=== PATIENT | male | born 1960 | race Asian ===

== ENCOUNTER 2018-05-17 12:09 | Inpatient (IN) | payer OTHER ==
[~2018-05-17] VITALS: Ht 167.6 cm; Wt 70.6 kg
[2018-05-17] VITALS (28 sets, daily range): BP systolic 90–121; BP diastolic 48–78; PULSE 84–95; RESP 12–31; Ht 167.6 cm; Wt 70.6 kg
[2018-05-17] MEDS: SOD CHLORIDE 0.9% 1,000 ML IV SCH (01:30)
[~2018-05-17 12:09] MED LIST: ALBUMIN HUMAN 25% 100 ML INJ ONE; ALBUMIN HUMAN 5% 250 ML INJ ONE; CA CHLORIDE 10% 10 ML SYRINGE ONE; CEFAZOLIN 1 GM INJ ONE; KETAMINE (50 MG/ML) 10 ML VIAL ONE; NA BICARBONATE 8.4% 50 ML SYG ONE; ONDANSETRON 4 MG INJ ONE; metroNIDAZOLE 500 MG/100 ML NS IVPB ONE
[2018-05-17] MEDS ORDERED: SOD CHLORIDE 0.9% 1,000 ML IV STA (15:14)
[2018-05-17] MEDS ORDERED: morphine 4 MG/ML VIAL IV STA ×2 (15:14→17:25)
[2018-05-17] MEDS ORDERED: ONDANSETRON 4 MG INJ IV STA (15:14)
[2018-05-17] MEDS ORDERED: KETOROLAC 30 MG INJ IV STA (15:49)
[2018-05-17] MEDS ORDERED: ALLO100T PO (16:15)
[2018-05-17] MEDS ORDERED: FURO40TA4 PO (16:15)
[2018-05-17] MEDS ORDERED: ACET-141 PO (16:16)
[2018-05-17] MEDS ORDERED: COLC0.6C3 PO (16:17)
[2018-05-17] MEDS ORDERED: HYDR25TA6 PO (16:19)
[2018-05-17] MEDS ORDERED: SODIUM CHLORIDE 0.9% 1L BAG IV* STA (16:25)
[2018-05-17] MEDS ORDERED: PIPER-TAZO 3.375 GM IV (PMX) 100 ML IVPB ONE (16:30)
--- NOTE | 2018-05-17 16:57 | HP ---
Date/Time of Note Date/Time of Note DATE: 05/17/18 TIME: 16:57 Assessment/Plan VTE Prophylaxis Pharmacological prophylaxis: NA/contraindicated Pharm contraindication: other (Patient going for emergent surgery.) Lines/Catheters IV C[facility]ter Type (from [facility]): Saline Lock Assessment/Plan Hospital Course 57-year-old male with comorbidities including gout, arthritis, congestive heart failure, substance abuse, nicotine use, and schizophrenia who came to the emergency room with chief complaint of abdominal pain with imaging studies s howing pneumoperitoneum concerning for bowel perforation, who was admitted to inpatient setting for further treatment and evaluation. 1. Pneumoperitoneum. -Suspect underlying bowel perforation. -Emergency surgical consult done. -The patient to be taken to the OR. -Start broad-spectrum antimicrobial therapy including coverage for anaerobes. -Continue IV fluids. -Start PPI. 2. Sepsis with underlying leukocytosis, lactic acidosis, bandemia, and tachycardia, present on admission secondary to underlying peritonitis. -Emergency surgical exploration. -Start antimicrobial therapy including coverage for anaerobes. -Judicious use of IV fluids. -Monitor for any septic shock. 3. Acute kidney injury. -Unknown baseline creatinine. -Use nephrotoxic drugs with caution. 4. Hyperkalemia. -Most probably secondary to #2. -IV calcium gluconate. 5. Reported congestive heart failure exacerbation. -Judicious use of fluids. -Obtain BNP. -Obtain 2D echocardiogram. 6. Gout. -Hold NSAIDs because of need for emergent surgery and possible underlying peptic ulcer. 7. Substance abuse. -Obtain a urine drug screen. -Cessation will be advised. 8. Right first toe wound with eschar. -Obtain podiatry consult. Plan: The patient will be admitted to inpatient setting. The patient will be kept n.p.o. The patient will be started on DVT prophylaxis (bilateral SCDs) and gastrointestinal prophylaxis. The patient will remain a full code. Activities will be bedrest. The rest of the patient's management will be based on the clinical course, inputs from consultants and the results of diagnostic studies. The patient was seen in collaboration with Dr. Alamo. Result Diagram: 05/17/18 1525 05/17/18 1525 Results 24hrs Laboratory Tests Test 05/17/18 15:25 05/17/18 16:48 White Blood Count 15.3 H Red Blood Count 3.73 L Hemoglobin 11.7 L Hematocrit 36.0 L Mean Corpuscular Volume 96.5 Mean Corpuscular Hemoglobin 31.4 Mean Corpuscular Hemoglobin Concent 32.5 Red Cell Distribution Width 16.1 H Platelet Count 498 H Mean Platelet Volume 9.0 Immature Granulocytes % 1.000 H Neutrophils % Lymphocytes % Monocytes % Eosinophils % Basophils % Nucleated Red Blood Cells % 0.2 H Immature Granulocytes # 0.150 H Neutrophils # Lymphocytes # Monocytes # Eosinophils # Basophils # Nucleated Red Blood Cells # Sodium Level 139 Potassium Level 5.4 H Chloride Level 104 Carbon Dioxide Level 24 Anion Gap 11 Blood Urea Nitrogen 40 H Creatinine 2.00 H Est Glomerular Filtrat Rate mL/min 35 L Glucose Level 76 Calcium Level 9.0 Total Bilirubin 0.5 Direct Bilirubin 0.00 Indirect Bilirubin 0.5 Aspartate Amino Transf (AST/SGOT) 36 Alanine Aminotransferase (ALT/SGPT) 17 Alkaline Phosphatase 203 H Troponin I < 0.012 Total Protein 7.0 Albumin 3.3 Globulin 3.70 H Albumin/Globulin Ratio 0.89 Lipase 206 POC Venous Lactate 2.3 *H HPI/ROS Admit Date/Time Admit Date/Time Hx of Present Illness Reason for admission: Abdominal pain. Pneumoperitoneum on radiographic imaging. Consultants 1. Kevon Bhatt MD, General surgery. This is a 57-year-old male with a past medical history of gout, arthritis, substance abuse, nicotine use, and congestive heart failure. The patient came to the emergency room with chief complaint of 3 days of abdominal pain. The patient denied any vomiting or nausea. The patient was complaining of diarrhea. The patient denied any fevers or chills. The patient denied any dyspnea, chest pain, palpitations, or diaphoresis. The patient's emergency room workup showed leukocytosis (15.3). Patient was also noticed to have a BUN and creatinine of 40 and 2.0 respectively. The patient had underlying lactic acidosis. The patient also had hyperkalemia. The patient underwent a CT scan of the abdomen and pelvis that showed pneumoperitoneum consistent with bowel perforation along with moderate ascites. ROS R Constitutional: no complaints Eyes: no complaints ENT: no complaints Respiratory: no complaints Cardiovascular: edema Gastrointestinal: pain, diarrhea Genitourinary: no complaints Musculoskeletal: bone/joint pain Skin: no complaints Neurologic: no complaints Endocrine: no complaints Lymphatic: lymphadema Psychological: anxiety Immunologic: no complaints PMH/Family/Social Past Medical History 1. Gout. 2. CHF. 3. Schizophrenia. 4. Nicotine use. 5. Substance abuse. Medications Current Medications Piperacillin Sod/ Tazobactam Sod 100 ml @ 200 mls/hr ONCE ONCE IVPB Last administered on 05/17/18at 16:41; Admin Dose 200 MLS/HR; Start 05/17/18 at 16:30; Stop 05/17/18 at 16:59 Ondansetron HCl (Zofran Inj) 4 mg BRIDGE ORDER PRN IV NAUSEA/VOMITING; Start 05/17/18 at 17:00; Stop 05/18/18 at 16:59 Acetaminophen (Tylenol Tab) 650 mg ER BRIDGE PRN PO .MILD PAIN 1-3 OR TEMP; Start 05/17/18 at 17:00; Stop 05/18/18 at 16:59 Coded Allergies: No Known Allergy (Unverified , 05/17/18) Past Surgical History Past Surgical Hx: no surgical history Social History The patient lives at home by himself. Alcohol Use: none Smoking Status: Current every day smoker Drug Use: cocaine, marijuana Exam/Review of Systems Vital Signs Vitals Vital Signs Date Temp Pulse Resp B/P (MAP) Pulse Ox O2 O2 Flow FiO2 Time Delivery Rate 05/17/18 93 28 105/75 100 Room Air 16:47 (85) 05/17/18 98.1 12:10 Exam Exam General: Adequately build 57 year-old male lying in bed in no apparent distress. HEENT: Normocephalic, atraumatic. Eyes: Anicteric sclerae, conjunctivae clear. ENT: Nasal septum midline, oral mucosa moist. Neck supple, JVD noticed. Respiratory: Bilaterally diminished breath sounds. No use of accessory muscles of respiration. Bibasilar rales. Cardiovascular: S1, S2 heard. Regular rate and rhythm. Systolic murmur. Abdomen: Distended. Diffuse tenderness with abdominal guarding. Genitourinary: Deferred. Extremities: No cyanosis, no clubbing. B/L LE 2+ pitting edema. Eschar on the lateral side of the right first toe. Neurologic: Cranial nerves II through XII grossly intact. The patient is awake, alert, and oriented. Additional Comments CT Abdomen & Pelvis IMPRESSION: 1. Pneumoperitoneum consistent with bowel perforation. Site of perforation is unclear. Scattered upper abdominal peritoneal flecks of high-density material which is also seen in the cecum suggesting a possible colonic perforation. 2. Moderate ascites. 3. Wall thickening of the gastric antrum and multiple small bowel loops. Question gastritis/enteritis. 4. Severe cardiomegaly. 5. Possible mild cirrhotic changes of the liver. Gallbladder Ultrasound IMPRESSION: Heterogeneous liver with a nodular contour, suspicious for cirrhosis. Moderate amount of ascites with multiple septations. No evidence of gallstones. MI SYED NP May 17, 2018 16:57
[2018-05-17] MEDS ORDERED: ACETAMINOPHEN 325 MG TAB PO PRN (17:00)
[2018-05-17] MEDS ORDERED: ONDANSETRON 4 MG INJ IV PRN ×3 (17:00→22:00)
[2018-05-17] MEDS ORDERED: CALCIUM GLUCONATE 10% 2 GM in DEXTROSE 5% 100 ML IVPB ONE (17:30)
[2018-05-17] MEDS ORDERED: NACL 0.9% 3 ML SYG IV SCH (17:30)
--- NOTE | 2018-05-17 17:39 | ERD ---
ER Documentation Chief Complaint Chief Complaint abdominal pain with n/v HPI Patient is a 57-year-old male with CHF and hypertension who presents with abdominal pain. The patient has diffuse abdominal pain that he rates as a 10 out of 10. He has nausea but no vomiting. He had shortness of breath as well. He did have one episode of diarrhea this morning. He was brought in by ambulance. He was seen by his nurse practitioner yesterday and was sent to the ER for evaluation. Upon review of old medical records this is the patient's first visit to the emergency department. ROS All systems reviewed and are negative except as per history of present illness. Medications Home Meds Reported Medications Colchicine (Mitigare) 0.6 Mg Capsule, 0.6 MG PO BID, CAP NOT STARTED YET (NEW PRESCRIPTION) 05/17/18 Acetaminophen* (Acetaminophen*) 500 MG Extra Strength Tablet, 1000 MG PO Q3H PRN for PAIN AND OR ELEVATED TEMP, TAB 05/17/18 Allopurinol* (Allopurinol*) 100 Mg Tablet, 100 MG PO DAILY, TAB 05/17/18 Furosemide* (Furosemide*) 40 Mg Tablet, 40 MG PO DAILY, TAB 05/17/18 Discontinued Reported Medications Hydrochlorothiazide* (Hydrochlorothiazide*) 25 Mg Tab, 25 MG PO DAILY, #30 TAB 05/17/18 Allergies Allergies: Coded Allergies: No Known Allergy (Unverified , 05/17/18) PMhx/Soc Medical and Surgical Hx: pt denies Medical Hx, pt denies Surgical Hx History of Surgery: No Anesthesia Reaction: No Hx Neurological Disorder: No Hx Respiratory Disorders: No Hx Cardiac Disorders: Yes (CHF) Hx Psychiatric Problems: Yes (schizophrenia) Hx Miscellaneous Medical Probl: No Hx Alcohol Use: No Hx Substance Use: Yes (marijuana, cocaine, crystal meth (1 mo. ago)) Hx Tobacco Use: Yes (a couple cigs/day) Smoking Status: Current every day smoker FmHx Family History: diabetes Physical Exam Vitals Vital Signs Date Temp Pulse Resp B/P (MAP) Pulse Ox O2 O2 Flow FiO2 Time Delivery Rate 05/17/18 93 28 105/75 100 Room Air 16:47 (85) 05/17/18 92 20 98/73 (81) 100 Room Air 15:15 05/17/18 98.1 94 18 111/74 98 12:10 (86) Physical Exam Const: No acute distress Head: Atraumatic Eyes: Normal Conjunctiva ENT: Normal External Ears, Nose and Mouth. Neck: Full range of motion. No meningismus. Resp: Clear to auscultation bilaterally Cardio: Regular rate and rhythm, no murmurs Abd: Distended abdomen with rigidity and tenderness to palpation diffusely Skin: No petechiae or rashes Back: No midline or flank tenderness Ext: No cyanosis, or edema Neur: Awake and alert Psych: Normal Mood and Affect Result Diagram: 05/17/18 1525 05/17/18 1525 Results 24 hrs Laboratory Tests Test 05/17/18 15:25 05/17/18 16:48 White Blood Count 15.3 10^3/ul Red Blood Count 3.73 10^6/ul Hemoglobin 11.7 g/dl Hematocrit 36.0 % Mean Corpuscular Volume 96.5 fl Mean Corpuscular Hemoglobin 31.4 pg Mean Corpuscular Hemoglobin Concent 32.5 g/dl Red Cell Distribution Width 16.1 % Platelet Count 498 10^3/UL Mean Platelet Volume 9.0 fl Immature Granulocytes % 1.000 % Neutrophils % % Segmented Neutrophils % (Manual) 13 % Band Neutrophils % (Manual) 68 % Lymphocytes % % Lymphocytes % (Manual) 5 % Reactive Lymphocytes % (Manual) 6 % Monocytes % % Monocytes % (Manual) 8 % Eosinophils % % Basophils % % Nucleated Red Blood Cells % 0.2 /100WBC Immature Granulocytes # 0.150 10^3/ul Neutrophils # 10^3/ul Neutrophils # (Manual) 3.6 10^3/ul Band Neutrophils # 10.4 10^3/ul Lymphocytes (Manual) 0.7 10^3/ul Lymphocytes # 10^3/ul Reactive Lymphocytes # 0.9 10^3/ul Monocytes # 10^3/ul Monocytes # (Manual) 1.2 10^3/ul Eosinophils # 10^3/ul Basophils # 10^3/ul Nucleated Red Blood Cells # 10^3/ul Platelet Estimate INCREASED Polychromasia 1+ Poikilocytosis 1+ Anisocytosis 1+ Macrocytosis 1+ Sodium Level 139 mmol/L Potassium Level 5.4 mmol/L Chloride Level 104 mmol/L Carbon Dioxide Level 24 mmol/L Anion Gap 11 Blood Urea Nitrogen 40 mg/dl Creatinine 2.00 mg/dl Est Glomerular Filtrat Rate mL/min 35 mL/min Glucose Level 76 mg/dl Calcium Level 9.0 mg/dl Total Bilirubin 0.5 mg/dl Direct Bilirubin 0.00 mg/dl Indirect Bilirubin 0.5 mg/dl Aspartate Amino Transf (AST/SGOT) 36 IU/L Alanine Aminotransferase (ALT/SGPT) 17 IU/L Alkaline Phosphatase 203 IU/L Troponin I < 0.012 ng/ml Total Protein 7.0 g/dl Albumin 3.3 g/dl Globulin 3.70 g/dl Albumin/Globulin Ratio 0.89 Lipase 206 U/L POC Venous Lactate 2.3 mmol/L Current Medications Medications Dose Sig/Jocelyn Start Time Status Last (Trade) Ordered Route PRN Stop Time Admin Dose Reason Admin Sodium 1,000 ml @ Q1H STAT 05/17/18 DC 05/17/18 Chloride 1,000 mls/hr IV 15:14 05/17/18 15:54 16:26 Morphine 4 mg ONCE STAT 05/17/18 DC Sulfate IV 15:14 05/17/18 (morphine) 15:16 Ondansetron 4 mg ONCE STAT 05/17/18 DC 05/17/18 HCl (Zofran IV 15:14 05/17/18 15:54 Inj) 15:16 Ketorolac 30 mg ONCE STAT 05/17/18 DC 05/17/18 Tromethamine IV 15:49 05/17/18 15:54 (Toradol) 15:50 Sodium 2,040 ml BOLUS OVER 2 05/17/18 DC 05/17/18 Chloride HOURS STAT 16:25 05/17/18 16:41 (NS) IV* 16:26 Piperacillin 100 ml @ ONCE ONCE 05/17/18 DC 05/17/18 Sod/ 200 mls/hr IVPB 16:30 05/17/18 16:41 Tazobactam 16:59 Sod Ondansetron 4 mg BRIDGE ORDER 05/17/18 HCl (Zofran PRN IV 17:00 05/18/18 Inj) NAUSEA/VOMITI 16:59 NG 650 mg ER BRIDGE 05/17/18 Acetaminophen PRN PO 17:00 05/18/18 (Tylenol .MILD PAIN 16:59 Tab) 1-3 OR TEMP Piperacillin 100 ml @ Q6 IVPB 05/17/18 DC Sod/ 200 mls/hr 18:00 05/17/18 Tazobactam 18:00 Sod 50 ml @ Q12 IVPB 05/17/18 UNV Meropenem/Sod 100 mls/hr 21:00 ium Chloride 40 mg BID@06,18 05/17/18 UNV Pantoprazole IV 18:00 (Protonix Iv) Sodium 1,000 ml @ Q10H IV 05/17/18 UNV Chloride 100 mls/hr 17:30 IV Flush 3 ml PER 05/17/18 UNV (NS 3 ml) PROTOCOL IV 17:30 Ondansetron 4 mg Q6H PRN 05/17/18 UNV HCl (Zofran IV 17:30 Inj) NAUSEA/VOMITI NG Morphine 2 mg Q4H PRN 05/17/18 UNV Sulfate IV .PAIN 17:30 (morphine) 7-10 Calcium 120 ml @ ONCE ONCE 05/17/18 UNV Gluconate 2 60 mls/hr IVPB 17:30 05/17/18 gm/Dextrose 19:29 Morphine 4 mg ONCE STAT 05/17/18 DC 05/17/18 Sulfate IV 17:25 05/17/18 17:30 (morphine) 17:26 Procedures/MDM CT abdomen pelvis shows perforated bowel per radiology. Sepsis Documentation: Patient's infectious symptoms have not stabilized and the patient is at risk of rapid decompensation. The patient will be admitted for careful hydration, antibiotic therapy, and infectious source control. SEVERE SEPSIS CRITERIA: Infectious source: Perforated bowel End organ damage indicated by: Lactate greater than 2 SEPSIS MANAGEMENT Time of recognition of sepsis: 4:21 PM at the time of the CT scan report showing perforated bowel. Time of recognition of severe sepsis: 4:28P at the time of the lactic acid of 2.3. Time of recognition of septic shock: No septic shock at this time. 3 HOUR BUNDLE Blood cultures x 2 before broad-spectrum antibiotics: Yes 30 ml/kg NS bolus completed Initial lactate 2.3 Repeat lactate pending SEPTIC SHOCK ASSESSMENT: No lactic acid > 4.0 No persistent hypotension (SBP < 90 or 40 mmHg drop, MAP < 65) despite 30 mL/kg IV fluid bolus VOLUME REASSESSMENT FOR SEPTIC SHOCK: No septic shock at this time PERSISTENT HYPOTENSION TREATMENT: Comfort care no Central line not Required Vasopressor started not required I considered further perfusion assessment with CVP measurement, SCVO2, bedside ultrasound volume assessment, passive leg raise, trial of further fluid bolus. And proceeded with 30 ml/kg fluid bolus of NSS, broad spectrum antibiotics, and admission. I spoke with Dr. Bhatt for consultation and the patient will go to the operating room given the perforated bowel. I spoke with the panel team for admission to a medical surgical bed. CRITICAL CARE Critical care time 35 minutes Emergent fluid management while maintaining close respiratory support. Provision of immediate and broad-spectrum antibiotic therapy. Simultaneous assessment for possible sources in order to direct targeted therapy. Consideration for invasive and chemical support to prevent cardiopulmonary collapse. Critical care time is independent of procedures performed. Departure Diagnosis: Primary Impression: Severe sepsis Additional Impressions: Perforated bowel Abdominal pain Abdominal location: generalized Qualified Codes: R10.84 - Generalized abdominal pain Condition: Serious GALE COULTER MD May 17, 2018 17:39
--- NOTE | 2018-05-17 17:52 | PREAC ---
Date/Time of Note Date/Time of Note DATE: 05/17/18 TIME: 17:45 Anesthesia Eval and Record Evaluation Time Pre-Procedure Interview DATE: 05/17/18 TIME: 17:45 Age 57 Sex male NPO: 8 hrs Preoperative diagnosis pneumoperitoneum, possible GI perforation Planned procedure emergent Exlap Past Medical History Past Medical History: Includes Cardio: HTN, Dyslipidemia, CHF Pulm: Smoking Hx Renal: CKD Hepatic: Alcohol abuse, Other GI: Other (bowel/GI perforation) Heme: Anemia Psych: Depression, Other (schizophrenia) Recreational drugs: Marijuana, Cocaine, Other (meth use) Surgery & Anesthesia Issues Aspiration risk Meds Anticoagulation: No Beta Bradley within 24 hr: No Reason Beta Bradley not given: Allergy Reported Medications Colchicine (Mitigare) 0.6 Mg Capsule, 0.6 MG PO BID, CAP NOT STARTED YET (NEW PRESCRIPTION) 05/17/18 Acetaminophen* (Acetaminophen*) 500 MG Extra Strength Tablet, 1000 MG PO Q3H PRN for PAIN AND OR ELEVATED TEMP, TAB 05/17/18 Allopurinol* (Allopurinol*) 100 Mg Tablet, 100 MG PO DAILY, TAB 05/17/18 Furosemide* (Furosemide*) 40 Mg Tablet, 40 MG PO DAILY, TAB 05/17/18 Discontinued Reported Medications Hydrochlorothiazide* (Hydrochlorothiazide*) 25 Mg Tab, 25 MG PO DAILY, #30 TAB 05/17/18 Current Medications Ondansetron HCl (Zofran Inj) 4 mg BRIDGE ORDER PRN IV NAUSEA/VOMITING; Start 05/17/18 at 17:00; Stop 05/18/18 at 16:59 Acetaminophen (Tylenol Tab) 650 mg ER BRIDGE PRN PO .MILD PAIN 1-3 OR TEMP; Start 05/17/18 at 17:00; Stop 05/18/18 at 16:59 Meropenem/Sodium Chloride 50 ml @ 100 mls/hr Q12 IVPB ; Start 05/17/18 at 21:00; Status UNV Pantoprazole (Protonix Iv) 40 mg BID@06,18 IV ; Start 05/17/18 at 18:00; Status UNV Sodium Chloride 1,000 ml @ 100 mls/hr Q10H IV ; Start 05/17/18 at 17:30; Status UNV IV Flush (NS 3 ml) 3 ml PER PROTOCOL IV ; Start 05/17/18 at 17:30; Status UNV Ondansetron HCl (Zofran Inj) 4 mg Q6H PRN IV NAUSEA/VOMITING; Start 05/17/18 at 17:30; Status UNV Morphine Sulfate (morphine) 2 mg Q4H PRN IV .PAIN 7-10; Start 05/17/18 at 17:30; Status UNV Calcium Gluconate 2 gm/Dextrose 120 ml @ 60 mls/hr ONCE ONCE IVPB ; Start 05/17/18 at 17:30; Stop 05/17/18 at 19:29; Status UNV Meds reviewed: Yes Allergies Coded Allergies: No Known Allergy (Unverified , 05/17/18) Allergies Reviewed: Yes Labs/Studies Labs Reviewed: Reviewed by anesthesiologist Result Diagram: 05/17/18 1525 05/17/18 1525 Laboratory Tests 05/17/18 15:25 Blood Bank Test 05/17/18 16:40 Antibody Screen NEGATIVE Blood Type O POSITIVE test: N/A Studies: ECG, CXR Pre-procedure Exam Last vitals Vital Signs Date Temp Pulse Resp B/P (MAP) Pulse Ox O2 O2 Flow FiO2 Time Delivery Rate 05/17/18 93 28 105/75 100 Room Air 16:47 (85) 05/17/18 98.1 12:10 Airway: Adequate mouth opening, Adequate thyromental dist Mallampati: Mallampati III Teeth: Normal Lung: Normal Heart: Normal ASA Physical Status ASA physical status: 3 Emergency: E Planned Anesthetic General/MAC: ETT, A Line, CVP Planned Pain Management Single shot nerve block, Parenteral pain med, Local by surgeon Pre-operative Attestations Prior to commencing anesthesia and surgery, the patient was re-evaluated, there was verification of: *The patient's identity *The results of appropriate recent lab work and preoperative vital signs *The above evaluation not changing prior to induction *Anesthetic plan, risk benefits, alternative and complications discussed with patient/family; questions answered; patient/family understands, accepts and wishes to proceed. AL CARMEN MD May 17, 2018 17:52
[2018-05-17] MEDS ORDERED: PIPER-TAZO 3.375 GM IV (PMX) 100 ML IVPB SCH (18:00)
[2018-05-17] MEDS: PANTOPRAZOLE 40 MG INJ IV SCH (18:00)
--- NOTE | 2018-05-17 18:53 | CONS ---
Assessment/Plan Assessment/Plan Assessment/Plan (Daily) Perforated viscus Plan: Emergency exploratory laparotomy. I have discussed the surgery possibilities with the patient who has given informed consent. Consultation Date/Type/Reason Admit Date/Time Date of Consultation: May 17, 2018 Type of Consult General surgery Reason for Consultation Perforated viscus Date/Time of Note DATE: 05/17/18 TIME: 18:49 Hx of Present Illness This is the first [facility] visit for this 57-year-old male who presents with severe diffuse abdominal pain. CT scan shows a large amount of pneumoperitoneum with source possibly of colonic origin. Review of systems Head ears eyes nose and throat: Unremarkable Pulmonary: No history of asthma, pneumonia or shortness of breath Cardiac: No known history of chest pain or HI Abdomen: No previous abdominal surgeries. As in the HPI Constitutional: Schizophrenia Past Medical History Medical History: no pertinent history Home Meds Reported Medications Colchicine (Mitigare) 0.6 Mg Capsule, 0.6 MG PO BID, CAP NOT STARTED YET (NEW PRESCRIPTION) 05/17/18 Acetaminophen* (Acetaminophen*) 500 MG Extra Strength Tablet, 1000 MG PO Q3H PRN for PAIN AND OR ELEVATED TEMP, TAB 05/17/18 Allopurinol* (Allopurinol*) 100 Mg Tablet, 100 MG PO DAILY, TAB 05/17/18 Furosemide* (Furosemide*) 40 Mg Tablet, 40 MG PO DAILY, TAB 05/17/18 Discontinued Reported Medications Hydrochlorothiazide* (Hydrochlorothiazide*) 25 Mg Tab, 25 MG PO DAILY, #30 TAB 05/17/18 Medications Current Medications Ondansetron HCl (Zofran Inj) 4 mg BRIDGE ORDER PRN IV NAUSEA/VOMITING; Start 05/17/18 at 17:00; Stop 05/18/18 at 16:59 Acetaminophen (Tylenol Tab) 650 mg ER BRIDGE PRN PO .MILD PAIN 1-3 OR TEMP; Start 05/17/18 at 17:00; Stop 05/18/18 at 16:59 Meropenem/Sodium Chloride 50 ml @ 100 mls/hr Q12 IVPB ; Start 05/17/18 at 21:00 Pantoprazole (Protonix Iv) 40 mg BID@06,18 IV ; Start 05/17/18 at 18:00 Sodium Chloride 1,000 ml @ 100 mls/hr Q10H IV ; Start 05/17/18 at 17:30 IV Flush (NS 3 ml) 3 ml PER PROTOCOL IV ; Start 05/17/18 at 17:30 Ondansetron HCl (Zofran Inj) 4 mg Q6H PRN IV NAUSEA/VOMITING; Start 05/17/18 at 17:30 Morphine Sulfate (morphine) 2 mg Q4H PRN IV .PAIN 7-10; Start 05/17/18 at 17:30 Calcium Gluconate 2 gm/Dextrose 120 ml @ 60 mls/hr ONCE ONCE IVPB ; Start 05/17/18 at 17:30; Stop 05/17/18 at 19:29 Allergies: Coded Allergies: No Known Allergy (Unverified , 05/17/18) Past Surgical History Past Surgical Hx: no surgical history Family History Significant Family History: no pertinent family hx Social History Alcohol Use: none Smoking Status: Current every day smoker Drug Use: cocaine, marijuana Exam/Review of Systems Exam Vitals Vital Signs Date Temp Pulse Resp B/P (MAP) Pulse Ox O2 O2 Flow FiO2 Time Delivery Rate 05/17/18 94 20 94/70 (78) 94 Room Air 18:07 05/17/18 98.1 12:10 Constitutional: alert, oriented Psych: no complaints Head: normocephalic ENMT: nl external ears & nose Neck: supple Respiratory: clear to auscultation Gastrointestinal: tender, other (Rigid) Musculoskeletal: nl extremities to inspection Extremities: normal pulses Results Result Diagram: 05/17/18 1525 05/17/18 1525 Results 24hrs Laboratory Tests Test 05/17/18 15:25 05/17/18 16:48 05/17/18 18:41 White Blood Count 15.3 H Red Blood Count 3.73 L Hemoglobin 11.7 L Hematocrit 36.0 L Mean Corpuscular Volume 96.5 Mean Corpuscular Hemoglobin 31.4 Mean Corpuscular Hemoglobin Concent 32.5 Red Cell Distribution Width 16.1 H Platelet Count 498 H Mean Platelet Volume 9.0 Immature Granulocytes % 1.000 H Neutrophils % Segmented Neutrophils % (Manual) 13 L Band Neutrophils % (Manual) 68 H Lymphocytes % Lymphocytes % (Manual) 5 L Reactive Lymphocytes % (Manual) 6 H Monocytes % Monocytes % (Manual) 8 Eosinophils % Basophils % Nucleated Red Blood Cells % 0.2 H Immature Granulocytes # 0.150 H Neutrophils # Neutrophils # (Manual) 3.6 Band Neutrophils # 10.4 H Lymphocytes (Manual) 0.7 L Lymphocytes # Reactive Lymphocytes # 0.9 H Monocytes # Monocytes # (Manual) 1.2 H Eosinophils # Basophils # Nucleated Red Blood Cells # Platelet Estimate INCREASED Polychromasia 1+ Poikilocytosis 1+ Anisocytosis 1+ Macrocytosis 1+ Sodium Level 139 Potassium Level 5.4 H Chloride Level 104 Carbon Dioxide Level 24 Anion Gap 11 Blood Urea Nitrogen 40 H Creatinine 2.00 H Est Glomerular Filtrat Rate mL/min 35 L Glucose Level 76 Hemoglobin A1c 5.6 Uric Acid 13.3 H Calcium Level 9.0 Total Bilirubin 0.5 Direct Bilirubin 0.00 Indirect Bilirubin 0.5 Aspartate Amino Transf (AST/SGOT) 36 Alanine Aminotransferase (ALT/SGPT) 17 Alkaline Phosphatase 203 H Troponin I < 0.012 C-Reactive Protein 14.3 H B-Type Natriuretic Peptide 26761 H Total Protein 7.0 Albumin 3.3 Globulin 3.70 H Albumin/Globulin Ratio 0.89 Lipase 206 POC Venous Lactate 2.3 *H 1.6 Medications Medication Current Medications Ondansetron HCl (Zofran Inj) 4 mg BRIDGE ORDER PRN IV NAUSEA/VOMITING; Start 05/17/18 at 17:00; Stop 05/18/18 at 16:59 Acetaminophen (Tylenol Tab) 650 mg ER BRIDGE PRN PO .MILD PAIN 1-3 OR TEMP; Start 05/17/18 at 17:00; Stop 05/18/18 at 16:59 Meropenem/Sodium Chloride 50 ml @ 100 mls/hr Q12 IVPB ; Start 05/17/18 at 21:00 Pantoprazole (Protonix Iv) 40 mg BID@06,18 IV ; Start 05/17/18 at 18:00 Sodium Chloride 1,000 ml @ 100 mls/hr Q10H IV ; Start 05/17/18 at 17:30 IV Flush (NS 3 ml) 3 ml PER PROTOCOL IV ; Start 05/17/18 at 17:30 Ondansetron HCl (Zofran Inj) 4 mg Q6H PRN IV NAUSEA/VOMITING; Start 05/17/18 at 17:30 Morphine Sulfate (morphine) 2 mg Q4H PRN IV .PAIN 7-10; Start 05/17/18 at 17:30 Calcium Gluconate 2 gm/Dextrose 120 ml @ 60 mls/hr ONCE ONCE IVPB ; Start 05/17/18 at 17:30; Stop 05/17/18 at 19:29 DAYN BERG MD May 17, 2018 18:53
[2018-05-17] MEDS ORDERED: FENTAnyl 50 MCG/ML VIAL ONE (19:15)
[2018-05-17] MEDS ORDERED: METHYLENE BLUE 1% 10 ML INJ ONE (20:43)
[2018-05-17] MEDS ORDERED: CEFAZOLIN 1 GM INJ ONE (20:57)
[2018-05-17] MEDS ORDERED: ETOMIDATE 20 MG INJ ONE (20:59)
[2018-05-17] MEDS ORDERED: ROPIVACAINE 0.5 % 30 ML VIAL ONE (21:00)
[2018-05-17] MEDS ORDERED: LIDOCAINE 2% (SDV) 5 ML INJ ONE (21:00)
[2018-05-17] MEDS ORDERED: ROCURONIUM 50 MG INJ ONE (21:00)
[2018-05-17] MEDS ORDERED: GLYCOPYRROLATE 0.4 MG INJ ONE (21:00)
[2018-05-17] MEDS ORDERED: NEOSTIGMINE 3 MG/3 ML SYRINGE ONE (21:00)
[2018-05-17] MEDS ORDERED: SUCCINYLCHOLINE CHLORIDE 100 MG/5 ML SYG IV ONE (21:00)
[2018-05-17] MEDS ORDERED: THROMBIN (BOVINE) 5,000 UNIT VIAL TP ONE (21:13)
[2018-05-17] MEDS ORDERED: PHENYLephrine 10 MG INJ ONE (21:38)
[2018-05-17] MEDS ORDERED: morphine 2 MG INJ IV PRN (22:00)
[2018-05-17] MEDS ORDERED: SUGAMMADEX SODIUM 200 MG/2 ML VIAL IV ONE (22:05)
--- NOTE | 2018-05-17 22:05 | OPR ---
Date/Time of Note Date/Time of Note DATE: 05/17/18 TIME: 21:55 Operative Report Procedure Date: May 17, 2018 Preoperative Diagnosis Perforated viscus with pneumoperitoneum Postoperative Diagnosis Perforated duodenal ulcer Operation/Procedure Performed 1. Exploratory laparotomy 2. Plication of perforated duodenal ulcer and Dickson patch 3. Placement of drain Surgeon Dany Berg MD Rn Float None Anesthesia Type: general Anesthesiologist: AL CARMEN MD Estimated Blood Loss: 100 - 150 ml's Transfusion none Specimen Culture and sensitivity Grafts/Implants none Tubes/Drains #19 Round Thierno right upper quadrant Complications none Pt Condition Post Procedure: stable Disposition: PACU Indications Peritonitis and pneumoperitoneum Procedure Description After satisfactory general endotracheal anesthesia was achieved, a Morgan cathete r was placed and the abdomen was prepped and draped in the usual fashion. The abdomen was entered through a vertical midline incision. There was moderate amount of [id number] fluid and the entire abdomen was filled with fibrinopurulent debris. A total of 2500 cc was suctioned out. Abdominal exploration revealed the source of the pneumoperitoneum to be an 8 mm perforated duodenal ulcer. The remainder of the GI tract was completely intact. The perforated duodenal ulcer was closed in layers. 4 sutures of interrupted 2-0 seromuscular silk sutures were placed, securely closing the perforation. This repair was buttressed with an outer layer of 3 serosal sutures of 2-0 silk. The stomach was inflated with 200 cc of methylene blue solution. The repair was watertight with no extravasation of methylene blue. The tails of the anterior silk sutures were used to secure a tongue of omentum to overlay the repair as a Dickson patch. Through a separate stab in the right upper quadrant, a #19 round Thierno drain was placed draining the right upper quadrant an area of the repair. The drain was secured with 2-0 silk. Any visible fibrin in the abdomen was moved with wet laparotomy pads. The abdomen was then first irrigated with saline and then with 1 L of saline with a gram of Ancef. The posterior rectus sheath and peritoneum were closed with running #1 Vicryl. Anterior fascia was closed with 3 running sutures of #2 Vicryl. The skin was closed with edgardo. Sponge, needle, and instrument counts were reported as correct x2. DANY BERG MD May 17, 2018 22:05
--- NOTE | 2018-05-17 22:52 | PAC ---
Date/Time of Note Date/Time of Note DATE: 05/17/18 TIME: 22:52 Post-Anesthesia Notes Post-Anesthesia Note Last documented vital signs Vital Signs Date Temp Pulse Resp B/P (MAP) Pulse Ox O2 O2 Flow FiO2 Time Delivery Rate 05/17/18 98.0 22:34 05/17/18 95 20 121/72 100 Mask 8.0 22:22 (88) Activity: WNL Respiratory function: WNL Cardiovascular function: WNL Mental status: Baseline Pain reasonably controlled: Yes Hydration appropriate: Yes Nausea/Vomiting absent: Yes AL CARMEN MD May 17, 2018 22:52
[2018-05-17] MEDS ORDERED: NA BICARBONATE 8.4% 50 ML SYG ONE (23:09)
[2018-05-17] MEDS ORDERED: NA BICARBONATE 8.4% 50 ML SYG IV ONE (23:30)
[2018-05-18] VITALS (82 sets, daily range): BP systolic 77–130; BP diastolic 37–81; PULSE 81–106; RESP 9–31
[2018-05-18] MEDS ORDERED: NA BICARBONATE 8.4% 50 ML SYG IV STA (00:47)
[2018-05-18] MEDS ORDERED: ALBUMIN HUMAN 25% 200 ML ONE (00:57)
[2018-05-18] MEDS ORDERED: ALBUMIN HUMAN 5% 500 ML ONE (00:58)
[2018-05-18] MEDS ORDERED: SOD CHLORIDE 0.9% 1,000 ML IV SCH ×2 (01:00→02:00)
[2018-05-18] MEDS ORDERED: CA CHLORIDE 10% 10 ML SYRINGE IV ONE ×2 (01:00→09:00)
[2018-05-18] MEDS: ALBUMIN HUMAN 25% 100 ML IV SCH ×2 (01:09→01:20)
[2018-05-18] MEDS: ALBUMIN HUMAN 5% 250 ML IV SCH ×2 (01:27→04:14)
[2018-05-18] MEDS: MEROPENEM 1 GM/50ML(PMX) 50 ML IVPB SCH ×3 (02:17→20:25)
[2018-05-18] MEDS: SOD CHLORIDE 0.9% 1,000 ML IV SCH (03:30)
[2018-05-18] MEDS ORDERED: SOD CHLORIDE 0.9% 250 ML IV* ONE (07:13)
[2018-05-18] MEDS ORDERED: ALBUMIN HUMAN 25% 100 ML ONE (07:16)
[2018-05-18] MEDS ORDERED: ALBUMIN HUMAN 25% 100 ML IV ONE (07:30)
[2018-05-18] MEDS: PANTOPRAZOLE 40 MG INJ IV SCH ×2 (07:36→17:58)
[2018-05-18] MEDS ORDERED: INSULIN REGULAR, HUMAN 100 UNIT/1 ML 3ML VIAL IVP STA (08:37)
--- NOTE | 2018-05-18 08:38 | QN ---
Documentation Comment Postoperative day #1 Awake, alert, afebrile YESSI drainage serosanguineous Leukocytosis improving Impression: Excellent postoperative recovery Plan: Continue medical management DANY BERG MD May 18, 2018 08:37
--- NOTE | 2018-05-18 08:51 | PN ---
Date/Time of Note Date/Time of Note DATE: 05/18/18 TIME: 08:51 Assessment/Plan VTE Prophylaxis Risk score (from Ns)>0 risk: 2 SCD applied (from Ns): Yes Pharmacological prophylaxis: NA/contraindicated Pharm contraindication: anticoag not tolerated Lines/Catheters IV Catheter Type (from [facility]): A Line Urinary Cath still in place: Yes Reason Cath still needed: other (indicate) Assessment/Plan Hospital Course SUBJECTIVE: Currently in the intensive care unit. Lines Right IJ triple-lumen catheter. Left radial A-line. Morgan catheter. Abdominal YESSI drain. OBJECTIVE: Physical Exam General: Adequately build 57 year-old male lying in bed in no apparent distress. HEENT: Normocephalic, atraumatic. Eyes: Anicteric sclerae, conjunctivae clear. ENT: Nasal septum midline, oral mucosa moist. Neck supple, JVD noticed (decreased). Respiratory: Bilaterally diminished breath sounds. No use of accessory muscles of respiration. Bibasilar rales. Cardiovascular: S1, S2 heard. Regular rate and rhythm. Systolic murmur. Abdomen: Distended. Midline surgical dressing with a YESSI drain in place that is draining serosanguineous fluid. Genitourinary: Deferred. Extremities: No cyanosis, no clubbing. B/L LE 2+ pitting edema. Eschar on the lateral side of the right first toe. Neurologic: Cranial nerves II through XII grossly intact. The patient is awake, alert, and oriented. Labs & Vitals per chart ASSESSMENT & PLAN 57-year-old male with comorbidities including gout, arthritis, congestive heart failure, substance abuse, nicotine use, and schizophrenia who came to the emergency room with chief complaint of abdominal pain with imaging studies showing pneumoperitoneum concerning for bowel perforation, who was admitted to inpatient setting for further treatment and evaluation. 1. Perforated duodenal ulcer. -Status post exploratory laparotomy, plication of perforated duodenal ulcer with Dickson patch application, and placement of a drain on 05/17/2018. -Continue pain control. -Continue empiric antimicrobials including coverage for anaerobes because of underlying peritonitis. -N.p.o. -Continue IV fluids. -Continue PPI. 2. Sepsis with underlying leukocytosis, lactic acidosis,bandemia, and tachycardia, present on admission secondary to underlying peritonitis. -Status post emergency surgical exploration. -Continue antimicrobial therapy including coverage for anaerobes. -Judicious use of IV fluids. -Monitor for any septic shock. 3. Acute kidney injury. -Unknown baseline creatinine. -Possible underlying CKD. -Use nephrotoxic drugs with caution. 4. Hyperkalemia. -Most probably secondary to #2. -IV calcium gluconate+ IV insulin +Dextrose. 5. Metabolic acidosis. -Most probably secondary to underlying sepsis. -Continue IV fluids. -IV sodium bicarbonate. 6. Reported congestive heart failure exacerbation. -Judicious use of fluids. -Pending 2D echocardiogram. 7. Gout. -Hold NSAIDs because of need for emergent surgery and possible underlying peptic ulcer. 8. Substance abuse. -Urine drug screen negative for any recreational medications -Cessation will be advised. 9. Right first toe wound with eschar. -Obtain podiatry consult. 10. Anemia. -Normocytic. -Etiology could be multifactorial including current acute blood loss. -Monitor H&H closely. 11. Fluids, electrolytes, and nutrition. -N.p.o. -Continue IV fluids. 12. DVT prophylaxis. -Bilateral SCDs. 13. Plan. -Continue intensive care unit monitoring. -Continue empiric antimicrobials. -Obtain ID consult for antimicrobial management. Critical care time: 40 minutes. The patient was seen in collaboration with Dr. Alamo. Result Diagram: 05/18/18 0517 05/17/18 2239 Results 24hrs Laboratory Tests Test 05/17/18 15:25 05/17/18 16:48 05/17/18 18:41 05/17/18 22:32 White Blood 15.3 H Count Red Blood Count 3.73 L Hemoglobin 11.7 L Hematocrit 36.0 L Mean 96.5 Corpuscular Volume Mean 31.4 Corpuscular Hemoglobin Mean 32.5 Corpuscular Hemoglobin Conc ent Red Cell 16.1 H Distribution Width Platelet Count 498 H Mean Platelet 9.0 Volume Immature 1.000 H Granulocytes % Neutrophils % Segmented 13 L Neutrophils % (Manual) Band 68 H Neutrophils % (Manual) Lymphocytes % Lymphocytes % 5 L (Manual) Reactive 6 H Lymphocytes % (Manual) Monocytes % Monocytes % 8 (Manual) Eosinophils % Basophils % Nucleated Red 0.2 H Blood Cells % Immature 0.150 H Granulocytes # Neutrophils # Neutrophils # 3.6 (Manual) Band 10.4 H Neutrophils # Lymphocytes 0.7 L (Manual) Lymphocytes # Reactive 0.9 H Lymphocytes # Monocytes # Monocytes # 1.2 H (Manual) Eosinophils # Basophils # Nucleated Red Blood Cells # Platelet INCREASED Estimate Polychromasia 1+ Poikilocytosis 1+ Anisocytosis 1+ Macrocytosis 1+ Sodium Level 139 Potassium Level 5.4 H Chloride Level 104 Carbon Dioxide 24 Level Anion Gap 11 Blood Urea 40 H Nitrogen Creatinine 2.00 H Est Glomerular 35 L Filtrat Rate mL/min Glucose Level 76 Hemoglobin A1c 5.6 Uric Acid 13.3 H Calcium Level 9.0 Total Bilirubin 0.5 Direct 0.00 Bilirubin Indirect 0.5 Bilirubin Aspartate Amino 36 Transf (AST/SGO T) Alanine 17 Aminotransferas e (ALT/SGPT) Alkaline 203 H Phosphatase Troponin I < 0.012 C-Reactive 14.3 H Protein B-Type 51696 H Natriuretic Peptide Total Protein 7.0 Albumin 3.3 Globulin 3.70 H Albumin/Globuli 0.89 n Ratio Lipase 206 POC Venous 2.3 *H 1.6 Lactate Urine Color YELLOW Urine Clarity SLIGHTLY CLOUDY A Urine pH 5.0 Urine Specific 1.016 [place] Urine Ketones NEGATIVE Urine Nitrite NEGATIVE Urine Bilirubin NEGATIVE Urine NEGATIVE Urobilinogen Urine Leukocyte TRACE A Esterase Urine 4 Microscopic RBC Urine 4 Microscopic WBC Urine Squamous FEW Epithelial Cell s Urine Bacteria FEW A Urine Mucus FEW A Urine 1+ H Hemoglobin Urine Glucose NEGATIVE Urine Total 2+ H Protein Urine Opiates Positive Screen Urine Negative Barbiturates Urine Negative Amphetamines Screen Urine Negative Benzodiazepines Screen Urine Cocaine Negative Screen Urine Negative Cannabinoids Test 05/17/18 22:39 05/17/18 22:58 05/18/18 00:01 05/18/18 01:30 White Blood 23.2 #H Count Red Blood Count 3.02 L Hemoglobin 9.3 #L Hematocrit 29.7 L Mean 98.3 Corpuscular Volume Mean 30.8 Corpuscular Hemoglobin Mean 31.3 L Corpuscular Hemoglobin Conc ent Red Cell 16.4 H Distribution Width Platelet Count 419 H Mean Platelet 9.2 Volume Immature 2.400 H Granulocytes % Neutrophils % Segmented 15 L Neutrophils % (Manual) Band 75 H Neutrophils % (Manual) Lymphocytes % Lymphocytes % 3 L (Manual) Monocytes % Monocytes % 3 (Manual) Eosinophils % Basophils % Metamyelocytes 4 H % (manual) Nucleated Red 0.1 H Blood Cells % Immature 0.550 H Granulocytes # Neutrophils # Neutrophils # 7.5 (Manual) Band 17.4 H Neutrophils # Lymphocytes 0.6 L (Manual) Lymphocytes # Monocytes # Monocytes # 0.6 (Manual) Eosinophils # Basophils # Metamyelocytes 0.9 H # Nucleated Red Blood Cells # Platelet INCREASED Estimate Polychromasia 3+ Poikilocytosis 2+ Anisocytosis 1+ Macrocytosis 1+ Ovalocytes 1+ Acanthocytes 1+ CBC Results 1 *H Faxed/Phoned Prothrombin 21.8 H Time Prothrombin 1.7 Time Ratio INR 1.89 International Normalized Rati o Activated 40.5 H Partial Thrombo plast Time Sodium Level 141 Potassium Level 5.3 H Chloride Level 109 Carbon Dioxide 18 L Level Anion Gap 14 H Blood Urea 38 H Nitrogen Creatinine 1.95 H Est Glomerular 36 L Filtrat Rate mL/min Glucose Level 67 L Lactic Acid 1.8 Level Calcium Level 9.3 Total Bilirubin 0.3 Direct 0.00 Bilirubin Indirect 0.3 Bilirubin Aspartate Amino 36 Transf (AST/SGO T) Alanine 23 Aminotransferas e (ALT/SGPT) Alkaline 119 Phosphatase Total Protein 6.2 Albumin 3.4 Globulin 2.80 Albumin/Globuli 1.21 n Ratio Blood Gas Blood arterial Blood arterial Blood arterial Specimen Source Arterial Blood 05/17/2018 10:50: 05/18/2018 12:01: 05/18/2018 1:30:4 Date Drawn 18 PM 23 AM 3 AM Arterial Blood 7.317 L 7.377 7.407 pH (Temp corrected ) Arterial Blood 37.3 37.5 37.4 pCO2 (Temp correct) Arterial Blood 146.7 H 130.9 H 91.1 pO2 (Temp corrected ) Arterial Blood 18.7 L 21.5 L 23.0 HCO3 Arterial Blood -6.8 L -3.3 L -1.4 Base Excess Arterial Blood 98.2 H 97.6 96.0 Oxygen Saturati on Ollie Test N/A N/A N/A Arterial Blood A-Line A-Line A-Line Gas Puncture Site Arterial 0.1 0.1 0.3 Blood Carboxyhe moglobin Arterial Blood 0.1 0.2 0.2 Methemoglobin Blood Gas A-a 247.3 H 147.3 H 57.2 H O2 Differential Oxyhemoglobin 98.0 97.3 95.5 Percent Blood Gas 37.0 37.0 37.0 Temperature Blood Gas MASK - SIMPLE MASK - SIMPLE NASAL CANNULA Modality FiO2 61.0 45.0 27.0 Blood Gas UP MAYRA FERREIRA W.RCP Notified Whom Blood Gas 05/17/2018 11:07: 05/18/2018 12:12: 05/18/2018 1:42:2 Notified Time 25 PM 52 AM 1 AM Blood Gas 16 18 Actual Respiration Rat e Test 05/18/18 05:17 05/18/18 07:45 05/18/18 07:46 White Blood 16.2 #H Count Red Blood Count 2.49 L Hemoglobin 7.7 L Hematocrit 24.4 L Mean 98.0 Corpuscular Volume Mean 30.9 Corpuscular Hemoglobin Mean 31.6 L Corpuscular Hemoglobin Conc ent Red Cell 16.4 H Distribution Width Platelet Count 316 # Mean Platelet 9.4 Volume Immature 1.200 H Granulocytes % Neutrophils % Segmented 28 L Neutrophils % (Manual) Band 66 H Neutrophils % (Manual) Lymphocytes % Lymphocytes % 3 L (Manual) Monocytes % Monocytes % 3 (Manual) Eosinophils % Basophils % Nucleated Red 1 H Blood Cells % Immature 0.200 H Granulocytes # Neutrophils # Neutrophils # 6.3 (Manual) Band 10.6 H Neutrophils # Lymphocytes 0.4 L (Manual) Lymphocytes # Monocytes # Monocytes # 0.4 (Manual) Eosinophils # Basophils # Nucleated Red Blood Cells # Platelet NORMAL Estimate Polychromasia 1+ Hypochromasia 2+ Poikilocytosis 1+ Anisocytosis 1+ Microcytosis 1+ Macrocytosis 1+ Prothrombin 25.2 H Time Prothrombin 2.0 Time Ratio INR 2.28 International Normalized Rati o Activated 42.5 H Partial Thrombo plast Time Phosphorus 5.9 H Level Magnesium Level 1.8 C-Reactive 16.2 H Protein Lactic Acid 1.2 Level Sodium Level 145 H Potassium Level 5.0 Chloride Level 111 H Carbon Dioxide 22 Level Anion Gap 12 Blood Urea 43 H Nitrogen Creatinine 2.49 H Est Glomerular 27 L Filtrat Rate mL/min Glucose Level 51 #L Calcium Level 9.0 Total Bilirubin 0.2 Direct 0.00 Bilirubin Indirect 0.2 Bilirubin Aspartate Amino 48 H Transf (AST/SGO T) Alanine 25 Aminotransferas e (ALT/SGPT) Alkaline 81 Phosphatase B-Type 86012 H Natriuretic Peptide Total Protein 5.9 L Albumin 3.5 Globulin 2.40 Albumin/Globuli 1.45 n Ratio Exam/Review of Systems Exam Vitals Vital Signs Date Temp Pulse Resp B/P (MAP) Pulse Ox O2 O2 Flow FiO2 Time Delivery Rate 05/18/18 93 14 95/56 (69) 95 06:45 05/18/18 Nasal 2.0 06:00 Cannula 05/18/18 98.4 04:00 Intake and Output 05/17/18 05/17/18 05/18/18 1515:00 23:00 07:00 IntakeIntake Total 2200 ml 3280 ml OutputOutput Total 320 ml 580 ml BalanceBalance 1880 ml 2700 ml Results Results 24hrs Laboratory Tests Test 05/17/18 15:25 05/17/18 16:48 05/17/18 18:41 05/17/18 22:32 White Blood 15.3 H Count Red Blood Count 3.73 L Hemoglobin 11.7 L Hematocrit 36.0 L Mean 96.5 Corpuscular Volume Mean 31.4 Corpuscular Hemoglobin Mean 32.5 Corpuscular Hemoglobin Conc ent Red Cell 16.1 H Distribution Width Platelet Count 498 H Mean Platelet 9.0 Volume Immature 1.000 H Granulocytes % Neutrophils % Segmented 13 L Neutrophils % (Manual) Band 68 H Neutrophils % (Manual) Lymphocytes % Lymphocytes % 5 L (Manual) Reactive 6 H Lymphocytes % (Manual) Monocytes % Monocytes % 8 (Manual) Eosinophils % Basophils % Nucleated Red 0.2 H Blood Cells % Immature 0.150 H Granulocytes # Neutrophils # Neutrophils # 3.6 (Manual) Band 10.4 H Neutrophils # Lymphocytes 0.7 L (Manual) Lymphocytes # Reactive 0.9 H Lymphocytes # Monocytes # Monocytes # 1.2 H (Manual) Eosinophils # Basophils # Nucleated Red Blood Cells # Platelet INCREASED Estimate Polychromasia 1+ Poikilocytosis 1+ Anisocytosis 1+ Macrocytosis 1+ Sodium Level 139 Potassium Level 5.4 H Chloride Level 104 Carbon Dioxide 24 Level Anion Gap 11 Blood Urea 40 H Nitrogen Creatinine 2.00 H Est Glomerular 35 L Filtrat Rate mL/min Glucose Level 76 Hemoglobin A1c 5.6 Uric Acid 13.3 H Calcium Level 9.0 Total Bilirubin 0.5 Direct 0.00 Bilirubin Indirect 0.5 Bilirubin Aspartate Amino 36 Transf (AST/SGO T) Alanine 17 Aminotransferas e (ALT/SGPT) Alkaline 203 H Phosphatase Troponin I < 0.012 C-Reactive 14.3 H Protein B-Type 56961 H Natriuretic Peptide Total Protein 7.0 Albumin 3.3 Globulin 3.70 H Albumin/Globuli 0.89 n Ratio Lipase 206 POC Venous 2.3 *H 1.6 Lactate Urine Color YELLOW Urine Clarity SLIGHTLY CLOUDY A Urine pH 5.0 Urine Specific 1.016 [place] Urine Ketones NEGATIVE Urine Nitrite NEGATIVE Urine Bilirubin NEGATIVE Urine NEGATIVE Urobilinogen Urine Leukocyte TRACE A Esterase Urine 4 Microscopic RBC Urine 4 Microscopic WBC Urine Squamous FEW Epithelial Cell s Urine Bacteria FEW A Urine Mucus FEW A Urine 1+ H Hemoglobin Urine Glucose NEGATIVE Urine Total 2+ H Protein Urine Opiates Positive Screen Urine Negative Barbiturates Urine Negative Amphetamines Screen Urine Negative Benzodiazepines Screen Urine Cocaine Negative Screen Urine Negative Cannabinoids Test 05/17/18 22:39 05/17/18 22:58 05/18/18 00:01 05/18/18 01:30 White Blood 23.2 #H Count Red Blood Count 3.02 L Hemoglobin 9.3 #L Hematocrit 29.7 L Mean 98.3 Corpuscular Volume Mean 30.8 Corpuscular Hemoglobin Mean 31.3 L Corpuscular Hemoglobin Conc ent Red Cell 16.4 H Distribution Width Platelet Count 419 H Mean Platelet 9.2 Volume Immature 2.400 H Granulocytes % Neutrophils % Segmented 15 L Neutrophils % (Manual) Band 75 H Neutrophils % (Manual) Lymphocytes % Lymphocytes % 3 L (Manual) Monocytes % Monocytes % 3 (Manual) Eosinophils % Basophils % Metamyelocytes 4 H % (manual) Nucleated Red 0.1 H Blood Cells % Immature 0.550 H Granulocytes # Neutrophils # Neutrophils # 7.5 (Manual) Band 17.4 H Neutrophils # Lymphocytes 0.6 L (Manual) Lymphocytes # Monocytes # Monocytes # 0.6 (Manual) Eosinophils # Basophils # Metamyelocytes 0.9 H # Nucleated Red Blood Cells # Platelet INCREASED Estimate Polychromasia 3+ Poikilocytosis 2+ Anisocytosis 1+ Macrocytosis 1+ Ovalocytes 1+ Acanthocytes 1+ CBC Results 1 *H Faxed/Phoned Prothrombin 21.8 H Time Prothrombin 1.7 Time Ratio INR 1.89 International Normalized Rati o Activated 40.5 H Partial Thrombo plast Time Sodium Level 141 Potassium Level 5.3 H Chloride Level 109 Carbon Dioxide 18 L Level Anion Gap 14 H Blood Urea 38 H Nitrogen Creatinine 1.95 H Est Glomerular 36 L Filtrat Rate mL/min Glucose Level 67 L Lactic Acid 1.8 Level Calcium Level 9.3 Total Bilirubin 0.3 Direct 0.00 Bilirubin Indirect 0.3 Bilirubin Aspartate Amino 36 Transf (AST/SGO T) Alanine 23 Aminotransferas e (ALT/SGPT) Alkaline 119 Phosphatase Total Protein 6.2 Albumin 3.4 Globulin 2.80 Albumin/Globuli 1.21 n Ratio Blood Gas Blood arterial Blood arterial Blood arterial Specimen Source Arterial Blood 05/17/2018 10:50: 05/18/2018 12:01: 05/18/2018 1:30:4 Date Drawn 18 PM 23 AM 3 AM Arterial Blood 7.317 L 7.377 7.407 pH (Temp corrected ) Arterial Blood 37.3 37.5 37.4 pCO2 (Temp correct) Arterial Blood 146.7 H 130.9 H 91.1 pO2 (Temp corrected ) Arterial Blood 18.7 L 21.5 L 23.0 HCO3 Arterial Blood -6.8 L -3.3 L -1.4 Base Excess Arterial Blood 98.2 H 97.6 96.0 Oxygen Saturati on Ollie Test N/A N/A N/A Arterial Blood A-Line A-Line A-Line Gas Puncture Site Arterial 0.1 0.1 0.3 Blood Carboxyhe moglobin Arterial Blood 0.1 0.2 0.2 Methemoglobin Blood Gas A-a 247.3 H 147.3 H 57.2 H O2 Differential Oxyhemoglobin 98.0 97.3 95.5 Percent Blood Gas 37.0 37.0 37.0 Temperature Blood Gas MASK - SIMPLE MASK - SIMPLE NASAL CANNULA Modality FiO2 61.0 45.0 27.0 Blood Gas UP MAYRA FERREIRA W.RCP Notified Whom Blood Gas 05/17/2018 11:07: 05/18/2018 12:12: 05/18/2018 1:42:2 Notified Time 25 PM 52 AM 1 AM Blood Gas 16 18 Actual Respiration Rat e Test 05/18/18 05:17 05/18/18 07:45 05/18/18 07:46 White Blood 16.2 #H Count Red Blood Count 2.49 L Hemoglobin 7.7 L Hematocrit 24.4 L Mean 98.0 Corpuscular Volume Mean 30.9 Corpuscular Hemoglobin Mean 31.6 L Corpuscular Hemoglobin Conc ent Red Cell 16.4 H Distribution Width Platelet Count 316 # Mean Platelet 9.4 Volume Immature 1.200 H Granulocytes % Neutrophils % Segmented 28 L Neutrophils % (Manual) Band 66 H Neutrophils % (Manual) Lymphocytes % Lymphocytes % 3 L (Manual) Monocytes % Monocytes % 3 (Manual) Eosinophils % Basophils % Nucleated Red 1 H Blood Cells % Immature 0.200 H Granulocytes # Neutrophils # Neutrophils # 6.3 (Manual) Band 10.6 H Neutrophils # Lymphocytes 0.4 L (Manual) Lymphocytes # Monocytes # Monocytes # 0.4 (Manual) Eosinophils # Basophils # Nucleated Red Blood Cells # Platelet NORMAL Estimate Polychromasia 1+ Hypochromasia 2+ Poikilocytosis 1+ Anisocytosis 1+ Microcytosis 1+ Macrocytosis 1+ Prothrombin 25.2 H Time Prothrombin 2.0 Time Ratio INR 2.28 International Normalized Rati o Activated 42.5 H Partial Thrombo plast Time Phosphorus 5.9 H Level Magnesium Level 1.8 C-Reactive 16.2 H Protein Lactic Acid 1.2 Level Sodium Level 145 H Potassium Level 5.0 Chloride Level 111 H Carbon Dioxide 22 Level Anion Gap 12 Blood Urea 43 H Nitrogen Creatinine 2.49 H Est Glomerular 27 L Filtrat Rate mL/min Glucose Level 51 #L Calcium Level 9.0 Total Bilirubin 0.2 Direct 0.00 Bilirubin Indirect 0.2 Bilirubin Aspartate Amino 48 H Transf (AST/SGO T) Alanine 25 Aminotransferas e (ALT/SGPT) Alkaline 81 Phosphatase B-Type 00106 H Natriuretic Peptide Total Protein 5.9 L Albumin 3.5 Globulin 2.40 Albumin/Globuli 1.45 n Ratio Medications Medication Current Medications Ondansetron HCl (Zofran Inj) 4 mg BRIDGE ORDER PRN IV NAUSEA/VOMITING; Start 05/17/18 at 17:00; Stop 05/18/18 at 16:59 Acetaminophen (Tylenol Tab) 650 mg ER BRIDGE PRN PO .MILD PAIN 1-3 OR TEMP; Start 05/17/18 at 17:00; Stop 05/18/18 at 16:59 Meropenem/Sodium Chloride 50 ml @ 100 mls/hr Q12 IVPB Last administered on 05/18/18at 02:17; Admin Dose 100 MLS/HR; Start 05/17/18 at 21:00 Pantoprazole (Protonix Iv) 40 mg BID@06,18 IV Last administered on 05/18/18at 07:36; Admin Dose 40 MG; Start 05/17/18 at 18:00 Sodium Chloride 1,000 ml @ 100 mls/hr Q10H IV Last administered on 05/18/18at 03:30; Admin Dose 100 MLS/HR; Start 05/17/18 at 17:30 IV Flush (NS 3 ml) 3 ml PER PROTOCOL IV ; Start 05/17/18 at 17:30 Morphine Sulfate (morphine) 2 mg Q4H PRN IV .PAIN 7-10; Start 05/17/18 at 17:30 Morphine Sulfate (morphine) 2 mg ONCE PRN IV .SEVERE PAIN 7-10 Last administered on 05/18/18at 01:29; Admin Dose 2 MG; Start 05/17/18 at 22:00; Stop 05/18/18 at 21:59 Ondansetron HCl (Zofran Inj) 4 mg Q6H PRN IV NAUSEA/VOMITING; Start 05/17/18 at 22:00 Albumin Human 100 ml @ 100 mls/hr ONCE ONCE IV Last administered on 05/18/18at 07:46; Admin Dose 100 MLS/HR; Start 05/18/18 at 07:30; Stop 05/18/18 at 08:29 MI SYED NP May 18, 2018 08:51
[2018-05-18] MEDS ORDERED: NA BICARBONATE 8.4% 50 ML SYG IV ONE (09:00)
[2018-05-18] MEDS ORDERED: DEXTROSE 5%-0.45% NACL 1,000 ML IV SCH (09:00)
[2018-05-18] MEDS: DEXTROSE 50% 50 ML SYRINGE IV PRN ×2 (10:46→22:26)
--- NOTE | 2018-05-18 14:54 | CONS ---
Assessment/Plan Assessment/Plan Assessment/Plan (Daily) Onychomycosis Tinea pedis Corns/callus Left foot partial thickness non-pressure ulcer Edema CHF Hx of substance abuse Schizophrenia Bowel perforation Plan Callus paring 2-4 on bilateral feet there was a partial thickness ulcer noted to left posterior heel and recommend daily application of xeroform and soft bandages and offloading. Nails debrided x10 with nail nipper. Recommend daily application of clotrimazole and lac-hydrin. Non invasive arterial studies ordered. Consultation Date/Type/Reason Admit Date/Time Date/Time of Note DATE: 05/18/18 TIME: 14:54 Hx of Present Illness 57-year-old male with comorbidities including gout, arthritis, congestive heart failure, substance abuse, nicotine use, and schizophrenia who came to the emergency room with chief complaint of abdominal pain with imaging studies showing pneumoperitoneum concerning for bowel perforation, who was admitted to inpatient setting for further treatment and evaluation. Patient underwent surgical repair of bowel perforation yesterday. Presents to the floor for a podiatry evaluation. ROS negative except for HPI Past Medical History gout, arthritis, congestive heart failure, substance abuse, nicotine use, and schizophrenia Home Meds Reported Medications Colchicine (Mitigare) 0.6 Mg Capsule, 0.6 MG PO BID, CAP NOT STARTED YET (NEW PRESCRIPTION) 05/17/18 Acetaminophen* (Acetaminophen*) 500 MG Extra Strength Tablet, 1000 MG PO Q3H PRN for PAIN AND OR ELEVATED TEMP, TAB 05/17/18 Allopurinol* (Allopurinol*) 100 Mg Tablet, 100 MG PO DAILY, TAB 05/17/18 Furosemide* (Furosemide*) 40 Mg Tablet, 40 MG PO DAILY, TAB 05/17/18 Discontinued Reported Medications Hydrochlorothiazide* (Hydrochlorothiazide*) 25 Mg Tab, 25 MG PO DAILY, #30 TAB 05/17/18 Medications Current Medications Ondansetron HCl (Zofran Inj) 4 mg BRIDGE ORDER PRN IV NAUSEA/VOMITING; Start 05/17/18 at 17:00; Stop 05/18/18 at 16:59 Acetaminophen (Tylenol Tab) 650 mg ER BRIDGE PRN PO .MILD PAIN 1-3 OR TEMP; Start 05/17/18 at 17:00; Stop 05/18/18 at 16:59 Meropenem/Sodium Chloride 50 ml @ 100 mls/hr Q12 IVPB Last administered on 05/18/18at 08:18; Admin Dose 100 MLS/HR; Start 05/17/18 at 21:00 Pantoprazole (Protonix Iv) 40 mg BID@06,18 IV Last administered on 05/18/18at 07:36; Admin Dose 40 MG; Start 05/17/18 at 18:00 IV Flush (NS 3 ml) 3 ml PER PROTOCOL IV ; Start 05/17/18 at 17:30 Morphine Sulfate (morphine) 2 mg Q4H PRN IV .PAIN 7-10; Start 05/17/18 at 17:30 Morphine Sulfate (morphine) 2 mg ONCE PRN IV .SEVERE PAIN 7-10 Last administered on 05/18/18at 01:29; Admin Dose 2 MG; Start 05/17/18 at 22:00; Stop 05/18/18 at 21:59 Ondansetron HCl (Zofran Inj) 4 mg Q6H PRN IV NAUSEA/VOMITING; Start 05/17/18 at 22:00 Dextrose (D50w Syringe) ONCE PRN IV DECREASED GLUCOSE Last administered on 05/18/18at 10:46; Admin Dose 100 ML; Start 05/18/18 at 09:00; Stop 05/18/18 at 23:00 Dextrose/Sodium Chloride 1,000 ml @ 75 mls/hr [id number] IV Last administered on 05/18/18at 10:27; Admin Dose 75 MLS/HR; Start 05/18/18 at 09:00 Allergies: Coded Allergies: No Known Allergy (Unverified , 05/17/18) Past Surgical History bowel perforation repair Family History Significant Family History: no pertinent family hx Social History Alcohol Use: none Smoking Status: Current every day smoker Drug Use: cocaine, marijuana Exam/Review of Systems Exam Vitals Vital Signs Date Temp Pulse Resp B/P (MAP) Pulse Ox O2 O2 Flow FiO2 Time Delivery Rate 05/18/18 102 12:00 05/18/18 9 80/51 (61) 98 09:45 05/18/18 Nasal 2.0 09:30 Cannula 05/18/18 97.8 08:00 Intake and Output 05/17/18 05/17/18 05/18/18 1515:00 23:00 07:00 IntakeIntake Total 2200 ml 3380 ml OutputOutput Total 320 ml 580 ml BalanceBalance 1880 ml 2800 ml Exam DP/PT pulses weakly palpable, popliteal pulses palpable 2+ pitting edema mycotic toe nails x10 white scaling lesions in [place] distribution There are dried sanguinous HPK lesions noted to the distal hallux R foot, 4th digit L foot, posterior heels b/l and plantar/lateral feet There is partial thickness ulcer to left posterior heel 1 x 1 x 0.1cm granular without erythema or purulence No pain on palpation to callus sites Protective sensations intact. Results Result Diagram: 05/18/18 0517 05/18/18 0746 Results 24hrs Laboratory Tests Test 05/17/18 15:25 05/17/18 16:48 05/17/18 18:41 05/17/18 22:32 White Blood 15.3 H Count Red Blood Count 3.73 L Hemoglobin 11.7 L Hematocrit 36.0 L Mean 96.5 Corpuscular Volume Mean 31.4 Corpuscular Hemoglobin Mean 32.5 Corpuscular Hemoglobin Conc ent Red Cell 16.1 H Distribution Width Platelet Count 498 H Mean Platelet 9.0 Volume Immature 1.000 H Granulocytes % Neutrophils % Segmented 13 L Neutrophils % (Manual) Band 68 H Neutrophils % (Manual) Lymphocytes % Lymphocytes % 5 L (Manual) Reactive 6 H Lymphocytes % (Manual) Monocytes % Monocytes % 8 (Manual) Eosinophils % Basophils % Nucleated Red 0.2 H Blood Cells % Immature 0.150 H Granulocytes # Neutrophils # Neutrophils # 3.6 (Manual) Band 10.4 H Neutrophils # Lymphocytes 0.7 L (Manual) Lymphocytes # Reactive 0.9 H Lymphocytes # Monocytes # Monocytes # 1.2 H (Manual) Eosinophils # Basophils # Nucleated Red Blood Cells # Platelet INCREASED Estimate Polychromasia 1+ Poikilocytosis 1+ Anisocytosis 1+ Macrocytosis 1+ Sodium Level 139 Potassium Level 5.4 H Chloride Level 104 Carbon Dioxide 24 Level Anion Gap 11 Blood Urea 40 H Nitrogen Creatinine 2.00 H Est Glomerular 35 L Filtrat Rate mL/min Glucose Level 76 Hemoglobin A1c 5.6 Uric Acid 13.3 H Calcium Level 9.0 Total Bilirubin 0.5 Direct 0.00 Bilirubin Indirect 0.5 Bilirubin Aspartate Amino 36 Transf (AST/SGO T) Alanine 17 Aminotransferas e (ALT/SGPT) Alkaline 203 H Phosphatase Troponin I < 0.012 C-Reactive 14.3 H Protein B-Type 32457 H Natriuretic Peptide Total Protein 7.0 Albumin 3.3 Globulin 3.70 H Albumin/Globuli 0.89 n Ratio Lipase 206 POC Venous 2.3 *H 1.6 Lactate Urine Color YELLOW Urine Clarity SLIGHTLY CLOUDY A Urine pH 5.0 Urine Specific 1.016 [place] Urine Ketones NEGATIVE Urine Nitrite NEGATIVE Urine Bilirubin NEGATIVE Urine NEGATIVE Urobilinogen Urine Leukocyte TRACE A Esterase Urine 4 Microscopic RBC Urine 4 Microscopic WBC Urine Squamous FEW Epithelial Cell s Urine Bacteria FEW A Urine Mucus FEW A Urine 1+ H Hemoglobin Urine Glucose NEGATIVE Urine Total 2+ H Protein Urine Opiates Positive Screen Urine Negative Barbiturates Urine Negative Amphetamines Screen Urine Negative Benzodiazepines Screen Urine Cocaine Negative Screen Urine Negative Cannabinoids Test 05/17/18 22:39 05/17/18 22:58 05/18/18 00:01 05/18/18 01:30 White Blood 23.2 #H Count Red Blood Count 3.02 L Hemoglobin 9.3 #L Hematocrit 29.7 L Mean 98.3 Corpuscular Volume Mean 30.8 Corpuscular Hemoglobin Mean 31.3 L Corpuscular Hemoglobin Conc ent Red Cell 16.4 H Distribution Width Platelet Count 419 H Mean Platelet 9.2 Volume Immature 2.400 H Granulocytes % Neutrophils % Segmented 15 L Neutrophils % (Manual) Band 75 H Neutrophils % (Manual) Lymphocytes % Lymphocytes % 3 L (Manual) Monocytes % Monocytes % 3 (Manual) Eosinophils % Basophils % Metamyelocytes 4 H % (manual) Nucleated Red 0.1 H Blood Cells % Immature 0.550 H Granulocytes # Neutrophils # Neutrophils # 7.5 (Manual) Band 17.4 H Neutrophils # Lymphocytes 0.6 L (Manual) Lymphocytes # Monocytes # Monocytes # 0.6 (Manual) Eosinophils # Basophils # Metamyelocytes 0.9 H # Nucleated Red Blood Cells # Platelet INCREASED Estimate Polychromasia 3+ Poikilocytosis 2+ Anisocytosis 1+ Macrocytosis 1+ Ovalocytes 1+ Acanthocytes 1+ CBC Results 1 *H Faxed/Phoned Prothrombin 21.8 H Time Prothrombin 1.7 Time Ratio INR 1.89 International Normalized Rati o Activated 40.5 H Partial Thrombo plast Time Sodium Level 141 Potassium Level 5.3 H Chloride Level 109 Carbon Dioxide 18 L Level Anion Gap 14 H Blood Urea 38 H Nitrogen Creatinine 1.95 H Est Glomerular 36 L Filtrat Rate mL/min Glucose Level 67 L Lactic Acid 1.8 Level Calcium Level 9.3 Total Bilirubin 0.3 Direct 0.00 Bilirubin Indirect 0.3 Bilirubin Aspartate Amino 36 Transf (AST/SGO T) Alanine 23 Aminotransferas e (ALT/SGPT) Alkaline 119 Phosphatase Total Protein 6.2 Albumin 3.4 Globulin 2.80 Albumin/Globuli 1.21 n Ratio Blood Gas Blood arterial Blood arterial Blood arterial Specimen Source Arterial Blood 05/17/2018 10:50: 05/18/2018 12:01: 05/18/2018 1:30:4 Date Drawn 18 PM 23 AM 3 AM Arterial Blood 7.317 L 7.377 7.407 pH (Temp corrected ) Arterial Blood 37.3 37.5 37.4 pCO2 (Temp correct) Arterial Blood 146.7 H 130.9 H 91.1 pO2 (Temp corrected ) Arterial Blood 18.7 L 21.5 L 23.0 HCO3 Arterial Blood -6.8 L -3.3 L -1.4 Base Excess Arterial Blood 98.2 H 97.6 96.0 Oxygen Saturati on Ollie Test N/A N/A N/A Arterial Blood A-Line A-Line A-Line Gas Puncture Site Arterial 0.1 0.1 0.3 Blood Carboxyhe moglobin Arterial Blood 0.1 0.2 0.2 Methemoglobin Blood Gas A-a 247.3 H 147.3 H 57.2 H O2 Differential Oxyhemoglobin 98.0 97.3 95.5 Percent Blood Gas 37.0 37.0 37.0 Temperature Blood Gas MASK - SIMPLE MASK - SIMPLE NASAL CANNULA Modality FiO2 61.0 45.0 27.0 Blood Gas UP MAYRA FERREIRA W.RCP Notified Whom Blood Gas 05/17/2018 11:07: 05/18/2018 12:12: 05/18/2018 1:42:2 Notified Time 25 PM 52 AM 1 AM Blood Gas 16 18 Actual Respiration Rat e Test 05/18/18 05:17 05/18/18 07:45 05/18/18 07:46 05/18/18 10:56 White Blood 16.2 #H Count Red Blood Count 2.49 L Hemoglobin 7.7 L Hematocrit 24.4 L Mean 98.0 Corpuscular Volume Mean 30.9 Corpuscular Hemoglobin Mean 31.6 L Corpuscular Hemoglobin Conc ent Red Cell 16.4 H Distribution Width Platelet Count 316 # Mean Platelet 9.4 Volume Immature 1.200 H Granulocytes % Neutrophils % Segmented 28 L Neutrophils % (Manual) Band 66 H Neutrophils % (Manual) Lymphocytes % Lymphocytes % 3 L (Manual) Monocytes % Monocytes % 3 (Manual) Eosinophils % Basophils % Nucleated Red 1 H Blood Cells % Immature 0.200 H Granulocytes # Neutrophils # Neutrophils # 6.3 (Manual) Band 10.6 H Neutrophils # Lymphocytes 0.4 L (Manual) Lymphocytes # Monocytes # Monocytes # 0.4 (Manual) Eosinophils # Basophils # Nucleated Red Blood Cells # Platelet NORMAL Estimate Polychromasia 1+ Hypochromasia 2+ Poikilocytosis 1+ Anisocytosis 1+ Microcytosis 1+ Macrocytosis 1+ Prothrombin 25.2 H Time Prothrombin 2.0 Time Ratio INR 2.28 International Normalized Rati o Activated 42.5 H Partial Thrombo plast Time Phosphorus 5.9 H Level Magnesium Level 1.8 C-Reactive 16.2 H Protein Lactic Acid 1.2 Level Sodium Level 145 H Potassium Level 5.0 Chloride Level 111 H Carbon Dioxide 22 Level Anion Gap 12 Blood Urea 43 H Nitrogen Creatinine 2.49 H Est Glomerular 27 L Filtrat Rate mL/min Glucose Level 51 #L Calcium Level 9.0 Total Bilirubin 0.2 Direct 0.00 Bilirubin Indirect 0.2 Bilirubin Aspartate Amino 48 H Transf (AST/SGO T) Alanine 25 Aminotransferas e (ALT/SGPT) Alkaline 81 Phosphatase B-Type 73932 H Natriuretic Peptide Total Protein 5.9 L Albumin 3.5 Globulin 2.40 Albumin/Globuli 1.45 n Ratio Triglycerides 43 Level Cholesterol 54 L Level LDL 27 Cholesterol, Calculated HDL Cholesterol 18 L Cholesterol/HDL 3.0 Ratio Bedside Glucose 316 H Medications Medication Current Medications Ondansetron HCl (Zofran Inj) 4 mg BRIDGE ORDER PRN IV NAUSEA/VOMITING; Start 05/17/18 at 17:00; Stop 05/18/18 at 16:59 Acetaminophen (Tylenol Tab) 650 mg ER BRIDGE PRN PO .MILD PAIN 1-3 OR TEMP; Sta rt 05/17/18 at 17:00; Stop 05/18/18 at 16:59 Meropenem/Sodium Chloride 50 ml @ 100 mls/hr Q12 IVPB Last administered on 05/18/18at 08:18; Admin Dose 100 MLS/HR; Start 05/17/18 at 21:00 Pantoprazole (Protonix Iv) 40 mg BID@06,18 IV Last administered on 05/18/18at 07:36; Admin Dose 40 MG; Start 05/17/18 at 18:00 IV Flush (NS 3 ml) 3 ml PER PROTOCOL IV ; Start 05/17/18 at 17:30 Morphine Sulfate (morphine) 2 mg Q4H PRN IV .PAIN 7-10; Start 05/17/18 at 17:30 Morphine Sulfate (morphine) 2 mg ONCE PRN IV .SEVERE PAIN 7-10 Last administered on 05/18/18at 01:29; Admin Dose 2 MG; Start 05/17/18 at 22:00; Stop at 21:59 Ondansetron HCl (Zofran Inj) 4 mg Q6H PRN IV NAUSEA/VOMITING; Start 05/17/18 at 22:00 Dextrose (D50w Syringe) ONCE PRN IV DECREASED GLUCOSE Last administered on 05/18/18at 10:46; Admin Dose 100 ML; Start 05/18/18 at 09:00; Stop 05/18/18 at 23:00 Dextrose/Sodium Chloride 1,000 ml @ 75 mls/hr [id number] IV Last administered on 05/18/18at 10:27; Admin Dose 75 MLS/HR; Start 05/18/18 at 09:00 RUBEN MADRIGAL DPM May 18, 2018 14:54
[2018-05-18] MEDS ORDERED: GLUCOSE GEL 15 GRAM TUBE PO PRN ×2 (18:00)
[2018-05-18] MEDS ORDERED: DEXTROSE 50% 50 ML SYRINGE IV PRN ×2 (18:00)
[2018-05-18] MEDS ORDERED: GLUCAGON 1 MG INJ IM PRN (18:00)
[2018-05-18] MEDS ORDERED: GLUCOSE GEL 15 GRAM TUBE BUCCAL PRN (18:00)
--- NOTE | 2018-05-18 18:16 | CONS ---
DATE OF ADMISSION: 05/17/2018 DATE OF CONSULTATION: TYPE OF CONSULTATION: Nephrology. PHYSICIAN REQUESTING CONSULT: Ron Francois NP REASON FOR CONSULTATION: Acute kidney injury. HISTORY OF PRESENT ILLNESS: This is a 57-year-old male with a past medical history of possible CKD, history of CHF, history of gout, history of nicotine abuse, history of polysubstance abuse, history o f schizophrenia who presents to [facility] for evaluation of abdominal pain. The p atient states he has been having abdominal pain for the last two to three days. The patient's pain w as progressively getting worse and associated with chills. The patient subsequently arrived to [facility] for evaluation. Upon arrival, patient had a CT scan of the abdomen and pelvi s which showed evidence of a new peritoneum consistent with perforated bowel. The patient's laborato ry data shows BUN 48, a creatinine of 2.0, white count of 15.3. The patient was seen emergently by g eneral surgeon, Dr. Bhatt. The patient was taken to surgery and had an exploratory laparotomy with plication of a perforated duodenal ulcer with a patch application. Postoperatively, the patient was taken to intensive care unit. In terms of patient's renal history, on admission, the patient has creatinine 2.0 mg/dL. His creatin ine has increased 2.5 mg/dL. During this time, the patient is noted to be significantly hypertensive with systolic pressures in the 80s and 90s. The patient also states that he may have had an underly ing history of chronic kidney disease. PAST MEDICAL HISTORY: As stated above, history of gout, arthritis, CHF, polysubstance abuse, nicotin e abuse. PAST SURGICAL HISTORY: None. ALLERGIES: NO KNOWN DRUG ALLERGIES. FAMILY HISTORY: No family history of kidney disease. SOCIAL HISTORY: Positive for polysubstance abuse. MEDICATIONS: The patient's medications have been reviewed. REVIEW OF SYSTEMS: A 14-point review of systems conducted. Pertinent positives are as stated in HPI , otherwise negative. PHYSICAL EXAMINATION: VITAL SIGNS: Blood pressure is 95/55, respiration 19, pulse rate 89, temperature 98.6. HEENT: Head is normocephalic. NECK: Supple. HEART: Regular rate. LUNGS: Show diminished breath sounds at the base. ABDOMEN: Soft, positive tender to palpation. Positive pigtail. EXTREMITIES: Negative for clubbing, cyanosis. No edema. DERMATOLOGIC: No rashes. MUSCULOSKELETAL: No joint effusion. NEUROLOGIC: No change in exam. LABORATORY DATA: Shows a sodium 145, potassium 5.0, chloride 111, BUN 43, creatinine 2.59, glucose 3 16. White count 16.2, hemoglobin 7.7, platelet count is 316. IMAGING STUDIES: Reviewed. ASSESSMENT AND PLAN: This is a 57-year-old male who presents with problem: 1. Nonoliguric acute kidney injury on top of possible chronic kidney disease with unknown baseline c reatinine. Etiology of acute kidney injury is likely secondary to hemodynamics, sepsis, possible hyp o tubular injury. The patient's initial urinalysis was reviewed, no evidence of active sediment. Th e patient does have +2 proteinuria but no pyuria, no hematuria. Plan at this point is to check a zan al ultrasound to evaluate renal parenchyma. Would otherwise continue current treatment plan. Contin ue IV fluids. Maintain MAP of 65. Continue antibiotic therapy. Continue supportive care and renall y dose meds. Avoid nephrotoxins. 2. Hypernatremia. The patient has a free water deficit of approximately 1.5 liter. Continue IV hyd ration. Continue hypertonic fluids. Monitor sodium levels closely. 3. Anemia. Continue to monitor hemoglobin and hematocrit levels. Continue blood transfusion. 4. Mineral bone disorder. Monitor calcium and phosphorus levels. 5. Perforated duodenal ulcer status post laparotomy with the plication of perforated ulcer. Continu e to monitor. Continue PPI. Followup with general surgery. 6. Sepsis secondary to perforated ulcer. Continue current antibiotic regimen. Continue IV fluids. Continue pressor support as needed. 7. Hyperkalemia, resolved. 8. Metabolic acidosis secondary to underlying acute kidney injury. IV fluids. Continue to monitor. 9. Encephalopathy ____ metabolic. The patient's mental status is improving. Thank you, Ron, for this interesting consult. It will be a pleasure to follow patient with you t hroughout the hospital course. Please note I spent over 30 minutes of critical care time with this patient. Dictated By: YUSUF FLORES DO NR/NTS Conf#: [id number] DID#: [id number] CC: GABRIELA HESTER MD;*EndCC*
[2018-05-18] MEDS: CLOTRIMAZOLE 1% 30 GM CR TOP SCH (20:25)
[2018-05-18] MEDS: DEXTROSE 10% 1,000 ML IV SCH (22:38)
[2018-05-19] VITALS (19 sets, daily range): BP systolic 100–128; BP diastolic 74–91; PULSE 62–97; RESP 16–29
[2018-05-19] MEDS: PANTOPRAZOLE 40 MG INJ IV SCH ×2 (05:26→18:55)
--- NOTE | 2018-05-19 07:26 | CONS ---
Assessment/Plan Assessment/Plan Hospital Course (Demo Recall) 1) perforated gastric ulcer with peritonitis s/p surgical repair s.aureus is growing from the fluid drained at time of surgery change antibiotics to zyvox/zosyn pt has no hx of MRSA but he is homeless so at higher risk for MRSA get nasal for MRSA 2) CRI with acute component u/a was benign on admission 3) homeless 4)crystal/MJ user but no IVDA by pt's report Consultation Date/Type/Reason Admit Date/Time Date of Consultation: May 19, 2018 Type of Consult ID Date/Time of Note DATE: 05/19/18 TIME: 07:18 Hx of Present Illness pt was admitted due to abd pain for less than 1 day pt had been taking naprosyn for a while for pain to feet he was recently hospitalized at [place] for peripheral edema he has also been told that his renal function is a bit off he denies F, C, 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 no N, V, D no cough, SOB pt is homeless Past Medical History renal disease Home Meds Reported Medications Colchicine (Mitigare) 0.6 Mg Capsule, 0.6 MG PO BID, CAP NOT STARTED YET (NEW PRESCRIPTION) 05/17/18 Acetaminophen* (Acetaminophen*) 500 MG Extra Strength Tablet, 1000 MG PO Q3H PRN for PAIN AND OR ELEVATED TEMP, TAB 05/17/18 Allopurinol* (Allopurinol*) 100 Mg Tablet, 100 MG PO DAILY, TAB 05/17/18 Furosemide* (Furosemide*) 40 Mg Tablet, 40 MG PO DAILY, TAB 05/17/18 Discontinued Reported Medications Hydrochlorothiazide* (Hydrochlorothiazide*) 25 Mg Tab, 25 MG PO DAILY, #30 TAB 05/17/18 Medications Current Medications Pantoprazole (Protonix Iv) 40 mg BID@06,18 IV Last administered on 05/19/18at 05:26; Admin Dose 40 MG; Start 05/17/18 at 18:00 IV Flush (NS 3 ml) 3 ml PER PROTOCOL IV ; Start 05/17/18 at 17:30 Morphine Sulfate (morphine) 2 mg Q4H PRN IV .PAIN 7-10; Start 05/17/18 at 17:30 Ondansetron HCl (Zofran Inj) 4 mg Q6H PRN IV NAUSEA/VOMITING; Start 05/17/18 at 22:00 Clotrimazole (Lotrimin Cr) 1 applic BID TOP Last administered on 05/18/18at 20:25; Admin Dose 1 APPLIC; Start 05/18/18 at 21:00 Ammonium Lactate (Lac-Hydrin 12% Lotion) 1 applic DAILY TOP ; Start 05/19/18 at 09:00 Miscellaneous Information 1 ea NOTE XX ; Start 05/18/18 at 18:00 Glucose (Glutose) 15 gm Q15M PRN PO DECREASED GLUCOSE; Start 05/18/18 at 18:00 Glucose (Glutose) 22.5 gm Q15M PRN PO DECREASED GLUCOSE; Start 05/18/18 at 18:00 Dextrose (D50w Syringe) 25 ml Q15M PRN IV DECREASED GLUCOSE; Start 05/18/18 at 18:00 Dextrose (D50w Syringe) 50 ml Q15M PRN IV DECREASED GLUCOSE Last administered on 05/18/18at 17:58; Admin Dose 50 ML; Start 05/18/18 at 18:00 Glucagon (Glucagen) 1 mg Q15M PRN IM DECREASED GLUCOSE; Start 05/18/18 at 18:00 Glucose (Glutose) 15 gm Q15M PRN BUCCAL DECREASED GLUCOSE; Start 05/18/18 at 18:00 Dextrose 1,000 ml @ 75 mls/hr [id number] IV Last administered on 05/18/18at 22:38; Admin Dose 75 MLS/HR; Start 05/18/18 at 22:30 Piperacillin Sod/ Tazobactam Sod 50 ml @ 100 mls/hr Q6 IVPB ; Start 05/19/18 at 12:00 Linezolid 300 ml @ 300 mls/hr Q12 IVPB ; Start 05/19/18 at 09:00 Allergies: Coded Allergies: No Known Allergy (Unverified , 05/17/18) Social History Alcohol Use: none Smoking Status: Current every day smoker Drug Use: cocaine, marijuana Exam/Review of Systems Exam Vitals Vital Signs Date Temp Pulse Resp B/P (MAP) Pulse Ox O2 O2 Flow FiO2 Time Delivery Rate 05/19/18 92 16 102/83 100 06:00 (89) 05/19/18 Nasal 05:00 Cannula 05/19/18 97.7 04:00 05/18/18 2.0 20:00 Intake and Output 05/18/18 05/18/18 05/19/18 1515:00 23:00 07:00 IntakeIntake Total 1200 ml 565 ml 450 ml OutputOutput Total 400 ml 555 ml 270 ml BalanceBalance 800 ml 10 ml 180 ml Constitutional: alert, oriented Eyes: nl sclera Respiratory: clear to auscultation Cardiovascular: regular rate and rhythm Gastrointestinal: tender, other (no BS, surgical site has some dry drainage on bandage) Extremities: other (edema present with scaling skin and callouses) Results Result Diagram: 05/19/1843105/19/18431 Results 24hrs Laboratory Tests Test 05/18/18 07:45 05/18/18 07:46 05/18/18 10:56 05/18/18 16:15 Lactic Acid Level 1.2 Sodium Level 145 H 146 H Potassium Level 5.0 4.8 Chloride Level 111 H 111 H Carbon Dioxide 22 24 Level Anion Gap 12 11 Blood Urea 43 H 47 H Nitrogen Creatinine 2.49 H 2.91 H Est Glomerular 27 L 23 L Filtrat Rate mL/min Glucose Level 51 #L 39 #*L Calcium Level 9.0 9.5 Total Bilirubin 0.2 Direct Bilirubin 0.00 Indirect Bilirubin 0.2 Aspartate Amino 48 H Transf (AST/SGOT) Alanine 25 Aminotransferase ( ALT/SGPT) Alkaline 81 Phosphatase B-Type Natriuretic 55185 H Peptide Total Protein 5.9 L Albumin 3.5 Globulin 2.40 Albumin/Globulin 1.45 Ratio Triglycerides 43 Level Cholesterol Level 54 L LDL Cholesterol, 27 Calculated HDL Cholesterol 18 L Cholesterol/HDL 3.0 Ratio Bedside Glucose 316 H Hemoglobin 9.1 L Hematocrit 28.7 L Magnesium Level 2.0 Test 05/18/18 17:25 05/18/18 18:13 05/18/18 18:15 05/18/18 18:46 Bedside Glucose 49 *L 136 88 Urine Color YELLOW Urine Clarity SLIGHTLY CLOUDY A Urine pH 5.0 Urine Specific 1.014 [place] Urine Ketones NEGATIVE Urine Nitrite NEGATIVE Urine Bilirubin NEGATIVE Urine Urobilinogen NEGATIVE Urine Leukocyte 2+ H Esterase Urine Microscopic 23 H RBC Urine Microscopic 13 H WBC Urine Bacteria FEW A Urine Granular FEW A Casts Urine Hemoglobin 2+ H Urine Random 62.32 Creatinine Urine Random 58 Sodium Urine Glucose NEGATIVE Urine Total 96.0 H Protein Test 05/18/18 22:13 05/18/18 22:42 05/18/18 22:58 05/19/18 04:32 Bedside Glucose 52 L 156 114 White Blood Count 20.7 #H Red Blood Count 2.87 L Hemoglobin 9.0 L Hematocrit 27.6 L Mean Corpuscular 96.2 Volume Mean Corpuscular 31.4 Hemoglobin Mean Corpuscular 32.6 Hemoglobin Concent Red Cell 17.2 H Distribution Width Platelet Count 304 Mean Platelet 9.6 Volume Immature 1.800 H Granulocytes % Neutrophils % Lymphocytes % Monocytes % Eosinophils % Basophils % Nucleated Red 0.1 H Blood Cells % Immature 0.380 H Granulocytes # Neutrophils # Lymphocytes # Monocytes # Eosinophils # Basophils # Nucleated Red Blood Cells # Sodium Level 144 Potassium Level 4.5 Chloride Level 109 Carbon Dioxide 22 Level Anion Gap 13 Blood Urea 49 H Nitrogen Creatinine 3.45 H Est Glomerular 19 L Filtrat Rate mL/min Glucose Level 90 # Uric Acid 11.5 H Calcium Level 8.6 Phosphorus Level 5.2 H Magnesium Level 1.9 Total Bilirubin 0.3 Direct Bilirubin 0.00 Indirect Bilirubin 0.3 Aspartate Amino 50 H Transf (AST/SGOT) Alanine 26 Aminotransferase ( ALT/SGPT) Alkaline 94 Phosphatase B-Type Natriuretic 09157 H Peptide Total Protein 5.8 L Albumin 3.2 L Globulin 2.60 Albumin/Globulin 1.23 Ratio Medications Medication Current Medications Pantoprazole (Protonix Iv) 40 mg BID@06,18 IV Last administered on 05/19/18at 05:26; Admin Dose 40 MG; Start 05/17/18 at 18:00 IV Flush (NS 3 ml) 3 ml PER PROTOCOL IV ; Start 05/17/18 at 17:30 Morphine Sulfate (morphine) 2 mg Q4H PRN IV .PAIN 7-10; Start 05/17/18 at 17:30 Ondansetron HCl (Zofran Inj) 4 mg Q6H PRN IV NAUSEA/VOMITING; Start 05/17/18 at 22:00 Clotrimazole (Lotrimin Cr) 1 applic BID TOP Last administered on 05/18/18at 20:25; Admin Dose 1 APPLIC; Start 05/18/18 at 21:00 Ammonium Lactate (Lac-Hydrin 12% Lotion) 1 applic DAILY TOP ; Start 05/19/18 at 09:00 Miscellaneous Information 1 ea NOTE XX ; Start 05/18/18 at 18:00 Glucose (Glutose) 15 gm Q15M PRN PO DECREASED GLUCOSE; Start 05/18/18 at 18:00 Glucose (Glutose) 22.5 gm Q15M PRN PO DECREASED GLUCOSE; Start 05/18/18 at 18:00 Dextrose (D50w Syringe) 25 ml Q15M PRN IV DECREASED GLUCOSE; Start 05/18/18 at 18:00 Dextrose (D50w Syringe) 50 ml Q15M PRN IV DECREASED GLUCOSE Last administered on 05/18/18at 17:58; Admin Dose 50 ML; Start 05/18/18 at 18:00 Glucagon (Glucagen) 1 mg Q15M PRN IM DECREASED GLUCOSE; Start 05/18/18 at 18:00 Glucose (Glutose) 15 gm Q15M PRN BUCCAL DECREASED GLUCOSE; Start 05/18/18 at 18:00 Dextrose 1,000 ml @ 75 mls/hr [id number] IV Last administered on 05/18/18at 22:38; Admin Dose 75 MLS/HR; Start 05/18/18 at 22:30 Piperacillin Sod/ Tazobactam Sod 50 ml @ 100 mls/hr Q6 IVPB ; Start 05/19/18 at 12:00 Linezolid 300 ml @ 300 mls/hr Q12 IVPB ; Start 05/19/18 at 09:00 CAREN HARRINGTON MD May 19, 2018 07:26
[2018-05-19] MEDS: LINEZOLID 600 MG/D5W (PMX) 300 ML IVPB SCH (08:36)
[2018-05-19] MEDS: CLOTRIMAZOLE 1% 30 GM CR TOP SCH (08:38)
[2018-05-19] MEDS ORDERED: AMMONIUM LACTATE 12% 225 GM LOT TOP SCH (09:00)
--- NOTE | 2018-05-19 09:16 | PN ---
Date/Time of Note Date/Time of Note DATE: 05/19/18 TIME: 09:11 Assessment/Plan VTE Prophylaxis Risk score (from Ns)>0 risk: 7 SCD applied (from Ns): Yes Pharmacological prophylaxis: NA/contraindicated Pharm contraindication: other (Anemia) Lines/Catheters IV [facility] Type (from [facility] A Line Urinary Cath still in place: Yes Reason Cath still needed: other (indicate) Assessment/Plan Hospital Course SUBJECTIVE: Currently in the intensive care unit. Lines Right IJ triple-lumen catheter. Morgan catheter. Abdominal YESSI drain. OBJECTIVE: Physical Exam General: Adequately build 57 year-old male lying in bed in no apparent distress. HEENT: Normocephalic, atraumatic. Eyes: Anicteric sclerae, conjunctivae clear. ENT: Nasal septum midline, oral mucosa moist. Neck supple, JVD noticed (decreased). Respiratory: Bilaterally diminished breath sounds. No use of accessory muscles of respiration. Bibasilar rales. Cardiovascular: S1, S2 heard. Regular rate and rhythm. Systolic murmur. Abdomen: Distended. Midline surgical dressing with a YESSI drain in place that is draining serosanguineous fluid. Genitourinary: Deferred. Extremities: No cyanosis, no clubbing. B/L LE 2+ pitting edema. Eschar on the la teral side of the right first toe. Neurologic: Cranial nerves II through XII grossly intact. The patient is awake, alert, and oriented. Labs & Vitals per chart ASSESSMENT & PLAN 57-year-old male with comorbidities including gout, arthritis, congestive heart failure, substance abuse, nicotine use, and schizophrenia who came to the emergency room with chief complaint of abdominal pain with imaging studies showing pneumoperitoneum concerning for bowel perforation, who was admitted to inpatient setting for further treatment and evaluation. 1. Perforated duodenal ulcer. -Status post exploratory laparotomy, plication of perforated duodenal ulcer with Dickson patch application, and placement of a drain on 05/17/2018. -Continue pain control. -Continue antimicrobials as per ID for underlying peritonitis. -N.p.o. -Continue PPI. 2. Sepsis with underlying leukocytosis, lactic acidosis,bandemia, and tachycardia, present on admission secondary to underlying peritonitis. -Status post emergency surgical exploration. -Continue antimicrobial therapy as per ID. -Judicious use of IV fluids. -Monitor for any septic shock. 3. Acute kidney injury. -Unknown baseline creatinine. -Possible underlying CKD. -Use nephrotoxic drugs with caution. -Nephrology following. 4. Hyperkalemia. -Resolved. 5. Metabolic acidosis. -Most probably secondary to underlying sepsis. -Continue IV fluids. -Resolved. 6. Reported congestive heart failure exacerbation. -Judicious use of fluids. -Pending 2D echocardiogram. 7. Gout. -Hold NSAIDs because of need for emergent surgery and possible underlying peptic ulcer. 8. Substance abuse. -Urine drug screen negative for any recreational medications -Cessation will be advised. 9. B/L toes onychomycosis. -S/P podiatry consult. 10. Anemia. -Normocytic. -Etiology could be multifactorial including current acute blood loss. -Monitor H&H closely. -S/P 1 unit of PRBC transfusion on 05/18/2018. 11. Fluids, electrolytes, and nutrition. -N.p.o. -Continue IV fluids. 12. DVT prophylaxis. -Bilateral SCDs. 13. Plan. -Continue antimicrobials as per ID. -Initiation of diet as per general surgery. -Transfer the patient to telemetry floor. Critical care time: 35 minutes. The patient was seen in collaboration with Dr. Alamo. Result Diagram: 05/19/182 05/19/18431 Results 24hrs Laboratory Tests Test 05/18/18 10:56 05/18/18 16:15 05/18/18 17:25 05/18/18 18:13 Bedside Glucose 316 H 49 *L 136 Hemoglobin 9.1 L Hematocrit 28.7 L Sodium Level 146 H Potassium Level 4.8 Chloride Level 111 H Carbon Dioxide 24 Level Anion Gap 11 Blood Urea 47 H Nitrogen Creatinine 2.91 H Est Glomerular 23 L Filtrat Rate mL/min Glucose Level 39 #*L Calcium Level 9.5 Magnesium Level 2.0 Test 05/18/18 18:15 05/18/18 18:46 05/18/18 22:13 05/18/18 22:42 Urine Color YELLOW Urine Clarity SLIGHTLY CLOUDY A Urine pH 5.0 Urine Specific 1.014 [place] Urine Ketones NEGATIVE Urine Nitrite NEGATIVE Urine Bilirubin NEGATIVE Urine Urobilinogen NEGATIVE Urine Leukocyte 2+ H Esterase Urine Microscopic 23 H RBC Urine Microscopic 13 H WBC Urine Bacteria FEW A Urine Granular FEW A Casts Urine Hemoglobin 2+ H Urine Random 62.32 Creatinine Urine Random 58 Sodium Urine Glucose NEGATIVE Urine Total 96.0 H Protein Bedside Glucose 88 52 L 156 Test 05/18/18 22:58 05/19/18 04:32 Bedside Glucose 114 White Blood Count 20.7 #H Red Blood Count 2.87 L Hemoglobin 9.0 L Hematocrit 27.6 L Mean Corpuscular 96.2 Volume Mean Corpuscular 31.4 Hemoglobin Mean Corpuscular 32.6 Hemoglobin Concent Red Cell 17.2 H Distribution Width Platelet Count 304 Mean Platelet 9.6 Volume Immature 1.800 H Granulocytes % Neutrophils % Segmented 46 Neutrophils % (Manual) Band Neutrophils % 48 H (Manual) Lymphocytes % Lymphocytes % 1 L (Manual) Monocytes % Monocytes % 4 (Manual) Eosinophils % Basophils % Metamyelocytes % 1 H (manual) Nucleated Red 0.1 H Blood Cells % Immature 0.380 H Granulocytes # Neutrophils # Neutrophils # 11.6 H (Manual) Band Neutrophils # 9.9 H Lymphocytes 0.2 L (Manual) Lymphocytes # Monocytes # Monocytes # 0.8 (Manual) Eosinophils # Basophils # Metamyelocytes # 0.2 H Nucleated Red Blood Cells # Platelet Estimate NORMAL Polychromasia 2+ Poikilocytosis 1+ Anisocytosis 2+ Ovalocytes 1+ Sodium Level 144 Potassium Level 4.5 Chloride Level 109 Carbon Dioxide 22 Level Anion Gap 13 Blood Urea 49 H Nitrogen Creatinine 3.45 H Est Glomerular 19 L Filtrat Rate mL/min Glucose Level 90 # Uric Acid 11.5 H Calcium Level 8.6 Phosphorus Level 5.2 H Magnesium Level 1.9 Total Bilirubin 0.3 Direct Bilirubin 0.00 Indirect Bilirubin 0.3 Aspartate Amino 50 H Transf (AST/SGOT) Alanine 26 Aminotransferase ( ALT/SGPT) Alkaline 94 Phosphatase B-Type Natriuretic 39986 H Peptide Total Protein 5.8 L Albumin 3.2 L Globulin 2.60 Albumin/Globulin 1.23 Ratio Exam/Review of Systems Exam Vitals Vital Signs Date Temp Pulse Resp B/P (MAP) Pulse Ox O2 O2 Flow FiO2 Time Delivery Rate 05/19/18 98.5 94 17 111/85 100 Room Air 08:00 (94) 05/19/18 2.0 07:00 Intake and Output 05/18/18 05/18/18 05/19/18 1414:59 22:59 06:59 IntakeIntake Total 1225 ml 610 ml 480 ml OutputOutput Total 400 ml 565 ml 290 ml BalanceBalance 825 ml 45 ml 190 ml Results Results 24hrs Laboratory Tests Test 05/18/18 10:56 05/18/18 16:15 05/18/18 17:25 05/18/18 18:13 Bedside Glucose 316 H 49 *L 136 Hemoglobin 9.1 L Hematocrit 28.7 L Sodium Level 146 H Potassium Level 4.8 Chloride Level 111 H Carbon Dioxide 24 Level Anion Gap 11 Blood Urea 47 H Nitrogen Creatinine 2.91 H Est Glomerular 23 L Filtrat Rate mL/min Glucose Level 39 #*L Calcium Level 9.5 Magnesium Level 2.0 Test 05/18/18 18:15 05/18/18 18:46 05/18/18 22:13 05/18/18 22:42 Urine Color YELLOW Urine Clarity SLIGHTLY CLOUDY A Urine pH 5.0 Urine Specific 1.014 [place] Urine Ketones NEGATIVE Urine Nitrite NEGATIVE Urine Bilirubin NEGATIVE Urine Urobilinogen NEGATIVE Urine Leukocyte 2+ H Esterase Urine Microscopic 23 H RBC Urine Microscopic 13 H WBC Urine Bacteria FEW A Urine Granular FEW A Casts Urine Hemoglobin 2+ H Urine Random 62.32 Creatinine Urine Random 58 Sodium Urine Glucose NEGATIVE Urine Total 96.0 H Protein Bedside Glucose 88 52 L 156 Test 05/18/18 22:58 05/19/18 04:32 Bedside Glucose 114 White Blood Count 20.7 #H Red Blood Count 2.87 L Hemoglobin 9.0 L Hematocrit 27.6 L Mean Corpuscular 96.2 Volume Mean Corpuscular 31.4 Hemoglobin Mean Corpuscular 32.6 Hemoglobin Concent Red Cell 17.2 H Distribution Width Platelet Count 304 Mean Platelet 9.6 Volume Immature 1.800 H Granulocytes % Neutrophils % Segmented 46 Neutrophils % (Manual) Band Neutrophils % 48 H (Manual) Lymphocytes % Lymphocytes % 1 L (Manual) Monocytes % Monocytes % 4 (Manual) Eosinophils % Basophils % Metamyelocytes % 1 H (manual) Nucleated Red 0.1 H Blood Cells % Immature 0.380 H Granulocytes # Neutrophils # Neutrophils # 11.6 H (Manual) Band Neutrophils # 9.9 H Lymphocytes 0.2 L (Manual) Lymphocytes # Monocytes # Monocytes # 0.8 (Manual) Eosinophils # Basophils # Metamyelocytes # 0.2 H Nucleated Red Blood Cells # Platelet Estimate NORMAL Polychromasia 2+ Poikilocytosis 1+ Anisocytosis 2+ Ovalocytes 1+ Sodium Level 144 Potassium Level 4.5 Chloride Level 109 Carbon Dioxide 22 Level Anion Gap 13 Blood Urea 49 H Nitrogen Creatinine 3.45 H Est Glomerular 19 L Filtrat Rate mL/min Glucose Level 90 # Uric Acid 11.5 H Calcium Level 8.6 Phosphorus Level 5.2 H Magnesium Level 1.9 Total Bilirubin 0.3 Direct Bilirubin 0.00 Indirect Bilirubin 0.3 Aspartate Amino 50 H Transf (AST/SGOT) Alanine 26 Aminotransferase ( ALT/SGPT) Alkaline 94 Phosphatase B-Type Natriuretic 22646 H Peptide Total Protein 5.8 L Albumin 3.2 L Globulin 2.60 Albumin/Globulin 1.23 Ratio Medications Medication Current Medications Pantoprazole (Protonix Iv) 40 mg BID@06,18 IV Last administered on 05/19/18at 05:26; Admin Dose 40 MG; Start 05/17/18 at 18:00 IV Flush (NS 3 ml) 3 ml PER PROTOCOL IV ; Start 05/17/18 at 17:30 Morphine Sulfate (morphine) 2 mg Q4H PRN IV .PAIN 7-10; Start 05/17/18 at 17:30 Ondansetron HCl (Zofran Inj) 4 mg Q6H PRN IV NAUSEA/VOMITING; Start 05/17/18 at 22:00 Clotrimazole (Lotrimin Cr) 1 applic BID TOP Last administered on 05/19/18at 08:38; Admin Dose 1 APPLIC; Start 05/18/18 at 21:00 Miscellaneous Information 1 ea NOTE XX ; Start 05/18/18 at 18:00 Glucose (Glutose) 15 gm Q15M PRN PO DECREASED GLUCOSE; Start 05/18/18 at 18:00 Glucose (Glutose) 22.5 gm Q15M PRN PO DECREASED GLUCOSE; Start 05/18/18 at 18:00 Dextrose (D50w Syringe) 25 ml Q15M PRN IV DECREASED GLUCOSE; Start 05/18/18 at 18:00 Dextrose (D50w Syringe) 50 ml Q15M PRN IV DECREASED GLUCOSE Last administered on 05/18/18at 17:58; Admin Dose 50 ML; Start 05/18/18 at 18:00 Glucagon (Glucagen) 1 mg Q15M PRN IM DECREASED GLUCOSE; Start 05/18/18 at 18:00 Glucose (Glutose) 15 gm Q15M PRN BUCCAL DECREASED GLUCOSE; Start 05/18/18 at 18:00 Dextrose 1,000 ml @ 75 mls/hr [id number] IV Last administered on 05/18/18at 22:38; Admin Dose 75 MLS/HR; Start 05/18/18 at 22:30 Piperacillin Sod/ Tazobactam Sod 50 ml @ 100 mls/hr Q6 IVPB ; Start 05/19/18 at 12:00 Linezolid 300 ml @ 300 mls/hr Q12 IVPB Last administered on 05/19/18at 08:36; Admin Dose 300 MLS/HR; Start 05/19/18 at 09:00 Ammonium Lactate (Lac-Hydrin 12% Lotion) 1 applic DAILY TOP ; Start 05/19/18 at 09:00 MI SYED NP May 19, 2018 09:16
--- NOTE | 2018-05-19 09:20 | PN ---
DATE: 05/19/2018 SUBJECTIVE: The patient is stable, no events overnight. Patient is off pressors. OBJECTIVE: VITAL SIGNS: Blood pressure is 102/83, respirations 16, pulse 92, temperature 97.7. I's and O's hav e been reviewed. HEENT: Head is normocephalic. NECK: Supple. HEART: Regular rate. LUNGS: Show diminished breath sounds at the base. ABDOMEN: Soft, nontender to palpation, no rebound or guarding. EXTREMITIES: Negative for clubbing, cyanosis, no edema. DERMATOLOGIC: No rashes. MUSCULOSKELETAL: No joint effusion. NEUROLOGIC: No change in exam. MEDICATIONS: The patient's medications have been reviewed. LABORATORY DATA: Shows sodium 144, potassium 4.5, BUN 49, creatinine 3.5. Uric acid 11.5. BNP of 3 200. White count 20,000, hemoglobin 9.0, platelet count is 304. Urinalysis was reviewed, showed sandra dence of granular casts, FENa greater than 1%, protein creatinine ratio approximately 1.4 mg per gram of creatinine. Renal ultrasound was reviewed, showed echogenic kidneys consistent with medical rhianna l disease. ASSESSMENT AND PLAN: 1. Nonoliguric acute kidney injury on top of chronic kidney disease with unknown baseline creatinine . Etiology of acute kidney injury secondary to acute tubular necrosis. The patient's urinalysis link ws findings of granular casts, FENa greater than 1%, consistent with tubular injury. The patient is currently in injury phase of acute tubular necrosis as renal function continues to decline. Urinary output has been marginal. At this point, would continue current treatment plan, supportive care, zan ally dose all meds. Would continue to maintain MAP of 65. Continue antibiotic therapy. No immediat e need for renal replacement therapy. 2. Hypernatremia, improved. Continue to monitor. Continue hypertonic fluid. 3. Anemia. Monitor hemoglobin and hematocrit levels. Continue blood transfusion as needed. 4. Mineral bone disorder. Monitor calcium and phosphorus levels. 5. Perforated duodenal ulcer status post laparotomy, continue to monitor. Continue PPI. Follow up with general surgery. 6. Sepsis secondary to a perforated ulcer. The patient is currently hemodynamically stable off pres sor support. Continue IV fluids, antibiotic therapy. 7. Hyperkalemia, resolved. 8. Metabolic acidosis secondary to acute injury. Continue to monitor. 9. Encephalopathy, etiology is toxic metabolic. Mental status is improving. Continue to monitor. Dictated By: YUSUF FLORES DO NR/DALTON Conf#: [id number] DID#: [id number] CC: GABRIELA HESTER MD; FRANCESCA VALLES DPSheeba;*EndCC*
[2018-05-19] MEDS: AMMONIUM LACTATE 12% 225 GM LOT TOP SCH (09:54)
[2018-05-19] MEDS: PIPER-TAZO 2.25 GM (PMX) 50 ML IVPB SCH ×2 (11:05→18:56)
[2018-05-19] MEDS: DEXTROSE 10% 1,000 ML IV SCH (11:05)
--- NOTE | 2018-05-19 12:19 | QN ---
Documentation Comment Postoperative day #2 Hemodynamically stable YESSI drainage is serous Dressing is clean and dry Plan: Cleared for transfer to [facility] DANY BERG MD May 19, 2018 12:19
[2018-05-19] MEDS: morphine 2 MG INJ IV PRN (20:35)
[2018-05-20] MEDS: LINEZOLID 600 MG/D5W (PMX) 300 ML IVPB SCH (00:32)
[2018-05-20] MEDS: CLOTRIMAZOLE 1% 30 GM CR TOP SCH ×3 (00:33→20:24)
[2018-05-20] MEDS: DEXTROSE 10% 1,000 ML IV SCH ×3 (01:10→23:21)
[2018-05-20] MEDS: PIPER-TAZO 2.25 GM (PMX) 50 ML IVPB SCH ×4 (01:43→17:58)
[2018-05-20] MEDS: PANTOPRAZOLE 40 MG INJ IV SCH ×2 (05:07→17:58)
[2018-05-20] MEDS: morphine 2 MG INJ IV PRN ×3 (05:08→13:38)
[2018-05-20 07:26] VITALS: BP 114/72; PULSE 88; RESP 18
--- NOTE | 2018-05-20 08:49 | CONS ---
Assessment/Plan Assessment/Plan Hospital Course (Demo Recall) 1) perforated gastric ulcer with peritonitis s/p surgical repair s.aureus is growing from the fluid drained at time of surgery change antibiotics to zyvox/zosyn pt has no hx of MRSA but he is homeless so at higher risk for MRSA get nasal for MRSA 05/20 - cx from surgery has MSSA and GNR d/c zyvox and continue with just zosyn 2) CRI with acute component u/a was benign on admission 3) homeless 4)crystal/MJ user but no IVDA by pt's report Consultation Date/Type/Reason Admit Date/Time May 17, 2018 at 16:42 Initial Consult Date 05/19/18 Type of Consult ID Date/Time of Note DATE: 05/20/18 TIME: 08:44 24 HR Interval Summary Free Text/Dictation pt feels a bit better no N, V no gas from below and no BM has abd pain when he coughs Exam/Review of Systems Exam Vitals Vital Signs Date Temp Pulse Resp B/P (MAP) Pulse Ox O2 O2 Flow FiO2 Time Delivery Rate 05/20/18 97.2 88 18 114/72 96 07:26 (86) 05/19/18 Room Air 23:55 05/19/18 2.0 15:00 Intake and Output 05/19/18 05/19/18 05/20/18 1515:00 23:00 07:00 IntakeIntake Total 795 ml 50 ml 400 ml OutputOutput Total 435 ml 375 ml 60 ml BalanceBalance 360 ml -325 ml 340 ml Constitutional: alert, oriented Eyes: nl sclera ENMT: mucosa pink and moist Respiratory: clear to auscultation Cardiovascular: regular rate and rhythm Gastrointestinal: firm, other (no BS) Results Result Diagram: 05/20/18 0458 05/20/18 0458 Results 24hrs Laboratory Tests Test 05/19/18 22:43 05/20/18 04:58 Lactic Acid Level 1.0 White Blood Count 19.8 H Red Blood Count 3.01 L Hemoglobin 9.2 L Hematocrit 29.0 L Mean Corpuscular Volume 96.3 Mean Corpuscular Hemoglobin 30.6 Mean Corpuscular Hemoglobin Concent 31.7 L Red Cell Distribution Width 16.5 H Platelet Count 266 Mean Platelet Volume 9.4 Immature Granulocytes % 1.300 H Neutrophils % 85.3 H Lymphocytes % 3.2 L Monocytes % 6.5 Eosinophils % 3.3 Basophils % 0.4 Nucleated Red Blood Cells % 0.3 H Immature Granulocytes # 0.260 H Neutrophils # 16.9 H Lymphocytes # 0.6 L Monocytes # 1.3 H Eosinophils # 0.7 H Basophils # 0.1 Nucleated Red Blood Cells # 0.1 H Sodium Level 139 Potassium Level 4.4 Chloride Level 104 Carbon Dioxide Level 21 Anion Gap 14 H Blood Urea Nitrogen 57 H Creatinine 4.15 H Est Glomerular Filtrat Rate mL/min 15 L Glucose Level 85 Calcium Level 8.6 Phosphorus Level 4.9 Magnesium Level 1.9 Medications Medication Current Medications Pantoprazole (Protonix Iv) 40 mg BID@06,18 IV Last administered on 05/20/18at 05:07; Admin Dose 40 MG; Start 05/17/18 at 18:00 IV Flush (NS 3 ml) 3 ml PER PROTOCOL IV ; Start 05/17/18 at 17:30 Morphine Sulfate (morphine) 2 mg Q4H PRN IV .PAIN 7-10 Last administered on 05/20/18at 05:08; Admin Dose 2 MG; Start 05/17/18 at 17:30 Ondansetron HCl (Zofran Inj) 4 mg Q6H PRN IV NAUSEA/VOMITING; Start 05/17/18 at 22:00 Clotrimazole (Lotrimin Cr) 1 applic BID TOP Last administered on 05/20/18at 00:33; Admin Dose 1 APPLIC; Start 05/18/18 at 21:00 Miscellaneous Information 1 ea NOTE XX ; Start 05/18/18 at 18:00 Glucose (Glutose) 15 gm Q15M PRN PO DECREASED GLUCOSE; Start 05/18/18 at 18:00 Glucose (Glutose) 22.5 gm Q15M PRN PO DECREASED GLUCOSE; Start 05/18/18 at 18:00 Dextrose (D50w Syringe) 25 ml Q15M PRN IV DECREASED GLUCOSE; Start 05/18/18 at 18:00 Dextrose (D50w Syringe) 50 ml Q15M PRN IV DECREASED GLUCOSE Last administered on 05/18/18at 17:58; Admin Dose 50 ML; Start 05/18/18 at 18:00 Glucagon (Glucagen) 1 mg Q15M PRN IM DECREASED GLUCOSE; Start 05/18/18 at 18:00 Glucose (Glutose) 15 gm Q15M PRN BUCCAL DECREASED GLUCOSE; Start 05/18/18 at 18:00 Dextrose 1,000 ml @ 75 mls/hr [id number] IV Last administered on 05/20/18at 05:07; Admin Dose 75 MLS/HR; Start 05/18/18 at 22:30 Piperacillin Sod/ Tazobactam Sod 50 ml @ 100 mls/hr Q6 IVPB Last administered on 05/20/18at 04:59; Admin Dose 100 MLS/HR; Start 05/19/18 at 12:00 Ammonium Lactate (Lac-Hydrin 12% Lotion) 1 applic DAILY TOP Last administered on 05/19/18at 09:54; Admin Dose 1 APPLIC; Start 05/19/18 at 09:00 CAREN HARRINGTON MD May 20, 2018 08:49
[2018-05-20] MEDS: AMMONIUM LACTATE 12% 225 GM LOT TOP SCH (09:04)
--- NOTE | 2018-05-20 09:38 | PN ---
DATE: 05/20/2018 SUBJECTIVE: The patient is transferred from intensive care unit to telemetry. No acute events noted overnight. OBJECTIVE: VITAL SIGNS: Blood pressure is 114/72, respirations 18, pulse 88, temperature 97.2. HEENT: Head is normocephalic. NECK: Supple. HEART: Regular rate. LUNGS: Show diminished breath sounds at the base. ABDOMEN: Soft, nontender to palpation without rebound or guarding. EXTREMITIES: Negative for clubbing, cyanosis. Trace edema. DERMATOLOGIC: No rashes. MUSCULOSKELETAL: No joint effusion. NEUROLOGIC: No change in exam. MEDICATIONS: Reviewed. LABORATORY DATA: Show sodium 139, potassium 4.4, BUN 57, creatinine 4.14. White count 19.8, hemoglo bin 9.2, platelet count is 226. ASSESSMENT AND PLAN: 1. Nonoliguric acute kidney injury on top of chronic kidney disease with unknown baseline creatinine . Etiology of acute kidney injury is secondary to acute tubular necrosis. The patient currently is in injury phase of acute tubular necrosis as renal function is declining. The patient, however, has no overt uremic symptoms. At this point, we would continue current treatment plans, supportive care, renally dose all medicines. No need for renal replacement therapy. 2. Chronic kidney disease. The patient's renal ultrasound shows increased echogenicity consistent w ith chronic kidney disease. The patient is currently in acute kidney injury as stated above. Contin ue current treatment plan. Continue disease factor modification. 3. Hypernatremia, improved. Continue to encourage free water intake. 4. Anemia. Continue to monitor hemoglobin and hematocrit levels. 5. Mineral bone disorder. Monitor calcium and phosphorus levels. 6. Perforated duodenal ulcer status post laparotomy with surgical repair. Continue to monitor. Fol low up with general surgery. Continue proton pump inhibitor. 7. Sepsis secondary to perforated ulcer. The patient is clinically improving. Continue current ant ibiotic regimen. 8. Hyperkalemia, resolved. 9. Metabolic acidosis secondary to acute kidney injury. Continue to monitor. 10. Encephalopathy, etiology is toxic metabolic, improving. Dictated By: YUSUF BUNN/NTS Conf#: [id number] DID#: [id number] CC: GABRIELA HESTER MD; FRANCESCA VALLES DPSheeba; KIMBERLY SALMERON MD;*EndCC*
--- NOTE | 2018-05-20 10:59 | QN ---
Documentation Comment Postoperative day #3 Continued symptomatic improvement Abdominal examination is benign NG output markedly diminished Plan: DC NG tube and Morgan. PT evaluation for mobilization DANY BERG MD May 20, 2018 10:59
[2018-05-20 15:55] VITALS: BP 121/82; PULSE 91; RESP 19
--- NOTE | 2018-05-20 18:51 | PN ---
Date/Time of Note Date/Time of Note DATE: 05/20/18 TIME: 18:41 Assessment/Plan VTE Prophylaxis Risk score (from Nsg)>0 risk: 5 SCD applied (from Ns): Yes SCD contraindicated: low risk/ambulating Pharmacological prophylaxis: LMWH Lines/Catheters IV Catheter Type (from Nrsg): Peripheral IV Urinary Cath still in place: Yes Reason Cath still needed: pres ulcer contaminated by urine, skin wounds contaminated by urine Assessment/Plan Hospital Course A/P 1. Acute abdomen presently stable status post exploratory laparotomy ,Dickson patch. stable advance diet as appropriate 2. Perforated viscus/ulcer, stable, continue supportive care 3. Peritonitis, stable finish antibiotics 4. Substance abuse: Cocaine meth, tobacco, counseling as appropriate 5. Ftt, stable start PT 6. Schizophrenia, restart medical therapy when appropriate7. ARF/ ATN stable, treat comorbidities 8. Peptic ulcer disease, avoid chronic nonsteroidals if feasible. Follow-up on path 9. Bilateral lower extremity ulcers question appreciate podiatry input 10. Lt buttock breakdown, cont wound care/ offload/ low air loss mattress 11. Nonadherence; unfortunately be challenging to prevent further comorbidities 12. Anemia 13. S: Events noted O:Vss PE No pallor JVD Regular no m/r/g Clear Bs dimin, mild tender, nd no RRG No edema Result Diagram: 05/20/1845705/20/18457 Results 24hrs Laboratory Tests Test 05/19/18 22:43 05/20/18 04:58 Lactic Acid Level 1.0 White Blood Count 19.8 H Red Blood Count 3.01 L Hemoglobin 9.2 L Hematocrit 29.0 L Mean Corpuscular Volume 96.3 Mean Corpuscular Hemoglobin 30.6 Mean Corpuscular Hemoglobin Concent 31.7 L Red Cell Distribution Width 16.5 H Platelet Count 266 Mean Platelet Volume 9.4 Immature Granulocytes % 1.300 H Neutrophils % 85.3 H Lymphocytes % 3.2 L Monocytes % 6.5 Eosinophils % 3.3 Basophils % 0.4 Nucleated Red Blood Cells % 0.3 H Immature Granulocytes # 0.260 H Neutrophils # 16.9 H Lymphocytes # 0.6 L Monocytes # 1.3 H Eosinophils # 0.7 H Basophils # 0.1 Nucleated Red Blood Cells # 0.1 H Sodium Level 139 Potassium Level 4.4 Chloride Level 104 Carbon Dioxide Level 21 Anion Gap 14 H Blood Urea Nitrogen 57 H Creatinine 4.15 H Est Glomerular Filtrat Rate mL/min 15 L Glucose Level 85 Calcium Level 8.6 Phosphorus Level 4.9 Magnesium Level 1.9 Exam/Review of Systems Exam Vitals Vital Signs Date Temp Pulse Resp B/P (MAP) Pulse Ox O2 O2 Flow FiO2 Time Delivery Rate 05/20/18 97.2 91 19 121/82 98 15:55 (95) 05/19/18 Room Air 23:55 05/19/18 2.0 15:00 Intake and Output 05/19/18 05/19/18 05/20/18 1515:00 23:00 07:00 IntakeIntake Total 795 ml 50 ml 400 ml OutputOutput Total 435 ml 375 ml 60 ml BalanceBalance 360 ml -325 ml 340 ml Results Results 24hrs Laboratory Tests Test 05/19/18 22:43 05/20/18 04:58 Lactic Acid Level 1.0 White Blood Count 19.8 H Red Blood Count 3.01 L Hemoglobin 9.2 L Hematocrit 29.0 L Mean Corpuscular Volume 96.3 Mean Corpuscular Hemoglobin 30.6 Mean Corpuscular Hemoglobin Concent 31.7 L Red Cell Distribution Width 16.5 H Platelet Count 266 Mean Platelet Volume 9.4 Immature Granulocytes % 1.300 H Neutrophils % 85.3 H Lymphocytes % 3.2 L Monocytes % 6.5 Eosinophils % 3.3 Basophils % 0.4 Nucleated Red Blood Cells % 0.3 H Immature Granulocytes # 0.260 H Neutrophils # 16.9 H Lymphocytes # 0.6 L Monocytes # 1.3 H Eosinophils # 0.7 H Basophils # 0.1 Nucleated Red Blood Cells # 0.1 H Sodium Level 139 Potassium Level 4.4 Chloride Level 104 Carbon Dioxide Level 21 Anion Gap 14 H Blood Urea Nitrogen 57 H Creatinine 4.15 H Est Glomerular Filtrat Rate mL/min 15 L Glucose Level 85 Calcium Level 8.6 Phosphorus Level 4.9 Magnesium Level 1.9 Medications Medication Current Medications Pantoprazole (Protonix Iv) 40 mg BID@06,18 IV Last administered on 05/20/18at 17:58; Admin Dose 40 MG; Start 05/17/18 at 18:00 IV Flush (NS 3 ml) 3 ml PER PROTOCOL IV ; Start 05/17/18 at 17:30 Morphine Sulfate (morphine) 2 mg Q4H PRN IV .PAIN 7-10 Last administered on 05/20/18at 13:38; Admin Dose 2 MG; Start 05/17/18 at 17:30 Ondansetron HCl (Zofran Inj) 4 mg Q6H PRN IV NAUSEA/VOMITING; Start 05/17/18 at 22:00 Clotrimazole (Lotrimin Cr) 1 applic BID TOP Last administered on 05/20/18 09:04; Admin Dose 1 APPLIC; Start 05/18/18 at 21:00 Miscellaneous Information 1 ea NOTE XX ; Start 05/18/18 at 18:00 Glucose (Glutose) 15 gm Q15M PRN PO DECREASED GLUCOSE; Start 05/18/18 at 18:00 Glucose (Glutose) 22.5 gm Q15M PRN PO DECREASED GLUCOSE; Start 05/18/18 at 18:00 Dextrose (D50w Syringe) 25 ml Q15M PRN IV DECREASED GLUCOSE; Start 05/18/18 at 18:00 Dextrose (D50w Syringe) 50 ml Q15M PRN IV DECREASED GLUCOSE Last administered on 05/18/18at 17:58; Admin Dose 50 ML; Start 05/18/18 at 18:00 Glucagon (Glucagen) 1 mg Q15M PRN IM DECREASED GLUCOSE; Start 05/18/18 at 18:00 Glucose (Glutose) 15 gm Q15M PRN BUCCAL DECREASED GLUCOSE; Start 05/18/18 at 18:00 Dextrose 1,000 ml @ 75 mls/hr [id number] IV Last administered on 05/20/18at 05:07; Admin Dose 75 MLS/HR; Start 05/18/18 at 22:30 Piperacillin Sod/ Tazobactam Sod 50 ml @ 100 mls/hr Q6 IVPB Last administered on 05/20/18 17:58; Admin Dose 100 MLS/HR; Start 05/19/18 at 12:00 Ammonium Lactate (Lac-Hydrin 12% Lotion) 1 applic DAILY TOP Last administered on 05/20/18at 09:04; Admin Dose 1 APPLIC; Start 05/19/18 at 09:00 KIMBERLY SALMERON MD May 20, 2018 18:50
[2018-05-20] MEDS ORDERED: BISACODYL 10 MG SUPP PR PRN (19:00)
[2018-05-20] MEDS ORDERED: BISACODYL (EC) 5 MG TAB PO PRN (19:00)
[2018-05-20] MEDS ORDERED: DOCUSATE SODIUM 100 MG CAP PO PRN (19:00)
[2018-05-20] MEDS ORDERED: ONDANSETRON 4 MG INJ IV PRN (19:00)
[2018-05-20 19:31] VITALS: BP 122/80; PULSE 99; RESP 16
--- NOTE | 2018-05-20 20:58 | RADRPT ---
Echocardiogram Report Patient Name: KISHA JUNEPatient ID: [id number] : 1960 (57y 7m)Study Date: 05/18/2018 8:29:23 AM Gender: Mellisa #: [id number] Tech: LE Location: Ref.Physician: [place] [facility] Height(Cm): BSA: Weight(Kg): Quality: GoodAccount #: Procedures: Echocardiographic Report: Transthoracic echocardiogram with complete 2D, M-Mode, and doppler examination. Indications: Evaluate Left Ventricular function. Measurements: 2D/M Mode Doppler Measurement Value Normal Range Measurement Value Normal Range LVIDd 2D 6.2 [ 4.2 - 5.8 ] cm ANSELMO Vmax 3.2 [ 2.0 - 4.0 ] cm2 LVIDs 2D 5.5 [ 2.5 - 4.0 ] cm AV Mean Girma 0.9 [ 70.0 - 90.0 ] cm/sec LVPWd 2D 1.2 [ 0.6 - 1.0 ] cm AV Mean PG 4.0 [ 2.0 - 4.0 ] mmHg IVSd 2D 1.2 [ 0.6 - 1.0 ] cm AV Peak Girma 1.2 [ 100.0 - 170.0 ] cm/sec IVS/LVPW 2D 1.0 ratio AV Peak PG 6.0 [ 2.0 - 9.0 ] mmHg LVOT Diam 2.1 [ 2.3 - 2.9 ] cm AV VTI 19.3 cm LVOT Area 3.5 cm2 LVOT Peak Girma 1.1 [ 70.0 - 110.0 ] cm/sec LVOT Peak PG 5.0 [ 2.0 - 6.0 ] mmHg MV E Peak Girma 1.0 [ 60.0 - 130.0 ] cm/sec MV A Peak Girma 0.8 [ 100.0 - 120.0 ] cm/sec MV E/A 1.2 [ 0.8 - 1.5 ] ratio MV Decel Time 187 [ 104 - 258 ] msec Lat E` Girma 0.1 [ 10.0 - 15.0 ] cm/sec Med E` Girma 0.0 cm/sec MV E/A 1.2 [ 0.8 - 1.5 ] ratio TR Peak Girma 3.0 [ 100.0 - 280.0 ] cm/sec TR Peak PG 36.0 mmHg PV Peak Girma 0.6 [ 40.0 - 80.0 ] cm/sec PV Peak PG 1.0 mmHg RA Pressure 8.0 mmHg Findings: Left Ventricle: Mild concentric left ventricular hypertrophy. Mild enlargement of left ventricle cavity. Severe left ventricular systolic dysfunction. Ejection fraction is visually estimated at 30 %. Tissue Doppler/Mitral Doppler indices are consistent with pseudonormalization with mildly elevated left atrial pressure (Stage II diastolic dysfunction). Right Ventricle: Mild enlargement of right ventricle. Mild right ventricular hypokinesis. Left Atrium: There is mild enlargement of left atrium. Right Atrium: There is mild enlargement of right atrium. Mitral Valve: Mitral valve leaflets appear mildly thickened. Mild mitral annular calcification. Mild to moderate mitral valve regurgitation. Aortic Valve: Normal appearance of the aortic valve. No significant aortic stenosis or insufficiency. Tricuspid Valve: Normal appearance of the tricuspid valve. Estimated peak PA systolic pressure 44 mmHg. There is moderate tricuspid regurgitation. Pulmonic Valve: Normal pulmonic valve appearance. There is trace pulmonic regurgitation. Pericardium: Trivial pericardial effusion. Aorta: Normal aortic root. IVC: The IVC is not well visualized. Conclusions: Mild concentric left ventricular hypertrophy. Mild enlargement of left ventricle cavity. Severe left ventricular systolic dysfunction. Ejection fraction is visually estimated at 30 %. Tissue Doppler/Mitral Doppler indices are consistent with pseudonormalization with mildly elevated left atrial pressure (Stage II diastolic dysfunction). Mild enlargement of right ventricle. Mild right ventricular hypokinesis. There is mild enlargement of left atrium. There is mild enlargement of right atrium. Mild to moderate mitral valve regurgitation. No significant aortic stenosis or insufficiency. Estimated peak PA systolic pressure 44 mmHg. There is moderate tricuspid regurgitation. Trivial pericardial effusion. Electronically Signed By: Vince Gotti 2018-05-20 20:57:57 PDT
[2018-05-20 22:50] VITALS: BP 103/74; PULSE 79; RESP 18
[2018-05-21] MEDS: PIPER-TAZO 2.25 GM (PMX) 50 ML IVPB SCH ×4 (00:14→17:20)
[2018-05-21 02:00] VITALS: BP 117/82; PULSE 93; RESP 18
[2018-05-21] MEDS ORDERED: ZOLPIDEM 5 MG TAB PO PRN (03:30)
[2018-05-21] MEDS: PANTOPRAZOLE 40 MG INJ IV SCH ×2 (05:48→17:20)
[2018-05-21] MEDS: morphine 2 MG INJ IV PRN ×2 (05:49→10:45)
[2018-05-21 07:55] VITALS: BP 129/93; PULSE 87; RESP 18
[2018-05-21] MEDS: ENOXAPARIN 30 MG/0.3 ML SYG SC SCH (08:13)
--- NOTE | 2018-05-21 08:37 | PN ---
DATE: 05/21/2018 SUBJECTIVE: The patient was transferred to [facility]. No other events noted overnight. OBJECTIVE: VITAL SIGNS: Blood pressure is 129/93, respirations 18, pulse 87, temperature 98.0. HEENT: Head is normocephalic. NECK: Supple. HEART: Regular rate. LUNGS: Show diminished breath sounds at the base. ABDOMEN: Soft, nontender to palpation. EXTREMITIES: Negative for clubbing, cyanosis, no edema. DERMATOLOGIC: No rashes. MUSCULOSKELETAL: No joint effusion. NEUROLOGIC: No change in exam. MEDICATIONS: Reviewed. LABORATORY DATA: Shows sodium 138, potassium 4.4, chloride 102, BUN 61, creatinine 4.64. The patien t's phosphorus levels Is 5.5. White count 13.7, hemoglobin 9.9, platelet count is 245. ASSESSMENT AND PLAN: 1. Nonoliguric acute kidney injury on top of chronic kidney disease with unknown baseline creatinine . Etiology of acute kidney injury is secondary to acute tubular necrosis. The patient remains in in jury phase of acute tubular necrosis; however, the rate of decline of renal function has decreased. At this point, we would continue current treatment plans, supportive care, renally dose all medicines . There is no immediate need for renal placement therapy and monitor closely for any overt signs of uremia. 2. Chronic kidney disease with unknown baseline creatinine. The patient is currently in acute injur y as stated above. Continue current treatment plan. Otherwise, would continue disease factor modifi cation. 3. Hypernatremia, improved. 4. Anemia. Continue to monitor hemoglobin and hematocrit levels. 5. Mineral bone disorder, monitor calcium and phosphorus levels. 6. Perforated duodenal ulcer status post laparotomy with surgical repair. Continue to monitor. Con tinue proton pump inhibitor. 7. Sepsis secondary to perforated ulcer. The patient is clinically improving. Continue current ant ibiotic regimen. 8. Metabolic acidosis secondary to acute kidney injury, improved. 9. Encephalopathy, improving. Continue to monitor. Dictated By: YUSUF FLORES DO NR/NTS Conf#: [id number] DID#: [id number] CC: FRANCESCA VALLES DPM; KIMBERLY SALMERON MD; GABRIELA HESTER MD;*EndCC*
--- NOTE | 2018-05-21 10:10 | QN ---
Documentation Comment Postoperative day #4 Continued symptomatic improvement Leukocytosis improved Tolerating clears Voiding without Morgan Plan: Full liquids Continue medical management DANY BERG MD May 21, 2018 10:10
[2018-05-21] MEDS: AMMONIUM LACTATE 12% 225 GM LOT TOP SCH ×2 (10:30→11:53)
[2018-05-21] MEDS: CLOTRIMAZOLE 1% 30 GM CR TOP SCH ×3 (10:30→20:30)
--- NOTE | 2018-05-21 10:41 | CONS ---
Assessment/Plan Assessment/Plan Assessment/Plan (Daily) Onychomycosis Tinea pedis Corns/callus Left foot partial thickness non-pressure ulcer - improving Edema CHF Hx of substance abuse Schizophrenia Bowel perforation Plan Continue with daily application of xeroform and soft bandages and offloading. Recommend daily application of clotrimazole and lac-hydrin. Non invasive arterial studies revealed: Monophasic waveforms in the right DP. Otherwise unremarkable. Patient may follow up in outpatient wound care clinic. Consultation Date/Type/Reason Admit Date/Time May 17, 2018 at 16:42 Initial Consult Date 05/19/18 Date/Time of Note DATE: 05/21/18 TIME: 10:41 24 HR Interval Summary Free Text/Dictation No acute events overnight Exam/Review of Systems Exam Vitals Vital Signs Date Temp Pulse Resp B/P (MAP) Pulse Ox O2 O2 Flow FiO2 Time Delivery Rate 05/21/18 98.0 87 18 129/93 98 Nasal 07:55 (105) Cannula 05/19/18 2.0 15:00 Intake and Output 05/20/18 05/20/18 05/21/18 1515:00 23:00 07:00 IntakeIntake Total 50 ml 750 ml 50 ml OutputOutput Total 80 ml 190 ml 1175 ml BalanceBalance -30 ml 560 ml -1125 ml Exam DP/PT pulses weakly palpable, popliteal pulses palpable 2+ pitting edema mycotic toe nails x10 white scaling lesions in [place] distribution There are dried sanguinous HPK lesions noted to the distal hallux R foot, 4th digit L foot, posterior heels b/l and plantar/lateral feet There is partial thickness ulcer to left posterior heel 1 x 1 x 0.1cm granular without erythema or purulence No pain on palpation to callus sites Protective sensations intact. Results Result Diagram: 05/21/18 0554 05/21/18 0554 Results 24hrs Laboratory Tests Test 05/21/18 05:54 05/21/18 07:32 White Blood Count 13.7 #H Red Blood Count 3.21 L Hemoglobin 9.9 L Hematocrit 30.6 L Mean Corpuscular Volume 95.3 Mean Corpuscular Hemoglobin 30.8 Mean Corpuscular Hemoglobin Concent 32.4 Red Cell Distribution Width 16.2 H Platelet Count 245 Mean Platelet Volume 9.8 Immature Granulocytes % 1.300 H Neutrophils % 76.4 Lymphocytes % 5.2 L Monocytes % 11.3 H Eosinophils % 5.3 Basophils % 0.5 Nucleated Red Blood Cells % 0.4 H Immature Granulocytes # 0.180 H Neutrophils # 10.4 H Lymphocytes # 0.7 L Monocytes # 1.5 H Eosinophils # 0.7 H Basophils # 0.1 Nucleated Red Blood Cells # 0.1 H Sodium Level 138 Potassium Level 4.4 Chloride Level 102 Carbon Dioxide Level 21 Anion Gap 15 H Blood Urea Nitrogen 61 H Creatinine 4.64 H Est Glomerular Filtrat Rate mL/min 13 L Glucose Level 66 #L Calcium Level 8.4 Phosphorus Level 5.5 H Magnesium Level 1.9 Thyroid Stimulating Hormone (TSH) 3.680 Lab Scanned Report BLOOD TRANSFUSION Medications Medication Current Medications Pantoprazole (Protonix Iv) 40 mg BID@06,18 IV Last administered on 05/21/18at 05:48; Admin Dose 40 MG; Start 05/17/18 at 18:00 IV Flush (NS 3 ml) 3 ml PER PROTOCOL IV ; Start 05/17/18 at 17:30 Morphine Sulfate (morphine) 2 mg Q4H PRN IV .PAIN 7-10 Last administered on 05/21/18at 05:49; Admin Dose 2 MG; Start 05/17/18 at 17:30 Clotrimazole (Lotrimin Cr) 1 applic BID TOP Last administered on 05/20/18at 20:24; Admin Dose 1 APPLIC; Start 05/18/18 at 21:00 Miscellaneous Information 1 ea NOTE XX ; Start 05/18/18 at 18:00 Glucose (Glutose) 15 gm Q15M PRN PO DECREASED GLUCOSE; Start 05/18/18 at 18:00 Glucose (Glutose) 22.5 gm Q15M PRN PO DECREASED GLUCOSE; Start 05/18/18 at 18:00 Dextrose (D50w Syringe) 25 ml Q15M PRN IV DECREASED GLUCOSE; Start 05/18/18 at 18:00 Dextrose (D50w Syringe) 50 ml Q15M PRN IV DECREASED GLUCOSE Last administered on 05/18/18at 17:58; Admin Dose 50 ML; Start 05/18/18 at 18:00 Glucagon (Glucagen) 1 mg Q15M PRN IM DECREASED GLUCOSE; Start 05/18/18 at 18:00 Glucose (Glutose) 15 gm Q15M PRN BUCCAL DECREASED GLUCOSE; Start 05/18/18 at 18:00 Piperacillin Sod/ Tazobactam Sod 50 ml @ 100 mls/hr Q6 IVPB Last administered on 05/21/18at 05:48; Admin Dose 100 MLS/HR; Start 05/19/18 at 12:00 Ammonium Lactate (Lac-Hydrin 12% Lotion) 1 applic DAILY TOP Last administered on 05/20/18at 09:04; Admin Dose 1 APPLIC; Start 05/19/18 at 09:00 Ondansetron HCl (Zofran Inj) 4 mg Q4 PRN IV NAUSEA/VOMITING; Start 05/20/18 at 19:00 Enoxaparin Sodium (Lovenox) 30 mg DAILY SC Last administered on 05/21/18at 08:13; Admin Dose 30 MG; Start 05/21/18 at 09:00 Bisacodyl (Dulcolax) 10 mg DAILY PRN PO CONSTIPATION; Start 05/20/18 at 19:00 Bisacodyl (Dulcolax Supp) 10 mg Q48H PRN MD CONSTIPATION; Start 05/20/18 at 19:00 Docusate Sodium (Colace) 100 mg BID PRN PO CONSTIPATION; Start 05/20/18 at 19:00 Acetaminophen/ Hydrocodone Bitart ([employer] (10/325)) 1 tab Q6H PRN PO MODERATE PAIN LEVEL 4-6; Start 05/20/18 at 19:00 Zolpidem Tartrate (Ambien) 5 mg HS MAY REPEAT X 1 PRN PO INSOMNIA Last administered on 05/21/18at 03:45; Admin Dose 5 MG; Start 05/21/18 at 03:30 RUBEN MADRIGAL DPM May 21, 2018 10:41
[2018-05-21] MEDS: HYDROCODONE/APAP (10/325) TAB PO PRN (11:49)
--- NOTE | 2018-05-21 12:26 | PN ---
Date/Time of Note Date/Time of Note DATE: 05/21/18 TIME: 12:24 Assessment/Plan VTE Prophylaxis Risk score (from [facility] [place]0 risk: 7 SCD applied (from [facility] [place]): Yes SCD contraindicated: low risk/ambulating Pharmacological prophylaxis: NA/contraindicated, LMWH Pharm contraindication: patient refusal, bleeding Lines/Catheters IV Catheter Type (from [facility]): Central Line Central line still needed: Yes Urinary Cath still in place: Yes Reason Cath still needed: urinary retention, skin wounds contaminated by urine Assessment/Plan Hospital Course A/P 1. Acute abdomen presently stable, sp expl laparotomy, Dickson patch. stable advance diet as appropriate 2. Perforated viscus/ulcer, stable, cont supportive care 3. Peritonitis, stable finish atbs 4. Substance abuse: Cocaine meth, tobacco, counseling as appropriate 5. Ftt, stable start PT 6. Schizophrenia, restart medical therapy when appropriate 7. ARF/ ATN stable, treat comorbidities 8. Peptic ulcer dz, avoid chronic nsaids, if feasible. Follow-up on path 9. Bilateral lower extremity, ulcers, appreciate podiatry input 10. Lt buttock breakdown, cont wound care/ offload/ low air loss mattress 11. Nonadherence; unfortunately be challenging to prevent further comorbidities 12. Anemia S: 05/20 Events noted 05/21 feels better, wants food O:Vss PE No pallor JVD Regular no m/r/g Clear Bs dimin, mild tender, nd no RRG No edema Result Diagram: 05/21/18 0554 05/21/18 0554 Results 24hrs Laboratory Tests Test 05/21/18 05:54 05/21/18 07:32 White Blood Count 13.7 #H Red Blood Count 3.21 L Hemoglobin 9.9 L Hematocrit 30.6 L Mean Corpuscular Volume 95.3 Mean Corpuscular Hemoglobin 30.8 Mean Corpuscular Hemoglobin Concent 32.4 Red Cell Distribution Width 16.2 H Platelet Count 245 Mean Platelet Volume 9.8 Immature Granulocytes % 1.300 H Neutrophils % 76.4 Lymphocytes % 5.2 L Monocytes % 11.3 H Eosinophils % 5.3 Basophils % 0.5 Nucleated Red Blood Cells % 0.4 H Immature Granulocytes # 0.180 H Neutrophils # 10.4 H Lymphocytes # 0.7 L Monocytes # 1.5 H Eosinophils # 0.7 H Basophils # 0.1 Nucleated Red Blood Cells # 0.1 H Sodium Level 138 Potassium Level 4.4 Chloride Level 102 Carbon Dioxide Level 21 Anion Gap 15 H Blood Urea Nitrogen 61 H Creatinine 4.64 H Est Glomerular Filtrat Rate mL/min 13 L Glucose Level 66 #L Calcium Level 8.4 Phosphorus Level 5.5 H Magnesium Level 1.9 Thyroid Stimulating Hormone (TSH) 3.680 Lab Scanned Report BLOOD TRANSFUSION Exam/Review of Systems Exam Vitals Vital Signs Date Temp Pulse Resp B/P (MAP) Pulse Ox O2 O2 Flow FiO2 Time Delivery Rate 05/21/18 98.0 87 18 129/93 98 Nasal 07:55 (105) Cannula 05/19/18 2.0 15:00 Intake and Output 05/20/18 05/20/18 05/21/18 1515:00 23:00 07:00 IntakeIntake Total 50 ml 750 ml 50 ml OutputOutput Total 80 ml 190 ml 1175 ml BalanceBalance -30 ml 560 ml -1125 ml Results Results 24hrs Laboratory Tests Test 05/21/18 05:54 05/21/18 07:32 White Blood Count 13.7 #H Red Blood Count 3.21 L Hemoglobin 9.9 L Hematocrit 30.6 L Mean Corpuscular Volume 95.3 Mean Corpuscular Hemoglobin 30.8 Mean Corpuscular Hemoglobin Concent 32.4 Red Cell Distribution Width 16.2 H Platelet Count 245 Mean Platelet Volume 9.8 Immature Granulocytes % 1.300 H Neutrophils % 76.4 Lymphocytes % 5.2 L Monocytes % 11.3 H Eosinophils % 5.3 Basophils % 0.5 Nucleated Red Blood Cells % 0.4 H Immature Granulocytes # 0.180 H Neutrophils # 10.4 H Lymphocytes # 0.7 L Monocytes # 1.5 H Eosinophils # 0.7 H Basophils # 0.1 Nucleated Red Blood Cells # 0.1 H Sodium Level 138 Potassium Level 4.4 Chloride Level 102 Carbon Dioxide Level 21 Anion Gap 15 H Blood Urea Nitrogen 61 H Creatinine 4.64 H Est Glomerular Filtrat Rate mL/min 13 L Glucose Level 66 #L Calcium Level 8.4 Phosphorus Level 5.5 H Magnesium Level 1.9 Thyroid Stimulating Hormone (TSH) 3.680 Lab Scanned Report BLOOD TRANSFUSION Medications Medication Current Medications Pantoprazole (Protonix Iv) 40 mg BID@06,18 IV Last administered on 05/21/18at 05:48; Admin Dose 40 MG; Start 05/17/18 at 18:00 IV Flush (NS 3 ml) 3 ml PER PROTOCOL IV ; Start 05/17/18 at 17:30 Morphine Sulfate (morphine) 2 mg Q4H PRN IV .PAIN 7-10 Last administered on 05/21/18at 10:45; Admin Dose 2 MG; Start 05/17/18 at 17:30 Clotrimazole (Lotrimin Cr) 1 applic BID TOP Last administered on 05/21/18at 11:53; Admin Dose 1 APPLIC; Start 05/18/18 at 21:00 Miscellaneous Information 1 ea NOTE XX ; Start 05/18/18 at 18:00 Glucose (Glutose) 15 gm Q15M PRN PO DECREASED GLUCOSE; Start 05/18/18 at 18:00 Glucose (Glutose) 22.5 gm Q15M PRN PO DECREASED GLUCOSE; Start 05/18/18 at 18:00 Dextrose (D50w Syringe) 25 ml Q15M PRN IV DECREASED GLUCOSE; Start 05/18/18 at 18:00 Dextrose (D50w Syringe) 50 ml Q15M PRN IV DECREASED GLUCOSE Last administered on 05/18/18at 17:58; Admin Dose 50 ML; Start 05/18/18 at 18:00 Glucagon (Glucagen) 1 mg Q15M PRN IM DECREASED GLUCOSE; Start 05/18/18 at 18:00 Glucose (Glutose) 15 gm Q15M PRN BUCCAL DECREASED GLUCOSE; Start 05/18/18 at 18:00 Piperacillin Sod/ Tazobactam Sod 50 ml @ 100 mls/hr Q6 IVPB Last administered on 05/21/18at 11:42; Admin Dose 100 MLS/HR; Start 05/19/18 at 12:00 Ammonium Lactate (Lac-Hydrin 12% Lotion) 1 applic DAILY TOP Last administered on 05/21/18at 11:53; Admin Dose 1 APPLIC; Start 05/19/18 at 09:00 Ondansetron HCl (Zofran Inj) 4 mg Q4 PRN IV NAUSEA/VOMITING; Start 05/20/18 at 19:00 Enoxaparin Sodium (Lovenox) 30 mg DAILY SC Last administered on 05/21/18at 08:13; Admin Dose 30 MG; Start 05/21/18 at 09:00 Bisacodyl (Dulcolax) 10 mg DAILY PRN PO CONSTIPATION; Start 05/20/18 at 19:00 Bisacodyl (Dulcolax Supp) 10 mg Q48H PRN [place] CONSTIPATION; Start 05/20/18 at 19:00 Docusate Sodium (Colace) 100 mg BID PRN PO CONSTIPATION; Start 05/20/18 at 19:00 Acetaminophen/ Hydrocodone Bitart ([place] (10325)) 1 tab Q6H PRN PO MODERATE PAIN LEVEL 4-6 Last administered on 05/21/18at 11:49; Admin Dose 1 TAB; Start 05/20/18 at 19:00 Zolpidem Tartrate (Ambien) 5 mg HS MAY REPEAT X 1 PRN PO INSOMNIA Last administered on 05/21/18at 03:45; Admin Dose 5 MG; Start 05/21/18 at 03:30 KIMBERLY SALEMRON MD May 21, 2018 12:26
[2018-05-21 14:00] VITALS: BP 112/77; PULSE 77; RESP 18
[2018-05-21 19:39] VITALS: BP 103/72; PULSE 86; RESP 18
[2018-05-21] MEDS ORDERED: CLOTRIMAZOLE 1% 30 GM CR TOP SCH (21:00)
[2018-05-22] MEDS: PIPER-TAZO 2.25 GM (PMX) 50 ML IVPB SCH ×3 (01:05→21:15)
[2018-05-22] MEDS: morphine 2 MG INJ IV PRN ×4 (01:29→21:15)
[2018-05-22 02:27] VITALS: BP 103/76; PULSE 78; RESP 18
[2018-05-22] MEDS: PANTOPRAZOLE 40 MG INJ IV SCH ×2 (05:08→18:10)
[2018-05-22 08:12] VITALS: BP 126/85; PULSE 91; RESP 18
--- NOTE | 2018-05-22 08:22 | CONS ---
Assessment/Plan Assessment/Plan Hospital Course (Demo Recall) 1) perforated gastric ulcer with peritonitis s/p surgical repair s.aureus is growing from the fluid drained at time of surgery change antibiotics to zyvox/zosyn pt has no hx of MRSA but he is homeless so at higher risk for MRSA get nasal for MRSA 05/20 - cx from surgery has MSSA and GNR d/c zyvox and continue with just zosyn 05/22 - improving continue with zosyn when pt is eating can change to po levo/rifampin to complete his antibiotic course 2) CRI with acute component u/a was benign on admission 05/22 - will reduce dose of zosyn will switch to levaquin soon urine output has improved 3) homeless 4)crystal/MJ user but no IVDA by pt's report Consultation Date/Type/Reason Admit Date/Time May 17, 2018 at 16:42 Initial Consult Date 05/19/18 Type of Consult ID Date/Time of Note DATE: 05/22/18 TIME: 08:19 24 HR Interval Summary Free Text/Dictation pt is hungry passing gas but no BM no N, V, SOB Exam/Review of Systems Exam Vitals Vital Signs Date Temp Pulse Resp B/P (MAP) Pulse Ox O2 O2 Flow FiO2 Time Delivery Rate 05/22/18 98.1 91 18 126/85 97 Nasal 08:12 (99) Cannula 05/19/18 2.0 15:00 Intake and Output 05/21/18 05/21/18 05/22/18 1515:00 23:00 07:00 IntakeIntake Total 1012 ml 630 ml 150 ml OutputOutput Total 530 ml 1245 ml 180 ml BalanceBalance 482 ml -615 ml -30 ml Constitutional: alert, oriented ENMT: mucosa pink and moist Respiratory: clear to auscultation Cardiovascular: regular rate and rhythm Gastrointestinal: soft, other (BS present) Results Result Diagram: 05/21/18 0505/21/18 05 Medications Medication Current Medications Pantoprazole (Protonix Iv) 40 mg BID@06,18 IV Last administered on 05/22/18at 05:08; Admin Dose 40 MG; Start 05/17/18 at 18:00 IV Flush (NS 3 ml) 3 ml PER PROTOCOL IV ; Start 05/17/18 at 17:30 Morphine Sulfate (morphine) 2 mg Q4H PRN IV .PAIN 7-10 Last administered on 05/22/18at 01:29; Admin Dose 2 MG; Start 05/17/18 at 17:30 Clotrimazole (Lotrimin Cr) 1 applic BID TOP Last administered on 05/21/18at 20:30; Admin Dose 1 APPLIC; Start 05/18/18 at 21:00 Miscellaneous Information 1 ea NOTE XX ; Start 05/18/18 at 18:00 Glucose (Glutose) 15 gm Q15M PRN PO DECREASED GLUCOSE; Start 05/18/18 at 18:00 Glucose (Glutose) 22.5 gm Q15M PRN PO DECREASED GLUCOSE; Start 05/18/18 at 18:00 Dextrose (D50w Syringe) 25 ml Q15M PRN IV DECREASED GLUCOSE; Start 05/18/18 at 18:00 Dextrose (D50w Syringe) 50 ml Q15M PRN IV DECREASED GLUCOSE Last administered on 05/18/18at 17:58; Admin Dose 50 ML; Start 05/18/18 at 18:00 Glucagon (Glucagen) 1 mg Q15M PRN IM DECREASED GLUCOSE; Start 05/18/18 at 18:00 Glucose (Glutose) 15 gm Q15M PRN BUCCAL DECREASED GLUCOSE; Start 05/18/18 at 18:00 Piperacillin Sod/ Tazobactam Sod 50 ml @ 100 mls/hr Q6 IVPB Last administered on 05/22/18at 05:08; Admin Dose 100 MLS/HR; Start 05/19/18 at 12:00 Ammonium Lactate (Lac-Hydrin 12% Lotion) 1 applic DAILY TOP Last administered on 05/21/18at 11:53; Admin Dose 1 APPLIC; Start 05/19/18 at 09:00 Ondansetron HCl (Zofran Inj) 4 mg Q4 PRN IV NAUSEA/VOMITING; Start 05/20/18 at 19:00 Enoxaparin Sodium (Lovenox) 30 mg DAILY SC Last administered on 05/21/18at 08:13; Admin Dose 30 MG; Start 05/21/18 at 09:00 Bisacodyl (Dulcolax) 10 mg DAILY PRN PO CONSTIPATION; Start 05/20/18 at 19:00 Bisacodyl (Dulcolax Supp) 10 mg Q48H PRN [place] CONSTIPATION; Start 05/20/18 at 19:00 Docusate Sodium (Colace) 100 mg BID PRN PO CONSTIPATION; Start 05/20/18 at 19:00 Acetaminophen/ Hydrocodone Bitart ([place] ()) 1 tab Q6H PRN PO MODERATE PAIN LEVEL 4-6 Last administered on 05/21/18at 11:49; Admin Dose 1 TAB; Start 05/20/18 at 19:00 Zolpidem Tartrate (Ambien) 5 mg HS MAY REPEAT X 1 PRN PO INSOMNIA Last administered on 05/21/18at 03:45; Admin Dose 5 MG; Start 05/21/18 at 03:30 CAREN HARRINGTON MD May 22, 2018 08:22
[2018-05-22] MEDS: ENOXAPARIN 30 MG/0.3 ML SYG SC SCH (08:38)
[2018-05-22] MEDS ORDERED: AMMONIUM LACTATE 12% 225 GM LOT TOP SCH (09:00)
[2018-05-22] MEDS: AMMONIUM LACTATE 12% 225 GM LOT TOP SCH (09:00)
[2018-05-22] MEDS: CLOTRIMAZOLE 1% 30 GM CR TOP SCH ×2 (09:00→21:15)
--- NOTE | 2018-05-22 09:05 | PN ---
DATE: 05/22/2018 SUBJECTIVE: The patient is stable, no events overnight. No fevers, chills, nausea, or vomiting. OBJECTIVE: VITAL SIGNS: Blood pressure is 126/85, respirations 18, pulse 91, temperature 98.1. HEENT: Head is normocephalic. NECK: Supple. HEART: Regular rate. LUNGS: Show diminished breath sounds at the base. ABDOMEN: Soft, nontender to palpation without rebound or guarding. EXTREMITIES: Negative clubbing, cyanosis, no edema. DERMATOLOGIC: No rashes. MUSCULOSKELETAL: No joint effusion. NEUROLOGIC: No change in exam. MEDICATIONS: The patient's medications have been reviewed. LABORATORY DATA: From 05/22/2018 is pending. ASSESSMENT AND PLAN: 1. Nonoliguric acute kidney injury on top of chronic kidney disease with unknown baseline creatinine . Etiology of acute kidney injury is secondary to acute tubular necrosis. The patient is currently in injury phase of acute tubular necrosis. The patient, however, has no overt uremic symptoms, is cu rrently urinating. No nausea, no vomiting, no metallic taste in his mouth. At this point, there is no immediate need for renal replacement therapy; however, will continue to monitor renal panel daily. 2. Chronic kidney disease with unknown baseline creatinine. Etiology is secondary to acute kidney i njury. Continue current treatment plan. Continue disease factor modification. 3. Hypernatremia, improved. 4. Anemia. Monitor hemoglobin and hematocrit levels. 5. Mineral bone disorder, monitor calcium and phosphorus levels. 6. Perforated duodenal ulcer status post laparotomy with surgical repair. 7. Sepsis secondary to perforated ulcer. Continue current antibiotic regimen. 8. Metabolic acidosis secondary to acute kidney injury, improved. 9. Encephalopathy, improving. Continue to monitor. Dictated By: YUSUF FLORES DO NR/NTS Conf#: [id number] DID#: [id number] CC: FRANCESCA VALLES DPM; GABRIELA HESTER MD; KIMBERLY SALMERON MD;*EndCC*
--- NOTE | 2018-05-22 09:59 | QN ---
Documentation Comment Postoperative day #5 Afebrile throughout Tolerating full liquids Passing gas Plan: Soft diet Dulcolax p.o. Repeat CBC Discharge planning DANY BERG MD May 22, 2018 09:59
[2018-05-22] MEDS ORDERED: BISACODYL (EC) 5 MG TAB PO ONE (10:00)
[2018-05-22] MEDS: METOCLOPRAMIDE 10 MG INJ IV SCH ×2 (11:08→18:10)
[2018-05-22 14:00] VITALS: BP 115/72; PULSE 90; RESP 18
[2018-05-22] MEDS ORDERED: PIPER-TAZO 2.25 GM (PMX) 50 ML IVPB SCH (14:00)
--- NOTE | 2018-05-22 14:36 | PN ---
Date/Time of Note Date/Time of Note DATE: 05/22/18 TIME: 14:35 Assessment/Plan VTE Prophylaxis Risk score (from Ns)>0 risk: 1 SCD applied (from Ns): Yes SCD contraindicated: low risk/ambulating Pharmacological prophylaxis: LMWH Lines/Catheters IV Catheter Type (from Nrsg): PICC Line Central line still needed: Yes Urinary Cath still in place: Yes Reason Cath still needed: urinary retention, other (indicate) Assessment/Plan Hospital Course A/P 1. Ac abd stable, sp expl lap. Dickson patch. stable advancing diet. Drain care as appropriate 2. Perforated viscus/ulcer, stable, cont supportive care 3. Peritonitis, stable finish atbs 4. Substance abuse: Cocaine meth, tobacco, counseling as appropriate 5. Ftt, stable start PT 6. Schizophrenia, restart medical therapy when appropriate 7. ARF/ ATN stable, treat comorbidities 8. Peptic ulcer dz, avoid nsaids if feasible. Follow-up on path 9. Bilateral lower ext, ulcers, appreciate podiatry input 10. Lt buttock breakdown, cont wound care/ offload/ low air loss mattress 11. Nonadherence; unfortunately be challenging to prevent further comorbidities 12. Anemia S: 05/20 Events noted 05/21 feels better, wants food: no distress; some abdominal discomfort but passing gas. No fever cough O:Vss PE No pallor JVD Regular no m/r/g Clear Bs dimin, mild tender, nd no RRG; drain C/D/I No edema Result Diagram: 05/22/18 1004 05/22/18 1004 Results 24hrs Laboratory Tests Test 05/22/18 10:04 White Blood Count 13.5 H Red Blood Count 3.62 L Hemoglobin 10.9 L Hematocrit 33.5 L Mean Corpuscular Volume 92.5 Mean Corpuscular Hemoglobin 30.1 Mean Corpuscular Hemoglobin Concent 32.5 Red Cell Distribution Width 15.8 H Platelet Count 227 Mean Platelet Volume 9.6 Immature Granulocytes % 1.400 H Neutrophils % 76.2 Lymphocytes % 5.0 L Monocytes % 12.0 H Eosinophils % 4.7 Basophils % 0.7 Nucleated Red Blood Cells % 0.1 H Immature Granulocytes # 0.190 H Neutrophils # 10.3 H Lymphocytes # 0.7 L Monocytes # 1.6 H Eosinophils # 0.6 H Basophils # 0.1 Nucleated Red Blood Cells # 0.0 Sodium Level 137 Potassium Level 4.4 Chloride Level 101 Carbon Dioxide Level 23 Anion Gap 13 Blood Urea Nitrogen 65 H Creatinine 4.94 H Est Glomerular Filtrat Rate mL/min 12 L Glucose Level 99 Calcium Level 8.6 Phosphorus Level 6.4 H Magnesium Level 1.9 Exam/Review of Systems Exam Vitals Vital Signs Date Temp Pulse Resp B/P (MAP) Pulse Ox O2 O2 Flow FiO2 Time Delivery Rate 05/22/18 98.1 91 18 126/85 97 Nasal 08:12 (99) Cannula 05/19/18 2.0 15:00 Intake and Output 05/21/18 05/21/18 05/22/18 1515:00 23:00 07:00 IntakeIntake Total 1012 ml 630 ml 150 ml OutputOutput Total 530 ml 1245 ml 180 ml BalanceBalance 482 ml -615 ml -30 ml Results Results 24hrs Laboratory Tests Test 05/22/18 10:04 White Blood Count 13.5 H Red Blood Count 3.62 L Hemoglobin 10.9 L Hematocrit 33.5 L Mean Corpuscular Volume 92.5 Mean Corpuscular Hemoglobin 30.1 Mean Corpuscular Hemoglobin Concent 32.5 Red Cell Distribution Width 15.8 H Platelet Count 227 Mean Platelet Volume 9.6 Immature Granulocytes % 1.400 H Neutrophils % 76.2 Lymphocytes % 5.0 L Monocytes % 12.0 H Eosinophils % 4.7 Basophils % 0.7 Nucleated Red Blood Cells % 0.1 H Immature Granulocytes # 0.190 H Neutrophils # 10.3 H Lymphocytes # 0.7 L Monocytes # 1.6 H Eosinophils # 0.6 H Basophils # 0.1 Nucleated Red Blood Cells # 0.0 Sodium Level 137 Potassium Level 4.4 Chloride Level 101 Carbon Dioxide Level 23 Anion Gap 13 Blood Urea Nitrogen 65 H Creatinine 4.94 H Est Glomerular Filtrat Rate mL/min 12 L Glucose Level 99 Calcium Level 8.6 Phosphorus Level 6.4 H Magnesium Level 1.9 Medications Medication Current Medications Pantoprazole (Protonix Iv) 40 mg BID@06,18 IV Last administered on 05/22/18at 05:08; Admin Dose 40 MG; Start 05/17/18 at 18:00 IV Flush (NS 3 ml) 3 ml PER PROTOCOL IV ; Start 05/17/18 at 17:30 Morphine Sulfate (morphine) 2 mg Q4H PRN IV .PAIN 7-10 Last administered on 05/22/18at 13:53; Admin Dose 2 MG; Start 05/17/18 at 17:30 Clotrimazole (Lotrimin Cr) 1 applic BID TOP Last administered on 05/22/18at 09:00; Admin Dose 1 APPLIC; Start 05/18/18 at 21:00 Miscellaneous Information 1 ea NOTE XX ; Start 05/18/18 at 18:00 Glucose (Glutose) 15 gm Q15M PRN PO DECREASED GLUCOSE; Start 05/18/18 at 18:00 Glucose (Glutose) 22.5 gm Q15M PRN PO DECREASED GLUCOSE; Start 05/18/18 at 18:00 Dextrose (D50w Syringe) 25 ml Q15M PRN IV DECREASED GLUCOSE; Start 05/18/18 at 18:00 Dextrose (D50w Syringe) 50 ml Q15M PRN IV DECREASED GLUCOSE Last administered on 05/18/18at 17:58; Admin Dose 50 ML; Start 05/18/18 at 18:00 Glucagon (Glucagen) 1 mg Q15M PRN IM DECREASED GLUCOSE; Start 05/18/18 at 18:00 Glucose (Glutose) 15 gm Q15M PRN BUCCAL DECREASED GLUCOSE; Start 05/18/18 at 18:00 Ammonium Lactate (Lac-Hydrin 12% Lotion) 1 applic DAILY TOP Last administered on 05/22/18at 09:00; Admin Dose 1 APPLIC; Start 05/19/18 at 09:00 Ondansetron HCl (Zofran Inj) 4 mg Q4 PRN IV NAUSEA/VOMITING; Start 05/20/18 at 19:00 Enoxaparin Sodium (Lovenox) 30 mg DAILY SC Last administered on 05/22/18at 08:38; Admin Dose 30 MG; Start 05/21/18 at 09:00 Bisacodyl (Dulcolax) 10 mg DAILY PRN PO CONSTIPATION; Start 05/20/18 at 19:00 Bisacodyl (Dulcolax Supp) 10 mg Q48H PRN [place] CONSTIPATION; Start 05/20/18 at 19:00 Docusate Sodium (Colace) 100 mg BID PRN PO CONSTIPATION; Start 05/20/18 at 19:00 Acetaminophen/ Hydrocodone Bitart ([place] (10/325)) 1 tab Q6H PRN PO MODERATE PAIN LEVEL 4-6 Last administered on 05/21/18 11:49; Admin Dose 1 TAB; Start 05/20/18 at 19:00 Zolpidem Tartrate (Ambien) 5 mg HS MAY REPEAT X 1 PRN PO INSOMNIA Last administered on 05/21/18 03:45; Admin Dose 5 MG; Start 05/21/18 at 03:30 Piperacillin Sod/ Tazobactam Sod 50 ml @ 100 mls/hr Q8 IVPB Last administered on 05/22/18 13:30; Admin Dose 100 MLS/HR; Start 05/22/18 at 14:00 Metoclopramide HCl (Reglan) 10 mg Q6 IV Last administered on 05/22/18 11:08; Admin Dose 10 MG; Start 05/22/18 at 12:00 KIMBERLY SALMERON MD May 22, 2018 14:36
[2018-05-22] MEDS ORDERED: LORAZEPAM 2 MG INJ IV PRN (15:00)
[2018-05-22 19:48] VITALS: BP 105/83; PULSE 78; RESP 20
[2018-05-23] MEDS: METOCLOPRAMIDE 10 MG INJ IV SCH ×5 (01:22→23:49)
[2018-05-23 01:29] VITALS: BP 114/72; PULSE 66; RESP 20
[2018-05-23] MEDS: morphine 2 MG INJ IV PRN ×3 (03:32→23:58)
[2018-05-23] MEDS: FAMOTIDINE 20 MG INJ IV SCH (06:08)
[2018-05-23] MEDS: PIPER-TAZO 2.25 GM (PMX) 50 ML IVPB SCH ×3 (06:08→21:53)
[2018-05-23 08:00] VITALS: BP 133/83; PULSE 84; RESP 18
--- NOTE | 2018-05-23 08:30 | PN ---
DATE: 05/23/2018 SUBJECTIVE: The patient is stable, alert and oriented. The patient had good urinary output, adequat e drains from his YESSI site. No other events noted. No hemoptysis, hematemesis or hematochezia. OBJECTIVE: VITAL SIGNS: Blood pressure is 133/83, respirations 18, pulse 84, temperature 97.7. HEENT: Head is normocephalic. NECK: Supple. HEART: Regular rate. LUNGS: Show diminished breath sounds at the base. ABDOMEN: Soft, nontender to palpation without rebound or guarding. EXTREMITIES: Negative for clubbing, cyanosis, no edema. DERMATOLOGIC: No rashes. MUSCULOSKELETAL: No joint effusion. NEUROLOGIC: No change in exam. MEDICATIONS: Reviewed. LABORATORY DATA: Shows sodium 134, potassium 4.0, BUN 65, creatinine 5.16. White count 13.4, hemogl obin 10.8, platelet count is 208. MEDICATIONS: The patient's medications have been reviewed. LABORATORY DATA: Reviewed. ASSESSMENT AND PLAN: 1. Nonoliguric acute kidney injury on top of chronic kidney disease with unknown baseline creatinine . Etiology of acute kidney injury is secondary to acute tubular necrosis. The patient remains in in jury phase of acute tubular necrosis as creatinine continues to increase. The patient, however, has good urinary output and no overt uremic symptoms. I discussed with the patient possibility of initia ting hemodialysis if renal function does not stabilize. The patient is aware and will think about it . At this point, the patient did not wish to start dialysis. We would otherwise continue current tr eatment plan, supportive care, renally dose all medicines. 2. Chronic kidney disease with unknown baseline creatinine. Etiology is secondary to acute kidney i njury. Continue current treatment plan. Continue disease factor modification. 3. Hypernatremia, improved. 4. Anemia. Continue to monitor hemoglobin and hematocrit levels. 5. Mineral bone disorder, monitor calcium and phosphorus levels. 6. Perforated duodenal ulcer status post laparotomy and surgical repair. 7. Sepsis secondary to perforated ulcer. The patient is completing antibiotic course. 8. Metabolic acidosis secondary to acute kidney injury, improved. 9. Encephalopathy, improving. Dictated By: YUSUF BUNN/DALTON Conf#: [id number] DID#: [id number] CC: KIMBERLY SALMERON MD; FRANCESCA VALLES DPM; GABRIELA HESTER MD;*EndCC*
[2018-05-23] MEDS: CLOTRIMAZOLE 1% 30 GM CR TOP SCH ×2 (08:48→20:53)
[2018-05-23] MEDS: AMMONIUM LACTATE 12% 225 GM LOT TOP SCH (08:48)
[2018-05-23] MEDS: ENOXAPARIN 30 MG/0.3 ML SYG SC SCH (08:50)
--- NOTE | 2018-05-23 12:15 | QN ---
Documentation Comment Postoperative day #6 Afebrile throughout Low-grade leukocytosis persists YESSI drainage moderate serous Incision is clean Plan: Continue medical management. I will be out of town tomorrow for 3 weeks. We will ask Dr. Quesada to follow DANY BERG MD May 23, 2018 12:15
--- NOTE | 2018-05-23 13:50 | PN ---
Date/Time of Note Date/Time of Note DATE: 05/23/18 TIME: 13:46 Assessment/Plan VTE Prophylaxis Risk score (from Nsg)>0 risk: 4 SCD applied (from Ns): Yes SCD contraindicated: low risk/ambulating Pharmacological prophylaxis: LMWH Lines/Catheters IV Catheter Type (from Nrsg): Central Line Central line still needed: Yes Urinary Cath still in place: Yes Reason Cath still needed: skin wounds contaminated by urine Assessment/Plan Hospital Course A/P 1. Ac abd stable, sp expl lap. Dickson patch. stable advancing diet. drain care 2. Perforated viscus/ulcer, stable, cont supportive care 3. Peritonitis, stable finish atbs 4. Substance abuse: Cocaine meth, tobacco, counseling as appropriate 5. Ftt, stable start PT. agrees to social service assistance 6. Schizophrenia, restart medical therapy when appropriate 7. ARF/ ATN stable, treat comorbidities. unfortunately, may require HD. 8. Peptic ulcer dz, avoid nsaids if feasible. Follow-up on path 9. Bilateral lower ext, ulcers, appreciate podiatry input 10. Lt buttock breakdown, cont wound care/ offload/ low air loss mattress 11. Nonadherence; unfortunately be challenging to prevent further comorbidities 12. Anemia S: 05/20 Events noted 05/21 feels better, wants food: / no distress; some abdominal discomfort but passing gas. No fever cough 05/23: mild abd pain.some flatus O:Vss PE No pallor Reg no m/r/g Clear Bs dimin, mild tender, nd no RRG; drain C/D/I No edema Result Diagram: 05/23/18 0532 05/23/18 0532 Results 24hrs Laboratory Tests Test 05/23/18 05:32 White Blood Count 13.4 H Red Blood Count 3.57 L Hemoglobin 10.8 L Hematocrit 32.6 L Mean Corpuscular Volume 91.3 Mean Corpuscular Hemoglobin 30.3 Mean Corpuscular Hemoglobin Concent 33.1 Red Cell Distribution Width 15.8 H Platelet Count 208 Mean Platelet Volume 9.9 Immature Granulocytes % 1.600 H Neutrophils % 73.3 Lymphocytes % 5.5 L Monocytes % 13.8 H Eosinophils % 5.4 Basophils % 0.4 Nucleated Red Blood Cells % 0.1 H Immature Granulocytes # 0.220 H Neutrophils # 9.8 H Lymphocytes # 0.7 L Monocytes # 1.9 H Eosinophils # 0.7 H Basophils # 0.1 Nucleated Red Blood Cells # 0.0 Prothrombin Time 16.1 #H Prothrombin Time Ratio 1.3 INR International Normalized Ratio 1.28 Sodium Level 134 L Potassium Level 4.0 Chloride Level 98 Carbon Dioxide Level 25 Anion Gap 11 Blood Urea Nitrogen 65 H Creatinine 5.16 H Est Glomerular Filtrat Rate mL/min 12 L Glucose Level 87 Calcium Level 8.3 L Phosphorus Level 6.2 H Magnesium Level 1.8 Exam/Review of Systems Exam Vitals Vital Signs Date Temp Pulse Resp B/P (MAP) Pulse Ox O2 O2 Flow FiO2 Time Delivery Rate 05/23/18 97.7 84 18 133/83 97 Room Air 08:00 (100) 05/19/18 2.0 15:00 Intake and Output 05/22/18 05/22/18 05/23/18 1515:00 23:00 07:00 IntakeIntake Total 1610 ml 720 ml OutputOutput Total 1890 ml 530 ml 1980 ml BalanceBalance -280 ml -530 ml -1260 ml Results Results 24hrs Laboratory Tests Test 05/23/18 05:32 White Blood Count 13.4 H Red Blood Count 3.57 L Hemoglobin 10.8 L Hematocrit 32.6 L Mean Corpuscular Volume 91.3 Mean Corpuscular Hemoglobin 30.3 Mean Corpuscular Hemoglobin Concent 33.1 Red Cell Distribution Width 15.8 H Platelet Count 208 Mean Platelet Volume 9.9 Immature Granulocytes % 1.600 H Neutrophils % 73.3 Lymphocytes % 5.5 L Monocytes % 13.8 H Eosinophils % 5.4 Basophils % 0.4 Nucleated Red Blood Cells % 0.1 H Immature Granulocytes # 0.220 H Neutrophils # 9.8 H Lymphocytes # 0.7 L Monocytes # 1.9 H Eosinophils # 0.7 H Basophils # 0.1 Nucleated Red Blood Cells # 0.0 Prothrombin Time 16.1 #H Prothrombin Time Ratio 1.3 INR International Normalized Ratio 1.28 Sodium Level 134 L Potassium Level 4.0 Chloride Level 98 Carbon Dioxide Level 25 Anion Gap 11 Blood Urea Nitrogen 65 H Creatinine 5.16 H Est Glomerular Filtrat Rate mL/min 12 L Glucose Level 87 Calcium Level 8.3 L Phosphorus Level 6.2 H Magnesium Level 1.8 Medications Medication Current Medications IV Flush (NS 3 ml) 3 ml PER PROTOCOL IV ; Start 05/17/18 at 17:30 Morphine Sulfate (morphine) 2 mg Q4H PRN IV .PAIN 7-10 Last administered on 05/23/18at 08:48; Admin Dose 2 MG; Start 05/17/18 at 17:30 Clotrimazole (Lotrimin Cr) 1 applic BID TOP Last administered on 05/23/18at 08:48; Admin Dose 1 APPLIC; Start 05/18/18 at 21:00 Miscellaneous Information 1 ea NOTE XX ; Start 05/18/18 at 18:00 Glucose (Glutose) 15 gm Q15M PRN PO DECREASED GLUCOSE; Start 05/18/18 at 18:00 Glucose (Glutose) 22.5 gm Q15M PRN PO DECREASED GLUCOSE; Start 05/18/18 at 18:00 Dextrose (D50w Syringe) 25 ml Q15M PRN IV DECREASED GLUCOSE; Start 05/18/18 at 18:00 Dextrose (D50w Syringe) 50 ml Q15M PRN IV DECREASED GLUCOSE Last administered on 05/18/18at 17:58; Admin Dose 50 ML; Start 05/18/18 at 18:00 Glucagon (Glucagen) 1 mg Q15M PRN IM DECREASED GLUCOSE; Start 05/18/18 at 18:00 Glucose (Glutose) 15 gm Q15M PRN BUCCAL DECREASED GLUCOSE; Start 05/18/18 at 18:00 Ammonium Lactate (Lac-Hydrin 12% Lotion) 1 applic DAILY TOP Last administered on 05/23/18at 08:48; Admin Dose 1 APPLIC; Start 05/19/18 at 09:00 Ondansetron HCl (Zofran Inj) 4 mg Q4 PRN IV NAUSEA/VOMITING; Start 05/20/18 at 19:00 Enoxaparin Sodium (Lovenox) 30 mg DAILY SC Last administered on 05/23/18at 08:50; Admin Dose 30 MG; Start 05/21/18 at 09:00 Bisacodyl (Dulcolax) 10 mg DAILY PRN PO CONSTIPATION; Start 05/20/18 at 19:00 Bisacodyl (Dulcolax Supp) 10 mg Q48H PRN [place] CONSTIPATION; Start 05/20/18 at 19:00 Docusate Sodium (Colace) 100 mg BID PRN PO CONSTIPATION; Start 05/20/18 at 19:00 Acetaminophen/ Hydrocodone Bitart ([place] (10)) 1 tab Q6H PRN PO MODERATE PAIN LEVEL 4-6 Last administered on 05/21/18at 11:49; Admin Dose 1 TAB; Start 05/20/18 at 19:00 Metoclopramide HCl (Reglan) 10 mg Q6 IV Last administered on 05/23/18at 12:14; Admin Dose 10 MG; Start 05/22/18 at 12:00 Piperacillin Sod/ Tazobactam Sod 50 ml @ 100 mls/hr Q8 IVPB Last administered on 05/23/18at 06:08; Admin Dose 100 MLS/HR; Start 05/22/18 at 22:00 Lorazepam (Ativan) 1 mg Q8H PRN IV AGITATION/ANXIETY; Start 05/22/18 at 15:00 Famotidine (Pepcid Iv) 20 mg DAILY@0600 IV Last administered on 05/23/18 06:08; Admin Dose 20 MG; Start 05/23/18 at 06:00 KIMBERLY SALMERON MD May 23, 2018 13:50
[2018-05-23 14:00] VITALS: BP 128/87; PULSE 94
[2018-05-23] MEDS: HYDROCODONE/APAP (10/325) TAB PO PRN ×2 (15:56→21:55)
[2018-05-23 20:00] VITALS: BP 107/72; PULSE 87; RESP 17
[2018-05-24 02:00] VITALS: BP 112/71; PULSE 73; RESP 19
[2018-05-24] MEDS: PIPER-TAZO 2.25 GM (PMX) 50 ML IVPB SCH (05:11)
[2018-05-24] MEDS: METOCLOPRAMIDE 10 MG INJ IV SCH ×4 (05:12→23:40)
[2018-05-24] MEDS: morphine 2 MG INJ IV PRN ×3 (05:12→20:55)
[2018-05-24] MEDS: FAMOTIDINE 20 MG INJ IV SCH (05:12)
[2018-05-24 07:35] VITALS: BP 120/84; PULSE 89; RESP 18
--- NOTE | 2018-05-24 08:23 | CONS ---
Assessment/Plan Assessment/Plan Hospital Course (Demo Recall) 1) perforated gastric ulcer with peritonitis s/p surgical repair s.aureus is growing from the fluid drained at time of surgery change antibiotics to zyvox/zosyn pt has no hx of MRSA but he is homeless so at higher risk for MRSA get nasal for MRSA 05/20 - cx from surgery has MSSA and GNR d/c zyvox and continue with just zosyn 05/22 - improving continue with zosyn when pt is eating can change to po levo/rifampin to complete his antibiotic course 05/24 - d/c zosyn and start oral levaquin thru 05/26 2) CRI with acute component u/a was benign on admission 05/22 - will reduce dose of zosyn will switch to levaquin soon urine output has improved 05/24 - urine output is ok but creatinine is not decreasing yet (today's chem panel still pending) d/c zosyn and start oral levaquin 3) homeless 4)crystal/MJ user but no IVDA by pt's report 5) gout 05/24 - pt c/o of pain to both 1st MTP joints recommend treatment for this Consultation Date/Type/Reason Admit Date/Time May 17, 2018 at 16:42 Initial Consult Date 05/19/18 Type of Consult ID Date/Time of Note DATE: 05/24/18 TIME: 08:19 24 HR Interval Summary Free Text/Dictation pt states he gets some pain to abd when he tries to eat no N, V, D he is having BM's he c/o of gus pain to !st MTP joints Exam/Review of Systems Exam Vitals Vital Signs Date Temp Pulse Resp B/P (MAP) Pulse Ox O2 O2 Flow FiO2 Time Delivery Rate 05/24/18 97.9 89 18 120/84 96 07:35 (96) 05/23/18 Room Air 14:00 Intake and Output 05/23/18 05/23/18 05/24/18 1515:00 23:00 07:00 IntakeIntake Total 910 ml 50 ml 290 ml OutputOutput Total 1385 ml 145 ml 870 ml BalanceBalance -475 ml -95 ml -580 ml Constitutional: alert Eyes: nl sclera ENMT: mucosa pink and moist Respiratory: clear to auscultation Cardiovascular: regular rate and rhythm Gastrointestinal: other (BS are present, drainage tubes present) Extremities: other (1st MTP joints no swelling noted but increase in warmth noted) Results Result Diagram: 05/24/18 0729 05/23/18 0532 Results 24hrs Laboratory Tests Test 05/24/18 07:29 White Blood Count 14.4 H Red Blood Count 3.54 L Hemoglobin 10.6 L Hematocrit 32.3 L Mean Corpuscular Volume 91.2 Mean Corpuscular Hemoglobin 29.9 Mean Corpuscular Hemoglobin Concent 32.8 Red Cell Distribution Width 15.7 H Platelet Count 185 Mean Platelet Volume 9.5 Immature Granulocytes % 1.800 H Neutrophils % 73.4 Lymphocytes % 4.9 L Monocytes % 13.0 H Eosinophils % 6.3 Basophils % 0.6 Nucleated Red Blood Cells % 0.0 Immature Granulocytes # 0.260 H Neutrophils # 10.6 H Lymphocytes # 0.7 L Monocytes # 1.9 H Eosinophils # 0.9 H Basophils # 0.1 Nucleated Red Blood Cells # 0.0 Medications Medication Current Medications IV Flush (NS 3 ml) 3 ml PER PROTOCOL IV ; Start 05/17/18 at 17:30 Morphine Sulfate (morphine) 2 mg Q4H PRN IV .PAIN 7-10 Last administered on 05/24/18at 05:12; Admin Dose 2 MG; Start 05/17/18 at 17:30 Clotrimazole (Lotrimin Cr) 1 applic BID TOP Last administered on 05/23/18at 20:53; Admin Dose 1 APPLIC; Start 05/18/18 at 21:00 Miscellaneous Information 1 ea NOTE XX ; Start 05/18/18 at 18:00 Glucose (Glutose) 15 gm Q15M PRN PO DECREASED GLUCOSE; Start 05/18/18 at 18:00 Glucose (Glutose) 22.5 gm Q15M PRN PO DECREASED GLUCOSE; Start 05/18/18 at 18:00 Dextrose (D50w Syringe) 25 ml Q15M PRN IV DECREASED GLUCOSE; Start 05/18/18 at 18:00 Dextrose (D50w Syringe) 50 ml Q15M PRN IV DECREASED GLUCOSE Last administered on 05/18/18at 17:58; Admin Dose 50 ML; Start 05/18/18 at 18:00 Glucagon (Glucagen) 1 mg Q15M PRN IM DECREASED GLUCOSE; Start 05/18/18 at 18:00 Glucose (Glutose) 15 gm Q15M PRN BUCCAL DECREASED GLUCOSE; Start 05/18/18 at 18:00 Ammonium Lactate (Lac-Hydrin 12% Lotion) 1 applic DAILY TOP Last administered on 05/23/18 08:48; Admin Dose 1 APPLIC; Start 05/19/18 at 09:00 Ondansetron HCl (Zofran Inj) 4 mg Q4 PRN IV NAUSEA/VOMITING; Start 05/20/18 at 19:00 Enoxaparin Sodium (Lovenox) 30 mg DAILY SC Last administered on 05/23/18 08:50; Admin Dose 30 MG; Start 05/21/18 at 09:00 Bisacodyl (Dulcolax) 10 mg DAILY PRN PO CONSTIPATION Last administered on 05/23/18 13:57; Admin Dose 10 MG; Start 05/20/18 at 19:00 Bisacodyl (Dulcolax Supp) [address] CONSTIPATION; Start 05/20/18 at 19:00 Docusate Sodium (Colace) 100 mg BID PRN PO CONSTIPATION; Start 05/20/18 at 19:00 Acetaminophen/ Hydrocodone Bitart ([place] (10/325)) 1 tab Q6H PRN PO MODERATE PAIN LEVEL 4-6 Last administered on 05/23/18at 21:55; Admin Dose 1 TAB; Start 05/20/18 at 19:00 Metoclopramide HCl (Reglan) 10 mg Q6 IV Last administered on 05/24/18 05:12; Admin Dose 10 MG; Start 05/22/18 at 12:00 Piperacillin Sod/ Tazobactam Sod 50 ml @ 100 mls/hr Q8 IVPB Last administered on 05/24/18 05:11; Admin Dose 100 MLS/HR; Start 05/22/18 at 22:00 Lorazepam (Ativan) 1 mg Q8H PRN IV AGITATION/ANXIETY; Start 05/22/18 at 15:00 Famotidine (Pepcid Iv) 20 mg DAILY@0600 IV Last administered on 05/24/18 05:12; Admin Dose 20 MG; Start 05/23/18 at 06:00 CAREN HARRINGTON MD May 24, 2018 08:23
[2018-05-24] MEDS ORDERED: LEVOFLOXACIN 500 MG TAB PO ONE (08:30)
[2018-05-24] MEDS: ENOXAPARIN 30 MG/0.3 ML SYG SC SCH (08:36)
[2018-05-24] MEDS: FLUCONAZOLE 200 MG TAB PO SCH (09:00)
[2018-05-24] MEDS: CLOTRIMAZOLE 1% 30 GM CR TOP SCH ×2 (09:00→20:45)
[2018-05-24] MEDS: AMMONIUM LACTATE 12% 225 GM LOT TOP SCH (09:01)
--- NOTE | 2018-05-24 09:23 | PN ---
DATE: 05/24/2018 SUBJECTIVE: The patient is stable, no events overnight. OBJECTIVE: VITAL SIGNS: Blood pressure is 120/84, respirations 18, pulse 89, temperature 97.9. The patient's I 's and O's were reviewed. HEENT: Head is normocephalic. NECK: Supple. HEART: Regular rate. LUNGS: Show diminished breath sounds at the base. ABDOMEN: Soft, nontender to palpation. No rebound or guarding. EXTREMITIES: Negative for clubbing, cyanosis, no edema. DERMATOLOGIC: No rashes. MUSCULOSKELETAL: No joint effusion. NEUROLOGIC: No change in exam. MEDICATIONS: Reviewed. LABORATORY DATA: From 05/24/2018 is pending. ASSESSMENT AND PLAN: 1. Nonoliguric acute kidney injury on top of chronic kidney disease with unknown baseline creatinine . Etiology of acute kidney injury is secondary to acute tubular necrosis. The patient remains in in jury phase of acute tubular necrosis as creatinine continues to increase. The patient, however, has good urinary output and no overt uremic symptoms. I discussed the possibility of initiating hemodial ysis if renal function should further decline, if patient should develop overt uremic symptoms. The patient now agrees to initiate dialysis if necessary. Plan therefore will be to continue to monitor renal function, continue supportive care, renally dose all medicines and avoid nephrotoxins. 2. Chronic kidney disease with unknown baseline creatinine. Etiology is secondary to acute kidney i njury. Continue current treatment plan. Continue disease factor modification. 3. Hypernatremia, improved. 4. Anemia. Continue to monitor hemoglobin and hematocrit levels. 5. Mineral bone disorder, monitor calcium and phosphorus levels. 6. Perforated duodenal ulcer, status post laparotomy with surgical repair. 7. Sepsis. The patient is completing antibiotic course. 8. Metabolic acidosis secondary to acute kidney injury. Continue to monitor. 9. Encephalopathy, improving. Dictated By: YUSUF FLORES DO NR/NTS Conf#: [id number] DID#: [id number] CC: GABRIELA HESTER MD; KIMBERLY SALMERON MD; FRANCESCA VALLES DPM;*EndCC*
--- NOTE | 2018-05-24 15:11 | CONS ---
"Assessment/Plan Assessment/Plan Hospital Course (Demo Recall) 1. Perforated duodenal ulcer with peritonitis: Status post plication and Dickson patch May 17, 2018: -IS -ambulate> obtain PT if not already on board -ice pack to abdominal wall -advance diet as tolerated -YESSI drain -ABX per ID -Local care 2. Persistent leukocytosis -As above -Per ID 3.CKD with CHERYL: -Limit nephrotoxic meds -Renally dose meds -Per renal 4. Normocytic normochromic anemia: -Monitor and transfuse as needed 5. Illicit drug use: -Highly encourage cessation 6. Homelessness: -Social service follow-up 7. Schizophrenia: -Psychiatric optimization 8. Bilateral lower extremity ulcers: -Per podiatry 9. CHF history: -Cardiac optimization -Illicit drug use cessation Thank you. Patient seen and examined in collaboration with Dr. Robbi Quesada. Consultation Date/Type/Reason Admit Date/Time May 17, 2018 at 16:42 Date of Consultation: May 24, 2018 Type of Consult Surgical Reason for Consultation Surgical follow-up,Perforated duodenal ulcer Requesting Provider: DANY BERG MD Date/Time of Note DATE: 05/24/18 TIME: 14:56 Hx of Present Illness Martina Ward is a 57-year-old man with past medical history of gout, arthritis, substance abuse, nicotine use, congestive heart failure who presented to the ED with complaints of abdominal pain who was found to have a perforated duodenal ulcer. He underwent exploratory laparotomy, plication of perforated duodenal ulcer with Dickson patch on May 17, [address] Berg. He is currently postoperative day #8, being treated with antibiotic therapy for peritonitis. At present, he is noted to have persistent leukocytosis but is afebrile and being seen by infectious disease specialist. He is currently tolerating oral nutrition with + bowel function. He denies chills, congested cough, chest pain, palpitations, nausea, vomiting, diarrhea, dysuria, seizure, rash. Our service was asked to follow as Dr. Berg will be out of town. 12 point review of systems was performed and is negative except for as stated in HPI. Past Medical History As above Home Meds Reported Medications Colchicine (Mitigare) 0.6 Mg Capsule, 0.6 MG PO BID, CAP NOT STARTED YET (NEW PRESCRIPTION) 05/17/18 Acetaminophen* (Acetaminophen*) 500 MG Extra Strength Tablet, 1000 MG PO Q3H PRN for PAIN AND OR ELEVATED TEMP, TAB 05/17/18 Allopurinol* (Allopurinol*) 100 Mg Tablet, 100 MG PO DAILY, TAB 05/17/18 Furosemide* (Furosemide*) 40 Mg Tablet, 40 MG PO DAILY, TAB 05/17/18 Discontinued Reported Medications Hydrochlorothiazide* (Hydrochlorothiazide*) 25 Mg Tab, 25 MG PO DAILY, #30 TAB 05/17/18 Medications Current Medications IV Flush (NS 3 ml) 3 ml PER PROTOCOL IV ; Start 05/17/18 at 17:30 Morphine Sulfate (morphine) 2 mg Q4H PRN IV .PAIN 7-10 Last administered on 05/24/18at 13:42; Admin Dose 2 MG; Start 05/17/18 at 17:30 Clotrimazole (Lotrimin Cr) 1 applic BID TOP Last administered on 05/24/18at 09:00; Admin Dose 1 APPLIC; Start 05/18/18 at 21:00 Miscellaneous Information 1 ea NOTE XX ; Start 05/18/18 at 18:00 Glucose (Glutose) 15 gm Q15M PRN PO DECREASED GLUCOSE; Start 05/18/18 at 18:00 Glucose (Glutose) 22.5 gm Q15M PRN PO DECREASED GLUCOSE; Start 05/18/18 at 18:00 Dextrose (D50w Syringe) 25 ml Q15M PRN IV DECREASED GLUCOSE; Start 05/18/18 at 18:00 Dextrose (D50w Syringe) 50 ml Q15M PRN IV DECREASED GLUCOSE Last administered on 05/18/18at 17:58; Admin Dose 50 ML; Start 05/18/18 at 18:00 Glucagon (Glucagen) 1 mg Q15M PRN IM DECREASED GLUCOSE; Start 05/18/18 at 18:00 Glucose (Glutose) 15 gm Q15M PRN BUCCAL DECREASED GLUCOSE; Start 05/18/18 at 18:00 Ammonium Lactate (Lac-Hydrin 12% Lotion) 1 applic DAILY TOP Last administered on 05/24/18at 09:01; Admin Dose 1 APPLIC; Start 05/19/18 at 09:00 Ondansetron HCl (Zofran Inj) 4 mg Q4 PRN IV NAUSEA/VOMITING; Start 05/20/18 at 19:00 Enoxaparin Sodium (Lovenox) 30 mg DAILY SC Last administered on 05/24/18at 08:36; Admin Dose 30 MG; Start 05/21/18 at 09:00 Bisacodyl (Dulcolax) 10 mg DAILY PRN PO CONSTIPATION Last administered on 05/23/18at 13:57; Admin Dose 10 MG; Start 05/20/18 at 19:00 Bisacodyl (Dulcolax Supp) 10 mg Q48H PRN [place] CONSTIPATION; Start 05/20/18 at 19:00 Docusate Sodium (Colace) 100 mg BID PRN PO CONSTIPATION; Start 05/20/18 at 19:00 Acetaminophen/ Hydrocodone Bitart ([place] (10/325)) 1 tab Q6H PRN PO MODERATE PAIN LEVEL 4-6 Last administered on 05/23/18at 21:55; Admin Dose 1 TAB; Start 05/20/18 at 19:00 Metoclopramide HCl (Reglan) 10 mg Q6 IV Last administered on 05/24/18at 12:18; Admin Dose 10 MG; Start 05/22/18 at 12:00 Lorazepam (Ativan) 1 mg Q8H PRN IV AGITATION/ANXIETY; Start 05/22/18 at 15:00 Famotidine (Pepcid Iv) 20 mg DAILY@0600 IV Last administered on 05/24/18at 05:12; Admin Dose 20 MG; Start 05/23/18 at 06:00 Levofloxacin (Levaquin) 250 mg Q2D@0600 PO ; Start 05/26/18 at 06:00 Fluconazole (Diflucan) 200 mg DAILY PO Last administered on 05/24/18at 09:00; Admin Dose 200 MG; Start 05/24/18 at 09:00 Allergies: Coded Allergies: No Known Allergy (Unverified , 05/17/18) Past Surgical History As above Family History Significant Family History: no pertinent family hx Social History Alcohol Use: none Smoking Status: Current every day smoker Drug Use: cocaine, marijuana Exam/Review of Systems Exam Vitals Vital Signs Date Temp Pulse Resp B/P (MAP) Pulse Ox O2 O2 Flow FiO2 Time Delivery Rate 05/24/18 Nasal 2.0 10:00 Cannula 05/24/18 97.9 89 18 120/84 96 07:35 (96) Intake and Output 05/23/18 05/23/18 05/24/18 1515:00 23:00 07:00 IntakeIntake Total 910 ml 50 ml 290 ml OutputOutput Total 1385 ml 145 ml 870 ml BalanceBalance -475 ml -95 ml -580 ml Constitutional: alert, oriented Psych: anxiety Head: normocephalic, atraumatic Eyes: nl conjunctiva, EOMI, nl lids, nl sclera ENMT: nl external ears & nose, nl lips & teeth, mucosa pink and moist Neck: supple, non-tender; No jvd Respiratory: normal air movement; No congested cough, No labored breathing Cardiovascular: regular rate and rhythm, nl pulses; No edema Gastrointestinal: soft, distended (Moderate), tender (Sarah-incisional: Midline staple line: Minimal serosanguineous drainage, no erythema | YESSI drain: Serosanguineous) Musculoskeletal: nl gait and stance Extremities: normal pulses Neurological: nl mental status; No nl strength (Generalized weakness) Skin: No rash or lesions Results Result Diagram: 05/24/18 0729 05/24/18 0729 Results 24hrs Laboratory Tests Test 05/24/18 07:29 05/24/18 09:21 White Blood Count 14.4 H Red Blood Count 3.54 L Hemoglobin 10.6 L Hematocrit 32.3 L Mean Corpuscular Volume 91.2 Mean Corpuscular Hemoglobin 29.9 Mean Corpuscular Hemoglobin Concent 32.8 Red Cell Distribution Width 15.7 H Platelet Count 185 Mean Platelet Volume 9.5 Immature Granulocytes % 1.800 H Neutrophils % 73.4 Lymphocytes % 4.9 L Monocytes % 13.0 H Eosinophils % 6.3 Basophils % 0.6 Nucleated Red Blood Cells % 0.0 Immature Granulocytes # 0.260 H Neutrophils # 10.6 H Lymphocytes # 0.7 L Monocytes # 1.9 H Eosinophils # 0.9 H Basophils # 0.1 Nucleated Red Blood Cells # 0.0 Sodium Level 136 Potassium Level 4.1 Chloride Level 100 Carbon Dioxide Level 24 Anion Gap 12 Blood Urea Nitrogen 62 H Creatinine 4.75 H Est Glomerular Filtrat Rate mL/min 13 L Glucose Level 89 Calcium Level 8.1 L Phosphorus Level 6.2 H Magnesium Level 1.8 Total Bilirubin 0.3 Direct Bilirubin 0.00 Indirect Bilirubin 0.3 Aspartate Amino Transf (AST/SGOT) 53 H Alanine Aminotransferase (ALT/SGPT) 15 Alkaline Phosphatase 249 H Total Protein 5.9 L Albumin 2.9 L Globulin 3.00 Albumin/Globulin Ratio 0.96 Lab Scanned Report REFERENCE LAB Medications Medication Current Medications IV Flush (NS 3 ml) 3 ml PER PROTOCOL IV ; Start 05/17/18 at 17:30 Morphine Sulfate (morphine) 2 mg Q4H PRN IV .PAIN 7-10 Last administered on 05/24/18at 13:42; Admin Dose 2 MG; Start 05/17/18 at 17:30 Clotrimazole (Lotrimin Cr) 1 applic BID TOP Last administered on 05/24/18 09:00; Admin Dose 1 APPLIC; Start 05/18/18 at 21:00 Miscellaneous Information 1 ea NOTE XX ; Start 05/18/18 at 18:00 Glucose (Glutose) 15 gm Q15M PRN PO DECREASED GLUCOSE; Start 05/18/18 at 18:00 Glucose (Glutose) 22.5 gm Q15M PRN PO DECREASED GLUCOSE; Start 05/18/18 at 18:00 Dextrose (D50w Syringe) 25 ml Q15M PRN IV DECREASED GLUCOSE; Start 05/18/18 at 18:00 Dextrose (D50w Syringe) 50 ml Q15M PRN IV DECREASED GLUCOSE Last administered on 05/18/18at 17:58; Admin Dose 50 ML; Start 05/18/18 at 18:00 Glucagon (Glucagen) 1 mg Q15M PRN IM DECREASED GLUCOSE; Start 05/18/18 at 18:00 Glucose (Glutose) 15 gm Q15M PRN BUCCAL DECREASED GLUCOSE; Start 05/18/18 at 18:00 Ammonium Lactate (Lac-Hydrin 12% Lotion) 1 applic DAILY TOP Last administered on 05/24/18at 09:01; Admin Dose 1 APPLIC; Start 05/19/18 at 09:00 Ondansetron HCl (Zofran Inj) 4 mg Q4 PRN IV NAUSEA/VOMITING; Start 05/20/18 at 19:00 Enoxaparin Sodium (Lovenox) 30 mg DAILY SC Last administered on 05/24/18at 08:36; Admin Dose 30 MG; Start 05/21/18 at 09:00 Bisacodyl (Dulcolax) 10 mg DAILY PRN PO CONSTIPATION Last administered on 05/23/18at 13:57; Admin Dose 10 MG; Start 05/20/18 at 19:00 Bisacodyl (Dulcolax Supp) 10 mg Q48H PRN [place] CONSTIPATION; Start 05/20/18 at 19:00 Docusate Sodium (Colace) 100 mg BID PRN PO CONSTIPATION; Start 05/20/18 at 19:00 Acetaminophen/ Hydrocodone Bitart ([place] (10/325)) 1 tab Q6H PRN PO MODERATE PAIN LEVEL 4-6 Last administered on 05/23/18at 21:55; Admin Dose 1 TAB; Start 05/20/18 at 19:00 Metoclopramide HCl (Reglan) 10 mg Q6 IV Last administered on 05/24/18at 12:18; Admin Dose 10 MG; Start 05/22/18 at 12:00 Lorazepam (Ativan) 1 mg Q8H PRN IV AGITATION/ANXIETY; Start 05/22/18 at 15:00 Famotidine (Pepcid Iv) 20 mg DAILY@0600 IV Last administered on 05/24/18at 05:12; Admin Dose 20 MG; Start 05/23/18 at 06:00 Levofloxacin (Levaquin) 250 mg Q2D@0600 PO ; Start 05/26/18 at 06:00 Fluconazole (Diflucan) 200 mg DAILY PO Last administered on 05/24/18at 09:00; Admin Dose 200 MG; Start 05/24/18 at 09:00 MARGO ADAMS NP May 24, 2018 15:11"
[2018-05-24] MEDS: HYDROCODONE/APAP (10/325) TAB PO PRN (18:08)
[2018-05-24 19:43] VITALS: BP 124/82; PULSE 91; RESP 20
--- NOTE | 2018-05-24 20:07 | PN ---
Date/Time of Note Date/Time of Note DATE: 05/24/18 TIME: 20:00 Assessment/Plan VTE Prophylaxis Risk score (from Nsg)>0 risk: 1 SCD applied (from Nsg): No SCD contraindicated: low risk/ambulating Pharmacological prophylaxis: LMWH Lines/Catheters IV Catheter Type (from Nrsg): Central Line Central line still needed: Yes Urinary Cath still in place: Yes Reason Cath still needed: urinary retention, other (indicate) Assessment/Plan Hospital Course A/P 1. Ac abd stable, sp expl lap. Dickson patch. stable cont drain/ wound care 2. Perforated viscus/ulcer, stable, cont supportive care 3. Peritonitis, stable finish atbs 4. Substance abuse: Cocaine, meth, tobacco- counseling as appropriate 5. Ftt, stable start PT. agrees to social service assistance. SNF? 6. Schizophrenia, restart medical therapy when appropriate 7. ARF/ ATN stable, treat comorbidities. unfortunately, may require HD. avoids picc's 8. Peptic ulcer dz, avoid nsaids if feasible. Follow-up on path 9. Bilateral lower ext, ulcers, appreciate podiatry input 10. Lt buttock breakdown, cont wound care/ offload/ low air loss mattress 11. Nonadherence; unfortunately be challenging to prevent further comorbidities 12. Anemia S: 3 Events noted 05/21 feels better, wants food: / no distress; some abdominal discomfort but passing gas. No fever cough 05/23: mild abd pain.some flatus 05/24: anxiety, paranoid, wound w some seeping/ bleed. no fever. satya 250 O:Vss PE No pallor Reg no m/r/g Clear Bs dimin, mild tender, nd no RRG; drain C/D/I No edema Result Diagram: 05/24/18 0729 05/24/18728 Results 24hrs Laboratory Tests Test 05/24/18 07:29 05/24/18 09:21 White Blood Count 14.4 H Red Blood Count 3.54 L Hemoglobin 10.6 L Hematocrit 32.3 L Mean Corpuscular Volume 91.2 Mean Corpuscular Hemoglobin 29.9 Mean Corpuscular Hemoglobin Concent 32.8 Red Cell Distribution Width 15.7 H Platelet Count 185 Mean Platelet Volume 9.5 Immature Granulocytes % 1.800 H Neutrophils % 73.4 Lymphocytes % 4.9 L Monocytes % 13.0 H Eosinophils % 6.3 Basophils % 0.6 Nucleated Red Blood Cells % 0.0 Immature Granulocytes # 0.260 H Neutrophils # 10.6 H Lymphocytes # 0.7 L Monocytes # 1.9 H Eosinophils # 0.9 H Basophils # 0.1 Nucleated Red Blood Cells # 0.0 Sodium Level 136 Potassium Level 4.1 Chloride Level 100 Carbon Dioxide Level 24 Anion Gap 12 Blood Urea Nitrogen 62 H Creatinine 4.75 H Est Glomerular Filtrat Rate mL/min 13 L Glucose Level 89 Calcium Level 8.1 L Phosphorus Level 6.2 H Magnesium Level 1.8 Total Bilirubin 0.3 Direct Bilirubin 0.00 Indirect Bilirubin 0.3 Aspartate Amino Transf (AST/SGOT) 53 H Alanine Aminotransferase (ALT/SGPT) 15 Alkaline Phosphatase 249 H Total Protein 5.9 L Albumin 2.9 L Globulin 3.00 Albumin/Globulin Ratio 0.96 Lab Scanned Report REFERENCE LAB Exam/Review of Systems Exam Vitals Vital Signs Date Temp Pulse Resp B/P (MAP) Pulse Ox O2 O2 Flow FiO2 Time Delivery Rate 05/24/18 98.4 91 20 124/82 98 19:43 (96) 05/24/18 Nasal 2.0 10:00 Cannula Intake and Output 05/23/18 05/23/18 05/24/18 1515:00 23:00 07:00 IntakeIntake Total 910 ml 50 ml 290 ml OutputOutput Total 1385 ml 145 ml 870 ml BalanceBalance -475 ml -95 ml -580 ml Results Results 24hrs Laboratory Tests Test 05/24/18 07:29 05/24/18 09:21 White Blood Count 14.4 H Red Blood Count 3.54 L Hemoglobin 10.6 L Hematocrit 32.3 L Mean Corpuscular Volume 91.2 Mean Corpuscular Hemoglobin 29.9 Mean Corpuscular Hemoglobin Concent 32.8 Red Cell Distribution Width 15.7 H Platelet Count 185 Mean Platelet Volume 9.5 Immature Granulocytes % 1.800 H Neutrophils % 73.4 Lymphocytes % 4.9 L Monocytes % 13.0 H Eosinophils % 6.3 Basophils % 0.6 Nucleated Red Blood Cells % 0.0 Immature Granulocytes # 0.260 H Neutrophils # 10.6 H Lymphocytes # 0.7 L Monocytes # 1.9 H Eosinophils # 0.9 H Basophils # 0.1 Nucleated Red Blood Cells # 0.0 Sodium Level 136 Potassium Level 4.1 Chloride Level 100 Carbon Dioxide Level 24 Anion Gap 12 Blood Urea Nitrogen 62 H Creatinine 4.75 H Est Glomerular Filtrat Rate mL/min 13 L Glucose Level 89 Calcium Level 8.1 L Phosphorus Level 6.2 H Magnesium Level 1.8 Total Bilirubin 0.3 Direct Bilirubin 0.00 Indirect Bilirubin 0.3 Aspartate Amino Transf (AST/SGOT) 53 H Alanine Aminotransferase (ALT/SGPT) 15 Alkaline Phosphatase 249 H Total Protein 5.9 L Albumin 2.9 L Globulin 3.00 Albumin/Globulin Ratio 0.96 Lab Scanned Report REFERENCE LAB Medications Medication Current Medications IV Flush (NS 3 ml) 3 ml PER PROTOCOL IV ; Start 05/17/18 at 17:30 Morphine Sulfate (morphine) 2 mg Q4H PRN IV .PAIN 7-10 Last administered on 05/24/18at 13:42; Admin Dose 2 MG; Start 05/17/18 at 17:30 Clotrimazole (Lotrimin Cr) 1 applic BID TOP Last administered on 05/24/18at 09:00; Admin Dose 1 APPLIC; Start 05/18/18 at 21:00 Miscellaneous Information 1 ea NOTE XX ; Start 05/18/18 at 18:00 Glucose (Glutose) 15 gm Q15M PRN PO DECREASED GLUCOSE; Start 05/18/18 at 18:00 Glucose (Glutose) 22.5 gm Q15M PRN PO DECREASED GLUCOSE; Start 05/18/18 at 18:00 Dextrose (D50w Syringe) 25 ml Q15M PRN IV DECREASED GLUCOSE; Start 05/18/18 at 18:00 Dextrose (D50w Syringe) 50 ml Q15M PRN IV DECREASED GLUCOSE Last administered on 05/18/18at 17:58; Admin Dose 50 ML; Start 05/18/18 at 18:00 Glucagon (Glucagen) 1 mg Q15M PRN IM DECREASED GLUCOSE; Start 05/18/18 at 18:00 Glucose (Glutose) 15 gm Q15M PRN BUCCAL DECREASED GLUCOSE; Start 05/18/18 at 18:00 Ammonium Lactate (Lac-Hydrin 12% Lotion) 1 applic DAILY TOP Last administered on 05/24/18at 09:01; Admin Dose 1 APPLIC; Start 05/19/18 at 09:00 Ondansetron HCl (Zofran Inj) 4 mg Q4 PRN IV NAUSEA/VOMITING; Start 05/20/18 at 19:00 Enoxaparin Sodium (Lovenox) 30 mg DAILY SC Last administered on 05/24/18at 08:36; Admin Dose 30 MG; Start 05/21/18 at 09:00 Bisacodyl (Dulcolax) 10 mg DAILY PRN PO CONSTIPATION Last administered on 05/23/18at 13:57; Admin Dose 10 MG; Start 05/20/18 at 19:00 Bisacodyl (Dulcolax Supp) 10 mg Q48H PRN [place] CONSTIPATION; Start 05/20/18 at 19:00 Docusate Sodium (Colace) 100 mg BID PRN PO CONSTIPATION; Start 05/20/18 at 19:00 Acetaminophen/ Hydrocodone Bitart ([place] (10/325)) 1 tab Q6H PRN PO MODERATE PAIN LEVEL 4-6 Last administered on 05/24/18at 18:08; Admin Dose 1 TAB; Start 05/20/18 at 19:00 Metoclopramide HCl (Reglan) 10 mg Q6 IV Last administered on 05/24/18at 18:05; Admin Dose 10 MG; Start 05/22/18 at 12:00 Lorazepam (Ativan) 1 mg Q8H PRN IV AGITATION/ANXIETY; Start 05/22/18 at 15:00 Famotidine (Pepcid Iv) 20 mg DAILY@0600 IV Last administered on 05/24/18at 05:12; Admin Dose 20 MG; Start 05/23/18 at 06:00 Levofloxacin (Levaquin) 250 mg Q2D@0600 PO ; Start 05/26/18 at 06:00 Fluconazole (Diflucan) 200 mg DAILY PO Last administered on 05/24/18at 09:00; Admin Dose 200 MG; Start 05/24/18 at 09:00 KIMBERLY SALMERON MD May 24, 2018 20:07
[2018-05-24] MEDS: SENNA/DOCUSATE NA (8.6MG/50MG) TAB PO SCH (20:45)
[2018-05-24] MEDS: QUETIAPINE 25 MG TAB PO SCH (20:45)
[2018-05-24] MEDS: COLCHICINE 0.6 MG TAB PO SCH (20:46)
[2018-05-24] MEDS ORDERED: traZODone 50 MG TAB PO SCH (21:00)
[2018-05-25 01:48] VITALS: BP 120/76; PULSE 94; RESP 20
[2018-05-25] MEDS: METOCLOPRAMIDE 10 MG INJ IV SCH ×3 (05:40→18:09)
[2018-05-25 07:58] VITALS: BP 115/76; PULSE 86; RESP 18
[2018-05-25] MEDS: FLUCONAZOLE 200 MG TAB PO SCH (08:55)
[2018-05-25] MEDS: FAMOTIDINE 20 MG TAB PO SCH (08:55)
[2018-05-25] MEDS: COLCHICINE 0.6 MG TAB PO SCH (08:55)
[2018-05-25] MEDS: QUETIAPINE 25 MG TAB PO SCH ×2 (08:55→20:54)
[2018-05-25] MEDS: CLOTRIMAZOLE 1% 30 GM CR TOP SCH ×2 (08:57→20:55)
[2018-05-25] MEDS: AMMONIUM LACTATE 12% 225 GM LOT TOP SCH (08:57)
[2018-05-25] MEDS: ENOXAPARIN 30 MG/0.3 ML SYG SC SCH ×3 (08:59→09:03)
--- NOTE | 2018-05-25 10:48 | PN ---
Date/Time of Note Date/Time of Note DATE: 05/25/18 TIME: 10:46 Assessment/Plan VTE Prophylaxis Risk score (from Ns)>0 risk: 3 SCD applied (from [facility]): No SCD contraindicated: other Pharmacological prophylaxis: other Lines/Catheters IV Catheter Type (from [facility]): Central Line Central line still needed: Yes Urinary Cath still in place: Yes Reason Cath still needed: urinary retention Assessment/Plan Hospital Course renal follow up SUBJECTIVE: The patient is stable, no events overnight. OBJECTIVE: HEENT: Head is normocephalic. NECK: Supple. HEART: Regular rate. LUNGS: Show diminished breath sounds at the base. ABDOMEN: Soft, nontender to palpation. No rebound or guarding. EXTREMITIES: Negative for clubbing, cyanosis, no edema. DERMATOLOGIC: No rashes. MUSCULOSKELETAL: No joint effusion. NEUROLOGIC: No change in exam. MEDICATIONS: Reviewed. ASSESSMENT AND PLAN: 1. Nonoliguric acute kidney injury on top of chronic kidney disease with unknown baseline creatinine. Etiology of acute kidney injury is secondary to acute tubular necrosis. The patient remains in injury phase of acute tubular n ecrosis as creatinine continues to increase. The patient, however, has good urinary output and no overt uremic symptoms. no indication for HD yet. Plan therefore will be to continue to monitor renal function, continue supportive care, renally dose all medicines and avoid nephrotoxins. 2. Chronic kidney disease with unknown baseline creatinine. Etiology is secondary to acute kidney injury. Continue current treatment plan. Continue disease factor modification. 3. Hypernatremia, improved. 4. Anemia. Continue to monitor hemoglobin and hematocrit levels. 5. Mineral bone disorder, monitor calcium and phosphorus levels. 6. Perforated duodenal ulcer, status post laparotomy with surgical repair. 7. Sepsis. The patient is completing antibiotic course. 8. Metabolic acidosis secondary to acute kidney injury. Continue to monitor. 9. Encephalopathy, improving. Result Diagram: 05/25/18 0538 05/25/18 0538 Results 24hrs Laboratory Tests Test 05/25/18 05:38 White Blood Count 13.0 H Red Blood Count 3.43 L Hemoglobin 10.5 L Hematocrit 31.5 L Mean Corpuscular Volume 91.8 Mean Corpuscular Hemoglobin 30.6 Mean Corpuscular Hemoglobin Concent 33.3 Red Cell Distribution Width 15.5 H Platelet Count 176 Mean Platelet Volume 10.0 Immature Granulocytes % 1.900 H Neutrophils % 69.7 Lymphocytes % 7.9 L Monocytes % 13.8 H Eosinophils % 6.0 Basophils % 0.7 Nucleated Red Blood Cells % 0.0 Immature Granulocytes # 0.250 H Neutrophils # 9.0 H Lymphocytes # 1.0 Monocytes # 1.8 H Eosinophils # 0.8 H Basophils # 0.1 Nucleated Red Blood Cells # 0.0 Sodium Level 133 L Potassium Level 4.0 Chloride Level 98 Carbon Dioxide Level 24 Anion Gap 11 Blood Urea Nitrogen 59 H Creatinine 4.46 H Est Glomerular Filtrat Rate mL/min 14 L Glucose Level 77 Uric Acid 10.1 H Calcium Level 8.4 Phosphorus Level 6.1 H Magnesium Level 1.8 Exam/Review of Systems Exam Vitals Vital Signs Date Temp Pulse Resp B/P (MAP) Pulse Ox O2 O2 Flow FiO2 Time Delivery Rate 05/25/18 98.1 86 18 115/76 95 07:58 (89) 05/24/18 Nasal 2.0 20:20 Cannula Intake and Output 05/24/18 05/24/18 05/25/18 1414:59 22:59 06:59 IntakeIntake Total 620 ml 500 ml 240 ml OutputOutput Total 820 ml 80 ml 1550 ml BalanceBalance -200 ml 420 ml -1310 ml Results Results 24hrs Laboratory Tests Test 05/25/18 05:38 White Blood Count 13.0 H Red Blood Count 3.43 L Hemoglobin 10.5 L Hematocrit 31.5 L Mean Corpuscular Volume 91.8 Mean Corpuscular Hemoglobin 30.6 Mean Corpuscular Hemoglobin Concent 33.3 Red Cell Distribution Width 15.5 H Platelet Count 176 Mean Platelet Volume 10.0 Immature Granulocytes % 1.900 H Neutrophils % 69.7 Lymphocytes % 7.9 L Monocytes % 13.8 H Eosinophils % 6.0 Basophils % 0.7 Nucleated Red Blood Cells % 0.0 Immature Granulocytes # 0.250 H Neutrophils # 9.0 H Lymphocytes # 1.0 Monocytes # 1.8 H Eosinophils # 0.8 H Basophils # 0.1 Nucleated Red Blood Cells # 0.0 Sodium Level 133 L Potassium Level 4.0 Chloride Level 98 Carbon Dioxide Level 24 Anion Gap 11 Blood Urea Nitrogen 59 H Creatinine 4.46 H Est Glomerular Filtrat Rate mL/min 14 L Glucose Level 77 Uric Acid 10.1 H Calcium Level 8.4 Phosphorus Level 6.1 H Magnesium Level 1.8 Medications Medication Current Medications IV Flush (NS 3 ml) 3 ml PER PROTOCOL IV ; Start 05/17/18 at 17:30 Morphine Sulfate (morphine) 2 mg Q4H PRN IV .PAIN 7-10 Last administered on 05/24/18at 20:55; Admin Dose 2 MG; Start 05/17/18 at 17:30 Clotrimazole (Lotrimin Cr) 1 applic BID TOP Last administered on 05/25/18at 08:57; Admin Dose 1 APPLIC; Start 05/18/18 at 21:00 Miscellaneous Information 1 ea NOTE XX ; Start 05/18/18 at 18:00 Glucose (Glutose) 15 gm Q15M PRN PO DECREASED GLUCOSE; Start 05/18/18 at 18:00 Glucose (Glutose) 22.5 gm Q15M PRN PO DECREASED GLUCOSE; Start 05/18/18 at 18:00 Dextrose (D50w Syringe) 25 ml Q15M PRN IV DECREASED GLUCOSE; Start 05/18/18 at 18:00 Dextrose (D50w Syringe) 50 ml Q15M PRN IV DECREASED GLUCOSE Last administered on 05/18/18at 17:58; Admin Dose 50 ML; Start 05/18/18 at 18:00 Glucagon (Glucagen) 1 mg Q15M PRN IM DECREASED GLUCOSE; Start 05/18/18 at 18:00 Glucose (Glutose) 15 gm Q15M PRN BUCCAL DECREASED GLUCOSE; Start 05/18/18 at 18:00 Ammonium Lactate (Lac-Hydrin 12% Lotion) 1 applic DAILY TOP Last administered on 05/25/18at 08:57; Admin Dose 1 APPLIC; Start 05/19/18 at 09:00 Ondansetron HCl (Zofran Inj) 4 mg Q4 PRN IV NAUSEA/VOMITING; Start 05/20/18 at 19:00 Enoxaparin Sodium (Lovenox) 30 mg DAILY SC Last administered on 05/24/18at 08:36; Admin Dose 30 MG; Start 05/21/18 at 09:00 Bisacodyl (Dulcolax) 10 mg DAILY PRN PO CONSTIPATION Last administered on 05/23/18at 13:57; Admin Dose 10 MG; Start 05/20/18 at 19:00 Bisacodyl (Dulcolax Supp) 10 mg Q48H PRN [place] CONSTIPATION; Start 05/20/18 at 19:00 Docusate Sodium (Colace) 100 mg BID PRN PO CONSTIPATION; Start 05/20/18 at 19:00 Acetaminophen/ Hydrocodone Bitart ([place] (10/325)) 1 tab Q6H PRN PO MODERATE PAIN LEVEL 4-6 Last administered on 05/24/18 18:08; Admin Dose 1 TAB; Start 05/20/18 at 19:00 Metoclopramide HCl (Reglan) 10 mg Q6 IV Last administered on 05/25/18at 05:40; Admin Dose 10 MG; Start 05/22/18 at 12:00 Lorazepam (Ativan) 1 mg Q8H PRN IV AGITATION/ANXIETY; Start 05/22/18 at 15:00 Levofloxacin (Levaquin) 250 mg Q2D@0600 PO ; Start 05/26/18 at 06:00 Fluconazole (Diflucan) 200 mg DAILY PO Last administered on 05/25/18at 08:55; Admin Dose 200 MG; Start 05/24/18 at 09:00 Colchicine (Colchicine) 0.6 mg DAILY PO Last administered on 05/25/18 08:55; Admin Dose 0.6 MG; Start 05/24/18 at 21:00; Stop 05/25/18 at 23:00 Famotidine (Pepcid) 20 mg DAILY PO Last administered on 05/25/18 08:55; Admin Dose 20 MG; Start 05/25/18 at 09:00 Senna/Docusate Sodium (Senokot-S) 2 tab HS PO Last administered on 05/24/18at 20:45; Admin Dose 2 TAB; Start 05/24/18 at 21:00 Trazodone HCl (Desyrel) 50 mg HS PO ; Start 05/25/18 at 21:00 Quetiapine Fumarate (Seroquel) 25 mg BID PO Last administered on 05/25/18 08:55; Admin Dose 25 MG; Start 05/24/18 at 21:00 LYNNE MARIE DO May 25, 2018 10:47
[2018-05-25 14:23] VITALS: BP 112/75; PULSE 92; RESP 18
[2018-05-25 20:00] VITALS: BP 133/89; PULSE 98; RESP 19
--- NOTE | 2018-05-25 20:19 | PN ---
Date/Time of Note Date/Time of Note DATE: 05/25/18 TIME: 20:18 Assessment/Plan VTE Prophylaxis Risk score (from Nsg)>0 risk: 3 SCD applied (from Ns): No SCD contraindicated: low risk/ambulating Pharmacological prophylaxis: LMWH Lines/Catheters IV Catheter Type (from Nrsg): Central Line Central line still needed: Yes Urinary Cath still in place: Yes Reason Cath still needed: other (indicate) Assessment/Plan Hospital Course A/P 1. Ac abd stable, sp expl lap. Dickson patch. stable cont drain/ wound care 2. Perforated viscus/ulcer, stable 3. Peritonitis, stable finish atbs 4. Substance abuse: Cocaine, meth, tobacco- counseling as appropriate 5. Ftt, stable start PT. agrees to social service assistance. SNF? 6. Schizophrenia, adjusted medical therapy 7. ARF/ ATN stable, treat comorbidities. unfortunately, may require HD. avoids picc's 8. Peptic ulcer dz, avoid nsaids if feasible. Follow-up on path 9. Bilateral lower ext, ulcers, appreciate podiatry input; for outpt f/u 10. Lt buttock breakdown, cont wound care/ offload/ low air loss mattress 11. Nonadherence; unfortunately be challenging to prevent further comorbidities 12. Anemia 13. Gout S: 05/20 Events noted 05/21 feels better, wants food: no distress; some abdominal discomfort but passing gas. No fever cough 05/23: mild abd pain.some flatus 05/24: anxiety, paranoid, wound w some seeping/ bleed. no fever. satya 250 05/25: feels better; no further bleeding from wound O:Vss PE No pallor Reg no m/r/g Clear Bs dimin, mild tender, nd no RRG; drain C/D/I No edema Result Diagram: 05/25/18 0538 05/25/18 0538 Results 24hrs Laboratory Tests Test 05/25/18 05:38 White Blood Count 13.0 H Red Blood Count 3.43 L Hemoglobin 10.5 L Hematocrit 31.5 L Mean Corpuscular Volume 91.8 Mean Corpuscular Hemoglobin 30.6 Mean Corpuscular Hemoglobin Concent 33.3 Red Cell Distribution Width 15.5 H Platelet Count 176 Mean Platelet Volume 10.0 Immature Granulocytes % 1.900 H Neutrophils % 69.7 Lymphocytes % 7.9 L Monocytes % 13.8 H Eosinophils % 6.0 Basophils % 0.7 Nucleated Red Blood Cells % 0.0 Immature Granulocytes # 0.250 H Neutrophils # 9.0 H Lymphocytes # 1.0 Monocytes # 1.8 H Eosinophils # 0.8 H Basophils # 0.1 Nucleated Red Blood Cells # 0.0 Sodium Level 133 L Potassium Level 4.0 Chloride Level 98 Carbon Dioxide Level 24 Anion Gap 11 Blood Urea Nitrogen 59 H Creatinine 4.46 H Est Glomerular Filtrat Rate mL/min 14 L Glucose Level 77 Uric Acid 10.1 H Calcium Level 8.4 Phosphorus Level 6.1 H Magnesium Level 1.8 Exam/Review of Systems Exam Vitals Vital Signs Date Temp Pulse Resp B/P (MAP) Pulse Ox O2 O2 Flow FiO2 Time Delivery Rate 05/25/18 97.9 92 18 112/75 98 14:23 (87) 05/24/18 Nasal 2.0 20:20 Cannula Intake and Output 05/24/18 05/24/18 05/25/18 1515:00 23:00 07:00 IntakeIntake Total 620 ml 500 ml 240 ml OutputOutput Total 820 ml 80 ml 1550 ml BalanceBalance -200 ml 420 ml -1310 ml Results Results 24hrs Laboratory Tests Test 05/25/18 05:38 White Blood Count 13.0 H Red Blood Count 3.43 L Hemoglobin 10.5 L Hematocrit 31.5 L Mean Corpuscular Volume 91.8 Mean Corpuscular Hemoglobin 30.6 Mean Corpuscular Hemoglobin Concent 33.3 Red Cell Distribution Width 15.5 H Platelet Count 176 Mean Platelet Volume 10.0 Immature Granulocytes % 1.900 H Neutrophils % 69.7 Lymphocytes % 7.9 L Monocytes % 13.8 H Eosinophils % 6.0 Basophils % 0.7 Nucleated Red Blood Cells % 0.0 Immature Granulocytes # 0.250 H Neutrophils # 9.0 H Lymphocytes # 1.0 Monocytes # 1.8 H Eosinophils # 0.8 H Basophils # 0.1 Nucleated Red Blood Cells # 0.0 Sodium Level 133 L Potassium Level 4.0 Chloride Level 98 Carbon Dioxide Level 24 Anion Gap 11 Blood Urea Nitrogen 59 H Creatinine 4.46 H Est Glomerular Filtrat Rate mL/min 14 L Glucose Level 77 Uric Acid 10.1 H Calcium Level 8.4 Phosphorus Level 6.1 H Magnesium Level 1.8 Medications Medication Current Medications IV Flush (NS 3 ml) 3 ml PER PROTOCOL IV ; Start 05/17/18 at 17:30 Morphine Sulfate (morphine) 2 mg Q4H PRN IV .PAIN 7-10 Last administered on 05/24/18at 20:55; Admin Dose 2 MG; Start 05/17/18 at 17:30 Clotrimazole (Lotrimin Cr) 1 applic BID TOP Last administered on 05/25/18 08:57; Admin Dose 1 APPLIC; Start 05/18/18 at 21:00 Miscellaneous Information 1 ea NOTE XX ; Start 05/18/18 at 18:00 Glucose (Glutose) 15 gm Q15M PRN PO DECREASED GLUCOSE; Start 05/18/18 at 18:00 Glucose (Glutose) 22.5 gm Q15M PRN PO DECREASED GLUCOSE; Start 05/18/18 at 18:00 Dextrose (D50w Syringe) 25 ml Q15M PRN IV DECREASED GLUCOSE; Start 05/18/18 at 18:00 Dextrose (D50w Syringe) 50 ml Q15M PRN IV DECREASED GLUCOSE Last administered on 05/18/18at 17:58; Admin Dose 50 ML; Start 05/18/18 at 18:00 Glucagon (Glucagen) 1 mg Q15M PRN IM DECREASED GLUCOSE; Start 05/18/18 at 18:00 Glucose (Glutose) 15 gm Q15M PRN BUCCAL DECREASED GLUCOSE; Start 05/18/18 at 18:00 Ammonium Lactate (Lac-Hydrin 12% Lotion) 1 applic DAILY TOP Last administered on 05/25/18at 08:57; Admin Dose 1 APPLIC; Start 05/19/18 at 09:00 Ondansetron HCl (Zofran Inj) 4 mg Q4 PRN IV NAUSEA/VOMITING; Start 05/20/18 at 19:00 Enoxaparin Sodium (Lovenox) 30 mg DAILY SC Last administered on 05/24/18at 08:36; Admin Dose 30 MG; Start 05/21/18 at 09:00 Bisacodyl (Dulcolax) 10 mg DAILY PRN PO CONSTIPATION Last administered on 05/23/18at 13:57; Admin Dose 10 MG; Start 05/20/18 at 19:00 Bisacodyl (Dulcolax Supp) 10 mg Q48H PRN [place] CONSTIPATION; Start 05/20/18 at 19:00 Docusate Sodium (Colace) 100 mg BID PRN PO CONSTIPATION; Start 05/20/18 at 19:00 Acetaminophen/ Hydrocodone Bitart ([place] (10/325)) 1 tab Q6H PRN PO MODERATE PAIN LEVEL 4-6 Last administered on 05/24/18 18:08; Admin Dose 1 TAB; Start 05/20/18 at 19:00 Metoclopramide HCl (Reglan) 10 mg Q6 IV Last administered on 05/25/18 18:09; Admin Dose 10 MG; Start 05/22/18 at 12:00 Lorazepam (Ativan) 1 mg Q8H PRN IV AGITATION/ANXIETY; Start 05/22/18 at 15:00 Levofloxacin (Levaquin) 250 mg Q2D@0600 PO ; Start 05/26/18 at 06:00 Fluconazole (Diflucan) 200 mg DAILY PO Last administered on 05/25/18 08:55; Admin Dose 200 MG; Start 05/24/18 at 09:00 Colchicine (Colchicine) 0.6 mg DAILY PO Last administered on 05/25/18 08:55; Admin Dose 0.6 MG; Start 05/24/18 at 21:00; Stop 05/25/18 at 23:00 Famotidine (Pepcid) 20 mg DAILY PO Last administered on 05/25/18 08:55; Admin Dose 20 MG; Start 05/25/18 at 09:00 Senna/Docusate Sodium (Senokot-S) 2 tab HS PO Last administered on 05/24/18at 20:45; Admin Dose 2 TAB; Start 05/24/18 at 21:00 Trazodone HCl (Desyrel) 50 mg HS PO ; Start 05/25/18 at 21:00 Quetiapine Fumarate (Seroquel) 25 mg BID PO Last administered on 05/25/18 08:55; Admin Dose 25 MG; Start 05/24/18 at 21:00 KIMBERLY SALMERON MD May 25, 2018 20:19
[2018-05-25] MEDS: SENNA/DOCUSATE NA (8.6MG/50MG) TAB PO SCH (20:54)
[2018-05-25] MEDS: traZODone 50 MG TAB PO SCH (20:54)
[2018-05-25 21:35] VITALS: BP 130/76; PULSE 88; RESP 18
[2018-05-26] MEDS: METOCLOPRAMIDE 5 MG TAB PO SCH ×4 (00:26→22:06)
[2018-05-26 02:00] VITALS: BP 125/68; PULSE 98; RESP 19
[2018-05-26] MEDS ORDERED: PENDING SANTYL ORDER FOR WOUND CARE XX PRN (05:30)
[2018-05-26] MEDS ORDERED: LEVOFLOXACIN 250 MG TAB PO SCH (06:00)
--- NOTE | 2018-05-26 07:35 | CONS ---
Assessment/Plan Assessment/Plan Hospital Course (Demo Recall) 1) perforated gastric ulcer with peritonitis s/p surgical repair s.aureus is growing from the fluid drained at time of surgery change antibiotics to zyvox/zosyn pt has no hx of MRSA but he is homeless so at higher risk for MRSA get nasal for MRSA 05/20 - cx from surgery has MSSA and GNR d/c zyvox and continue with just zosyn 05/22 - improving continue with zosyn when pt is eating can change to po levo/rifampin to complete his antibiotic course 05/24 - d/c zosyn and start oral levaquin thru 05/26 05/26 - today is last day for his levaquin WBC is almost back to WNL 2) CRI with acute component u/a was benign on admission 05/22 - will reduce dose of zosyn will switch to levaquin soon urine output has improved 05/24 - urine output is ok but creatinine is not decreasing yet (today's chem panel still pending) d/c zosyn and start oral levaquin 05/26 - creatinine has started to decrease but this a.m. 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 by pt's report 5) gout 05/24 - pt c/o of pain to both 1st MTP joints recommend treatment for this Consultation Date/Type/Reason Admit Date/Time May 17, 2018 at 16:42 Initial Consult Date 05/19/18 Type of Consult ID Requesting Provider: DANY BERG MD Date/Time of Note DATE: 05/26/18 TIME: 07:32 24 HR Interval Summary Free Text/Dictation pt is eating regular food and less pain to abd no N, V pt wants more food (double portions as he says) having BM's Exam/Review of Systems Exam Vitals Vital Signs Date Temp Pulse Resp B/P (MAP) Pulse Ox O2 O2 Flow FiO2 Time Delivery Rate 05/26/18 98.8 98 19 125/68 99 02:00 (87) 05/25/18 Nasal 2.0 20:00 Cannula Intake and Output 05/25/18 05/25/18 05/26/18 1515:00 23:00 07:00 IntakeIntake Total 300 ml 340 ml 1300 ml OutputOutput Total 1140 ml 490 ml 1450 ml BalanceBalance -840 ml -150 ml -150 ml Constitutional: alert, oriented Respiratory: clear to auscultation Cardiovascular: regular rate and rhythm Gastrointestinal: other (BS present, no redness appreciated) Results Result Diagram: 05/26/18 0604 05/25/18 0538 Results 24hrs Laboratory Tests Test 05/26/18 06:04 White Blood Count 12.3 H Red Blood Count 3.12 L Hemoglobin 9.4 L Hematocrit 28.4 L Mean Corpuscular Volume 91.0 Mean Corpuscular Hemoglobin 30.1 Mean Corpuscular Hemoglobin Concent 33.1 Red Cell Distribution Width 15.8 H Platelet Count 195 Mean Platelet Volume 10.3 Immature Granulocytes % 1.100 H Neutrophils % 69.8 Lymphocytes % 7.0 L Monocytes % 16.8 H Eosinophils % 4.8 Basophils % 0.5 Nucleated Red Blood Cells % 0.0 Immature Granulocytes # 0.130 H Neutrophils # 8.6 H Lymphocytes # 0.9 Monocytes # 2.1 H Eosinophils # 0.6 H Basophils # 0.1 Nucleated Red Blood Cells # 0.0 Medications Medication Current Medications IV Flush (NS 3 ml) 3 ml PER PROTOCOL IV ; Start 05/17/18 at 17:30 Morphine Sulfate (morphine) 2 mg Q4H PRN IV .PAIN 7-10 Last administered on 05/24/18at 20:55; Admin Dose 2 MG; Start 05/17/18 at 17:30 Clotrimazole (Lotrimin Cr) 1 applic BID TOP Last administered on 05/25/18at 20:55; Admin Dose 1 APPLIC; Start 05/18/18 at 21:00 Miscellaneous Information 1 ea NOTE XX ; Start 05/18/18 at 18:00 Glucose (Glutose) 15 gm Q15M PRN PO DECREASED GLUCOSE; Start 05/18/18 at 18:00 Glucose (Glutose) 22.5 gm Q15M PRN PO DECREASED GLUCOSE; Start 05/18/18 at 18:00 Dextrose (D50w Syringe) 25 ml Q15M PRN IV DECREASED GLUCOSE; Start 05/18/18 at 18:00 Dextrose (D50w Syringe) 50 ml Q15M PRN IV DECREASED GLUCOSE Last administered on 05/18/18at 17:58; Admin Dose 50 ML; Start 05/18/18 at 18:00 Glucagon (Glucagen) 1 mg Q15M PRN IM DECREASED GLUCOSE; Start 05/18/18 at 18:00 Glucose (Glutose) 15 gm Q15M PRN BUCCAL DECREASED GLUCOSE; Start 05/18/18 at 18:00 Ammonium Lactate (Lac-Hydrin 12% Lotion) 1 applic DAILY TOP Last administered on 05/25/18 08:57; Admin Dose 1 APPLIC; Start 05/19/18 at 09:00 Ondansetron HCl (Zofran Inj) 4 mg Q4 PRN IV NAUSEA/VOMITING; Start 05/20/18 at 19:00 Enoxaparin Sodium (Lovenox) 30 mg DAILY SC Last administered on 05/24/18 08:36; Admin Dose 30 MG; Start 05/21/18 at 09:00 Bisacodyl (Dulcolax) 10 mg DAILY PRN PO CONSTIPATION Last administered on 05/23/18 13:57; Admin Dose 10 MG; Start 05/20/18 at 19:00 Bisacodyl (Dulcolax Supp) 10 mg Q48H PRN [place] CONSTIPATION; Start 05/20/18 at 19:00 Docusate Sodium (Colace) 100 mg BID PRN PO CONSTIPATION; Start 05/20/18 at 19:00 Acetaminophen/ Hydrocodone Bitart ([place] (10/325)) 1 tab Q6H PRN PO MODERATE PAIN LEVEL 4-6 Last administered on 05/24/18 18:08; Admin Dose 1 TAB; Start 05/20/18 at 19:00 Lorazepam (Ativan) 1 mg Q8H PRN IV AGITATION/ANXIETY; Start 05/22/18 at 15:00 Levofloxacin (Levaquin) 250 mg Q2D@0600 PO Last administered on 05/26/18at 05:44; Admin Dose 250 MG; Start 05/26/18 at 06:00 Fluconazole (Diflucan) 200 mg DAILY PO Last administered on 05/25/18 08:55; Admin Dose 200 MG; Start 05/24/18 at 09:00 Famotidine (Pepcid) 20 mg DAILY PO Last administered on 05/25/18 08:55; Admin Dose 20 MG; Start 05/25/18 at 09:00 Senna/Docusate Sodium (Senokot-S) 2 tab HS PO Last administered on 3/16/19at 20:54; Admin Dose 2 TAB; Start 05/24/18 at 21:00 Trazodone HCl (Desyrel) 50 mg HS PO Last administered on 05/25/18at 20:54; Admin Dose 50 MG; Start 05/25/18 at 21:00 Quetiapine Fumarate (Seroquel) 25 mg BID PO Last administered on 05/25/18at 20:54; Admin Dose 25 MG; Start 05/24/18 at 21:00 Allopurinol (Zyloprim) 100 mg DAILY PO ; Start 05/26/18 at 09:00 Metoclopramide HCl (Reglan) 5 mg Q8 PO Last administered on 05/26/18at 05:44; Admin Dose 5 MG; Start 05/26/18 at 00:00 Miscellaneous Information (Pending Santyl Order For Wound Care) This patient campo... PRN PRN XX WOUND CARE; Start 05/26/18 at 05:30 CAREN HARRINGTON MD May 26, 2018 07:35
[2018-05-26 07:48] VITALS: BP 123/74; PULSE 101; RESP 18
[2018-05-26] MEDS: HYDROCODONE/APAP (10/325) TAB PO PRN ×2 (08:19→19:57)
[2018-05-26] MEDS: FLUCONAZOLE 200 MG TAB PO SCH (08:19)
[2018-05-26] MEDS: QUETIAPINE 25 MG TAB PO SCH ×2 (08:20→20:41)
[2018-05-26] MEDS: FAMOTIDINE 20 MG TAB PO SCH (08:20)
[2018-05-26] MEDS: ALLOPURINOL 100 MG TAB PO SCH (08:20)
[2018-05-26] MEDS: ENOXAPARIN 30 MG/0.3 ML SYG SC SCH (08:21)
[2018-05-26] MEDS: CLOTRIMAZOLE 1% 30 GM CR TOP SCH ×2 (08:22→20:43)
[2018-05-26] MEDS: AMMONIUM LACTATE 12% 225 GM LOT TOP SCH (08:22)
--- NOTE | 2018-05-26 11:38 | PN ---
Date/Time of Note Date/Time of Note DATE: 05/26/18 TIME: 11:37 Assessment/Plan VTE Prophylaxis Risk score (from Ns)>0 risk: 3 SCD applied (from Ns): Yes Pharmacological prophylaxis: other Lines/Catheters IV Catheter Type (from Nrsg): Central Line Central line still needed: Yes Urinary Cath still in place: Yes Reason Cath still needed: urinary retention Assessment/Plan Hospital Course renal follow up SUBJECTIVE: The patient is stable, no events overnight. OBJECTIVE: HEENT: Head is normocephalic. NECK: Supple. HEART: Regular rate. LUNGS: Show diminished breath sounds at the base. ABDOMEN: Soft, nontender to palpation. No rebound or guarding. EXTREMITIES: Negative for clubbing, cyanosis, no edema. DERMATOLOGIC: No rashes. MUSCULOSKELETAL: No joint effusion. NEUROLOGIC: No change in exam. MEDICATIONS: Reviewed. ASSESSMENT AND PLAN: 1. Nonoliguric acute kidney injury on top of chronic kidney disease with unkno wn baseline creatinine. Etiology of acute kidney injury is secondary to acute tubular necrosis. The patient remains in injury phase of acute tubular necrosis as creatinine continues to increase. The patient, however, has good urinary output and no overt uremic symptoms. no indication for HD yet. Plan therefore will be to continue to monitor renal function, continue supportive care, renally dose all medicines and avoid nephrotoxins. 2. Chronic kidney disease with unknown baseline creatinine. Etiology is secondary to acute kidney injury. Continue current treatment plan. Continue disease factor modification. 3. Hypernatremia, improved. 4. Anemia. Continue to monitor hemoglobin and hematocrit levels. 5. Mineral bone disorder, monitor calcium and phosphorus levels. 6. Perforated duodenal ulcer, status post laparotomy with surgical repair. 7. Sepsis. The patient is completing antibiotic course. 8. Metabolic acidosis secondary to acute kidney injury. Continue to monitor. 9. Encephalopathy, improving. Result Diagram: 05/26/18 0604 05/26/18 0604 Results 24hrs Laboratory Tests Test 05/26/18 06:04 White Blood Count 12.3 H Red Blood Count 3.12 L Hemoglobin 9.4 L Hematocrit 28.4 L Mean Corpuscular Volume 91.0 Mean Corpuscular Hemoglobin 30.1 Mean Corpuscular Hemoglobin Concent 33.1 Red Cell Distribution Width 15.8 H Platelet Count 195 Mean Platelet Volume 10.3 Immature Granulocytes % 1.100 H Neutrophils % 69.8 Lymphocytes % 7.0 L Monocytes % 16.8 H Eosinophils % 4.8 Basophils % 0.5 Nucleated Red Blood Cells % 0.0 Immature Granulocytes # 0.130 H Neutrophils # 8.6 H Lymphocytes # 0.9 Monocytes # 2.1 H Eosinophils # 0.6 H Basophils # 0.1 Nucleated Red Blood Cells # 0.0 Sodium Level 138 Potassium Level 3.9 Chloride Level 102 Carbon Dioxide Level 26 Anion Gap 10 Blood Urea Nitrogen 56 H Creatinine 4.20 H Est Glomerular Filtrat Rate mL/min 15 L Glucose Level 80 Calcium Level 8.2 L Exam/Review of Systems Exam Vitals Vital Signs Date Temp Pulse Resp B/P (MAP) Pulse Ox O2 O2 Flow FiO2 Time Delivery Rate 05/26/18 98.3 101 18 123/74 98 Room Air 07:48 (90) 05/25/18 2.0 20:00 Intake and Output 05/25/18 05/25/18 05/26/18 1515:00 23:00 07:00 IntakeIntake Total 300 ml 340 ml 1300 ml OutputOutput Total 1140 ml 490 ml 1450 ml BalanceBalance -840 ml -150 ml -150 ml Results Results 24hrs Laboratory Tests Test 05/26/18 06:04 White Blood Count 12.3 H Red Blood Count 3.12 L Hemoglobin 9.4 L Hematocrit 28.4 L Mean Corpuscular Volume 91.0 Mean Corpuscular Hemoglobin 30.1 Mean Corpuscular Hemoglobin Concent 33.1 Red Cell Distribution Width 15.8 H Platelet Count 195 Mean Platelet Volume 10.3 Immature Granulocytes % 1.100 H Neutrophils % 69.8 Lymphocytes % 7.0 L Monocytes % 16.8 H Eosinophils % 4.8 Basophils % 0.5 Nucleated Red Blood Cells % 0.0 Immature Granulocytes # 0.130 H Neutrophils # 8.6 H Lymphocytes # 0.9 Monocytes # 2.1 H Eosinophils # 0.6 H Basophils # 0.1 Nucleated Red Blood Cells # 0.0 Sodium Level 138 Potassium Level 3.9 Chloride Level 102 Carbon Dioxide Level 26 Anion Gap 10 Blood Urea Nitrogen 56 H Creatinine 4.20 H Est Glomerular Filtrat Rate mL/min 15 L Glucose Level 80 Calcium Level 8.2 L Medications Medication Current Medications IV Flush (NS 3 ml) 3 ml PER PROTOCOL IV ; Start 05/17/18 at 17:30 Morphine Sulfate (morphine) 2 mg Q4H PRN IV .PAIN 7-10 Last administered on 05/24/18at 20:55; Admin Dose 2 MG; Start 05/17/18 at 17:30 Clotrimazole (Lotrimin Cr) 1 applic BID TOP Last administered on 05/26/18at 08:22; Admin Dose 1 APPLIC; Start 05/18/18 at 21:00 Miscellaneous Information 1 ea NOTE XX ; Start 05/18/18 at 18:00 Glucose (Glutose) 15 gm Q15M PRN PO DECREASED GLUCOSE; Start 05/18/18 at 18:00 Glucose (Glutose) 22.5 gm Q15M PRN PO DECREASED GLUCOSE; Start 05/18/18 at 18:00 Dextrose (D50w Syringe) 25 ml Q15M PRN IV DECREASED GLUCOSE; Start 05/18/18 at 18:00 Dextrose (D50w Syringe) 50 ml Q15M PRN IV DECREASED GLUCOSE Last administered on 05/18/18at 17:58; Admin Dose 50 ML; Start 05/18/18 at 18:00 Glucagon (Glucagen) 1 mg Q15M PRN IM DECREASED GLUCOSE; Start 05/18/18 at 18:00 Glucose (Glutose) 15 gm Q15M PRN BUCCAL DECREASED GLUCOSE; Start 05/18/18 at 18:00 Ammonium Lactate (Lac-Hydrin 12% Lotion) 1 applic DAILY TOP Last administered on 05/26/18at 08:22; Admin Dose 1 APPLIC; Start 05/19/18 at 09:00 Ondansetron HCl (Zofran Inj) 4 mg Q4 PRN IV NAUSEA/VOMITING; Start 05/20/18 at 19:00 Enoxaparin Sodium (Lovenox) 30 mg DAILY SC Last administered on 05/26/18at 08:21; Admin Dose 30 MG; Start 05/21/18 at 09:00 Bisacodyl (Dulcolax) 10 mg DAILY PRN PO CONSTIPATION Last administered on 05/23/18at 13:57; Admin Dose 10 MG; Start 05/20/18 at 19:00 Bisacodyl (Dulcolax Supp) 10 mg Q48H PRN [place] CONSTIPATION; Start 05/20/18 at 19:00 Docusate Sodium (Colace) 100 mg BID PRN PO CONSTIPATION; Start 05/20/18 at 19:00 Acetaminophen/ Hydrocodone Bitart ([place] (10/325)) 1 tab Q6H PRN PO MODERATE PAIN LEVEL 4-6 Last administered on 05/26/18at 08:19; Admin Dose 1 TAB; Start 05/20/18 at 19:00 Lorazepam (Ativan) 1 mg Q8H PRN IV AGITATION/ANXIETY; Start 05/22/18 at 15:00 Levofloxacin (Levaquin) 250 mg Q2D@0600 PO Last administered on 05/26/18at 05:44; Admin Dose 250 MG; Start 05/26/18 at 06:00; Stop 05/27/18 at 10:00 Fluconazole (Diflucan) 200 mg DAILY PO Last administered on 05/26/18 08:19; Admin Dose 200 MG; Start 05/24/18 at 09:00 Famotidine (Pepcid) 20 mg DAILY PO Last administered on 05/26/18 08:20; Admin Dose 20 MG; Start 05/25/18 at 09:00 Senna/Docusate Sodium (Senokot-S) 2 tab HS PO Last administered on 05/25/18at 20:54; Admin Dose 2 TAB; Start 05/24/18 at 21:00 Trazodone HCl (Desyrel) 50 mg HS PO Last administered on 05/25/18at 20:54; Admin Dose 50 MG; Start 05/25/18 at 21:00 Quetiapine Fumarate (Seroquel) 25 mg BID PO Last administered on 05/26/18 08:20; Admin Dose 25 MG; Start 05/24/18 at 21:00 Allopurinol (Zyloprim) 100 mg DAILY PO Last administered on 05/26/18at 08:20; Admin Dose 100 MG; Start 05/26/18 at 09:00 Metoclopramide HCl (Reglan) 5 mg Q8 PO Last administered on 05/26/18 05:44; Admin Dose 5 MG; Start 05/26/18 at 00:00 Miscellaneous Information (Pending Santyl Order For Wound Care) This patient campo... PRN PRN XX WOUND CARE; Start 05/26/18 at 05:30 LYNNE MARIE DO May 26, 2018 11:38
[2018-05-26 14:23] VITALS: BP 120/80; PULSE 98; RESP 20
[2018-05-26 20:00] VITALS: BP 135/83; PULSE 102
[2018-05-26] MEDS: SENNA/DOCUSATE NA (8.6MG/50MG) TAB PO SCH (20:41)
[2018-05-26] MEDS: traZODone 50 MG TAB PO SCH (20:41)
--- NOTE | 2018-05-26 22:57 | PN ---
"Date/Time of Note Date/Time of Note DATE: 05/25/18 TIME: 22:52 Assessment/Plan Lines/Catheters IV Catheter Type (from [facility]): Central Line Morgan in Place (from [facility]): Yes Assessment/Plan Chief Complaint/Hosp Course 1. Perforated duodenal ulcer with peritonitis: Status post plication and Dickson patch May 17, 2018: -IS -ambulate> obtain PT if not already on board -ice pack to abdominal wall -advance diet as tolerated -YESSI drain -ABX per ID -Local care 2. Persistent leukocytosis -As above -Per ID -? CT 3.CKD with CHERYL: -Limit nephrotoxic meds -Renally dose meds -Per renal 4. Normocytic normochromic anemia: -Monitor and transfuse as needed 5. Illicit drug use: -Highly encourage cessation 6. Homelessness: -Social service follow-up 7. Schizophrenia: -Psychiatric optimization 8. Bilateral lower extremity ulcers: -Per podiatry 9. CHF history: -Cardiac optimization -Illicit drug use cessation Thank you Late entry 05/25 Subjective 24 Hr Interval Summary No f/c. No n/v. No cough. No sz. No bleeding. No rash. No dysuria. Bowel function. No visual or neuro changes. WBC slowly improving but still abnormal. Exam/Review of Systems Vital Signs Vitals Vital Signs Date Temp Pulse Resp B/P (MAP) Pulse Ox O2 O2 Flow FiO2 Time Delivery Rate 05/26/18 99.2 98 20 120/80 98 Nasal 14:23 (93) Cannula 05/25/18 2.0 20:00 Intake and Output 05/25/18 05/25/18 05/26/18 1515:00 23:00 07:00 IntakeIntake Total 300 ml 340 ml 1300 ml OutputOutput Total 1140 ml 490 ml 1450 ml BalanceBalance -840 ml -150 ml -150 ml Exam Free Text/Dictation Constitutional: alert, oriented Psych: anxiety Head: normocephalic, atraumatic Eyes: nl conjunctiva, EOMI, nl lids, nl sclera ENMT: nl external ears & nose, nl lips & teeth, mucosa pink and moist Neck: supple, non-tender; No jvd Respiratory: normal air movement; No congested cough, No labored breathing Cardiovascular: regular rate and rhythm, nl pulses; No edema Gastrointestinal: soft, distended (Moderate), tender (Sarah-incisional: Midline staple line: Minimal serosanguineous drainage, no erythema | YESSI drain: Serosanguineous) Musculoskeletal: nl gait and stance Extremities: normal pulses Neurological: nl mental status; No nl strength (Generalized weakness) Skin: No rash or lesions Results Result Diagram: 05/26/18 0604 05/26/18 0604 RIMA MARIE MD May 26, 2018 22:57"
--- NOTE | 2018-05-26 22:59 | PN ---
"Date/Time of Note Date/Time of Note DATE: 05/26/18 TIME: 22:57 Assessment/Plan Lines/Catheters IV Catheter Type (from [facility]): Central Line Morgan in Place (from [facility]): Yes Assessment/Plan Chief Complaint/Hosp Course 1. Perforated duodenal ulcer with peritonitis: Status post plication and Dickson patch May 17, 2018: -IS -ambulate> obtain PT if not already on board -ice pack to abdominal wall -advance diet as tolerated -YESSI drain -ABX per ID -Local care 2. Persistent leukocytosis -As above -Per ID -? CT 3.CKD with CHERYL: -Limit nephrotoxic meds -Renally dose meds -Per renal 4. Normocytic normochromic anemia: -Monitor and transfuse as needed 5. Illicit drug use: -Highly encourage cessation 6. Homelessness: -Social service follow-up 7. Schizophrenia: -Psychiatric optimization 8. Bilateral lower extremity ulcers: -Per podiatry 9. CHF history: -Cardiac optimization -Illicit drug use cessation Thank you Subjective 24 Hr Interval Summary No f/c. No n/v. No cough. No sz. No bleeding. No rash. No dysuria. Bowel function. No visual or neuro changes. WBC slowly improving but still abnormal. Exam/Review of Systems Vital Signs Vitals Vital Signs Date Temp Pulse Resp B/P (MAP) Pulse Ox O2 O2 Flow FiO2 Time Delivery Rate 05/26/18 99.2 98 20 120/80 98 Nasal 14:23 (93) Cannula 05/25/18 2.0 20:00 Intake and Output 05/25/18 05/25/18 05/26/18 1515:00 23:00 07:00 IntakeIntake Total 300 ml 340 ml 1300 ml OutputOutput Total 1140 ml 490 ml 1450 ml BalanceBalance -840 ml -150 ml -150 ml Exam Free Text/Dictation Constitutional: alert, oriented Psych: anxiety Head: normocephalic, atraumatic Eyes: nl conjunctiva, EOMI, nl lids, nl sclera ENMT: nl external ears & nose, nl lips & teeth, mucosa pink and moist Neck: supple, non-tender; No jvd Respiratory: normal air movement; No congested cough, No labored breathing Cardiovascular: regular rate and rhythm, nl pulses; No edema Gastrointestinal: soft, distended (Moderate), tender (Sarah-incisional: Midline staple line: Minimal serosanguineous drainage, no erythema | YESSI drain: Serosanguineous) Musculoskeletal: nl gait and stance Extremities: normal pulses Neurological: nl mental status; No nl strength (Generalized weakness) Skin: No rash or lesions Results Result Diagram: 05/26/18 0604 05/26/18 0604 RIMA MARIE MD May 26, 2018 22:59"
[2018-05-27 01:50] VITALS: BP 122/78; PULSE 105; RESP 16
[2018-05-27] MEDS: METOCLOPRAMIDE 5 MG TAB PO SCH ×3 (06:09→21:07)
--- NOTE | 2018-05-27 07:16 | CONS ---
Assessment/Plan Assessment/Plan Hospital Course (Demo Recall) 1) perforated gastric ulcer with peritonitis s/p surgical repair s.aureus is growing from the fluid drained at time of surgery change antibiotics to zyvox/zosyn pt has no hx of MRSA but he is homeless so at higher risk for MRSA get nasal for MRSA 05/20 - cx from surgery has MSSA and GNR d/c zyvox and continue with just zosyn 05/22 - improving continue with zosyn when pt is eating can change to po levo/rifampin to complete his antibiotic course 05/24 - d/c zosyn and start oral levaquin thru 05/26 05/26 - today is last day for his levaquin WBC is almost back to WNL 05/27 - WBC is higher this a.m. but clinically pt is better to d/c levaquin and observe off antibiotics 2) CRI with acute component u/a was benign on admission 05/22 - will reduce dose of zosyn will switch to levaquin soon urine output has improved 05/24 - urine output is ok but creatinine is not decreasing yet (today's chem panel still pending) d/c zosyn and start oral levaquin 05/26 - creatinine has started to decrease but this a.m. 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 by pt's report 5) gout 05/24 - pt c/o of pain to both 1st MTP joints recommend treatment for this 05/27 - toes are better Consultation Date/Type/Reason Admit Date/Time May 17, 2018 at 16:42 Initial Consult Date 05/19/18 Type of Consult ID Requesting Provider: DANY BERG MD Date/Time of Note DATE: 05/27/18 TIME: 07:13 24 HR Interval Summary Free Text/Dictation pt feeling better less abd pain and able to walk without pain now mouth is dry but no dysphagia no diarrhea, had BM this a.m. wants more food Exam/Review of Systems Exam Vitals Vital Signs Date Temp Pulse Resp B/P (MAP) Pulse Ox O2 O2 Flow FiO2 Time Delivery Rate 05/27/18 97.9 105 16 122/78 93 01:50 (93) 05/26/18 Nasal 14:23 Cannula 05/25/18 2.0 20:00 Intake and Output 05/26/18 05/26/18 05/27/18 1515:00 23:00 07:00 IntakeIntake Total 640 ml 340 ml OutputOutput Total 750 ml 810 ml 1245 ml BalanceBalance -110 ml -470 ml -1245 ml Constitutional: alert Eyes: nl sclera ENMT: other (dry tongue) Respiratory: clear to auscultation Cardiovascular: regular rate and rhythm Gastrointestinal: soft, non-tender Extremities: other (no swelling) Results Result Diagram: 05/27/18 0537 05/27/18 0537 Results 24hrs Laboratory Tests Test 05/27/18 05:37 White Blood Count 14.3 H Red Blood Count 3.32 L Hemoglobin 9.9 L Hematocrit 30.3 L Mean Corpuscular Volume 91.3 Mean Corpuscular Hemoglobin 29.8 Mean Corpuscular Hemoglobin Concent 32.7 Red Cell Distribution Width 15.7 H Platelet Count 221 Mean Platelet Volume 9.5 Immature Granulocytes % 1.100 H Neutrophils % 70.7 Lymphocytes % 7.8 L Monocytes % 15.6 H Eosinophils % 4.2 Basophils % 0.6 Nucleated Red Blood Cells % 0.0 Immature Granulocytes # 0.160 H Neutrophils # 10.1 H Lymphocytes # 1.1 Monocytes # 2.2 H Eosinophils # 0.6 H Basophils # 0.1 Nucleated Red Blood Cells # 0.0 Sodium Level 139 Potassium Level 4.2 Chloride Level 100 Carbon Dioxide Level 26 Anion Gap 13 Blood Urea Nitrogen 55 H Creatinine 3.94 H Est Glomerular Filtrat Rate mL/min 16 L Glucose Level 91 Calcium Level 8.4 Total Bilirubin 0.2 Direct Bilirubin 0.00 Indirect Bilirubin 0.2 Aspartate Amino Transf (AST/SGOT) 53 H Alanine Aminotransferase (ALT/SGPT) 19 Alkaline Phosphatase 381 H Total Protein 5.9 L Albumin 2.8 L Globulin 3.10 Albumin/Globulin Ratio 0.90 Medications Medication Current Medications IV Flush (NS 3 ml) 3 ml PER PROTOCOL IV ; Start 05/17/18 at 17:30 Morphine Sulfate (morphine) 2 mg Q4H PRN IV .PAIN 7-10 Last administered on 05/24/18at 20:55; Admin Dose 2 MG; Start 05/17/18 at 17:30 Clotrimazole (Lotrimin Cr) 1 applic BID TOP Last administered on 05/26/18at 20:4 3; Admin Dose 1 APPLIC; Start 05/18/18 at 21:00 Miscellaneous Information 1 ea NOTE XX ; Start 05/18/18 at 18:00 Glucose (Glutose) 15 gm Q15M PRN PO DECREASED GLUCOSE; Start 05/18/18 at 18:00 Glucose (Glutose) 22.5 gm Q15M PRN PO DECREASED GLUCOSE; Start 05/18/18 at 18:00 Dextrose (D50w Syringe) 25 ml Q15M PRN IV DECREASED GLUCOSE; Start 05/18/18 at 18:00 Dextrose (D50w Syringe) 50 ml Q15M PRN IV DECREASED GLUCOSE Last administered on 05/18/18at 17:58; Admin Dose 50 ML; Start 05/18/18 at 18:00 Glucagon (Glucagen) 1 mg Q15M PRN IM DECREASED GLUCOSE; Start 05/18/18 at 18:00 Glucose (Glutose) 15 gm Q15M PRN BUCCAL DECREASED GLUCOSE; Start 05/18/18 at 18:00 Ammonium Lactate (Lac-Hydrin 12% Lotion) 1 applic DAILY TOP Last administered on 05/26/18at 08:22; Admin Dose 1 APPLIC; Start 05/19/18 at 09:00 Ondansetron HCl (Zofran Inj) 4 mg Q4 PRN IV NAUSEA/VOMITING; Start 05/20/18 at 19:00 Enoxaparin Sodium (Lovenox) 30 mg DAILY SC Last administered on 05/26/18at 08:21; Admin Dose 30 MG; Start 05/21/18 at 09:00 Bisacodyl (Dulcolax) 10 mg DAILY PRN PO CONSTIPATION Last administered on 05/23/18at 13:57; Admin Dose 10 MG; Start 05/20/18 at 19:00 Bisacodyl (Dulcolax Supp) 10 mg Q48H PRN [place] CONSTIPATION; Start 05/20/18 at 19:00 Docusate Sodium (Colace) 100 mg BID PRN PO CONSTIPATION; Start 05/20/18 at 19:00 Acetaminophen/ Hydrocodone Bitart ([place] (10/325)) 1 tab Q6H PRN PO MODERATE PAIN LEVEL 4-6 Last administered on 05/26/18at 19:57; Admin Dose 1 TAB; Start 05/20/18 at 19:00 Lorazepam (Ativan) 1 mg Q8H PRN IV AGITATION/ANXIETY; Start 05/22/18 at 15:00 Levofloxacin (Levaquin) 250 mg Q2D@0600 PO Last administered on 05/26/18 05:44; Admin Dose 250 MG; Start 05/26/18 at 06:00; Stop 05/27/18 at 10:00 Fluconazole (Diflucan) 200 mg DAILY PO Last administered on 05/26/18 08:19; Admin Dose 200 MG; Start 05/24/18 at 09:00 Famotidine (Pepcid) 20 mg DAILY PO Last administered on 05/26/18 08:20; Admin Dose 20 MG; Start 05/25/18 at 09:00 Senna/Docusate Sodium (Senokot-S) 2 tab HS PO Last administered on 05/26/18at 20:41; Admin Dose 2 TAB; Start 05/24/18 at 21:00 Trazodone HCl (Desyrel) 50 mg HS PO Last administered on 05/26/18 20:41; Admin Dose 50 MG; Start 05/25/18 at 21:00 Quetiapine Fumarate (Seroquel) 25 mg BID PO Last administered on 05/26/18 20:41; Admin Dose 25 MG; Start 05/24/18 at 21:00 Allopurinol (Zyloprim) 100 mg DAILY PO Last administered on 05/26/18 08:20; Admin Dose 100 MG; Start 05/26/18 at 09:00 Metoclopramide HCl (Reglan) 5 mg Q8 PO Last administered on 05/27/18 06:09; Admin Dose 5 MG; Start 05/26/18 at 00:00 Miscellaneous Information (Pending Santyl Order For Wound Care) This patient campo... PRN PRN XX WOUND CARE; Start 05/26/18 at 05:30 CAREN HARRINGTON MD May 27, 2018 07:16
[2018-05-27 08:00] VITALS: BP 137/86; PULSE 96; RESP 18
[2018-05-27] MEDS: HYDROCODONE/APAP (10/325) TAB PO PRN ×2 (09:05→17:36)
[2018-05-27] MEDS: FAMOTIDINE 20 MG TAB PO SCH (09:06)
[2018-05-27] MEDS: FLUCONAZOLE 200 MG TAB PO SCH (09:06)
[2018-05-27] MEDS: ALLOPURINOL 100 MG TAB PO SCH (09:06)
[2018-05-27] MEDS: QUETIAPINE 25 MG TAB PO SCH ×2 (09:06→21:07)
[2018-05-27] MEDS: CLOTRIMAZOLE 1% 30 GM CR TOP SCH ×2 (09:07→21:09)
[2018-05-27] MEDS: AMMONIUM LACTATE 12% 225 GM LOT TOP SCH (09:07)
[2018-05-27] MEDS: ENOXAPARIN 30 MG/0.3 ML SYG SC SCH (09:09)
--- NOTE | 2018-05-27 09:10 | PN ---
DATE: 05/27/2018 SUBJECTIVE: The patient is stable, no events overnight. OBJECTIVE: VITAL SIGNS: Blood pressure is 137/86, respiration 18, pulse 96, temperature 97.9. HEENT: Head is normocephalic. NECK: Supple. HEART: Regular rate. LUNGS: Show diminished breath sounds at the base. ABDOMEN: Soft, nontender to palpation without rebound or guarding. EXTREMITIES: Negative for clubbing, cyanosis, no edema. DERMATOLOGIC: No rashes. MUSCULOSKELETAL: No joint effusion. NEUROLOGIC: No change in exam. MEDICATIONS: Reviewed. LABORATORY DATA: Shows sodium 139, potassium 4.2, BUN , creatinine 3.94. White count 14.3, hem oglobin 9.9, platelet count is 221. ASSESSMENT AND PLAN: 1. Nonoliguric acute kidney injury with unknown baseline creatinine. Etiology is secondary to acute tubular necrosis. The patient has entered a recovery phase of acute tubular necrosis as renal funct ion has improved. At this point, continue current treatment plans, supportive care, and renally dose all medications. 2. Chronic kidney disease with unknown baseline creatinine. Etiology is secondary to acute kidney i njury. Renal function is improving. Continue to monitor. 3. Hypernatremia, improved. 4. Anemia. Monitor hemoglobin and hematocrit levels. 5. Mineral bone disorder, monitor calcium and phosphorus levels. 6. Perforated duodenal ulcer status post laparotomy with surgical repair. 7. Sepsis. Patient is completing antibiotic course. 8. Metabolic acidosis, improving. 9. Encephalopathy, resolving. Dictated By: YUSUF FLORES DO NR/NTS Conf#: [id number] DID#: [id number] CC: GABRIELA HESTER MD; KIMBERLY SALMERON MD; FRANCESCA VALLES DPM;*EndCC*
[2018-05-27] MEDS ORDERED: IOHEXOL 14.3 MG(I)/ML (ADULT) BTL PO ONE (13:30)
[2018-05-27 14:00] VITALS: BP 124/83; PULSE 87; RESP 18
--- NOTE | 2018-05-27 14:31 | PN ---
Date/Time of Note Date/Time of Note DATE: 05/27/18 TIME: 14:26 Assessment/Plan Lines/Catheters IV Catheter Type (from [facility]): Central Line Morgan in Place (from [facility]): Yes Assessment/Plan Chief Complaint/Hosp Course 1. Perforated duodenal ulcer with peritonitis: Status post plication and Dickson patch May 17, 2018. Worsening leukocytosis -IS -oob/ambulate -ice pack to abdominal wall -diet -YESSI drain -ABX per ID -Local care -CT -borges cx 2. Persistent leukocytosis -As above -Per ID -CT -borges cx 3.CKD with CHERYL: -Limit nephrotoxic meds -Renally dose meds -Per renal 4. Normocytic normochromic anemia: -Monitor and transfuse as needed 5. Illicit drug use: -Highly encourage cessation 6. Homelessness: -Social service follow-up 7. Schizophrenia: -Psychiatric optimization 8. Bilateral lower extremity ulcers: -Per podiatry 9. CHF history: -Cardiac optimization -Illicit drug use cessation Thank you Subjective 24 Hr Interval Summary Worsening leukocytosis. Bleeding from incision site. No f/c. No n/v. No cough. No sz. No rash. No dysuria. Bowel function. No visual or neuro changes. Exam/Review of Systems Vital Signs Vitals Vital Signs Date Temp Pulse Resp B/P (MAP) Pulse Ox O2 O2 Flow FiO2 Time Delivery Rate 05/27/18 97.9 96 18 137/86 96 08:00 (103) 05/26/18 Nasal 14:23 Cannula 05/25/18 2.0 20:00 Intake and Output 05/26/18 05/26/18 05/27/18 1515:00 23:00 07:00 IntakeIntake Total 640 ml 340 ml OutputOutput Total 750 ml 810 ml 1245 ml BalanceBalance -110 ml -470 ml -1245 ml Exam Free Text/Dictation Constitutional: alert, oriented Psych: anxiety Head: normocephalic, atraumatic Eyes: nl conjunctiva, EOMI, nl lids, nl sclera ENMT: nl external ears & nose, nl lips & teeth, mucosa pink and moist Neck: supple, non-tender; No jvd Respiratory: normal air movement; No congested cough, No labored breathing Cardiovascular: regular rate and rhythm, nl pulses; No edema Gastrointestinal: soft, distended (Moderate), min tender, staple line, ecchymosis, active bright red bleeding from mid incision (controlled with pressure), YESSI drain: serous Musculoskeletal: nl gait and stance Extremities: normal pulses Neurological: nl mental status; No nl strength (Generalized weakness) Skin: No rash or lesions Results Result Diagram: 05/27/18 0537 05/27/18 0537 RIMA MARIE MD May 27, 2018 14:31
--- NOTE | 2018-05-27 16:57 | PN ---
Date/Time of Note Date/Time of Note DATE: 05/27/18 TIME: 16:55 Assessment/Plan VTE Prophylaxis Risk score (from Nsg)>0 risk: 5 SCD applied (from Ns): No SCD contraindicated: other Pharmacological prophylaxis: LMWH Lines/Catheters IV Catheter Type (from Nrsg): Central Line Central line still needed: Yes Urinary Cath still in place: Yes Reason Cath still needed: other (indicate) Assessment/Plan Hospital Course SUBJECTIVE: Abdominal pain well controlled. Had some blood leak from the incision site. OBJECTIVE: Physical Exam General: Adequately build 57 year-old male lying in bed in no apparent distress. HEENT: Normocephalic, atraumatic. Eyes: Anicteric sclerae, conjunctivae clear. ENT: Nasal septum midline, oral mucosa moist. Neck supple, JVD noticed (decreased). Respiratory: Bilaterally diminished breath sounds. No use of accessory muscles of respiration. Bibasilar rales. Cardiovascular: S1, S2 heard. Regular rate and rhythm. Systolic murmur. Abdomen: Distended. Midline surgical dressing with a YESSI drain in place that is draining serosanguineous fluid. Genitourinary: Deferred. Extremities: No cyanosis, no clubbing. B/L LE trace pitting edema. Neurologic: Cranial nerves II through XII grossly intact. The patient is awake, alert, and oriented. Labs & Vitals per chart ASSESSMENT & PLAN 57-year-old male with comorbidities including gout, arthritis, congestive heart failure, substance abuse, nicotine use, and schizophrenia who came to the emergency room with chief complaint of abdominal pain with imaging studies showing pneumoperitoneum concerning for bowel perforation, who was admitted to inpatient setting for further treatment and evaluation. 1. Perforated duodenal ulcer. -Status post exploratory laparotomy, plication of perforated duodenal ulcer with Dickson patch application, and placement of a drain on 05/17/2018. -Continue pain control. -S/P antimicrobials as per ID for underlying peritonitis. 2. S/P sepsis with underlying leukocytosis, lactic acidosis,bandemia, and tachycardia, present on admission secondary to underlying peritonitis. -Status post emergency surgical exploration. -S/P antimicrobial therapy as per ID. 3. Acute kidney injury. -Unknown baseline creatinine. -Possible underlying CKD. -Use nephrotoxic drugs with caution. -Nephrology following. 4. Cardiomyopathy. -Ejection fraction of 30%. -Start beta-fabien therapy if blood pressure permits. 5. Pulmonary hypertension. -PA systolic pressure 44 mmHg. -Most probably secondary to underlying left heart disease. 6. Gout. -Continue allopurinol. 7. Substance abuse. -Urine drug screen negative for any recreational medications -Cessation advised. 8. B/L toes onychomycosis. -S/P podiatry consult. 9. Anemia. -Normocytic. -Etiology could be multifactorial including current acute blood loss. -Monitor H&H closely. -S/P 1 unit of PRBC transfusion on 05/18/2018. 10. Fluids, electrolytes, and nutrition. -Soft diet. 11. DVT prophylaxis. -Subcutaneous Lovenox. Hold if further bleeding. 12. Plan. -Continue diet as tolerated. -Pending abdominal CT scan per general surgery. The patient was seen in collaboration with Dr. Alamo. Result Diagram: 05/27/18 0537 05/27/18 0537 Results 24hrs Laboratory Tests Test 05/27/18 05:37 05/27/18 14:40 White Blood Count 14.3 H Red Blood Count 3.32 L Hemoglobin 9.9 L Hematocrit 30.3 L Mean Corpuscular Volume 91.3 Mean Corpuscular Hemoglobin 29.8 Mean Corpuscular Hemoglobin Concent 32.7 Red Cell Distribution Width 15.7 H Platelet Count 221 Mean Platelet Volume 9.5 Immature Granulocytes % 1.100 H Neutrophils % 70.7 Lymphocytes % 7.8 L Monocytes % 15.6 H Eosinophils % 4.2 Basophils % 0.6 Nucleated Red Blood Cells % 0.0 Immature Granulocytes # 0.160 H Neutrophils # 10.1 H Lymphocytes # 1.1 Monocytes # 2.2 H Eosinophils # 0.6 H Basophils # 0.1 Nucleated Red Blood Cells # 0.0 Sodium Level 139 Potassium Level 4.2 Chloride Level 100 Carbon Dioxide Level 26 Anion Gap 13 Blood Urea Nitrogen 55 H Creatinine 3.94 H Est Glomerular Filtrat Rate mL/min 16 L Glucose Level 91 Calcium Level 8.4 Total Bilirubin 0.2 Direct Bilirubin 0.00 Indirect Bilirubin 0.2 Aspartate Amino Transf (AST/SGOT) 53 H Alanine Aminotransferase (ALT/SGPT) 19 Alkaline Phosphatase 381 H Total Protein 5.9 L Albumin 2.8 L Globulin 3.10 Albumin/Globulin Ratio 0.90 Urine Color YELLOW Urine Clarity CLEAR Urine pH 6.0 Urine Specific [place] 1.009 Urine Ketones NEGATIVE Urine Nitrite NEGATIVE Urine Bilirubin NEGATIVE Urine Urobilinogen NEGATIVE Urine Leukocyte Esterase NEGATIVE Urine Hemoglobin NEGATIVE Urine Glucose NEGATIVE Urine Total Protein NEGATIVE Exam/Review of Systems Exam Vitals Vital Signs Date Temp Pulse Resp B/P (MAP) Pulse Ox O2 O2 Flow FiO2 Time Delivery Rate 05/27/18 98.3 87 18 124/83 98 14:00 (97) 05/26/18 Nasal 14:23 Cannula 05/25/18 2.0 20:00 Intake and Output 05/26/18 05/26/18 05/27/18 1515:00 23:00 07:00 IntakeIntake Total 640 ml 340 ml OutputOutput Total 750 ml 810 ml 1245 ml BalanceBalance -110 ml -470 ml -1245 ml Results Results 24hrs Laboratory Tests Test 05/27/18 05:37 05/27/18 14:40 White Blood Count 14.3 H Red Blood Count 3.32 L Hemoglobin 9.9 L Hematocrit 30.3 L Mean Corpuscular Volume 91.3 Mean Corpuscular Hemoglobin 29.8 Mean Corpuscular Hemoglobin Concent 32.7 Red Cell Distribution Width 15.7 H Platelet Count 221 Mean Platelet Volume 9.5 Immature Granulocytes % 1.100 H Neutrophils % 70.7 Lymphocytes % 7.8 L Monocytes % 15.6 H Eosinophils % 4.2 Basophils % 0.6 Nucleated Red Blood Cells % 0.0 Immature Granulocytes # 0.160 H Neutrophils # 10.1 H Lymphocytes # 1.1 Monocytes # 2.2 H Eosinophils # 0.6 H Basophils # 0.1 Nucleated Red Blood Cells # 0.0 Sodium Level 139 Potassium Level 4.2 Chloride Level 100 Carbon Dioxide Level 26 Anion Gap 13 Blood Urea Nitrogen 55 H Creatinine 3.94 H Est Glomerular Filtrat Rate mL/min 16 L Glucose Level 91 Calcium Level 8.4 Total Bilirubin 0.2 Direct Bilirubin 0.00 Indirect Bilirubin 0.2 Aspartate Amino Transf (AST/SGOT) 53 H Alanine Aminotransferase (ALT/SGPT) 19 Alkaline Phosphatase 381 H Total Protein 5.9 L Albumin 2.8 L Globulin 3.10 Albumin/Globulin Ratio 0.90 Urine Color YELLOW Urine Clarity CLEAR Urine pH 6.0 Urine Specific [place] 1.009 Urine Ketones NEGATIVE Urine Nitrite NEGATIVE Urine Bilirubin NEGATIVE Urine Urobilinogen NEGATIVE Urine Leukocyte Esterase NEGATIVE Urine Hemoglobin NEGATIVE Urine Glucose NEGATIVE Urine Total Protein NEGATIVE Medications Medication Current Medications IV Flush (NS 3 ml) 3 ml PER PROTOCOL IV ; Start 05/17/18 at 17:30 Morphine Sulfate (morphine) 2 mg Q4H PRN IV .PAIN 7-10 Last administered on 05/24/18at 20:55; Admin Dose 2 MG; Start 05/17/18 at 17:30 Clotrimazole (Lotrimin Cr) 1 applic BID TOP Last administered on 05/27/18 09:07; Admin Dose 1 APPLIC; Start 05/18/18 at 21:00 Miscellaneous Information 1 ea NOTE XX ; Start 05/18/18 at 18:00 Glucose (Glutose) 15 gm Q15M PRN PO DECREASED GLUCOSE; Start 05/18/18 at 18:00 Glucose (Glutose) 22.5 gm Q15M PRN PO DECREASED GLUCOSE; Start 05/18/18 at 18:00 Dextrose (D50w Syringe) 25 ml Q15M PRN IV DECREASED GLUCOSE; Start 05/18/18 at 18:00 Dextrose (D50w Syringe) 50 ml Q15M PRN IV DECREASED GLUCOSE Last administered on 05/18/18at 17:58; Admin Dose 50 ML; Start 05/18/18 at 18:00 Glucagon (Glucagen) 1 mg Q15M PRN IM DECREASED GLUCOSE; Start 05/18/18 at 18:00 Glucose (Glutose) 15 gm Q15M PRN BUCCAL DECREASED GLUCOSE; Start 05/18/18 at 18:00 Ammonium Lactate (Lac-Hydrin 12% Lotion) 1 applic DAILY TOP Last administered on 05/27/18at 09:07; Admin Dose 1 APPLIC; Start 05/19/18 at 09:00 Ondansetron HCl (Zofran Inj) 4 mg Q4 PRN IV NAUSEA/VOMITING; Start 05/20/18 at 19:00 Enoxaparin Sodium (Lovenox) 30 mg DAILY SC Last administered on 05/27/18 09:09; Admin Dose 30 MG; Start 05/21/18 at 09:00 Bisacodyl (Dulcolax) 10 mg DAILY PRN PO CONSTIPATION Last administered on 05/23/18at 13:57; Admin Dose 10 MG; Start 05/20/18 at 19:00 Bisacodyl (Dulcolax Supp) 10 mg Q48H PRN [place] CONSTIPATION; Start 05/20/18 at 19:00 Docusate Sodium (Colace) 100 mg BID PRN PO CONSTIPATION; Start 05/20/18 at 19:00 Acetaminophen/ Hydrocodone Bitart ([place] (10/325)) 1 tab Q6H PRN PO MODERATE PAIN LEVEL 4-6 Last administered on 05/27/18 09:05; Admin Dose 1 TAB; Start 05/20/18 at 19:00 Lorazepam (Ativan) 1 mg Q8H PRN IV AGITATION/ANXIETY; Start 05/22/18 at 15:00 Fluconazole (Diflucan) 200 mg DAILY PO Last administered on 05/27/18 09:06; Admin Dose 200 MG; Start 05/24/18 at 09:00 Famotidine (Pepcid) 20 mg DAILY PO Last administered on 05/27/18 09:06; Admin Dose 20 MG; Start 05/25/18 at 09:00 Senna/Docusate Sodium (Senokot-S) 2 tab HS PO Last administered on 05/26/18 20:41; Admin Dose 2 TAB; Start 05/24/18 at 21:00 Trazodone HCl (Desyrel) 50 mg HS PO Last administered on 05/26/18 20:41; Admin Dose 50 MG; Start 05/25/18 at 21:00 Quetiapine Fumarate (Seroquel) 25 mg BID PO Last administered on 05/27/18 09:06; Admin Dose 25 MG; Start 05/24/18 at 21:00 Allopurinol (Zyloprim) 100 mg DAILY PO Last administered on 05/27/18 09:06; Admin Dose 100 MG; Start 05/26/18 at 09:00 Metoclopramide HCl (Reglan) 5 mg Q8 PO Last administered on 05/27/18 14:48; Admin Dose 5 MG; Start 05/26/18 at 00:00 Miscellaneous Information (Pending Santyl Order For Wound Care) This patient campo... PRN PRN XX WOUND CARE; Start 05/26/18 at 05:30 MI SYED NP May 27, 2018 16:57
[2018-05-27 20:40] VITALS: BP 125/89; PULSE 99; RESP 18
[2018-05-27] MEDS: traZODone 50 MG TAB PO SCH (21:06)
[2018-05-27] MEDS: SENNA/DOCUSATE NA (8.6MG/50MG) TAB PO SCH (21:06)
[2018-05-28] MEDS ORDERED: PIPER-TAZO 2.25 GM (PMX) 50 ML IVPB SCH
[2018-05-28 02:00] VITALS: BP 108/68; PULSE 85; RESP 18
[2018-05-28] MEDS: morphine 2 MG INJ IV PRN ×3 (02:59→13:55)
[2018-05-28] MEDS: METOCLOPRAMIDE 5 MG TAB PO SCH ×3 (06:31→20:54)
[2018-05-28] MEDS: HYDROCODONE/APAP (10/325) TAB PO PRN (07:02)
[2018-05-28 07:57] VITALS: BP 114/77; PULSE 84
--- NOTE | 2018-05-28 08:10 | CONS ---
Assessment/Plan Assessment/Plan Hospital Course (Demo Recall) 1) perforated duodenal ulcer with peritonitis s/p surgical repair s.aureus is growing from the fluid drained at time of surgery change antibiotics to zyvox/zosyn pt has no hx of MRSA but he is homeless so at higher risk for MRSA get nasal for MRSA 05/20 - cx from surgery has MSSA and GNR d/c zyvox and continue with just zosyn 05/22 - improving continue with zosyn when pt is eating can change to po levo/rifampin to complete his antibiotic course 05/24 - d/c zosyn and start oral levaquin thru 05/26 05/26 - today is last day for his levaquin WBC is almost back to WNL 05/27 - WBC is higher this a.m. but clinically pt is better to d/c levaquin and observe off antibiotics 05/28 - due to elevated WBC, CT abd was ordered and shows a new fluid collection review with radiology and this is accessible by IR and would recommend drainage of this fluid collection and send off for cx start ceftriaxone at this time 2) CRI with acute component u/a was benign on admission 05/22 - will reduce dose of zosyn will switch to levaquin soon urine output has improved 05/24 - urine output is ok but creatinine is not decreasing yet (today's chem pa travis still pending) d/c zosyn and start oral levaquin 05/26 - creatinine has started to decrease but this a.m. 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 by pt's report 5) gout 05/24 - pt c/o of pain to both 1st MTP joints recommend treatment for this 05/27 - toes are better Consultation Date/Type/Reason Admit Date/Time May 17, 2018 at 16:42 Initial Consult Date 05/19/18 Type of Consult ID Requesting Provider: DANY BERG MD Date/Time of Note DATE: 05/28/18 TIME: 08:08 24 HR Interval Summary Free Text/Dictation pt states he has minimal RLQ pain no N, V has a cough at times able to eat without difficulty Exam/Review of Systems Exam Vitals Vital Signs Date Temp Pulse Resp B/P (MAP) Pulse Ox O2 O2 Flow FiO2 Time Delivery Rate 05/28/18 99.3 85 18 108/68 98 02:00 (81) 05/26/18 Nasal 14:23 Cannula 05/25/18 2.0 20:00 Intake and Output 05/27/18 05/27/18 05/28/18 1515:00 23:00 07:00 IntakeIntake Total 880 ml 600 ml 250 ml OutputOutput Total 910 ml 535 ml 1250 ml BalanceBalance -30 ml 65 ml -1000 ml Constitutional: alert, oriented Eyes: nl sclera ENMT: mucosa pink and moist Respiratory: clear to auscultation Cardiovascular: regular rate and rhythm Gastrointestinal: soft, other (slight blood expressed along surgical site, minimal diffuse abd pain) Results Result Diagram: 05/27/18 0537 05/27/18 0537 Results 24hrs Laboratory Tests Test 05/27/18 14:40 05/28/18 07:00 Urine Color YELLOW Urine Clarity CLEAR Urine pH 6.0 Urine Specific [place] 1.009 Urine Ketones NEGATIVE Urine Nitrite NEGATIVE Urine Bilirubin NEGATIVE Urine Urobilinogen NEGATIVE Urine Leukocyte Esterase NEGATIVE Urine Hemoglobin NEGATIVE Urine Glucose NEGATIVE Urine Total Protein NEGATIVE White Blood Count 16.6 H Red Blood Count 3.35 L Hemoglobin 9.8 L Hematocrit 31.1 L Mean Corpuscular Volume 92.8 Mean Corpuscular Hemoglobin 29.3 Mean Corpuscular Hemoglobin Concent 31.5 L Red Cell Distribution Width 15.7 H Platelet Count 269 # Mean Platelet Volume 10.1 Immature Granulocytes % 1.300 H Neutrophils % 73.4 Lymphocytes % 6.8 L Monocytes % 13.2 H Eosinophils % 4.8 Basophils % 0.5 Nucleated Red Blood Cells % 0.0 Immature Granulocytes # 0.210 H Neutrophils # 12.2 H Lymphocytes # 1.1 Monocytes # 2.2 H Eosinophils # 0.8 H Basophils # 0.1 Nucleated Red Blood Cells # 0.0 Medications Medication Current Medications IV Flush (NS 3 ml) 3 ml PER PROTOCOL IV ; Start 05/17/18 at 17:30 Morphine Sulfate (morphine) 2 mg Q4H PRN IV .PAIN 7-10 Last administered on 05/28/18at 02:59; Admin Dose 2 MG; Start 05/17/18 at 17:30 Clotrimazole (Lotrimin Cr) 1 applic BID TOP Last administered on 05/27/18at 21:09; Admin Dose 1 APPLIC; Start 05/18/18 at 21:00 Miscellaneous Information 1 ea NOTE XX ; Start 05/18/18 at 18:00 Glucose (Glutose) 15 gm Q15M PRN PO DECREASED GLUCOSE; Start 05/18/18 at 18:00 Glucose (Glutose) 22.5 gm Q15M PRN PO DECREASED GLUCOSE; Start 05/18/18 at 18:00 Dextrose (D50w Syringe) 25 ml Q15M PRN IV DECREASED GLUCOSE; Start 05/18/18 at 18:00 Dextrose (D50w Syringe) 50 ml Q15M PRN IV DECREASED GLUCOSE Last administered on 05/18/18at 17:58; Admin Dose 50 ML; Start 05/18/18 at 18:00 Glucagon (Glucagen) 1 mg Q15M PRN IM DECREASED GLUCOSE; Start 05/18/18 at 18:00 Glucose (Glutose) 15 gm Q15M PRN BUCCAL DECREASED GLUCOSE; Start 05/18/18 at 18:00 Ammonium Lactate (Lac-Hydrin 12% Lotion) 1 applic DAILY TOP Last administered on 05/27/18at 09:07; Admin Dose 1 APPLIC; Start 05/19/18 at 09:00 Ondansetron HCl (Zofran Inj) 4 mg Q4 PRN IV NAUSEA/VOMITING; Start 05/20/18 at 19:00 Enoxaparin Sodium (Lovenox) 30 mg DAILY SC Last administered on 05/27/18at 09:09; Admin Dose 30 MG; Start 05/21/18 at 09:00 Bisacodyl (Dulcolax) 10 mg DAILY PRN PO CONSTIPATION Last administered on 05/23/18at 13:57; Admin Dose 10 MG; Start 05/20/18 at 19:00 Bisacodyl (Dulcolax Supp) 10 mg Q48H PRN OR CONSTIPATION; Start 05/20/18 at 19:00 Docusate Sodium (Colace) 100 mg BID PRN PO CONSTIPATION; Start 05/20/18 at 19:00 Acetaminophen/ Hydrocodone Bitart ([place] (10/325)) 1 tab Q6H PRN PO MODERATE PAIN LEVEL 4-6 Last administered on 05/28/18at 07:02; Admin Dose 1 TAB; Start 05/20/18 at 19:00 Lorazepam (Ativan) 1 mg Q8H PRN IV AGITATION/ANXIETY; Start 05/22/18 at 15:00 Fluconazole (Diflucan) 200 mg DAILY PO Last administered on 05/27/18 09:06; Admin Dose 200 MG; Start 05/24/18 at 09:00 Famotidine (Pepcid) 20 mg DAILY PO Last administered on 05/27/18 09:06; Admin Dose 20 MG; Start 05/25/18 at 09:00 Senna/Docusate Sodium (Senokot-S) 2 tab HS PO Last administered on 05/27/18 21:06; Admin Dose 2 TAB; Start 05/24/18 at 21:00 Trazodone HCl (Desyrel) 50 mg HS PO Last administered on 05/27/18 21:06; Admin Dose 50 MG; Start 05/25/18 at 21:00 Quetiapine Fumarate (Seroquel) 25 mg BID PO Last administered on 05/27/18 21:07; Admin Dose 25 MG; Start 05/24/18 at 21:00 Allopurinol (Zyloprim) 100 mg DAILY PO Last administered on 05/27/18 09:06; Admin Dose 100 MG; Start 05/26/18 at 09:00 Metoclopramide HCl (Reglan) 5 mg Q8 PO Last administered on 05/28/18 06:31; Admin Dose 5 MG; Start 05/26/18 at 00:00 Miscellaneous Information (Pending Santyl Order For Wound Care) This patient campo... PRN PRN XX WOUND CARE; Start 05/26/18 at 05:30 Carvedilol (Coreg) 3.125 mg BID PO Last administered on 05/27/18 21:08; Admin Dose 3.125 MG; Start 05/27/18 at 21:00 Piperacillin Sod/ Tazobactam Sod 50 ml @ 100 mls/hr Q12 IVPB Last administered on 05/28/18 01:43; Admin Dose 100 MLS/HR; Start 05/28/18 at 00:00 CAREN HARRINGTON MD May 28, 2018 08:10
--- NOTE | 2018-05-28 09:01 | PN ---
DATE: 05/28/2018 SUBJECTIVE: The patient is stable, no events overnight. No fevers, chills, nausea or vomiting. OBJECTIVE: VITAL SIGNS: Blood pressure is 114/77, pulse 84, temperature 98.4. HEENT: Head is normocephalic. NECK: Supple. HEART: Regular rate. LUNGS: Show diminished breath sounds at the base. ABDOMEN: Soft, nontender to palpation. No rebound or guarding. EXTREMITIES: Negative for clubbing, cyanosis, no edema. DERMATOLOGIC: No rashes. MUSCULOSKELETAL: No joint effusion. NEUROLOGIC: No change in exam. MEDICATIONS: Reviewed. LABORATORY DATA: From 05/28/2018 shows BUN 56, creatinine 3.68. ASSESSMENT AND PLAN: 1. Nonoliguric acute kidney injury with unknown baseline creatinine, etiology secondary to acute tub ular necrosis. The patient appears to be in recovery phase of acute tubular necrosis. Continue curr ent plans, supportive care, renally dose all meds. 2. Chronic kidney disease with unknown baseline creatinine. The patient is currently in acute kidne y injury as stated above. Continue current treatment plan. Continue disease factor modification. 3. Hypernatremia, improved. 4. Anemia. Continue to monitor hemoglobin and hematocrit levels. 5. Mineral bone disorder, monitor calcium and phosphorus levels. 6. Perforated duodenal ulcer status post laparotomy with surgical repair. 7. Sepsis. The patient is completing antibiotic course. 8. Metabolic acidosis, improving. 9. Encephalopathy, resolving. Dictated By: YUSUF FLORES DO NR/NTS Conf#: [id number] DID#: [id number] CC: GABRIELA HESTER MD;*EndCC*
[2018-05-28] MEDS: ALLOPURINOL 100 MG TAB PO SCH (09:43)
[2018-05-28] MEDS: FLUCONAZOLE 200 MG TAB PO SCH (09:44)
[2018-05-28] MEDS: FAMOTIDINE 20 MG TAB PO SCH (09:44)
[2018-05-28] MEDS: QUETIAPINE 25 MG TAB PO SCH ×2 (09:44→20:53)
[2018-05-28] MEDS: ENOXAPARIN 30 MG/0.3 ML SYG SC SCH (09:45)
[2018-05-28] MEDS: CLOTRIMAZOLE 1% 30 GM CR TOP SCH ×2 (09:50→21:02)
[2018-05-28] MEDS: AMMONIUM LACTATE 12% 225 GM LOT TOP SCH (09:50)
[2018-05-28] MEDS: CEFTRIAXONE 1 GM/50 ML (PMX) 50 ML IVPB SCH (11:30)
--- NOTE | 2018-05-28 13:10 | PN ---
Date/Time of Note Date/Time of Note DATE: 05/28/18 TIME: 13:09 Assessment/Plan VTE Prophylaxis Risk score (from Ns)>0 risk: 4 SCD applied (from [facility] [place]): No SCD contraindicated: other Pharmacological prophylaxis: NA/contraindicated Pharm contraindication: anticoag not tolerated Lines/Catheters IV [facility] Type (from [facility] Central Line Central line still needed: Yes Urinary Cath still in place: Yes Reason Cath still needed: other (indicate) Assessment/Plan Hospital Course SUBJECTIVE: Abdominal pain well controlled. Had some blood leak from the incision site. OBJECTIVE: Physical Exam General: Adequately build 57 year-old male lying in bed in no apparent distress. HEENT: Normocephalic, atraumatic. Eyes: Anicteric sclerae, conjunctivae clear. ENT: Nasal septum midline, oral mucosa moist. Neck supple, JVD noticed (decreased). Respiratory: Bilaterally diminished breath sounds. No use of accessory muscles of respiration. Bibasilar rales. Cardiovascular: S1, S2 heard. Regular rate and rhythm. Systolic murmur. Abdomen: Distended. Midline surgical dressing with a YESSI drain in place that is draining serous fluid. Genitourinary: Deferred. Extremities: No cyanosis, no clubbing. B/L LE trace pitting edema. Neurologic: Cranial nerves II through XII grossly intact. The patient is awake, alert, and oriented. Labs & Vitals per chart ASSESSMENT & PLAN 57-year-old male with comorbidities including gout, arthritis, congestive heart failure, substance abuse, nicotine use, and schizophrenia who came to the emergency room with chief complaint of abdominal pain with imaging studies showing pneumoperitoneum concerning for bowel perforation, who was admitted to inpatient setting for further treatment and evaluation. 1. Perforated duodenal ulcer. -Status post exploratory laparotomy, plication of perforated duodenal ulcer with Dickson patch application, and placement of a drain on 05/17/2018. -Continue pain control. -Continue antimicrobials as per ID for underlying peritonitis. 2. S/P sepsis with underlying leukocytosis, lactic acidosis,bandemia, and tachycardia, present on admission secondary to underlying peritonitis. -Status post emergency surgical exploration. -Continue antimicrobial therapy as per ID. 3. Acute kidney injury. -Unknown baseline creatinine. -Possible underlying CKD. -Use nephrotoxic drugs with caution. -Nephrology following. 4. Cardiomyopathy. -Ejection fraction of 30%. -On beta-fabien therapy. 5. Pulmonary hypertension. -PA systolic pressure 44 mmHg. -Most probably secondary to underlying left heart disease. 6. Gout. -Continue allopurinol. 7. Substance abuse. -Urine drug screen negative for any recreational medications -Cessation advised. 8. B/L toes onychomycosis. -S/P podiatry consult. 9. Anemia. -Normocytic. -Monitor H&H closely. -S/P 1 unit of PRBC transfusion on 05/18/2018. 11. 2.7 x 4.2 x 2.2 cm complex low attenuation collection containing a small amount of gas inferior to the left hepatic lobe, suspicious for subhepatic abscess. -IR guided drainage ordered. 12. B/L pleural effusions. -Pulmonary consult. -Spot diuretics. 13. Fluids, electrolytes, and nutrition. -Soft diet. 14. DVT prophylaxis. -Subcutaneous Lovenox. Hold because of bleeding. 15. Plan. -Continue antimicrobials as per ID. -Obtain pulmonology consult. -Hold Lovenox. The patient was seen in collaboration with Dr. Alamo. Result Diagram: 05/28/18 0700 05/28/18 0700 Results 24hrs Laboratory Tests Test 05/27/18 14:40 05/28/18 07:00 Urine Color YELLOW Urine Clarity CLEAR Urine pH 6.0 Urine Specific [place] 1.009 Urine Ketones NEGATIVE Urine Nitrite NEGATIVE Urine Bilirubin NEGATIVE Urine Urobilinogen NEGATIVE Urine Leukocyte Esterase NEGATIVE Urine Hemoglobin NEGATIVE Urine Glucose NEGATIVE Urine Total Protein NEGATIVE White Blood Count 16.6 H Red Blood Count 3.35 L Hemoglobin 9.8 L Hematocrit 31.1 L Mean Corpuscular Volume 92.8 Mean Corpuscular Hemoglobin 29.3 Mean Corpuscular Hemoglobin Concent 31.5 L Red Cell Distribution Width 15.7 H Platelet Count 269 # Mean Platelet Volume 10.1 Immature Granulocytes % 1.300 H Neutrophils % 73.4 Lymphocytes % 6.8 L Monocytes % 13.2 H Eosinophils % 4.8 Basophils % 0.5 Nucleated Red Blood Cells % 0.0 Immature Granulocytes # 0.210 H Neutrophils # 12.2 H Lymphocytes # 1.1 Monocytes # 2.2 H Eosinophils # 0.8 H Basophils # 0.1 Nucleated Red Blood Cells # 0.0 Sodium Level 135 Potassium Level 4.5 Chloride Level 100 Carbon Dioxide Level 25 Anion Gap 10 Blood Urea Nitrogen 56 H Creatinine 3.68 H Est Glomerular Filtrat Rate mL/min 17 L Glucose Level 83 Calcium Level 8.8 Phosphorus Level 5.8 H Magnesium Level 1.8 Exam/Review of Systems Exam Vitals Vital Signs Date Temp Pulse Resp B/P (MAP) Pulse Ox O2 O2 Flow FiO2 Time Delivery Rate 05/28/18 Nasal 2.0 10:50 Cannula 05/28/18 98.4 84 114/77 95 07:57 (89) 05/28/18 18 02:00 Intake and Output 05/27/18 05/27/18 05/28/18 1515:00 23:00 07:00 IntakeIntake Total 880 ml 600 ml 250 ml OutputOutput Total 910 ml 535 ml 1250 ml BalanceBalance -30 ml 65 ml -1000 ml Results Results 24hrs Laboratory Tests Test 05/27/18 14:40 05/28/18 07:00 Urine Color YELLOW Urine Clarity CLEAR Urine pH 6.0 Urine Specific [place] 1.009 Urine Ketones NEGATIVE Urine Nitrite NEGATIVE Urine Bilirubin NEGATIVE Urine Urobilinogen NEGATIVE Urine Leukocyte Esterase NEGATIVE Urine Hemoglobin NEGATIVE Urine Glucose NEGATIVE Urine Total Protein NEGATIVE White Blood Count 16.6 H Red Blood Count 3.35 L Hemoglobin 9.8 L Hematocrit 31.1 L Mean Corpuscular Volume 92.8 Mean Corpuscular Hemoglobin 29.3 Mean Corpuscular Hemoglobin Concent 31.5 L Red Cell Distribution Width 15.7 H Platelet Count 269 # Mean Platelet Volume 10.1 Immature Granulocytes % 1.300 H Neutrophils % 73.4 Lymphocytes % 6.8 L Monocytes % 13.2 H Eosinophils % 4.8 Basophils % 0.5 Nucleated Red Blood Cells % 0.0 Immature Granulocytes # 0.210 H Neutrophils # 12.2 H Lymphocytes # 1.1 Monocytes # 2.2 H Eosinophils # 0.8 H Basophils # 0.1 Nucleated Red Blood Cells # 0.0 Sodium Level 135 Potassium Level 4.5 Chloride Level 100 Carbon Dioxide Level 25 Anion Gap 10 Blood Urea Nitrogen 56 H Creatinine 3.68 H Est Glomerular Filtrat Rate mL/min 17 L Glucose Level 83 Calcium Level 8.8 Phosphorus Level 5.8 H Magnesium Level 1.8 Medications Medication Current Medications IV Flush (NS 3 ml) 3 ml PER PROTOCOL IV ; Start 05/17/18 at 17:30 Morphine Sulfate (morphine) 2 mg Q4H PRN IV .PAIN 7-10 Last administered on 05/28/18at 08:05; Admin Dose 2 MG; Start 05/17/18 at 17:30 Clotrimazole (Lotrimin Cr) 1 applic BID TOP Last administered on 05/28/18at 0 9:50; Admin Dose 1 APPLIC; Start 05/18/18 at 21:00 Miscellaneous Information 1 ea NOTE XX ; Start 05/18/18 at 18:00 Glucose (Glutose) 15 gm Q15M PRN PO DECREASED GLUCOSE; Start 05/18/18 at 18:00 Glucose (Glutose) 22.5 gm Q15M PRN PO DECREASED GLUCOSE; Start 05/18/18 at 18:00 Dextrose (D50w Syringe) 25 ml Q15M PRN IV DECREASED GLUCOSE; Start 05/18/18 at 18:00 Dextrose (D50w Syringe) 50 ml Q15M PRN IV DECREASED GLUCOSE Last administered on 05/18/18at 17:58; Admin Dose 50 ML; Start 05/18/18 at 18:00 Glucagon (Glucagen) 1 mg Q15M PRN IM DECREASED GLUCOSE; Start 05/18/18 at 18:00 Glucose (Glutose) 15 gm Q15M PRN BUCCAL DECREASED GLUCOSE; Start 05/18/18 at 18:00 Ammonium Lactate (Lac-Hydrin 12% Lotion) 1 applic DAILY TOP Last administered on 05/28/18at 09:50; Admin Dose 1 APPLIC; Start 05/19/18 at 09:00 Ondansetron HCl (Zofran Inj) 4 mg Q4 PRN IV NAUSEA/VOMITING; Start 05/20/18 at 19:00 Enoxaparin Sodium (Lovenox) 30 mg DAILY SC Last administered on 05/28/18at 09:45; Admin Dose 30 MG; Start 05/21/18 at 09:00 Bisacodyl (Dulcolax) 10 mg DAILY PRN PO CONSTIPATION Last administered on 05/23/18at 13:57; Admin Dose 10 MG; Start 05/20/18 at 19:00 Bisacodyl (Dulcolax Supp) 10 mg Q48H PRN SC CONSTIPATION; Start 05/20/18 at 19:00 Docusate Sodium (Colace) 100 mg BID PRN PO CONSTIPATION; Start 05/20/18 at 19:00 Acetaminophen/ Hydrocodone Bitart ([place] (10/325)) 1 tab Q6H PRN PO MODERATE PAIN LEVEL 4-6 Last administered on 05/28/18 07:02; Admin Dose 1 TAB; Start 05/20/18 at 19:00 Lorazepam (Ativan) 1 mg Q8H PRN IV AGITATION/ANXIETY; Start 05/22/18 at 15:00 Fluconazole (Diflucan) 200 mg DAILY PO Last administered on 05/28/18 09:44; Admin Dose 200 MG; Start 05/24/18 at 09:00 Famotidine (Pepcid) 20 mg DAILY PO Last administered on 05/28/18 09:44; Admin Dose 20 MG; Start 05/25/18 at 09:00 Senna/Docusate Sodium (Senokot-S) 2 tab HS PO Last administered on 05/27/18 21:06; Admin Dose 2 TAB; Start 05/24/18 at 21:00 Trazodone HCl (Desyrel) 50 mg HS PO Last administered on 05/27/18 21:06; Admin Dose 50 MG; Start 05/25/18 at 21:00 Quetiapine Fumarate (Seroquel) 25 mg BID PO Last administered on 05/28/18 09:44; Admin Dose 25 MG; Start 05/24/18 at 21:00 Allopurinol (Zyloprim) 100 mg DAILY PO Last administered on 05/28/18 09:43; Admin Dose 100 MG; Start 05/26/18 at 09:00 Metoclopramide HCl (Reglan) 5 mg Q8 PO Last administered on 05/28/18 06:31; Admin Dose 5 MG; Start 05/26/18 at 00:00 Miscellaneous Information (Pending Santyl Order For Wound Care) This patient campo... PRN PRN XX WOUND CARE; Start 05/26/18 at 05:30 Carvedilol (Coreg) 3.125 mg BID PO Last administered on 05/28/18 09:44; Admin Dose 3.125 MG; Start 05/27/18 at 21:00 Ceftriaxone Sodium 50 ml @ 100 mls/hr Q24H IVPB Last administered on 05/28/18 11:30; Admin Dose 100 MLS/HR; Start 05/28/18 at 09:00 MI SYED NP May 28, 2018 13:10
--- NOTE | 2018-05-28 13:23 | PN ---
Date/Time of Note Date/Time of Note DATE: 05/28/18 TIME: 12:39 Assessment/Plan Lines/Catheters IV Catheter Type (from [facility]): Central Line [place] in Place (from [facility]): Yes Assessment/Plan Chief Complaint/Hosp Course 1. Perforated duodenal ulcer with peritonitis: Status post plication and Dickson patch May 17, 2018. Worsening leukocytosis: Ct noted with possible abscess -IS -oob/ambulate -ice pack to abdominal wall -diet -YESSI drain -ABX per ID -Local care -CT -borges cx -IR drain of abscess 2. Persistent leukocytosis -As above -Per ID -borges cx 3.CKD with CHERYL: -Limit nephrotoxic meds -Renally dose meds -Per renal 4. Normocytic normochromic anemia: -Monitor and transfuse as needed 5. Illicit drug use: -Highly encourage cessation 6. Homelessness: -Social service follow-up 7. Schizophrenia: -Psychiatric optimization 8. Bilateral lower extremity ulcers: -Per podiatry 9. CHF history: -Cardiac optimization -Illicit drug use cessation 10. Pleural effusion -recommend pulm consult -fluid mgt -ambulate 11. Bleeding from surgical site: fibrillar & pressure dsg applied today -close monitoring -dc anticoags Thank you. Patient seen and examined in collaboration with Dr. Robbi Quesada. Subjective 24 Hr Interval Summary wbc uptrending. Bleeding noted from incision site. No fevers, chills, sob, congested cough, cp, palpitations, campo, dizziness, n/v/d/dysuria. Exam/Review of Systems Vital Signs Vitals Vital Signs Date Temp Pulse Resp B/P (MAP) Pulse Ox O2 O2 Flow FiO2 Time Delivery Rate 05/28/18 Nasal 2.0 10:50 Cannula 05/28/18 98.4 84 114/77 95 07:57 (89) 05/28/18 18 02:00 Intake and Output 05/27/18 05/27/18 05/28/18 1515:00 23:00 07:00 IntakeIntake Total 880 ml 600 ml 250 ml OutputOutput Total 910 ml 535 ml 1250 ml BalanceBalance -30 ml 65 ml -1000 ml Exam Free Text/Dictation Constitutional: alert, oriented Psych: anxiety Head: normocephalic, atraumatic Eyes: nl conjunctiva, EOMI, nl lids, nl sclera ENMT: nl external ears & nose, nl lips & teeth, mucosa pink and moist Neck: supple, non-tender; No jvd Respiratory: normal air movement; No congested cough, No labored breathing Cardiovascular: regular rate and rhythm, nl pulses; No edema Gastrointestinal: soft, distended (Moderate), min tender, staple line, ecchymosis, active bright red bleeding from mid incision, YESSI drain: serous Musculoskeletal: nl gait and stance Extremities: normal pulses Neurological: nl mental status; No nl strength (Generalized weakness) Skin: No rash or lesions Results Result Diagram: 05/28/18 0700 05/28/18 0700 MARGO ADAMS NP May 28, 2018 13:23
[2018-05-28 14:12] VITALS: BP 99/62; PULSE 79; RESP 18
[2018-05-28 20:00] VITALS: BP 117/70; PULSE 92; RESP 18
[2018-05-28] MEDS: traZODone 50 MG TAB PO SCH (20:53)
[2018-05-28] MEDS: SENNA/DOCUSATE NA (8.6MG/50MG) TAB PO SCH (20:54)
[2018-05-29] VITALS (12 sets, daily range): BP systolic 80–117; BP diastolic 38–80; PULSE 72–98; RESP 18–42
[2018-05-29] MEDS: morphine 2 MG INJ IV PRN ×2 (03:48→21:00)
[2018-05-29] MEDS: METOCLOPRAMIDE 5 MG TAB PO SCH ×3 (05:59→22:23)
--- NOTE | 2018-05-29 07:37 | CONS ---
Assessment/Plan Assessment/Plan Hospital Course (Demo Recall) 1) perforated duodenal ulcer with peritonitis s/p surgical repair s.aureus is growing from the fluid drained at time of surgery change antibiotics to zyvox/zosyn pt has no hx of MRSA but he is homeless so at higher risk for MRSA get nasal for MRSA 05/20 - cx from surgery has MSSA and GNR d/c zyvox and continue with just zosyn 05/22 - improving continue with zosyn when pt is eating can change to po levo/rifampin to complete his antibiotic course 05/24 - d/c zosyn and start oral levaquin thru 05/26 05/26 - today is last day for his levaquin WBC is almost back to WNL 05/27 - WBC is higher this a.m. but clinically pt is better to d/c levaquin and observe off antibiotics 05/28 - due to elevated WBC, CT abd was ordered and shows a new fluid collection review with radiology and this is accessible by IR and would recommend drainage of this fluid collection and send off for cx start ceftriaxone at this time 05/29 - WBC is better, continue with ceftriaxone pt to get CT guided abd fluid drained, have ordered fluid cell count, glucose, amylase and cx of the fluid (nurse was informed on this) 2) CRI with acute component u/a was benign on admission 05/22 - will reduce dose of zosyn will switch to levaquin soon urine output has improved 05/24 - urine output is ok but creatinine is not decreasing yet (today's chem panel still pending) d/c zosyn and start oral levaquin 05/26 - creatinine has started to decrease but this a.m. 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 by pt's report 5) gout 05/24 - pt c/o of pain to both 1st MTP joints recommend treatment for this 05/27 - toes are better Consultation Date/Type/Reason Admit Date/Time May 17, 2018 at 16:42 Initial Consult Date 05/19/18 Type of Consult ID Requesting Provider: DANY BERG MD Date/Time of Note DATE: 05/29/18 TIME: 07:34 24 HR Interval Summary Free Text/Dictation pt gets some lower abd pain after he eats no N, V, D breathing is ok Exam/Review of Systems Exam Vitals Vital Signs Date Temp Pulse Resp B/P (MAP) Pulse Ox O2 O2 Flow FiO2 Time Delivery Rate 05/29/18 99.4 98 19 111/67 95 02:00 (82) 05/28/18 Nasal 14:12 Cannula 05/28/18 2.0 10:50 Intake and Output 05/28/18 05/28/18 05/29/18 1515:00 23:00 07:00 IntakeIntake Total 50 ml 600 ml OutputOutput Total 45 ml 970 ml 340 ml BalanceBalance 5 ml -370 ml -340 ml Constitutional: alert Eyes: nl sclera ENMT: mucosa pink and moist Respiratory: clear to auscultation Cardiovascular: regular rate and rhythm Gastrointestinal: soft Results Result Diagram: 05/29/18 0551 05/28/18 0700 Results 24hrs Laboratory Tests Test 05/29/18 05:51 White Blood Count 15.5 H Red Blood Count 2.91 L Hemoglobin 8.5 L Hematocrit 26.6 L Mean Corpuscular Volume 91.4 Mean Corpuscular Hemoglobin 29.2 Mean Corpuscular Hemoglobin Concent 32.0 Red Cell Distribution Width 15.4 H Platelet Count 286 Mean Platelet Volume 10.3 Immature Granulocytes % 1.200 H Neutrophils % 69.6 Lymphocytes % 7.4 L Monocytes % 16.4 H Eosinophils % 4.9 Basophils % 0.5 Nucleated Red Blood Cells % 0.0 Immature Granulocytes # 0.190 H Neutrophils # 10.8 H Lymphocytes # 1.1 Monocytes # 2.5 H Eosinophils # 0.8 H Basophils # 0.1 Nucleated Red Blood Cells # 0.0 Prothrombin Time 15.1 H Prothrombin Time Ratio 1.2 INR International Normalized Ratio 1.18 Medications Medication Current Medications IV Flush (NS 3 ml) 3 ml PER PROTOCOL IV ; Start 05/17/18 at 17:30 Morphine Sulfate (morphine) 2 mg Q4H PRN IV .PAIN 7-10 Last administered on 05/29/18at 03:48; Admin Dose 2 MG; Start 05/17/18 at 17:30 Clotrimazole (Lotrimin Cr) 1 applic BID TOP Last administered on 05/28/18at 21:02; Admin Dose 1 APPLIC; Start 05/18/18 at 21:00 Miscellaneous Information 1 ea NOTE XX ; Start 05/18/18 at 18:00 Glucose (Glutose) 15 gm Q15M PRN PO DECREASED GLUCOSE; Start 05/18/18 at 18:00 Glucose (Glutose) 22.5 gm Q15M PRN PO DECREASED GLUCOSE; Start 05/18/18 at 18:00 Dextrose (D50w Syringe) 25 ml Q15M PRN IV DECREASED GLUCOSE; Start 05/18/18 at 18:00 Dextrose (D50w Syringe) 50 ml Q15M PRN IV DECREASED GLUCOSE Last administered on 05/18/18at 17:58; Admin Dose 50 ML; Start 05/18/18 at 18:00 Glucagon (Glucagen) 1 mg Q15M PRN IM DECREASED GLUCOSE; Start 05/18/18 at 18:00 Glucose (Glutose) 15 gm Q15M PRN BUCCAL DECREASED GLUCOSE; Start 05/18/18 at 18:00 Ammonium Lactate (Lac-Hydrin 12% Lotion) 1 applic DAILY TOP Last administered on 05/28/18at 09:50; Admin Dose 1 APPLIC; Start 05/19/18 at 09:00 Ondansetron HCl (Zofran Inj) 4 mg Q4 PRN IV NAUSEA/VOMITING; Start 05/20/18 at 19:00 Enoxaparin Sodium (Lovenox) 30 mg DAILY SC Last administered on 05/28/18at 09:45; Admin Dose 30 MG; Start 05/21/18 at 09:00; Status Hold Bisacodyl (Dulcolax) 10 mg DAILY PRN PO CONSTIPATION Last administered on 05/23/18at 13:57; Admin Dose 10 MG; Start 05/20/18 at 19:00 Bisacodyl (Dulcolax Supp) 10 mg Q48H PRN [place] CONSTIPATION; Start 05/20/18 at 19:00 Docusate Sodium (Colace) 100 mg BID PRN PO CONSTIPATION; Start 05/20/18 at 19:00 Acetaminophen/ Hydrocodone Bitart ([place] (10/325)) 1 tab Q6H PRN PO MODERATE PAIN LEVEL 4-6 Last administered on 05/28/18at 07:02; Admin Dose 1 TAB; Start 05/20/18 at 19:00 Lorazepam (Ativan) 1 mg Q8H PRN IV AGITATION/ANXIETY; Start 05/22/18 at 15:00 Fluconazole (Diflucan) 200 mg DAILY PO Last administered on 05/28/18 09:44; Admin Dose 200 MG; Start 05/24/18 at 09:00 Famotidine (Pepcid) 20 mg DAILY PO Last administered on 05/28/18 09:44; Admin Dose 20 MG; Start 05/25/18 at 09:00 Senna/Docusate Sodium (Senokot-S) 2 tab HS PO Last administered on 05/28/18 20:54; Admin Dose 2 TAB; Start 05/24/18 at 21:00 Trazodone HCl (Desyrel) 50 mg HS PO Last administered on 05/28/18 20:53; Admin Dose 50 MG; Start 05/25/18 at 21:00 Quetiapine Fumarate (Seroquel) 25 mg BID PO Last administered on 05/28/18 20:53; Admin Dose 25 MG; Start 05/24/18 at 21:00 Allopurinol (Zyloprim) 100 mg DAILY PO Last administered on 05/28/18 09:43; Admin Dose 100 MG; Start 05/26/18 at 09:00 Metoclopramide HCl (Reglan) 5 mg Q8 PO Last administered on 05/29/18 05:59; Admin Dose 5 MG; Start 05/26/18 at 00:00 Miscellaneous Information (Pending Santyl Order For Wound Care) This patient campo... PRN PRN XX WOUND CARE; Start 05/26/18 at 05:30 Carvedilol (Coreg) 3.125 mg BID PO Last administered on 05/28/18 20:55; Admin Dose 3.125 MG; Start 05/27/18 at 21:00 Ceftriaxone Sodium 50 ml @ 100 mls/hr Q24H IVPB Last administered on 05/28/18 11:30; Admin Dose 100 MLS/HR; Start 05/28/18 at 09:00 CAREN HARRINGTON MD May 29, 2018 07:37
[2018-05-29] MEDS: QUETIAPINE 25 MG TAB PO SCH ×2 (08:38→20:57)
[2018-05-29] MEDS: FLUCONAZOLE 200 MG TAB PO SCH (08:38)
[2018-05-29] MEDS: ALLOPURINOL 100 MG TAB PO SCH (08:38)
[2018-05-29] MEDS: FAMOTIDINE 20 MG TAB PO SCH (08:38)
[2018-05-29] MEDS: CLOTRIMAZOLE 1% 30 GM CR TOP SCH ×2 (08:39→21:10)
[2018-05-29] MEDS: CEFTRIAXONE 1 GM/50 ML (PMX) 50 ML IVPB SCH (08:39)
[2018-05-29] MEDS: HYDROCODONE/APAP (10/325) TAB PO PRN (08:39)
[2018-05-29] MEDS: AMMONIUM LACTATE 12% 225 GM LOT TOP SCH (08:40)
--- NOTE | 2018-05-29 09:23 | PN ---
DATE: 05/29/2018 SUBJECTIVE: The patient is stable, no events overnight. No fevers, chills, nausea, or vomiting. OBJECTIVE: VITAL SIGNS: Blood pressure is 116/72, respirations 18, pulse 85, temperature 98.3. HEENT: Head is normocephalic. NECK: Supple. HEART: Regular rate. LUNGS: Show diminished breath sounds at the base. ABDOMEN: Soft, nontender to palpation without rebound or guarding. EXTREMITIES: Negative for clubbing, cyanosis, no edema. DERMATOLOGIC: No rashes. MUSCULOSKELETAL: No joint effusion. NEUROLOGIC: No change in exam. MEDICATIONS: Reviewed. LABORATORY DATA: Reviewed. ASSESSMENT AND PLAN: 1. Nonoliguric acute kidney injury with unknown baseline creatinine. Etiology is secondary to acute tubular necrosis. The patient appears to be in recovery phase of acute tubular necrosis. Renal fun ction is slowly improving. Continue current treatment plan, supportive care and renally dose all med icines. 2. Chronic kidney disease with unknown baseline creatinine. The patient is currently in acute kidne y injury as stated above. Continue current treatment plan. Continue disease factor modification. 3. Hypernatremia, improved. 4. Anemia. Monitor hemoglobin and hematocrit levels. 5. Mineral bone disorder. Continue to monitor calcium and phosphorus levels. 6. Perforated duodenal ulcer status post laparotomy with surgical repair. 7. Sepsis. The patient is completing antibiotic course. 8. Metabolic acidosis, improving. 9. Encephalopathy, resolving. Dictated By: YUSUF FLORES DO NR/NTS Conf#: [id number] DID#: [id number] CC: FRANCESCA VALLES DPM; KIMBERLY SALMERON MD; GABRIELA HESTER MD;*EndCC*
--- NOTE | 2018-05-29 11:22 | CONS ---
Consultation Date/Type/Reason Admit Date/Time May 17, 2018 at 16:42 Date of Consultation: May 29, 2018 Type of Consult Pulmonary Patient currently in CT imaging for abdominal abscess drainage. However chart, labs, imaging studies reviewed. Based upon CT abdomen findings, patient does have a small right pleural effusion and therefore thoracentesis at this point is not recommended. Patient needs to have follow-up chest x-ray. Full consult to follow. Date/Time of Note DATE: 05/29/18 TIME: 11:21 Past Medical History Home Meds Reported Medications Colchicine (Mitigare) 0.6 Mg Capsule, 0.6 MG PO BID, CAP NOT STARTED YET (NEW PRESCRIPTION) 05/17/18 Acetaminophen* (Acetaminophen*) 500 MG Extra Strength Tablet, 1000 MG PO Q3H PRN for PAIN AND OR ELEVATED TEMP, TAB 05/17/18 Allopurinol* (Allopurinol*) 100 Mg Tablet, 100 MG PO DAILY, TAB 05/17/18 Furosemide* (Furosemide*) 40 Mg Tablet, 40 MG PO DAILY, TAB 05/17/18 Medications Current Medications IV Flush (NS 3 ml) 3 ml PER PROTOCOL IV ; Start 05/17/18 at 17:30 Morphine Sulfate (morphine) 2 mg Q4H PRN IV .PAIN 7-10 Last administered on 05/29/18at 03:48; Admin Dose 2 MG; Start 05/17/18 at 17:30 Clotrimazole (Lotrimin Cr) 1 applic BID TOP Last administered on 05/29/18at 08:39; Admin Dose 1 APPLIC; Start 05/18/18 at 21:00 Miscellaneous Information 1 ea NOTE XX ; Start 05/18/18 at 18:00 Glucose (Glutose) 15 gm Q15M PRN PO DECREASED GLUCOSE; Start 05/18/18 at 18:00 Glucose (Glutose) 22.5 gm Q15M PRN PO DECREASED GLUCOSE; Start 05/18/18 at 18:00 Dextrose (D50w Syringe) 25 ml Q15M PRN IV DECREASED GLUCOSE; Start 05/18/18 at 18:00 Dextrose (D50w Syringe) 50 ml Q15M PRN IV DECREASED GLUCOSE Last administered on 05/18/18at 17:58; Admin Dose 50 ML; Start 05/18/18 at 18:00 Glucagon (Glucagen) 1 mg Q15M PRN IM DECREASED GLUCOSE; Start 05/18/18 at 18:00 Glucose (Glutose) 15 gm Q15M PRN BUCCAL DECREASED GLUCOSE; Start 05/18/18 at 18:00 Ammonium Lactate (Lac-Hydrin 12% Lotion) 1 applic DAILY TOP Last administered on 05/29/18 08:40; Admin Dose 1 APPLIC; Start 05/19/18 at 09:00 Ondansetron HCl (Zofran Inj) 4 mg Q4 PRN IV NAUSEA/VOMITING; Start 05/20/18 at 19:00 Enoxaparin Sodium (Lovenox) 30 mg DAILY SC Last administered on 05/28/18 09:45; Admin Dose 30 MG; Start 05/21/18 at 09:00; Status Hold Bisacodyl (Dulcolax) 10 mg DAILY PRN PO CONSTIPATION Last administered on 05/23/18 13:57; Admin Dose 10 MG; Start 05/20/18 at 19:00 Bisacodyl (Dulcolax Supp) 10 mg Q48H PRN [place] CONSTIPATION; Start 05/20/18 at 19:00 Docusate Sodium (Colace) 100 mg BID PRN PO CONSTIPATION; Start 05/20/18 at 19:00 Acetaminophen/ Hydrocodone Bitart ([place] (10/325)) 1 tab Q6H PRN PO MODERATE PAIN LEVEL 4-6 Last administered on 05/29/18 08:39; Admin Dose 1 TAB; Start 05/20/18 at 19:00 Lorazepam (Ativan) 1 mg Q8H PRN IV AGITATION/ANXIETY; Start 05/22/18 at 15:00 Fluconazole (Diflucan) 200 mg DAILY PO Last administered on 05/29/18 08:38; Admin Dose 200 MG; Start 05/24/18 at 09:00 Famotidine (Pepcid) 20 mg DAILY PO Last administered on 05/29/18 08:38; Admin Dose 20 MG; Start 05/25/18 at 09:00 Senna/Docusate Sodium (Senokot-S) 2 tab HS PO Last administered on 05/28/18 20:54; Admin Dose 2 TAB; Start 05/24/18 at 21:00 Trazodone HCl (Desyrel) 50 mg HS PO Last administered on 05/28/18 20:53; Admin Dose 50 MG; Start 05/25/18 at 21:00 Quetiapine Fumarate (Seroquel) 25 mg BID PO Last administered on 05/29/18at 0 8:38; Admin Dose 25 MG; Start 05/24/18 at 21:00 Allopurinol (Zyloprim) 100 mg DAILY PO Last administered on 05/29/18at 08:38; Admin Dose 100 MG; Start 05/26/18 at 09:00 Metoclopramide HCl (Reglan) 5 mg Q8 PO Last administered on 05/29/18at 05:59; Admin Dose 5 MG; Start 05/26/18 at 00:00 Miscellaneous Information (Pending Santyl Order For Wound Care) This patient campo... PRN PRN XX WOUND CARE; Start 05/26/18 at 05:30 Carvedilol (Coreg) 3.125 mg BID PO Last administered on 05/29/18at 08:38; Admin Dose 3.125 MG; Start 05/27/18 at 21:00 Ceftriaxone Sodium 50 ml @ 100 mls/hr Q24H IVPB Last administered on 05/29/18at 08:39; Admin Dose 100 MLS/HR; Start 05/28/18 at 09:00 Allergies: Coded Allergies: No Known Allergy (Unverified , 05/17/18) Social History Alcohol Use: none Smoking Status: Current every day smoker Drug Use: cocaine, marijuana Exam/Review of Systems Exam Vitals Vital Signs Date Temp Pulse Resp B/P (MAP) Pulse Ox O2 O2 Flow FiO2 Time Delivery Rate 05/29/18 98.3 85 18 116/72 99 Room Air 08:01 (87) 05/28/18 2.0 10:50 Intake and Output 05/28/18 05/28/18 05/29/18 1515:00 23:00 07:00 IntakeIntake Total 50 ml 600 ml OutputOutput Total 45 ml 970 ml 340 ml BalanceBalance 5 ml -370 ml -340 ml Results Result Diagram: 05/29/18 0551 05/29/18 0551 Results 24hrs Laboratory Tests Test 05/29/18 05:51 White Blood Count 15.5 H Red Blood Count 2.91 L Hemoglobin 8.5 L Hematocrit 26.6 L Mean Corpuscular Volume 91.4 Mean Corpuscular Hemoglobin 29.2 Mean Corpuscular Hemoglobin Concent 32.0 Red Cell Distribution Width 15.4 H Platelet Count 286 Mean Platelet Volume 10.3 Immature Granulocytes % 1.200 H Neutrophils % 69.6 Lymphocytes % 7.4 L Monocytes % 16.4 H Eosinophils % 4.9 Basophils % 0.5 Nucleated Red Blood Cells % 0.0 Immature Granulocytes # 0.190 H Neutrophils # 10.8 H Lymphocytes # 1.1 Monocytes # 2.5 H Eosinophils # 0.8 H Basophils # 0.1 Nucleated Red Blood Cells # 0.0 Prothrombin Time 15.1 H Prothrombin Time Ratio 1.2 INR International Normalized Ratio 1.18 Sodium Level 136 Potassium Level 4.8 Chloride Level 99 Carbon Dioxide Level 24 Anion Gap 13 Blood Urea Nitrogen 56 H Creatinine 3.33 H Est Glomerular Filtrat Rate mL/min 19 L Glucose Level 80 Calcium Level 8.5 Phosphorus Level 5.9 H Magnesium Level 1.8 Medications Medication Current Medications IV Flush (NS 3 ml) 3 ml PER PROTOCOL IV ; Start 05/17/18 at 17:30 Morphine Sulfate (morphine) 2 mg Q4H PRN IV .PAIN 7-10 Last administered on 05/29/18at 03:48; Admin Dose 2 MG; Start 05/17/18 at 17:30 Clotrimazole (Lotrimin Cr) 1 applic BID TOP Last administered on 05/29/18at 08:39; Admin Dose 1 APPLIC; Start 05/18/18 at 21:00 Miscellaneous Information 1 ea NOTE XX ; Start 05/18/18 at 18:00 Glucose (Glutose) 15 gm Q15M PRN PO DECREASED GLUCOSE; Start 05/18/18 at 18:00 Glucose (Glutose) 22.5 gm Q15M PRN PO DECREASED GLUCOSE; Start 05/18/18 at 18:00 Dextrose (D50w Syringe) 25 ml Q15M PRN IV DECREASED GLUCOSE; Start 05/18/18 at 18:00 Dextrose (D50w Syringe) 50 ml Q15M PRN IV DECREASED GLUCOSE Last administered on 05/18/18at 17:58; Admin Dose 50 ML; Start 05/18/18 at 18:00 Glucagon (Glucagen) 1 mg Q15M PRN IM DECREASED GLUCOSE; Start 05/18/18 at 18:00 Glucose (Glutose) 15 gm Q15M PRN BUCCAL DECREASED GLUCOSE; Start 05/18/18 at 18:00 Ammonium Lactate (Lac-Hydrin 12% Lotion) 1 applic DAILY TOP Last administered on 05/29/18 08:40; Admin Dose 1 APPLIC; Start 05/19/18 at 09:00 Ondansetron HCl (Zofran Inj) 4 mg Q4 PRN IV NAUSEA/VOMITING; Start 05/20/18 at 19:00 Enoxaparin Sodium (Lovenox) 30 mg DAILY SC Last administered on 05/28/18 09:45; Admin Dose 30 MG; Start 05/21/18 at 09:00; Status Hold Bisacodyl (Dulcolax) 10 mg DAILY PRN PO CONSTIPATION Last administered on 05/23/18 13:57; Admin Dose 10 MG; Start 05/20/18 at 19:00 Bisacodyl (Dulcolax Supp) 10 mg Q48H PRN [place] CONSTIPATION; Start 05/20/18 at 19:00 Docusate Sodium (Colace) 100 mg BID PRN PO CONSTIPATION; Start 05/20/18 at 19:00 Acetaminophen/ Hydrocodone Bitart ([place] (10/325)) 1 tab Q6H PRN PO MODERATE PAIN LEVEL 4-6 Last administered on 05/29/18 08:39; Admin Dose 1 TAB; Start 05/20/18 at 19:00 Lorazepam (Ativan) 1 mg Q8H PRN IV AGITATION/ANXIETY; Start 05/22/18 at 15:00 Fluconazole (Diflucan) 200 mg DAILY PO Last administered on 05/29/18 08:38; Admin Dose 200 MG; Start 05/24/18 at 09:00 Famotidine (Pepcid) 20 mg DAILY PO Last administered on 05/29/18 08:38; Admin Dose 20 MG; Start 05/25/18 at 09:00 Senna/Docusate Sodium (Senokot-S) 2 tab HS PO Last administered on 05/28/18 20:54; Admin Dose 2 TAB; Start 05/24/18 at 21:00 Trazodone HCl (Desyrel) 50 mg HS PO Last administered on 05/28/18 20:53; Admin Dose 50 MG; Start 05/25/18 at 21:00 Quetiapine Fumarate (Seroquel) 25 mg BID PO Last administered on 05/29/18 08:38; Admin Dose 25 MG; Start 05/24/18 at 21:00 Allopurinol (Zyloprim) 100 mg DAILY PO Last administered on 05/29/18 08:38; Admin Dose 100 MG; Start 05/26/18 at 09:00 Metoclopramide HCl (Reglan) 5 mg Q8 PO Last administered on 05/29/18 05:59; Admin Dose 5 MG; Start 05/26/18 at 00:00 Miscellaneous Information (Pending Santyl Order For Wound Care) This patient campo... PRN PRN XX WOUND CARE; Start 05/26/18 at 05:30 Carvedilol (Coreg) 3.125 mg BID PO Last administered on 05/29/18 08:38; Admin Dose 3.125 MG; Start 05/27/18 at 21:00 Ceftriaxone Sodium 50 ml @ 100 mls/hr Q24H IVPB Last administered on 05/29/18 08:39; Admin Dose 100 MLS/HR; Start 05/28/18 at 09:00 MILLY ALLEN 20, 2019 11:22
[2018-05-29] MEDS ORDERED: LIDOCAINE 1% (MDV) 20 ML INJ ONE (11:33)
--- NOTE | 2018-05-29 11:58 | PREAC ---
Date/Time of Note Date/Time of Note DATE: 05/29/18 TIME: 11:53 Anesthesia Eval and Record Evaluation Time Pre-Procedure Interview DATE: 05/29/18 TIME: 11:53 Age 57 Sex male NPO: 8 hrs Preoperative diagnosis Intraabdominal Abscess Planned procedure CT guided intraabdominal Drain placement Past Medical History Past Medical History: Includes Musculoskeletal: Osteoarthritis Recreational drugs: Other (Gout ) Surgery & Anesthesia Issues No known issue Meds Anticoagulation: No Beta Bradley within 24 hr: No Reason Beta Bradley not given: Pt. not on B-Bradley Reported Medications Colchicine (Mitigare) 0.6 Mg Capsule, 0.6 MG PO BID, CAP NOT STARTED YET (NEW PRESCRIPTION) 05/17/18 Acetaminophen* (Acetaminophen*) 500 MG Extra Strength Tablet, 1000 MG PO Q3H PRN for PAIN AND OR ELEVATED TEMP, TAB 05/17/18 Allopurinol* (Allopurinol*) 100 Mg Tablet, 100 MG PO DAILY, TAB 05/17/18 Furosemide* (Furosemide*) 40 Mg Tablet, 40 MG PO DAILY, TAB 05/17/18 Current Medications IV Flush (NS 3 ml) 3 ml PER PROTOCOL IV ; Start 05/17/18 at 17:30 Morphine Sulfate (morphine) 2 mg Q4H PRN IV .PAIN 7-10 Last administered on 05/29/18at 03:48; Admin Dose 2 MG; Start 05/17/18 at 17:30 Clotrimazole (Lotrimin Cr) 1 applic BID TOP Last administered on 05/29/18at 08:39; Admin Dose 1 APPLIC; Start 05/18/18 at 21:00 Miscellaneous Information 1 ea NOTE XX ; Start 05/18/18 at 18:00 Glucose (Glutose) 15 gm Q15M PRN PO DECREASED GLUCOSE; Start 05/18/18 at 18:00 Glucose (Glutose) 22.5 gm Q15M PRN PO DECREASED GLUCOSE; Start 05/18/18 at 18:00 Dextrose (D50w Syringe) 25 ml Q15M PRN IV DECREASED GLUCOSE; Start 05/18/18 at 18:00 Dextrose (D50w Syringe) 50 ml Q15M PRN IV DECREASED GLUCOSE Last administered on 05/18/18at 17:58; Admin Dose 50 ML; Start 05/18/18 at 18:00 Glucagon (Glucagen) 1 mg Q15M PRN IM DECREASED GLUCOSE; Start 05/18/18 at 18:00 Glucose (Glutose) 15 gm Q15M PRN BUCCAL DECREASED GLUCOSE; Start 05/18/18 at 18:00 Ammonium Lactate (Lac-Hydrin 12% Lotion) 1 applic DAILY TOP Last administered on 05/29/18at 08:40; Admin Dose 1 APPLIC; Start 05/19/18 at 09:00 Ondansetron HCl (Zofran Inj) 4 mg Q4 PRN IV NAUSEA/VOMITING; Start 05/20/18 at 19:00 Enoxaparin Sodium (Lovenox) 30 mg DAILY SC Last administered on 05/28/18 09:45; Admin Dose 30 MG; Start 05/21/18 at 09:00; Status Hold Bisacodyl (Dulcolax) 10 mg DAILY PRN PO CONSTIPATION Last administered on 05/23/18 13:57; Admin Dose 10 MG; Start 05/20/18 at 19:00 Bisacodyl (Dulcolax Supp) 10 mg Q48H PRN [place] CONSTIPATION; Start 05/20/18 at 19:00 Docusate Sodium (Colace) 100 mg BID PRN PO CONSTIPATION; Start 05/20/18 at 19:00 Acetaminophen/ Hydrocodone Bitart ([place] (10/325)) 1 tab Q6H PRN PO MODERATE PAIN LEVEL 4-6 Last administered on 05/29/18 08:39; Admin Dose 1 TAB; Start 05/20/18 at 19:00 Lorazepam (Ativan) 1 mg Q8H PRN IV AGITATION/ANXIETY; Start 05/22/18 at 15:00 Fluconazole (Diflucan) 200 mg DAILY PO Last administered on 05/29/18at 08:38; Admin Dose 200 MG; Start 05/24/18 at 09:00 Famotidine (Pepcid) 20 mg DAILY PO Last administered on 05/29/18 08:38; Admin Dose 20 MG; Start 05/25/18 at 09:00 Senna/Docusate Sodium (Senokot-S) 2 tab HS PO Last administered on 05/28/18 20:54; Admin Dose 2 TAB; Start 05/24/18 at 21:00 Trazodone HCl (Desyrel) 50 mg HS PO Last administered on 05/28/18 20:53; Admin Dose 50 MG; Start 05/25/18 at 21:00 Quetiapine Fumarate (Seroquel) 25 mg BID PO Last administered on 05/29/18at 08:38; Admin Dose 25 MG; Start 05/24/18 at 21:00 Allopurinol (Zyloprim) 100 mg DAILY PO Last administered on 05/29/18at 08:38; Admin Dose 100 MG; Start 05/26/18 at 09:00 Metoclopramide HCl (Reglan) 5 mg Q8 PO Last administered on 05/29/18at 05:59; Admin Dose 5 MG; Start 05/26/18 at 00:00 Miscellaneous Information (Pending Santyl Order For Wound Care) This patient campo... PRN PRN XX WOUND CARE; Start 05/26/18 at 05:30 Carvedilol (Coreg) 3.125 mg BID PO Last administered on 05/29/18at 08:38; Admin Dose 3.125 MG; Start 05/27/18 at 21:00 Ceftriaxone Sodium 50 ml @ 100 mls/hr Q24H IVPB Last administered on 05/29/18at 08:39; Admin Dose 100 MLS/HR; Start 05/28/18 at 09:00 Meds reviewed: Yes Allergies Coded Allergies: No Known Allergy (Unverified , 05/17/18) Allergies Reviewed: Yes Labs/Studies Labs Reviewed: Reviewed by anesthesiologist Result Diagram: 05/29/18 0551 05/29/18 0551 Laboratory Tests 05/29/18 05:51 test: N/A Studies: ECG Pre-procedure Exam Last vitals Vital Signs Date Temp Pulse Resp B/P (MAP) Pulse Ox O2 O2 Flow FiO2 Time Delivery Rate 05/29/18 98.3 85 18 116/72 99 Room Air 08:01 (87) 05/28/18 2.0 10:50 Airway: Adequate mouth opening, Adequate thyromental dist Mallampati: Mallampati II Teeth: Normal Lung: Normal Heart: Normal ASA Physical Status ASA physical status: 3 Emergency: None Planned Anesthetic General/MAC: MAC Planned Pain Management Parenteral pain med, Local by surgeon Pre-operative Attestations Prior to commencing anesthesia and surgery, the patient was re-evaluated, there was verification of: *The patient's identity *The results of appropriate recent lab work and preoperative vital signs *The above evaluation not changing prior to induction *Anesthetic plan, risk benefits, alternative and complications discussed with patient/family; questions answered; patient/family understands, accepts and wishes to proceed. JAG SMALLWOOD MD May 29, 2018 11:58
[2018-05-29] MEDS ORDERED: LIDOCAINE 2% (SDV) 5 ML INJ ONE (12:02)
[2018-05-29] MEDS ORDERED: MIDAZOLAM 1 MG/ML 2 ML INJ ONE (12:03)
[2018-05-29] MEDS ORDERED: FENTAnyl 50 MCG/ML VIAL ONE (12:03)
[2018-05-29] MEDS ORDERED: PROPOFOL 40 ML ONE (12:03)
--- NOTE | 2018-05-29 13:14 | PAC ---
Date/Time of Note Date/Time of Note DATE: 05/29/18 TIME: 13:13 Post-Anesthesia Notes Post-Anesthesia Note Last documented vital signs Vital Signs Date Temp Pulse Resp B/P (MAP) Pulse Ox O2 O2 Flow FiO2 Time Delivery Rate 05/29/18 98.3 85 18 116/72 99 Room Air 08:01 (87) 05/28/18 2.0 10:50 Activity: WNL Respiratory function: WNL Cardiovascular function: WNL Mental status: Baseline Pain reasonably controlled: Yes Hydration appropriate: Yes Nausea/Vomiting absent: Yes Comments 100/58, P:78, Spo2:100%, T:98,8 JAG SMALLWOOD MD May 29, 2018 13:14
--- NOTE | 2018-05-29 13:40 | PN ---
Date/Time of Note Date/Time of Note DATE: 05/29/18 TIME: 13:25 Assessment/Plan Lines/Catheters IV Catheter Type (from [facility]): Peripheral IV Morgan in Place (from [facility]): Yes Assessment/Plan Chief Complaint/Hosp Course 1. Perforated duodenal ulcer with peritonitis: Status post plication and Dickson patch May 17, 2018. Worsening leukocytosis: Ct noted with possible abscess> s/p ir drain today -IS -oob/ambulate -ice pack to abdominal wall -diet -YESSI drain/pigtail drain -ABX per ID -Local care -CT 2. Persistent leukocytosis: improving -As above -Per ID 3.CKD with CHERYL: -Limit nephrotoxic meds -Renally dose meds -Per renal 4. Normocytic normochromic anemia: -Monitor and transfuse as needed 5. Illicit drug use: -Highly encourage cessation 6. Homelessness: -Social service follow-up 7. Schizophrenia: -Psychiatric optimization 8. Bilateral lower extremity ulcers: -Per podiatry 9. CHF history: -Cardiac optimization -Illicit drug use cessation 10. Pleural effusion -pulm consult noted -fluid mgt -ambulate 11. Bleeding from surgical site: fibrillar & pressure dsg applied -close monitoring -dc anticoags Thank you. Patient seen and examined in collaboration with Dr. Robbi Quesada. Subjective 24 Hr Interval Summary S/p Abscess drainage. No fevers, chills, sob, congested cough, cp, palpitations, campo, dizziness, n/v/d/dysuria. Exam/Review of Systems Vital Signs Vitals Vital Signs Date Temp Pulse Resp B/P (MAP) Pulse Ox O2 O2 Flow FiO2 Time Delivery Rate 05/29/18 98.2 85 18 92/38 (56) 99 Nasal 13:02 Cannula 05/28/18 2.0 10:50 Intake and Output 05/28/18 05/28/18 05/29/18 1515:00 23:00 07:00 IntakeIntake Total 50 ml 600 ml OutputOutput Total 45 ml 970 ml 340 ml BalanceBalance 5 ml -370 ml -340 ml Exam Free Text/Dictation Constitutional: alert, oriented Psych: anxiety Head: normocephalic, atraumatic Eyes: nl conjunctiva, EOMI, nl lids, nl sclera ENMT: nl external ears & nose, nl lips & teeth, mucosa pink and moist Neck: supple, non-tender; No jvd Respiratory: normal air movement; No congested cough, No labored breathing Cardiovascular: regular rate and rhythm, nl pulses; No edema Gastrointestinal: soft, distended (Moderate), min tender, staple line, ecchymosis, active bright red bleeding from mid incision, YESSI drain: serous; pigtail drain: serous Musculoskeletal: nl gait and stance Extremities: normal pulses Neurological: nl mental status; No nl strength (Generalized weakness) Skin: No rash or lesions Results Result Diagram: 05/29/18 0551 05/29/18 0551 MARGO ADAMS NP May 29, 2018 13:36
--- NOTE | 2018-05-29 14:52 | PN ---
Date/Time of Note Date/Time of Note DATE: 05/29/18 TIME: 14:50 Assessment/Plan VTE Prophylaxis Risk score (from Ns)>0 risk: 5 SCD applied (from Ns): Yes Pharmacological prophylaxis: NA/contraindicated Pharm contraindication: anticoag not tolerated Lines/Catheters [facility] Urinary Cath still in place: Yes Reason Cath still needed: other (indicate) Assessment/Plan Hospital Course SUBJECTIVE: Status post CT-guided liver abscess drain today. OBJECTIVE: Physical Exam General: Adequately build 57 year-old male lying in bed in no apparent distress. HEENT: Normocephalic, atraumatic. Eyes: Anicteric sclerae, conjunctivae clear. ENT: Nasal septum midline, oral mucosa moist. Neck supple, JVD noticed (decreased). Respiratory: Bilaterally diminished breath sounds. No use of accessory muscles of respiration. Bibasilar rales. Cardiovascular: S1, S2 heard. Regular rate and rhythm. Systolic murmur. Abdomen: Distended. Midline surgical dressing with a YESSI drain in place that is draining serous fluid. Right upper quadrant accordion drain. Genitourinary: Deferred. Status post Extremities: No cyanosis, no clubbing. B/L LE trace pitting edema. Neurologic: Cranial nerves II through XII grossly intact. The patient is awake, alert, and oriented. Labs & Vitals per chart ASSESSMENT & PLAN 57-year-old male with comorbidities including gout, arthritis, congestive heart failure, substance abuse, nicotine use, and schizophrenia who came to the emergency room with chief complaint of abdominal pain with imaging studies showing pneumoperitoneum concerning for bowel perforation, who was admitted to inpatient setting for further treatment and evaluation. 1. Perforated duodenal ulcer. -Status post exploratory laparotomy, plication of perforated duodenal ulcer with Dickson patch application, and placement of a drain on 05/17/2018. -Continue pain control. -Continue antimicrobials as per ID for underlying peritonitis. 2. S/P sepsis with underlying leukocytosis, lactic acidosis,bandemia, and tachycardia, present on admission secondary to underlying peritonitis. -Status post emergency surgical exploration. -Continue antimicrobial therapy as per ID. 3. Acute kidney injury. -Unknown baseline creatinine. -Possible underlying CKD. -Use nephrotoxic drugs with caution. -Nephrology following. 4. Cardiomyopathy. -Ejection fraction of 30%. -On beta-fabien therapy. 5. Pulmonary hypertension. -PA systolic pressure 44 mmHg. -Most probably secondary to underlying left heart disease. 6. Gout. -Continue allopurinol. 7. Substance abuse. -Urine drug screen negative for any recreational medications -Cessation advised. 8. B/L toes onychomycosis. -S/P podiatry consult. 9. Anemia. -Normocytic. -Monitor H&H closely. -S/P 1 unit of PRBC transfusion on 05/18/2018. 10. 2.7 x 4.2 x 2.2 cm complex low attenuation collection containing a small amount of gas inferior to the left hepatic lobe, suspicious for subhepatic abscess. -Status post IR guided drainage on 05/29/2018. 11. B/L pleural effusions. -Being followed by pulmonary. -Spot diuretics. 12. Fluids, electrolytes, and nutrition. -Soft diet. 13. DVT prophylaxis. -Subcutaneous Lovenox. Held because of bleeding. 14. Plan. -Continue antimicrobials as per ID. -Await cultures from liver abscess drainage. The patient was seen in collaboration with Dr. Alamo. Result Diagram: 05/29/18 0551 05/29/18 0551 Results 24hrs Laboratory Tests Test 05/29/18 05:51 05/29/18 12:45 White Blood Count 15.5 H Red Blood Count 2.91 L Hemoglobin 8.5 L Hematocrit 26.6 L Mean Corpuscular Volume 91.4 Mean Corpuscular Hemoglobin 29.2 Mean Corpuscular Hemoglobin Concent 32.0 Red Cell Distribution Width 15.4 H Platelet Count 286 Mean Platelet Volume 10.3 Immature Granulocytes % 1.200 H Neutrophils % 69.6 Lymphocytes % 7.4 L Monocytes % 16.4 H Eosinophils % 4.9 Basophils % 0.5 Nucleated Red Blood Cells % 0.0 Immature Granulocytes # 0.190 H Neutrophils # 10.8 H Lymphocytes # 1.1 Monocytes # 2.5 H Eosinophils # 0.8 H Basophils # 0.1 Nucleated Red Blood Cells # 0.0 Prothrombin Time 15.1 H Prothrombin Time Ratio 1.2 INR International Normalized Ratio 1.18 Sodium Level 136 Potassium Level 4.8 Chloride Level 99 Carbon Dioxide Level 24 Anion Gap 13 Blood Urea Nitrogen 56 H Creatinine 3.33 H Est Glomerular Filtrat Rate mL/min 19 L Glucose Level 80 Calcium Level 8.5 Phosphorus Level 5.9 H Magnesium Level 1.8 Body Fluid Type ABDOMINAL FLUID Body Fluid Glucose < 20 Body Fluid Amylase 43 Exam/Review of Systems Exam Vitals Vital Signs Date Temp Pulse Resp B/P (MAP) Pulse Ox O2 O2 Flow FiO2 Time Delivery Rate 05/29/18 98.0 77 18 104/69 98 Nasal 14:06 (81) Cannula 05/28/18 2.0 10:50 Intake and Output 05/28/18 05/28/18 05/29/18 1515:00 23:00 07:00 IntakeIntake Total 50 ml 600 ml OutputOutput Total 45 ml 970 ml 340 ml BalanceBalance 5 ml -370 ml -340 ml Results Results 24hrs Laboratory Tests Test 05/29/18 05:51 05/29/18 12:45 White Blood Count 15.5 H Red Blood Count 2.91 L Hemoglobin 8.5 L Hematocrit 26.6 L Mean Corpuscular Volume 91.4 Mean Corpuscular Hemoglobin 29.2 Mean Corpuscular Hemoglobin Concent 32.0 Red Cell Distribution Width 15.4 H Platelet Count 286 Mean Platelet Volume 10.3 Immature Granulocytes % 1.200 H Neutrophils % 69.6 Lymphocytes % 7.4 L Monocytes % 16.4 H Eosinophils % 4.9 Basophils % 0.5 Nucleated Red Blood Cells % 0.0 Immature Granulocytes # 0.190 H Neutrophils # 10.8 H Lymphocytes # 1.1 Monocytes # 2.5 H Eosinophils # 0.8 H Basophils # 0.1 Nucleated Red Blood Cells # 0.0 Prothrombin Time 15.1 H Prothrombin Time Ratio 1.2 INR International Normalized Ratio 1.18 Sodium Level 136 Potassium Level 4.8 Chloride Level 99 Carbon Dioxide Level 24 Anion Gap 13 Blood Urea Nitrogen 56 H Creatinine 3.33 H Est Glomerular Filtrat Rate mL/min 19 L Glucose Level 80 Calcium Level 8.5 Phosphorus Level 5.9 H Magnesium Level 1.8 Body Fluid Type ABDOMINAL FLUID Body Fluid Glucose < 20 Body Fluid Amylase 43 Medications Medication Current Medications IV Flush (NS 3 ml) 3 ml PER PROTOCOL IV ; Start 05/17/18 at 17:30 Morphine Sulfate (morphine) 2 mg Q4H PRN IV .PAIN 7-10 Last administered on 05/29/18at 03:48; Admin Dose 2 MG; Start 05/17/18 at 17:30 Clotrimazole (Lotrimin Cr) 1 applic BID TOP Last administered on 05/29/18 08:39; Admin Dose 1 APPLIC; Start 05/18/18 at 21:00 Miscellaneous Information 1 ea NOTE XX ; Start 05/18/18 at 18:00 Glucose (Glutose) 15 gm Q15M PRN PO DECREASED GLUCOSE; Start 05/18/18 at 18:00 Glucose (Glutose) 22.5 gm Q15M PRN PO DECREASED GLUCOSE; Start 05/18/18 at 18:00 Dextrose (D50w Syringe) 25 ml Q15M PRN IV DECREASED GLUCOSE; Start 05/18/18 at 18:00 Dextrose (D50w Syringe) 50 ml Q15M PRN IV DECREASED GLUCOSE Last administered on 05/18/18at 17:58; Admin Dose 50 ML; Start 05/18/18 at 18:00 Glucagon (Glucagen) 1 mg Q15M PRN IM DECREASED GLUCOSE; Start 05/18/18 at 18:00 Glucose (Glutose) 15 gm Q15M PRN BUCCAL DECREASED GLUCOSE; Start 05/18/18 at 18:00 Ammonium Lactate (Lac-Hydrin 12% Lotion) 1 applic DAILY TOP Last administered on 05/29/18at 08:40; Admin Dose 1 APPLIC; Start 05/19/18 at 09:00 Ondansetron HCl (Zofran Inj) 4 mg Q4 PRN IV NAUSEA/VOMITING; Start 05/20/18 at 19:00 Enoxaparin Sodium (Lovenox) 30 mg DAILY SC Last administered on 05/28/18at 09:45; Admin Dose 30 MG; Start 05/21/18 at 09:00; Status Hold Bisacodyl (Dulcolax) 10 mg DAILY PRN PO CONSTIPATION Last administered on 05/23/18at 13:57; Admin Dose 10 MG; Start 05/20/18 at 19:00 Bisacodyl (Dulcolax Supp) 10 mg Q48H PRN MD CONSTIPATION; Start 05/20/18 at 19:00 Docusate Sodium (Colace) 100 mg BID PRN PO CONSTIPATION; Start 05/20/18 at 19:00 Acetaminophen/ Hydrocodone Bitart ([place] (10/325)) 1 tab Q6H PRN PO MODERATE PAIN LEVEL 4-6 Last administered on 05/29/18 08:39; Admin Dose 1 TAB; Start 05/20/18 at 19:00 Lorazepam (Ativan) 1 mg Q8H PRN IV AGITATION/ANXIETY; Start 05/22/18 at 15:00 Fluconazole (Diflucan) 200 mg DAILY PO Last administered on 05/29/18 08:38; Admin Dose 200 MG; Start 05/24/18 at 09:00 Famotidine (Pepcid) 20 mg DAILY PO Last administered on 05/29/18 08:38; Admin Dose 20 MG; Start 05/25/18 at 09:00 Senna/Docusate Sodium (Senokot-S) 2 tab HS PO Last administered on 05/28/18 20:54; Admin Dose 2 TAB; Start 05/24/18 at 21:00 Trazodone HCl (Desyrel) 50 mg HS PO Last administered on 05/28/18 20:53; Admin Dose 50 MG; Start 05/25/18 at 21:00 Quetiapine Fumarate (Seroquel) 25 mg BID PO Last administered on 05/29/18 08:38; Admin Dose 25 MG; Start 05/24/18 at 21:00 Allopurinol (Zyloprim) 100 mg DAILY PO Last administered on 05/29/18 08:38; Admin Dose 100 MG; Start 05/26/18 at 09:00 Metoclopramide HCl (Reglan) 5 mg Q8 PO Last administered on 05/29/18 05:59; Admin Dose 5 MG; Start 05/26/18 at 00:00 Miscellaneous Information (Pending Santyl Order For Wound Care) This patient campo... PRN PRN XX WOUND CARE; Start 05/26/18 at 05:30 Carvedilol (Coreg) 3.125 mg BID PO Last administered on 05/29/18 08:38; Admin Dose 3.125 MG; Start 05/27/18 at 21:00 Ceftriaxone Sodium 50 ml @ 100 mls/hr Q24H IVPB Last administered on 05/29/18 08:39; Admin Dose 100 MLS/HR; Start 05/28/18 at 09:00 MI SYED NP May 29, 2018 14:52
[2018-05-29] MEDS: SENNA/DOCUSATE NA (8.6MG/50MG) TAB PO SCH (20:57)
[2018-05-29] MEDS: traZODone 50 MG TAB PO SCH (20:57)
[2018-05-30 02:26] VITALS: BP 110/76; PULSE 91; RESP 20
[2018-05-30] MEDS: METOCLOPRAMIDE 5 MG TAB PO SCH ×3 (06:36→21:27)
--- NOTE | 2018-05-30 07:04 | CONS ---
Assessment/Plan Assessment/Plan Hospital Course (Demo Recall) 1) perforated duodenal ulcer with peritonitis s/p surgical repair s.aureus is growing from the fluid drained at time of surgery change antibiotics to zyvox/zosyn pt has no hx of MRSA but he is homeless so at higher risk for MRSA get nasal for MRSA 05/20 - cx from surgery has MSSA and GNR d/c zyvox and continue with just zosyn 05/22 - improving continue with zosyn when pt is eating can change to po levo/rifampin to complete his antibiotic course 05/24 - d/c zosyn and start oral levaquin thru 05/26 05/26 - today is last day for his levaquin WBC is almost back to WNL 05/27 - WBC is higher this a.m. but clinically pt is better to d/c levaquin and observe off antibiotics 05/28 - due to elevated WBC, CT abd was ordered and shows a new fluid collection review with radiology and this is accessible by IR and would recommend drainage of this fluid collection and send off for cx start ceftriaxone at this time 05/29 - WBC is better, continue with ceftriaxone pt to get CT guided abd fluid drained, have ordered fluid cell count, glucose, amylase and cx of the fluid (nurse was informed on this) 05/30 - pt got drainage tube placed yesterday a.m. and fluid analysis is c/w infection (low glucose and elevated PMN's) fluid cx is NGTD continue with ceftriaxone 2) CRI with acute component u/a was benign on admission 05/22 - will reduce dose of zosyn will switch to levaquin soon urine output has improved 05/24 - urine output is ok but creatinine is not decreasing yet (today's chem panel still pending) d/c zosyn and start oral levaquin 05/26 - creatinine has started to decrease but this a.m. 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 by pt's report 5) gout 05/24 - pt c/o of pain to both 1st MTP joints recommend treatment for this 05/27 - toes are better Consultation Date/Type/Reason Admit Date/Time May 17, 2018 at 16:42 Initial Consult Date 05/19/18 Type of Consult ID Requesting Provider: DANY BERG MD Date/Time of Note DATE: 05/30/18 TIME: 07:02 24 HR Interval Summary Free Text/Dictation pt got drainage tube yesterday no N, V, D abd pain is better also has R knee arthritis pain Exam/Review of Systems Exam Vitals Vital Signs Date Temp Pulse Resp B/P (MAP) Pulse Ox O2 O2 Flow FiO2 Time Delivery Rate 05/30/18 98.6 91 20 110/76 98 02:26 (87) 05/29/18 Nasal 14:06 Cannula 05/28/18 2.0 10:50 Intake and Output 05/29/18 05/29/18 05/30/18 1515:00 23:00 07:00 IntakeIntake Total 50 ml 480 ml 600 ml OutputOutput Total 80 ml 35 ml 830 ml BalanceBalance -30 ml 445 ml -230 ml Constitutional: alert, oriented Eyes: nl sclera ENMT: mucosa pink and moist Respiratory: clear to auscultation Cardiovascular: regular rate and rhythm Gastrointestinal: soft Results Result Diagram: 05/29/18 0551 05/29/18 0551 Results 24hrs Laboratory Tests Test 05/29/18 12:45 Body Fluid Type ABDOMINAL FLUID Body Fluid Volume 12.0 Body Fluid Color YELLOW Body Fluid Appearance SLIGHTLY HAZY Body Fluid WBC 1154 Body Fluid RBC (Auto) 4000 Body Fluid Polynuclear WBCs (%) 92.0 Body Fluid Mononuclear Cells % Auto 8.0 Body Fluid Glucose < 20 Body Fluid Amylase 43 Medications Medication Current Medications IV Flush (NS 3 ml) 3 ml PER PROTOCOL IV ; Start 05/17/18 at 17:30 Morphine Sulfate (morphine) 2 mg Q4H PRN IV .PAIN 7-10 Last administered on 05/29/18at 21:00; Admin Dose 2 MG; Start 05/17/18 at 17:30 Clotrimazole (Lotrimin Cr) 1 applic BID TOP Last administered on 05/29/18at 21:10; Admin Dose 1 APPLIC; Start 05/18/18 at 21:00 Miscellaneous Information 1 ea NOTE XX ; Start 05/18/18 at 18:00 Glucose (Glutose) 15 gm Q15M PRN PO DECREASED GLUCOSE; Start 05/18/18 at 18:00 Glucose (Glutose) 22.5 gm Q15M PRN PO DECREASED GLUCOSE; Start 05/18/18 at 18:00 Dextrose (D50w Syringe) 25 ml Q15M PRN IV DECREASED GLUCOSE; Start 05/18/18 at 18:00 Dextrose (D50w Syringe) 50 ml Q15M PRN IV DECREASED GLUCOSE Last administered on 05/18/18at 17:58; Admin Dose 50 ML; Start 05/18/18 at 18:00 Glucagon (Glucagen) 1 mg Q15M PRN IM DECREASED GLUCOSE; Start 05/18/18 at 18:00 Glucose (Glutose) 15 gm Q15M PRN BUCCAL DECREASED GLUCOSE; Start 05/18/18 at 18:00 Ammonium Lactate (Lac-Hydrin 12% Lotion) 1 applic DAILY TOP Last administered on 05/29/18 08:40; Admin Dose 1 APPLIC; Start 05/19/18 at 09:00 Ondansetron HCl (Zofran Inj) 4 mg Q4 PRN IV NAUSEA/VOMITING; Start 05/20/18 at 19:00 Enoxaparin Sodium (Lovenox) 30 mg DAILY SC Last administered on 05/28/18at 09:45; Admin Dose 30 MG; Start 05/21/18 at 09:00; Status Hold Bisacodyl (Dulcolax) 10 mg DAILY PRN PO CONSTIPATION Last administered on 05/23/18 13:57; Admin Dose 10 MG; Start 05/20/18 at 19:00 Bisacodyl (Dulcolax Supp) 10 mg Q48H PRN [place] CONSTIPATION; Start 05/20/18 at 19:00 Docusate Sodium (Colace) 100 mg BID PRN PO CONSTIPATION; Start 05/20/18 at 19:00 Acetaminophen/ Hydrocodone Bitart ([place] (10/325)) 1 tab Q6H PRN PO MODERATE PAIN LEVEL 4-6 Last administered on 05/29/18 08:39; Admin Dose 1 TAB; Start 05/20/18 at 19:00 Lorazepam (Ativan) 1 mg Q8H PRN IV AGITATION/ANXIETY; Start 05/22/18 at 15:00 Fluconazole (Diflucan) 200 mg DAILY PO Last administered on 05/29/18 08:38; Admin Dose 200 MG; Start 05/24/18 at 09:00 Famotidine (Pepcid) 20 mg DAILY PO Last administered on 05/29/18 08:38; Admin Dose 20 MG; Start 05/25/18 at 09:00 Senna/Docusate Sodium (Senokot-S) 2 tab HS PO Last administered on 05/29/18 20:57; Admin Dose 2 TAB; Start 05/24/18 at 21:00 Trazodone HCl (Desyrel) 50 mg HS PO Last administered on 05/29/18 20:57; Admin Dose 50 MG; Start 05/25/18 at 21:00 Quetiapine Fumarate (Seroquel) 25 mg BID PO Last administered on 05/29/18 20:57; Admin Dose 25 MG; Start 05/24/18 at 21:00 Allopurinol (Zyloprim) 100 mg DAILY PO Last administered on 05/29/18 08:38; Admin Dose 100 MG; Start 05/26/18 at 09:00 Metoclopramide HCl (Reglan) 5 mg Q8 PO Last administered on 05/30/18 06:36; Admin Dose 5 MG; Start 05/26/18 at 00:00 Miscellaneous Information (Pending Santyl Order For Wound Care) This patient campo... PRN PRN XX WOUND CARE; Start 05/26/18 at 05:30 Carvedilol (Coreg) 3.125 mg BID PO Last administered on 05/29/18 20:58; Admin Dose 3.125 MG; Start 05/27/18 at 21:00 Ceftriaxone Sodium 50 ml @ 100 mls/hr Q24H IVPB Last administered on 05/29/18 08:39; Admin Dose 100 MLS/HR; Start 05/28/18 at 09:00 CAREN HARRINGTON MD May 30, 2018 07:04
[2018-05-30 07:43] VITALS: BP 121/86; PULSE 88; RESP 16
[2018-05-30] MEDS: HYDROCODONE/APAP (10/325) TAB PO PRN ×2 (08:04→15:23)
[2018-05-30] MEDS: ALLOPURINOL 100 MG TAB PO SCH (08:12)
[2018-05-30] MEDS: CLOTRIMAZOLE 1% 30 GM CR TOP SCH ×2 (08:13→21:28)
[2018-05-30] MEDS: AMMONIUM LACTATE 12% 225 GM LOT TOP SCH (08:13)
[2018-05-30] MEDS: QUETIAPINE 25 MG TAB PO SCH ×2 (08:13→21:27)
[2018-05-30] MEDS: FAMOTIDINE 20 MG TAB PO SCH (08:13)
[2018-05-30] MEDS: FLUCONAZOLE 200 MG TAB PO SCH (08:13)
[2018-05-30] MEDS: CEFTRIAXONE 1 GM/50 ML (PMX) 50 ML IVPB SCH (08:37)
--- NOTE | 2018-05-30 09:31 | PN ---
DATE: 05/30/2018 SUBJECTIVE: The patient is stable. No events overnight. The patient is status post intra-abdominal drain placement. No other events noted. OBJECTIVE: VITAL SIGNS: Blood pressure is 121/86, temperature 98.1, pulse 88. HEENT: Head is normocephalic. NECK: Supple. HEART: Regular rate. LUNGS: Show diminished breath sounds at the base. ABDOMEN: Soft, nontender to palpation without rebound or guarding. EXTREMITIES: Negative for clubbing, cyanosis, no edema. DERMATOLOGIC: No rashes. MUSCULOSKELETAL: No joint effusion. NEUROLOGIC: No change in exam. MEDICATIONS: Reviewed. LABORATORY DATA: Reviewed. The patient's BUN 52, creatinine 3.50. ASSESSMENT AND PLAN: 1. Nonoliguric acute kidney injury with unknown baseline creatinine. Etiology of acute kidney injur y is secondary to acute tubular necrosis. The patient appeared to be in recovery phase of acute tubu lar necrosis. Creatinine, however, in the last 24 hours stabilized around 3.4 to 3.5 mg/dL. At this point, we will continue to monitor closely, continue supportive care, renally dose all medicines. 2. Chronic kidney disease with unknown baseline creatinine. The patient is currently in acute kidne y injury as stated above. Continue current treatment plan. Continue disease factor modification. 3. Hypernatremia, improved. 4. Anemia. Continue to monitor hemoglobin and hematocrit levels. 5. Mineral bone disorder, monitor calcium and phosphorus levels. 6. Perforated duodenal ulcer status post laparotomy and surgical repair. The patient is complicated with intra-abdominal abscess, status post drain placement. Continue to monitor. Continue antibioti c therapy. 7. Sepsis. Continue current antibiotic regimen. Follow up with infectious disease. 8. Encephalopathy, improved. Dictated By: YUSUF FLORES DO NR/NTS Conf#: [id number] DID#: [id number] CC: KIMBERLY SALMERON MD; GABRIELA HESTER MD; FRANCESCA VALLES DPM;*EndCC*
--- NOTE | 2018-05-30 10:53 | CONS ---
Assessment/Plan Assessment/Plan Assessment/Plan (Daily) Assessment recommendations; 1. Patient status post laparotomy for perforated duodenal ulcer status post CT- guided abdominal abscess drainage yesterday. Clinically doing very well. 2. Small pleural effusion seen on CT imaging of the abdomen without any significant respiratory compromise. Apparently the effusions have resolved, patient has clear lung examination. Possibly related to abdominal surgery as well as chronic renal failure. 3. End-stage renal disease, on chronic hemodialysis. 4. History of hypertension. 5. History of gout. 6. History of depression. 7. Patient is a current smoker. Continue current supportive care. As far as pleural effusions are concerned, no intervention is recommended. Hemodialysis per assistant store manager operations. Consultation Date/Type/Reason Admit Date/Time May 17, 2018 at 16:42 Type of Consult Pulmonary Patient currently in CT imaging for abdominal abscess drainage. However chart, labs, imaging studies reviewed. Based upon CT abdomen findings, patient does have a small right pleural effusion and therefore thoracentesis at this point is not recommended. Patient needs to have follow-up chest x-ray. Full consult to follow. Date/Time of Note DATE: 05/30/18 TIME: 10:47 Hx of Present Illness Pulmonary consult requested for evaluation of pleural effusions. Patient is a pleasant 57-year-old [place] male who was admitted to the hospital 13 days ago with complaints of abdominal pain. Patient was diagnosed with perforated duodenal ulcer and underwent laparotomy. Patient also underwent CT- guided abdominal drain placement yesterday. CT abdomen is showing small bilateral pleural effusions. Pulmonary consult has been requested for further evaluation. Patient himself denies any shortness of breath, chest pain, coughing, wheezing. Denies any abdominal pain, nausea vomiting. Able to swallow quite well and is currently on clear liquids. He also denies any fever or chills. Past medical history; 1. History of depression 2. Hypertension 3. Gout 4. End-stage renal disease, on hemodialysis. Medications; reviewed. Allergies; none. Social history; smokes about a pack a day. No history of alcohol or drug abuse. Family history; noncontributory. Occupational history; patient is on disability. Review of systems; denies any headache, visual changes, sinus symptoms. Denies any chest pain, shortness of breath, coughing, wheezing, sputum production. Denies any abdominal distention. Denies any nausea vomiting. Denies any dysphagia. Denies any constipation, diarrhea. Any edema or orthopnea. Denies any urinary symptoms. General exam; middle-aged male, awake and alert. Currently in no distress. Past Medical History Home Meds Reported Medications Colchicine (Mitigare) 0.6 Mg Capsule, 0.6 MG PO BID, CAP NOT STARTED YET (NEW PRESCRIPTION) 05/17/18 Acetaminophen* (Acetaminophen*) 500 MG Extra Strength Tablet, 1000 MG PO Q3H PRN for PAIN AND OR ELEVATED TEMP, TAB 05/17/18 Allopurinol* (Allopurinol*) 100 Mg Tablet, 100 MG PO DAILY, TAB 05/17/18 Furosemide* (Furosemide*) 40 Mg Tablet, 40 MG PO DAILY, TAB 05/17/18 Medications Current Medications IV Flush (NS 3 ml) 3 ml PER PROTOCOL IV ; Start 05/17/18 at 17:30 Morphine Sulfate (morphine) 2 mg Q4H PRN IV .PAIN 7-10 Last administered on 05/29/18at 21:00; Admin Dose 2 MG; Start 05/17/18 at 17:30 Clotrimazole (Lotrimin Cr) 1 applic BID TOP Last administered on 05/30/18at 08:13; Admin Dose 1 APPLIC; Start 05/18/18 at 21:00 Miscellaneous Information 1 ea NOTE XX ; Start 05/18/18 at 18:00 Glucose (Glutose) 15 gm Q15M PRN PO DECREASED GLUCOSE; Start 05/18/18 at 18:00 Glucose (Glutose) 22.5 gm Q15M PRN PO DECREASED GLUCOSE; Start 05/18/18 at 18:00 Dextrose (D50w Syringe) 25 ml Q15M PRN IV DECREASED GLUCOSE; Start 05/18/18 at 18:00 Dextrose (D50w Syringe) 50 ml Q15M PRN IV DECREASED GLUCOSE Last administered on 05/18/18at 17:58; Admin Dose 50 ML; Start 05/18/18 at 18:00 Glucagon (Glucagen) 1 mg Q15M PRN IM DECREASED GLUCOSE; Start 05/18/18 at 18:00 Glucose (Glutose) 15 gm Q15M PRN BUCCAL DECREASED GLUCOSE; Start 05/18/18 at 18:00 Ammonium Lactate (Lac-Hydrin 12% Lotion) 1 applic DAILY TOP Last administered on 05/30/18at 08:13; Admin Dose 1 APPLIC; Start 05/19/18 at 09:00 Ondansetron HCl (Zofran Inj) 4 mg Q4 PRN IV NAUSEA/VOMITING; Start 05/20/18 at 19:00 Enoxaparin Sodium (Lovenox) 30 mg DAILY SC Last administered on 05/28/18 09:45; Admin Dose 30 MG; Start 05/21/18 at 09:00; Status Hold Bisacodyl (Dulcolax) 10 mg DAILY PRN PO CONSTIPATION Last administered on 05/23/18 13:57; Admin Dose 10 MG; Start 05/20/18 at 19:00 Bisacodyl (Dulcolax Supp) 10 mg Q48H PRN [place] CONSTIPATION; Start 05/20/18 at 19:00 Docusate Sodium (Colace) 100 mg BID PRN PO CONSTIPATION; Start 05/20/18 at 19:00 Acetaminophen/ Hydrocodone Bitart ([place] (10/325)) 1 tab Q6H PRN PO MODERATE PAIN LEVEL 4-6 Last administered on 05/30/18at 08:04; Admin Dose 1 TAB; Start 05/20/18 at 19:00 Lorazepam (Ativan) 1 mg Q8H PRN IV AGITATION/ANXIETY; Start 05/22/18 at 15:00 Fluconazole (Diflucan) 200 mg DAILY PO Last administered on 05/30/18 08:13; Admin Dose 200 MG; Start 05/24/18 at 09:00 Famotidine (Pepcid) 20 mg DAILY PO Last administered on 05/30/18 08:13; Admin Dose 20 MG; Start 05/25/18 at 09:00 Senna/Docusate Sodium (Senokot-S) 2 tab HS PO Last administered on 05/29/18 20:57; Admin Dose 2 TAB; Start 05/24/18 at 21:00 Trazodone HCl (Desyrel) 50 mg HS PO Last administered on 05/29/18 20:57; Admin Dose 50 MG; Start 05/25/18 at 21:00 Quetiapine Fumarate (Seroquel) 25 mg BID PO Last administered on 05/30/18 08:13; Admin Dose 25 MG; Start 05/24/18 at 21:00 Allopurinol (Zyloprim) 100 mg DAILY PO Last administered on 05/30/18at 08:12; Admin Dose 100 MG; Start 05/26/18 at 09:00 Metoclopramide HCl (Reglan) 5 mg Q8 PO Last administered on 05/30/18at 06:36; Admin Dose 5 MG; Start 05/26/18 at 00:00 Miscellaneous Information (Pending Santyl Order For Wound Care) This patient campo... PRN PRN XX WOUND CARE; Start 05/26/18 at 05:30 Carvedilol (Coreg) 3.125 mg BID PO Last administered on 05/30/18at 08:12; Admin Dose 3.125 MG; Start 05/27/18 at 21:00 Ceftriaxone Sodium 50 ml @ 100 mls/hr Q24H IVPB Last administered on 05/30/18at 08:37; Admin Dose 100 MLS/HR; Start 05/28/18 at 09:00 Allergies: Coded Allergies: No Known Allergy (Unverified , 05/17/18) Social History Alcohol Use: none Smoking Status: Current every day smoker Drug Use: cocaine, marijuana Exam/Review of Systems Exam Vitals Vital Signs Date Temp Pulse Resp B/P (MAP) Pulse Ox O2 O2 Flow FiO2 Time Delivery Rate 05/30/18 98.1 88 16 121/86 96 Room Air 07:43 (98) 05/28/18 2.0 10:50 Intake and Output 05/29/18 05/29/18 05/30/18 1515:00 23:00 07:00 IntakeIntake Total 50 ml 480 ml 600 ml OutputOutput Total 80 ml 35 ml 830 ml BalanceBalance -30 ml 445 ml -230 ml Exam H HEENT exam; supple neck, no JVD. No lymphadenopathy. Midline trachea. No th yromegaly. Patient has fair dentition. No neck masses. Chest exam; clear to auscultation bilaterally. S1-S2 audible, no murmurs. Regular rhythm. Abdomen exam; soft, midline dressing in place. Abdominal drain in place. Bowel sounds audible. Nontender. Mildly protuberant. Extremity exam; no peripheral edema. ANESTHESIOLOGIST PHYSICIAN exam; no focal deficit. Results Result Diagram: 05/30/18 0704 05/30/18 0703 Results 24hrs Laboratory Tests Test 05/29/18 12:45 05/30/18 07:03 05/30/18 07:04 Body Fluid Type ABDOMINAL FLUID Body Fluid Volume 12.0 Body Fluid Color YELLOW Body Fluid Appearance SLIGHTLY HAZY Body Fluid WBC 1154 Body Fluid RBC (Auto) 4000 Body Fluid Polynuclear WBCs (%) 92.0 Body Fluid Mononuclear Cells % 8.0 Auto Body Fluid Glucose < 20 Body Fluid Amylase 43 Sodium Level 137 Potassium Level 5.0 Chloride Level 102 Carbon Dioxide Level 25 Anion Gap 10 Blood Urea Nitrogen 52 H Creatinine 3.50 H Est Glomerular Filtrat 18 L Rate mL/min Glucose Level 111 Calcium Level 9.1 White Blood Count 13.3 H Red Blood Count 3.02 L Hemoglobin 8.7 L Hematocrit 28.1 L Mean Corpuscular Volume 93.0 Mean Corpuscular Hemoglobin 28.8 L Mean Corpuscular 31.0 L Hemoglobin Concent Red Cell Distribution Width 15.8 H Platelet Count 362 # Mean Platelet Volume 10.2 Immature Granulocytes % 1.000 H Neutrophils % 69.9 Lymphocytes % 7.1 L Monocytes % 16.6 H Eosinophils % 4.8 Basophils % 0.6 Nucleated Red Blood Cells % 0.0 Immature Granulocytes # 0.130 H Neutrophils # 9.3 H Lymphocytes # 0.9 Monocytes # 2.2 H Eosinophils # 0.6 H Basophils # 0.1 Nucleated Red Blood Cells # 0.0 Phosphorus Level 6.3 H Magnesium Level 2.0 Medications Medication Current Medications IV Flush (NS 3 ml) 3 ml PER PROTOCOL IV ; Start 05/17/18 at 17:30 Morphine Sulfate (morphine) 2 mg Q4H PRN IV .PAIN 7-10 Last administered on 05/29/18at 21:00; Admin Dose 2 MG; Start 05/17/18 at 17:30 Clotrimazole (Lotrimin Cr) 1 applic BID TOP Last administered on 05/30/18at 08:13; Admin Dose 1 APPLIC; Start 05/18/18 at 21:00 Miscellaneous Information 1 ea NOTE XX ; Start 05/18/18 at 18:00 Glucose (Glutose) 15 gm Q15M PRN PO DECREASED GLUCOSE; Start 05/18/18 at 18:00 Glucose (Glutose) 22.5 gm Q15M PRN PO DECREASED GLUCOSE; Start 05/18/18 at 18:00 Dextrose (D50w Syringe) 25 ml Q15M PRN IV DECREASED GLUCOSE; Start 05/18/18 at 18:00 Dextrose (D50w Syringe) 50 ml Q15M PRN IV DECREASED GLUCOSE Last administered on 05/18/18at 17:58; Admin Dose 50 ML; Start 05/18/18 at 18:00 Glucagon (Glucagen) 1 mg Q15M PRN IM DECREASED GLUCOSE; Start 05/18/18 at 18:00 Glucose (Glutose) 15 gm Q15M PRN BUCCAL DECREASED GLUCOSE; Start 05/18/18 at 18:00 Ammonium Lactate (Lac-Hydrin 12% Lotion) 1 applic DAILY TOP Last administered on 05/30/18at 08:13; Admin Dose 1 APPLIC; Start 05/19/18 at 09:00 Ondansetron HCl (Zofran Inj) 4 mg Q4 PRN IV NAUSEA/VOMITING; Start 05/20/18 at 19:00 Enoxaparin Sodium (Lovenox) 30 mg DAILY SC Last administered on 05/28/18at 09:45; Admin Dose 30 MG; Start 05/21/18 at 09:00; Status Hold Bisacodyl (Dulcolax) 10 mg DAILY PRN PO CONSTIPATION Last administered on 05/23/18at 13:57; Admin Dose 10 MG; Start 05/20/18 at 19:00 Bisacodyl (Dulcolax Supp) 10 mg Q48H PRN [place] CONSTIPATION; Start 05/20/18 at 19:00 Docusate Sodium (Colace) 100 mg BID PRN PO CONSTIPATION; Start 05/20/18 at 19:00 Acetaminophen/ Hydrocodone Bitart ([place] (10/325)) 1 tab Q6H PRN PO MODERATE PAIN LEVEL 4-6 Last administered on 05/30/18at 08:04; Admin Dose 1 TAB; Start 05/20/18 at 19:00 Lorazepam (Ativan) 1 mg Q8H PRN IV AGITATION/ANXIETY; Start 05/22/18 at 15:00 Fluconazole (Diflucan) 200 mg DAILY PO Last administered on 05/30/18at 08:13; Admin Dose 200 MG; Start 05/24/18 at 09:00 Famotidine (Pepcid) 20 mg DAILY PO Last administered on 05/30/18at 08:13; Admin Dose 20 MG; Start 05/25/18 at 09:00 Senna/Docusate Sodium (Senokot-S) 2 tab HS PO Last administered on 05/29/18 20 :57; Admin Dose 2 TAB; Start 05/24/18 at 21:00 Trazodone HCl (Desyrel) 50 mg HS PO Last administered on 05/29/18 20:57; Admin Dose 50 MG; Start 05/25/18 at 21:00 Quetiapine Fumarate (Seroquel) 25 mg BID PO Last administered on 05/30/18 08:13; Admin Dose 25 MG; Start 05/24/18 at 21:00 Allopurinol (Zyloprim) 100 mg DAILY PO Last administered on 05/30/18 08:12; Admin Dose 100 MG; Start 05/26/18 at 09:00 Metoclopramide HCl (Reglan) 5 mg Q8 PO Last administered on 05/30/18at 06:36; Admin Dose 5 MG; Start 05/26/18 at 00:00 Miscellaneous Information (Pending Santyl Order For Wound Care) This patient campo... PRN PRN XX WOUND CARE; Start 05/26/18 at 05:30 Carvedilol (Coreg) 3.125 mg BID PO Last administered on 05/30/18 08:12; Admin Dose 3.125 MG; Start 05/27/18 at 21:00 Ceftriaxone Sodium 50 ml @ 100 mls/hr Q24H IVPB Last administered on 05/30/18 08:37; Admin Dose 100 MLS/HR; Start 05/28/18 at 09:00 MILLY ALLEN May 30, 2018 10:53
--- NOTE | 2018-05-30 11:33 | PN ---
Date/Time of Note Date/Time of Note DATE: 05/30/18 TIME: 11:29 Assessment/Plan Lines/Catheters IV Catheter Type (from [facility]): Central Line Morgan in Place (from [facility]): Yes Assessment/Plan Chief Complaint/Hosp Course 1. Perforated duodenal ulcer with peritonitis: Status post plication and Dickson patch May 17, 2018. Worsening leukocytosis: Ct noted with possible abscess> s/p ir drain -IS -oob/ambulate -ice pack to abdominal wall -diet -Continue YESSI drain/pigtail drain -ABX per ID -Local care 2. Persistent leukocytosis: improving -As above -Per ID 3.CKD with CHERYL: -Limit nephrotoxic meds -Renally dose meds -Per renal 4. Normocytic normochromic anemia: -Monitor and transfuse as needed 5. Illicit drug use: -Highly encourage cessation 6. Homelessness: -Social service follow-up 7. Schizophrenia: -Psychiatric optimization 8. Bilateral lower extremity ulcers: -Per podiatry 9. CHF history: -Cardiac optimization -Illicit drug use cessation 10. Pleural effusion -pulm consult noted -fluid mgt -ambulate 11. Bleeding from surgical site: fibrillar & pressure dsg applied -Continue close monitoring -dc anticoags -Pressure dressing Thank you. Patient seen and examined in collaboration with Dr. Robbi Quesada. Subjective 24 Hr Interval Summary Feels well. No bleeding noted from midline incision. Status post abscess d rainage. No fevers, chills, sob, congested cough, cp, palpitations, campo, dizziness, nausea, vomiting, diarrhea, dysuria. WBC improving. Exam/Review of Systems Vital Signs Vitals Vital Signs Date Temp Pulse Resp B/P (MAP) Pulse Ox O2 O2 Flow FiO2 Time Delivery Rate 05/30/18 98.1 88 16 121/86 96 Room Air 07:43 (98) 05/28/18 2.0 10:50 Intake and Output 05/29/18 05/29/18 05/30/18 1515:00 23:00 07:00 IntakeIntake Total 50 ml 480 ml 600 ml OutputOutput Total 80 ml 35 ml 830 ml BalanceBalance -30 ml 445 ml -230 ml Exam Free Text/Dictation Constitutional: alert, oriented Psych: anxiety Head: normocephalic, atraumatic Eyes: nl conjunctiva, EOMI, nl lids, nl sclera ENMT: nl external ears & nose, nl lips & teeth, mucosa pink and moist Neck: supple, non-tender; No jvd Respiratory: normal air movement; No congested cough, No labored breathing Cardiovascular: regular rate and rhythm, nl pulses; No edema Gastrointestinal: soft, distended (Moderate), min tender, staple line, e cchymosis, active bright red bleeding from mid incision, YESSI drain: serous; pigtail drain: serous Musculoskeletal: nl gait and stance Extremities: normal pulses Neurological: nl mental status; No nl strength (Generalized weakness) Skin: No rash or lesions Results Result Diagram: 05/30/18 0704 05/30/18 0703 MARGO ADAMS NP May 30, 2018 11:33
[2018-05-30 14:33] VITALS: BP 141/97; PULSE 89; RESP 16
--- NOTE | 2018-05-30 16:16 | PN ---
Date/Time of Note Date/Time of Note DATE: 05/30/18 TIME: 16:15 Assessment/Plan VTE Prophylaxis Risk score (from Ns)>0 risk: 4 SCD applied (from Ns): Yes Pharmacological prophylaxis: NA/contraindicated Pharm contraindication: anticoag not tolerated Lines/Catheters IV Catheter Type (from Nrsg): Central Line Central line still needed: Yes Urinary Cath still in place: Yes Reason Cath still needed: other (indicate) Assessment/Plan Hospital Course SUBJECTIVE: Abdominal pain well controlled. Continues to have some blood leaking around the edgardo. OBJECTIVE: Physical Exam General: Adequately build 57 year-old male lying in bed in no apparent distress. HEENT: Normocephalic, atraumatic. Eyes: Anicteric sclerae, conjunctivae clear. ENT: Nasal septum midline, oral mucosa moist. Neck supple, JVD noticed (decreased). Respiratory: Bilaterally diminished breath sounds. No use of accessory muscles o f respiration. Bibasilar rales. Cardiovascular: S1, S2 heard. Regular rate and rhythm. Systolic murmur. Abdomen: Distended. Midline surgical dressing with a YESSI drain in place that is draining serous fluid. Right upper quadrant accordion drain. Genitourinary: Deferred. Status post Extremities: No cyanosis, no clubbing. B/L LE trace pitting edema. Neurologic: Cranial nerves II through XII grossly intact. The patient is awake, alert, and oriented. Labs & Vitals per chart ASSESSMENT & PLAN 57-year-old male with comorbidities including gout, arthritis, congestive heart failure, substance abuse, nicotine use, and schizophrenia who came to the emergency room with chief complaint of abdominal pain with imaging studies showing pneumoperitoneum concerning for bowel perforation, who was admitted to inpatient setting for further treatment and evaluation. 1. Perforated duodenal ulcer. -Status post exploratory laparotomy, plication of perforated duodenal ulcer with Dickson patch application, and placement of a drain on 05/17/2018. -Continue pain control. -Continue antimicrobials as per ID for underlying peritonitis. 2. S/P sepsis with underlying leukocytosis, lactic acidosis,bandemia, and tachycardia, present on admission secondary to underlying peritonitis. -Status post emergency surgical exploration. -Continue antimicrobial therapy as per ID. 3. Acute kidney injury. -Unknown baseline creatinine. -Possible underlying CKD. -Use nephrotoxic drugs with caution. -Nephrology following. 4. Cardiomyopathy. -Ejection fraction of 30%. -On beta-fabien therapy. 5. Pulmonary hypertension. -PA systolic pressure 44 mmHg. -Most probably secondary to underlying left heart disease. 6. Gout. -Continue allopurinol. 7. Substance abuse. -Urine drug screen negative for any recreational medications -Cessation advised. 8. B/L toes onychomycosis. -S/P podiatry consult. 9. Anemia. -Normocytic. -Monitor H&H closely. -S/P 1 unit of PRBC transfusion on 05/18/2018. 10. 2.7 x 4.2 x 2.2 cm complex low attenuation collection containing a small amount of gas inferior to the left hepatic lobe, suspicious for subhepatic abscess. -Status post IR guided drainage on 05/29/2018. 11. B/L pleural effusions. -Being followed by pulmonary. -Spot diuretics. 12. Fluids, electrolytes, and nutrition. -Soft diet. 13. DVT prophylaxis. -Subcutaneous Lovenox. Held because of bleeding. 14. Plan. -Continue antimicrobials as per ID. -Await clinical improvement. The patient was seen in collaboration with Dr. Alamo. Result Diagram: 05/30/18 0704 05/30/18 0703 Results 24hrs Laboratory Tests Test 05/30/18 07:03 05/30/18 07:04 Sodium Level 137 Potassium Level 5.0 Chloride Level 102 Carbon Dioxide Level 25 Anion Gap 10 Blood Urea Nitrogen 52 H Creatinine 3.50 H Est Glomerular Filtrat Rate mL/min 18 L Glucose Level 111 Calcium Level 9.1 White Blood Count 13.3 H Red Blood Count 3.02 L Hemoglobin 8.7 L Hematocrit 28.1 L Mean Corpuscular Volume 93.0 Mean Corpuscular Hemoglobin 28.8 L Mean Corpuscular Hemoglobin Concent 31.0 L Red Cell Distribution Width 15.8 H Platelet Count 362 # Mean Platelet Volume 10.2 Immature Granulocytes % 1.000 H Neutrophils % 69.9 Lymphocytes % 7.1 L Monocytes % 16.6 H Eosinophils % 4.8 Basophils % 0.6 Nucleated Red Blood Cells % 0.0 Immature Granulocytes # 0.130 H Neutrophils # 9.3 H Lymphocytes # 0.9 Monocytes # 2.2 H Eosinophils # 0.6 H Basophils # 0.1 Nucleated Red Blood Cells # 0.0 Phosphorus Level 6.3 H Magnesium Level 2.0 Exam/Review of Systems Exam Vitals Vital Signs Date Temp Pulse Resp B/P (MAP) Pulse Ox O2 O2 Flow FiO2 Time Delivery Rate 05/30/18 98.4 89 16 141/97 100 Room Air 14:33 (112) 05/28/18 2.0 10:50 Intake and Output 05/29/18 05/29/18 05/30/18 1515:00 23:00 07:00 IntakeIntake Total 50 ml 480 ml 600 ml OutputOutput Total 80 ml 35 ml 830 ml BalanceBalance -30 ml 445 ml -230 ml Results Results 24hrs Laboratory Tests Test 05/30/18 07:03 05/30/18 07:04 Sodium Level 137 Potassium Level 5.0 Chloride Level 102 Carbon Dioxide Level 25 Anion Gap 10 Blood Urea Nitrogen 52 H Creatinine 3.50 H Est Glomerular Filtrat Rate mL/min 18 L Glucose Level 111 Calcium Level 9.1 White Blood Count 13.3 H Red Blood Count 3.02 L Hemoglobin 8.7 L Hematocrit 28.1 L Mean Corpuscular Volume 93.0 Mean Corpuscular Hemoglobin 28.8 L Mean Corpuscular Hemoglobin Concent 31.0 L Red Cell Distribution Width 15.8 H Platelet Count 362 # Mean Platelet Volume 10.2 Immature Granulocytes % 1.000 H Neutrophils % 69.9 Lymphocytes % 7.1 L Monocytes % 16.6 H Eosinophils % 4.8 Basophils % 0.6 Nucleated Red Blood Cells % 0.0 Immature Granulocytes # 0.130 H Neutrophils # 9.3 H Lymphocytes # 0.9 Monocytes # 2.2 H Eosinophils # 0.6 H Basophils # 0.1 Nucleated Red Blood Cells # 0.0 Phosphorus Level 6.3 H Magnesium Level 2.0 Medications Medication Current Medications IV Flush (NS 3 ml) 3 ml PER PROTOCOL IV ; Start 05/17/18 at 17:30 Morphine Sulfate (morphine) 2 mg Q4H PRN IV .PAIN 7-10 Last administered on 05/29/18at 21:00; Admin Dose 2 MG; Start 05/17/18 at 17:30 Clotrimazole (Lotrimin Cr) 1 applic BID TOP Last administered on 05/30/18at 08: 13; Admin Dose 1 APPLIC; Start 05/18/18 at 21:00 Miscellaneous Information 1 ea NOTE XX ; Start 05/18/18 at 18:00 Glucose (Glutose) 15 gm Q15M PRN PO DECREASED GLUCOSE; Start 05/18/18 at 18:00 Glucose (Glutose) 22.5 gm Q15M PRN PO DECREASED GLUCOSE; Start 05/18/18 at 18:00 Dextrose (D50w Syringe) 25 ml Q15M PRN IV DECREASED GLUCOSE; Start 05/18/18 at 18:00 Dextrose (D50w Syringe) 50 ml Q15M PRN IV DECREASED GLUCOSE Last administered on 05/18/18at 17:58; Admin Dose 50 ML; Start 05/18/18 at 18:00 Glucagon (Glucagen) 1 mg Q15M PRN IM DECREASED GLUCOSE; Start 05/18/18 at 18:00 Glucose (Glutose) 15 gm Q15M PRN BUCCAL DECREASED GLUCOSE; Start 05/18/18 at 18:00 Ammonium Lactate (Lac-Hydrin 12% Lotion) 1 applic DAILY TOP Last administered on 05/30/18at 08:13; Admin Dose 1 APPLIC; Start 05/19/18 at 09:00 Ondansetron HCl (Zofran Inj) 4 mg Q4 PRN IV NAUSEA/VOMITING; Start 05/20/18 at 19:00 Enoxaparin Sodium (Lovenox) 30 mg DAILY SC Last administered on 05/28/18at 09:45; Admin Dose 30 MG; Start 05/21/18 at 09:00; Status Hold Bisacodyl (Dulcolax) 10 mg DAILY PRN PO CONSTIPATION Last administered on 05/23/18at 13:57; Admin Dose 10 MG; Start 05/20/18 at 19:00 Bisacodyl (Dulcolax Supp) 10 mg Q48H PRN [place] CONSTIPATION; Start 05/20/18 at 19:00 Docusate Sodium (Colace) 100 mg BID PRN PO CONSTIPATION; Start 05/20/18 at 19:00 Acetaminophen/ Hydrocodone Bitart ([place] (10/325)) 1 tab Q6H PRN PO MODERATE PAIN LEVEL 4-6 Last administered on 05/30/18at 15:23; Admin Dose 1 TAB; Start 05/20/18 at 19:00 Lorazepam (Ativan) 1 mg Q8H PRN IV AGITATION/ANXIETY Last administered on 05/30/18at 15:22; Admin Dose 1 MG; Start 05/22/18 at 15:00 Fluconazole (Diflucan) 200 mg DAILY PO Last administered on 05/30/18 08:13; Admin Dose 200 MG; Start 05/24/18 at 09:00 Famotidine (Pepcid) 20 mg DAILY PO Last administered on 05/30/18 08:13; Admin Dose 20 MG; Start 05/25/18 at 09:00 Senna/Docusate Sodium (Senokot-S) 2 tab HS PO Last administered on 05/29/18 20:57; Admin Dose 2 TAB; Start 05/24/18 at 21:00 Trazodone HCl (Desyrel) 50 mg HS PO Last administered on 05/29/18 20:57; Admin Dose 50 MG; Start 05/25/18 at 21:00 Quetiapine Fumarate (Seroquel) 25 mg BID PO Last administered on 05/30/18 08:13; Admin Dose 25 MG; Start 05/24/18 at 21:00 Allopurinol (Zyloprim) 100 mg DAILY PO Last administered on 05/30/18 08:12; Admin Dose 100 MG; Start 05/26/18 at 09:00 Metoclopramide HCl (Reglan) 5 mg Q8 PO Last administered on 05/30/18 15:22; Admin Dose 5 MG; Start 05/26/18 at 00:00 Miscellaneous Information (Pending Santyl Order For Wound Care) This patient campo... PRN PRN XX WOUND CARE; Start 05/26/18 at 05:30 Carvedilol (Coreg) 3.125 mg BID PO Last administered on 05/30/18 08:12; Admin Dose 3.125 MG; Start 05/27/18 at 21:00 Ceftriaxone Sodium 50 ml @ 100 mls/hr Q24H IVPB Last administered on 05/30/18 08:37; Admin Dose 100 MLS/HR; Start 05/28/18 at 09:00 Alteplase, Recombinant (Cathflo (Activase)) 2 mg MAY REPEAT X1 PRN CATHETER IF CATHETER REMAINS OCCULUDED; Start 05/30/18 at 16:30; Stop 05/30/18 at 23:45 MI SYED NP May 30, 2018 16:16
[2018-05-30] MEDS ORDERED: ALTEPLASE (CATHFLO) 2 MG INJ CATHETER PRN (16:30)
[2018-05-30 20:59] VITALS: BP 116/80; PULSE 99; RESP 18
[2018-05-30] MEDS: traZODone 50 MG TAB PO SCH (21:27)
[2018-05-30] MEDS: SENNA/DOCUSATE NA (8.6MG/50MG) TAB PO SCH (21:27)
[2018-05-31] MEDS: morphine 2 MG INJ IV PRN ×2 (00:15→10:08)
[2018-05-31 02:00] VITALS: BP 108/71; PULSE 87; RESP 18
[2018-05-31] MEDS: METOCLOPRAMIDE 5 MG TAB PO SCH ×3 (05:38→21:32)
--- NOTE | 2018-05-31 07:03 | CONS ---
Assessment/Plan Assessment/Plan Hospital Course (Demo Recall) 1) perforated duodenal ulcer with peritonitis s/p surgical repair s.aureus is growing from the fluid drained at time of surgery change antibiotics to zyvox/zosyn pt has no hx of MRSA but he is homeless so at higher risk for MRSA get nasal for MRSA 05/20 - cx from surgery has MSSA and GNR d/c zyvox and continue with just zosyn 05/22 - improving continue with zosyn when pt is eating can change to po levo/rifampin to complete his antibiotic course 05/24 - d/c zosyn and start oral levaquin thru 05/26 05/26 - today is last day for his levaquin WBC is almost back to WNL 05/27 - WBC is higher this a.m. but clinically pt is better to d/c levaquin and observe off antibiotics 05/28 - due to elevated WBC, CT abd was ordered and shows a new fluid collection review with radiology and this is accessible by IR and would recommend drainage of this fluid collection and send off for cx start ceftriaxone at this time 05/29 - WBC is better, continue with ceftriaxone pt to get CT guided abd fluid drained, have ordered fluid cell count, glucose, amylase and cx of the fluid (nurse was informed on this) 05/30 - pt got drainage tube placed yesterday a.m. and fluid analysis is c/w infection (low glucose and elevated PMN's) fluid cx is NGTD continue with ceftriaxone 05/31 - drainage from both drains is reducing fluid cx remains NGTD, continue with just ceftriaxone at present when drainage is less than 15cc per day can re-image and verify that catheters can be removed 2) CRI with acute component u/a was benign on admission 05/22 - will reduce dose of zosyn will switch to levaquin soon urine output has improved 05/24 - urine output is ok but creatinine is not decreasing yet (today's chem panel still pending) d/c zosyn and start oral levaquin 05/26 - creatinine has started to decrease but this a.m. labs are still pending 05/27 - improving renal function, slowly 05/31- creatinine went up yesterday if continues to rise may need to d/c beta lactams and restart quinolones 3) homeless 4)crystal/MJ user but no IVDA by pt's report 5) gout 05/24 - pt c/o of pain to both 1st MTP joints recommend treatment for this 05/27 - toes are better Consultation Date/Type/Reason Admit Date/Time May 17, 2018 at 16:42 Initial Consult Date 05/19/18 Type of Consult ID Requesting Provider: DANY BERG MD Date/Time of Note DATE: 05/31/18 TIME: 07:00 24 HR Interval Summary Free Text/Dictation pt states abd pain is getting better no N, V, D breathing is ok and appetite is very good Exam/Review of Systems Exam Vitals Vital Signs Date Temp Pulse Resp B/P (MAP) Pulse Ox O2 O2 Flow FiO2 Time Delivery Rate 05/31/18 98.6 87 18 108/71 100 02:00 (83) 05/30/18 Room Air 14:33 05/28/18 2.0 10:50 Intake and Output 05/30/18 05/30/18 05/31/18 1515:00 23:00 07:00 IntakeIntake Total 50 ml 1100 ml 400 ml OutputOutput Total 5 ml 325 ml 717 ml BalanceBalance 45 ml 775 ml -317 ml Constitutional: alert Eyes: nl sclera Respiratory: clear to auscultation Cardiovascular: regular rate and rhythm Gastrointestinal: other (BS present, abd is heavily bandaged) Results Result Diagram: 05/30/18 0704 05/30/18 0703 Results 24hrs Laboratory Tests Test 05/30/18 07:03 05/30/18 07:04 Sodium Level 137 Potassium Level 5.0 Chloride Level 102 Carbon Dioxide Level 25 Anion Gap 10 Blood Urea Nitrogen 52 H Creatinine 3.50 H Est Glomerular Filtrat Rate mL/min 18 L Glucose Level 111 Calcium Level 9.1 White Blood Count 13.3 H Red Blood Count 3.02 L Hemoglobin 8.7 L Hematocrit 28.1 L Mean Corpuscular Volume 93.0 Mean Corpuscular Hemoglobin 28.8 L Mean Corpuscular Hemoglobin Concent 31.0 L Red Cell Distribution Width 15.8 H Platelet Count 362 # Mean Platelet Volume 10.2 Immature Granulocytes % 1.000 H Neutrophils % 69.9 Lymphocytes % 7.1 L Monocytes % 16.6 H Eosinophils % 4.8 Basophils % 0.6 Nucleated Red Blood Cells % 0.0 Immature Granulocytes # 0.130 H Neutrophils # 9.3 H Lymphocytes # 0.9 Monocytes # 2.2 H Eosinophils # 0.6 H Basophils # 0.1 Nucleated Red Blood Cells # 0.0 Phosphorus Level 6.3 H Magnesium Level 2.0 Medications Medication Current Medications IV Flush (NS 3 ml) 3 ml PER PROTOCOL IV ; Start 05/17/18 at 17:30 Morphine Sulfate (morphine) 2 mg Q4H PRN IV .PAIN 7-10 Last administered on 05/31/18at 00:15; Admin Dose 2 MG; Start 05/17/18 at 17:30 Clotrimazole (Lotrimin Cr) 1 applic BID TOP Last administered on 05/30/18at 21:28; Admin Dose 1 APPLIC; Start 05/18/18 at 21:00 Miscellaneous Information 1 ea NOTE XX ; Start 05/18/18 at 18:00 Glucose (Glutose) 15 gm Q15M PRN PO DECREASED GLUCOSE; Start 05/18/18 at 18:00 Glucose (Glutose) 22.5 gm Q15M PRN PO DECREASED GLUCOSE; Start 05/18/18 at 18:00 Dextrose (D50w Syringe) 25 ml Q15M PRN IV DECREASED GLUCOSE; Start 05/18/18 at 18:00 Dextrose (D50w Syringe) 50 ml Q15M PRN IV DECREASED GLUCOSE Last administered on 05/18/18at 17:58; Admin Dose 50 ML; Start 05/18/18 at 18:00 Glucagon (Glucagen) 1 mg Q15M PRN IM DECREASED GLUCOSE; Start 05/18/18 at 18:00 Glucose (Glutose) 15 gm Q15M PRN BUCCAL DECREASED GLUCOSE; Start 05/18/18 at 18:00 Ammonium Lactate (Lac-Hydrin 12% Lotion) 1 applic DAILY TOP Last administered on 05/30/18at 08:13; Admin Dose 1 APPLIC; Start 05/19/18 at 09:00 Ondansetron HCl (Zofran Inj) 4 mg Q4 PRN IV NAUSEA/VOMITING; Start 05/20/18 at 19:00 Enoxaparin Sodium (Lovenox) 30 mg DAILY SC Last administered on 05/28/18at 09:45; Admin Dose 30 MG; Start 05/21/18 at 09:00; Status Hold Bisacodyl (Dulcolax) 10 mg DAILY PRN PO CONSTIPATION Last administered on 05/23/18 13:57; Admin Dose 10 MG; Start 05/20/18 at 19:00 Bisacodyl (Dulcolax Supp) 10 mg Q48H PRN [place] CONSTIPATION; Start 05/20/18 at 19:00 Docusate Sodium (Colace) 100 mg BID PRN PO CONSTIPATION; Start 05/20/18 at 19:00 Acetaminophen/ Hydrocodone Bitart ([place] (10/325)) 1 tab Q6H PRN PO MODERATE PAIN LEVEL 4-6 Last administered on 05/30/18 15:23; Admin Dose 1 TAB; Start 05/20/18 at 19:00 Lorazepam (Ativan) 1 mg Q8H PRN IV AGITATION/ANXIETY Last administered on 05/30/18 15:22; Admin Dose 1 MG; Start 05/22/18 at 15:00 Fluconazole (Diflucan) 200 mg DAILY PO Last administered on 05/30/18 08:13; Admin Dose 200 MG; Start 05/24/18 at 09:00 Famotidine (Pepcid) 20 mg DAILY PO Last administered on 05/30/18 08:13; Admin Dose 20 MG; Start 05/25/18 at 09:00 Senna/Docusate Sodium (Senokot-S) 2 tab HS PO Last administered on 05/30/18 21:27; Admin Dose 2 TAB; Start 05/24/18 at 21:00 Trazodone HCl (Desyrel) 50 mg HS PO Last administered on 05/30/18 21:27; Admin Dose 50 MG; Start 05/25/18 at 21:00 Quetiapine Fumarate (Seroquel) 25 mg BID PO Last administered on 05/30/18 21:27; Admin Dose 25 MG; Start 05/24/18 at 21:00 Allopurinol (Zyloprim) 100 mg DAILY PO Last administered on 05/30/18 08:12; Admin Dose 100 MG; Start 05/26/18 at 09:00 Metoclopramide HCl (Reglan) 5 mg Q8 PO Last administered on 05/31/18 05:38; Admin Dose 5 MG; Start 05/26/18 at 00:00 Miscellaneous Information [facility] This patient campo... PRN PRN XX WOUND CARE; Start 05/26/18 at 05:30 Carvedilol (Coreg) 3.125 mg BID PO Last administered on 05/30/18at 21:27; Admin Dose 3.125 MG; Start 05/27/18 at 21:00 Ceftriaxone Sodium 50 ml @ 100 mls/hr Q24H IVPB Last administered on 05/30/18at 08:37; Admin Dose 100 MLS/HR; Start 05/28/18 at 09:00 CAREN HARRINGTON MD May 31, 2018 07:03
[2018-05-31 08:00] VITALS: BP 114/69; PULSE 87
[2018-05-31] MEDS: FLUCONAZOLE 200 MG TAB PO SCH (08:45)
[2018-05-31] MEDS: QUETIAPINE 25 MG TAB PO SCH ×2 (08:45→20:32)
[2018-05-31] MEDS: ALLOPURINOL 100 MG TAB PO SCH (08:45)
[2018-05-31] MEDS: FAMOTIDINE 20 MG TAB PO SCH (08:45)
[2018-05-31] MEDS: CLOTRIMAZOLE 1% 30 GM CR TOP SCH ×2 (08:46→21:32)
[2018-05-31] MEDS: AMMONIUM LACTATE 12% 225 GM LOT TOP SCH (08:46)
[2018-05-31 08:51] VITALS: BP 132/80; PULSE 90; RESP 16
--- NOTE | 2018-05-31 09:00 | PN ---
DATE: 05/31/2018 SUBJECTIVE: The patient is stable. No events overnight. OBJECTIVE: VITAL SIGNS: Blood pressure is 108/71, respirations 18, pulse 87, temperature 98.6. HEENT: Head is normocephalic. HEART: Regular rate. LUNGS: Show diminished breath sounds at the base. ABDOMEN: Soft, nontender to palpation. No rebound or guarding. EXTREMITIES: Negative for clubbing, cyanosis, no edema. DERMATOLOGIC: No rashes. MUSCULOSKELETAL: No joint effusion. NEUROLOGIC: No change in exam. LABORATORY DATA: Pending. ASSESSMENT AND PLAN: 1. Nonoliguric acute kidney injury with unknown baseline creatinine. Etiology of acute kidney injur y is secondary to acute tubular necrosis. The patient is in recovery phase of acute tubular necrosis . We will continue current treatment plan, follow up renal panel. 2. Chronic kidney disease with unknown baseline creatinine. The patient is currently in acute kidne y injury as stated above. Continue current treatment plan. Continue disease factor modification. 3. Hypernatremia, improved. 4. Anemia. Monitor hemoglobin and hematocrit levels. 5. Mineral bone disorder. Monitor calcium and phosphorus levels. 6. Perforated duodenal ulcer status post laparotomy and surgical repair. The patient's course was c omplicated with intra-abdominal abscess. The patient is status post drain. Continue to monitor. Co ntinue antibiotic therapy. 7. Sepsis. Continue current antibiotic regimen. 8. Encephalopathy, improving. Dictated By: YUSUF FLORES DO NR/NTS Conf#: [id number] DID#: [id number] CC: KIMBERLY SALMERON MD; GABRIELA HESTER MD; FRANCESCA VALLES DPM;*EndCC*
[2018-05-31] MEDS: CEFTRIAXONE 1 GM/50 ML (PMX) 50 ML IVPB SCH (10:08)
[2018-05-31 14:00] VITALS: BP 108/71; PULSE 91; RESP 18
[2018-05-31 14:15] VITALS: PULSE 85
--- NOTE | 2018-05-31 14:46 | PN ---
Date/Time of Note Date/Time of Note DATE: 05/31/18 TIME: 14:45 Assessment/Plan VTE Prophylaxis Risk score (from Ns)>0 risk: 6 SCD applied (from Ns): Yes Pharmacological prophylaxis: NA/contraindicated Pharm contraindication: bleeding Lines/Catheters IV Catheter Type (from Nrsg): Central Line Central line still needed: Yes Urinary Cath still in place: Yes Reason Cath still needed: other (indicate) Assessment/Plan Hospital Course SUBJECTIVE: Abdominal pain well controlled. OBJECTIVE: Physical Exam General: Adequately build 57 year-old male lying in bed in no apparent distress. HEENT: Normocephalic, atraumatic. Eyes: Anicteric sclerae, conjunctivae clear. ENT: Nasal septum midline, oral mucosa moist. Neck supple, JVD noticed (decreased). Respiratory: Bilaterally diminished breath sounds. No use of accessory muscles of respiration. Bibasilar rales. Cardiovascular: S1, S2 heard. Regular rate and rhythm. Systolic murmur. Abdomen: Distended. Midline surgical incision with edgardo. YESSI drain in place that is draining serous fluid. Right upper quadrant accordion drain. Genitourinary: Deferred. Status post Extremities: No cyanosis, no clubbing. B/L LE trace pitting edema. Neurologic: Cranial nerves II through XII grossly intact. The patient is awake, alert, and oriented. Labs & Vitals per chart ASSESSMENT & PLAN 57-year-old male with comorbidities including gout, arthritis, congestive heart failure, substance abuse, nicotine use, and schizophrenia who came to the emergency room with chief complaint of abdominal pain with imaging studies showing pneumoperitoneum concerning for bowel perforation, who was admitted to inpatient setting for further treatment and evaluation. 1. Perforated duodenal ulcer. -Status post exploratory laparotomy, plication of perforated duodenal ulcer with Dickson patch application, and placement of a drain on 05/17/2018. -Continue pain control. -Continue antimicrobials as per ID for underlying peritonitis. 2. S/P sepsis with underlying leukocytosis, lactic acidosis,bandemia, and tachycardia, present on admission secondary to underlying peritonitis. -Status post emergency surgical exploration. -Continue antimicrobial therapy as per ID. 3. Acute kidney injury. -Unknown baseline creatinine. -Possible underlying CKD. -Use nephrotoxic drugs with caution. -Nephrology following. 4. Cardiomyopathy. -Ejection fraction of 30%. -On beta-fabien therapy. 5. Pulmonary hypertension. -PA systolic pressure 44 mmHg. -Most probably secondary to underlying left heart disease. 6. Gout. -Continue allopurinol. 7. Substance abuse. -Urine drug screen negative for any recreational medications -Cessation advised. 8. B/L toes onychomycosis. -S/P podiatry consult. 9. Anemia. -Normocytic. -Monitor H&H closely. -S/P 1 unit of PRBC transfusion on 05/18/2018. 10. 2.7 x 4.2 x 2.2 cm complex low attenuation collection containing a small amount of gas inferior to the left hepatic lobe, suspicious for subhepatic absce ss. -Status post IR guided drainage on 05/29/2018. 11. B/L pleural effusions. -Being followed by pulmonary. -Spot diuretics. 12. Fluids, electrolytes, and nutrition. -Soft diet. 13. DVT prophylaxis. -Subcutaneous Lovenox. Held because of bleeding. 14. Plan. -Continue antimicrobials as per ID. -Await clinical improvement. The patient was seen in collaboration with Dr. Alamo. Result Diagram: 05/31/18 0728 05/31/1828 Results 24hrs Laboratory Tests Test 05/31/18 07:28 White Blood Count 12.9 H Red Blood Count 2.93 L Hemoglobin 8.6 L Hematocrit 27.4 L Mean Corpuscular Volume 93.5 Mean Corpuscular Hemoglobin 29.4 Mean Corpuscular Hemoglobin Concent 31.4 L Red Cell Distribution Width 15.8 H Platelet Count 393 Mean Platelet Volume 10.2 Immature Granulocytes % 0.900 H Neutrophils % 67.1 Lymphocytes % 7.7 L Monocytes % 17.2 H Eosinophils % 6.2 Basophils % 0.9 Nucleated Red Blood Cells % 0.0 Immature Granulocytes # 0.110 H Neutrophils # 8.7 H Lymphocytes # 1.0 Monocytes # 2.2 H Eosinophils # 0.8 H Basophils # 0.1 Nucleated Red Blood Cells # 0.0 Sodium Level 138 Potassium Level 4.8 Chloride Level 99 Carbon Dioxide Level 25 Anion Gap 14 H Blood Urea Nitrogen 53 H Creatinine 3.39 H Est Glomerular Filtrat Rate mL/min 19 L Glucose Level 91 Calcium Level 9.2 Phosphorus Level 5.9 H Magnesium Level 1.8 Exam/Review of Systems Exam Vitals Vital Signs Date Temp Pulse Resp B/P (MAP) Pulse Ox O2 O2 Flow FiO2 Time Delivery Rate 05/31/18 99.4 91 18 108/71 97 14:00 (83) 05/31/18 Room Air 08:51 05/28/18 2.0 10:50 Intake and Output 05/30/18 05/30/18 05/31/18 1515:00 23:00 07:00 IntakeIntake Total 50 ml 1100 ml 400 ml OutputOutput Total 5 ml 325 ml 717 ml BalanceBalance 45 ml 775 ml -317 ml Results Results 24hrs Laboratory Tests Test 05/31/18 07:28 White Blood Count 12.9 H Red Blood Count 2.93 L Hemoglobin 8.6 L Hematocrit 27.4 L Mean Corpuscular Volume 93.5 Mean Corpuscular Hemoglobin 29.4 Mean Corpuscular Hemoglobin Concent 31.4 L Red Cell Distribution Width 15.8 H Platelet Count 393 Mean Platelet Volume 10.2 Immature Granulocytes % 0.900 H Neutrophils % 67.1 Lymphocytes % 7.7 L Monocytes % 17.2 H Eosinophils % 6.2 Basophils % 0.9 Nucleated Red Blood Cells % 0.0 Immature Granulocytes # 0.110 H Neutrophils # 8.7 H Lymphocytes # 1.0 Monocytes # 2.2 H Eosinophils # 0.8 H Basophils # 0.1 Nucleated Red Blood Cells # 0.0 Sodium Level 138 Potassium Level 4.8 Chloride Level 99 Carbon Dioxide Level 25 Anion Gap 14 H Blood Urea Nitrogen 53 H Creatinine 3.39 H Est Glomerular Filtrat Rate mL/min 19 L Glucose Level 91 Calcium Level 9.2 Phosphorus Level 5.9 H Magnesium Level 1.8 Medications Medication Current Medications IV Flush (NS 3 ml) 3 ml PER PROTOCOL IV ; Start 05/17/18 at 17:30 Morphine Sulfate (morphine) 2 mg Q4H PRN IV .PAIN 7-10 Last administered on 05/31/18at 10:08; Admin Dose 2 MG; Start 05/17/18 at 17:30 Clotrimazole (Lotrimin Cr) 1 applic BID TOP Last administered on 05/31/18at 08:46; Admin Dose 1 APPLIC; Start 05/18/18 at 21:00 Miscellaneous Information 1 ea NOTE XX ; Start 05/18/18 at 18:00 Glucose (Glutose) 15 gm Q15M PRN PO DECREASED GLUCOSE; Start 05/18/18 at 18:00 Glucose (Glutose) 22.5 gm Q15M PRN PO DECREASED GLUCOSE; Start 05/18/18 at 18:00 Dextrose (D50w Syringe) 25 ml Q15M PRN IV DECREASED GLUCOSE; Start 05/18/18 at 18:00 Dextrose (D50w Syringe) 50 ml Q15M PRN IV DECREASED GLUCOSE Last administered on 05/18/18at 17:58; Admin Dose 50 ML; Start 05/18/18 at 18:00 Glucagon (Glucagen) 1 mg Q15M PRN IM DECREASED GLUCOSE; Start 05/18/18 at 18:00 Glucose (Glutose) 15 gm Q15M PRN BUCCAL DECREASED GLUCOSE; Start 05/18/18 at 18:00 Ammonium Lactate (Lac-Hydrin 12% Lotion) 1 applic DAILY TOP Last administered on 05/31/18 08:46; Admin Dose 1 APPLIC; Start 05/19/18 at 09:00 Ondansetron HCl (Zofran Inj) 4 mg Q4 PRN IV NAUSEA/VOMITING; Start 05/20/18 at 19:00 Enoxaparin Sodium (Lovenox) 30 mg DAILY SC Last administered on 05/28/18 09:45; Admin Dose 30 MG; Start 05/21/18 at 09:00; Status Hold Bisacodyl (Dulcolax) 10 mg DAILY PRN PO CONSTIPATION Last administered on 05/23/18at 13:57; Admin Dose 10 MG; Start 05/20/18 at 19:00 Bisacodyl (Dulcolax Supp) 10 mg Q48H PRN [place] CONSTIPATION; Start 05/20/18 at 19:00 Docusate Sodium (Colace) 100 mg BID PRN PO CONSTIPATION; Start 05/20/18 at 19:00 Acetaminophen/ Hydrocodone Bitart ([place] (10/325)) 1 tab Q6H PRN PO MODERATE PAIN LEVEL 4-6 Last administered on 05/30/18 15:23; Admin Dose 1 TAB; Start 05/20/18 at 19:00 Lorazepam (Ativan) 1 mg Q8H PRN IV AGITATION/ANXIETY Last administered on 05/30/18 15:22; Admin Dose 1 MG; Start 05/22/18 at 15:00 Fluconazole (Diflucan) 200 mg DAILY PO Last administered on 05/31/18 08:45; Admin Dose 200 MG; Start 05/24/18 at 09:00 Famotidine (Pepcid) 20 mg DAILY PO Last administered on 05/31/18 08:45; Admin Dose 20 MG; Start 05/25/18 at 09:00 Senna/Docusate Sodium (Senokot-S) 2 tab HS PO Last administered on 05/30/18 21:27; Admin Dose 2 TAB; Start 05/24/18 at 21:00 Trazodone HCl (Desyrel) 50 mg HS PO Last administered on 05/30/18 21:27; Admin Dose 50 MG; Start 05/25/18 at 21:00 Quetiapine Fumarate (Seroquel) 25 mg BID PO Last administered on 05/31/18 08:45; Admin Dose 25 MG; Start 05/24/18 at 21:00 Allopurinol (Zyloprim) 100 mg DAILY PO Last administered on 05/31/18 08:45; Admin Dose 100 MG; Start 05/26/18 at 09:00 Metoclopramide HCl (Reglan) 5 mg Q8 PO Last administered on 05/31/18 05:38; Admin Dose 5 MG; Start 05/26/18 at 00:00 Miscellaneous Information (Pending [facility] Order For Wound Care) This patient campo... PRN PRN XX WOUND CARE; Start 05/26/18 at 05:30 Carvedilol (Coreg) 3.125 mg BID PO Last administered on 05/31/18 08:51; Admin Dose 3.125 MG; Start 05/27/18 at 21:00 Ceftriaxone Sodium 50 ml @ 100 mls/hr Q24H IVPB Last administered on 05/31/18 10:08; Admin Dose 100 MLS/HR; Start 05/28/18 at 09:00 MI SYED NP May 31, 2018 14:46
[2018-05-31] MEDS: HYDROCODONE/APAP (10/325) TAB PO PRN ×2 (15:40→21:32)
--- NOTE | 2018-05-31 18:44 | PN ---
Date/Time of Note Date/Time of Note DATE: 05/31/18 TIME: 18:37 Assessment/Plan Lines/Catheters IV Catheter Type (from [facility]): Central Line Morgan in Place (from [facility]): Yes Assessment/Plan Chief Complaint/Hosp Course 1. Perforated duodenal ulcer with peritonitis: Status post plication and Dickson patch May 17, 2018. Worsening leukocytosis: Ct noted with possible abscess> s/p ir drain -IS -oob/ambulate -ice pack to abdominal wall -diet -Continue YESSI drain/pigtail drain -ABX per ID -continue local care 2. Persistent leukocytosis: improving -As above -Per ID 3.CKD with CHERYL: -Limit nephrotoxic meds -Renally dose meds -Per renal 4. Normocytic normochromic anemia: -Monitor and transfuse as needed 5. Illicit drug use: -Highly encourage cessation 6. Homelessness: -Social service follow-up 7. Schizophrenia: -Psychiatric optimization 8. Bilateral lower extremity ulcers: -Per podiatry 9. CHF history: -Cardiac optimization -Illicit drug use cessation 10. Pleural effusion -pulm consult noted -fluid mgt -ambulate 11. Bleeding from surgical site: fibrillar & pressure dsg applied: much improved -Continue close monitoring -dc anticoags -Pressure dressing Thank you. Patient seen and examined in collaboration with Dr. Robbi Quesada. Subjective 24 Hr Interval Summary Feels well. No noted bleeding from abdomen. WBC improved. No fevers, chills, sob, congested cough, cp, palpitations, campo, dizziness, n/v/d/dysuria. Exam/Review of Systems Vital Signs Vitals Vital Signs Date Temp Pulse Resp B/P (MAP) Pulse Ox O2 O2 Flow FiO2 Time Delivery Rate 05/31/18 99.4 91 18 108/71 97 14:00 (83) 05/31/18 Room Air 08:51 05/28/18 2.0 10:50 Intake and Output 05/30/18 05/30/18 05/31/18 1515:00 23:00 07:00 IntakeIntake Total 50 ml 1100 ml 400 ml OutputOutput Total 5 ml 325 ml 717 ml BalanceBalance 45 ml 775 ml -317 ml Exam Free Text/Dictation Constitutional: alert, oriented Psych: anxiety Head: normocephalic, atraumatic Eyes: nl conjunctiva, EOMI, nl lids, nl sclera ENMT: nl external ears & nose, nl lips & teeth, mucosa pink and moist Neck: supple, non-tender; No jvd Respiratory: normal air movement; No congested cough, No labored breathing Cardiovascular: regular rate and rhythm, nl pulses; No edema Gastrointestinal: soft, distended (Moderate), min tender, staple line, ecchymosis, YESSI drain: serous; pigtail drain: serous Musculoskeletal: nl gait and stance Extremities: normal pulses Neurological: nl mental status; No nl strength (Generalized weakness) Skin: No rash or lesions Results Result Diagram: 05/31/18 0728 05/31/18 0728 MARGO ADAMS NP May 31, 2018 18:44
[2018-05-31 19:41] VITALS: BP 125/82; PULSE 93; RESP 20
[2018-05-31] MEDS: traZODone 50 MG TAB PO SCH (20:32)
[2018-05-31] MEDS: SENNA/DOCUSATE NA (8.6MG/50MG) TAB PO SCH (20:33)
[2018-06-01 02:13] VITALS: BP 114/70; PULSE 80; RESP 18
[2018-06-01] MEDS: METOCLOPRAMIDE 5 MG TAB PO SCH ×3 (05:18→21:47)
[2018-06-01] MEDS: HYDROCODONE/APAP (10/325) TAB PO PRN ×3 (05:19→20:30)
--- NOTE | 2018-06-01 06:49 | CONS ---
Assessment/Plan Assessment/Plan Hospital Course (Demo Recall) 1) perforated duodenal ulcer with peritonitis s/p surgical repair s.aureus is growing from the fluid drained at time of surgery change antibiotics to zyvox/zosyn pt has no hx of MRSA but he is homeless so at higher risk for MRSA get nasal for MRSA 05/20 - cx from surgery has MSSA and GNR d/c zyvox and continue with just zosyn 05/22 - improving continue with zosyn when pt is eating can change to po levo/rifampin to complete his antibiotic course 05/24 - d/c zosyn and start oral levaquin thru 05/26 05/26 - today is last day for his levaquin WBC is almost back to WNL 05/27 - WBC is higher this a.m. but clinically pt is better to d/c levaquin and observe off antibiotics 05/28 - due to elevated WBC, CT abd was ordered and shows a new fluid collection review with radiology and this is accessible by IR and would recommend drainage of this fluid collection and send off for cx start ceftriaxone at this time 05/29 - WBC is better, continue with ceftriaxone pt to get CT guided abd fluid drained, have ordered fluid cell count, glucose, amylase and cx of the fluid (nurse was informed on this) 05/30 - pt got drainage tube placed yesterday a.m. and fluid analysis is c/w infection (low glucose and elevated PMN's) fluid cx is NGTD continue with ceftriaxone 05/31 - drainage from both drains is reducing fluid cx remains NGTD, continue with just ceftriaxone at present when drainage is less than 15cc per day can re-image and verify that catheters can be removed 06/01 - consider repeat CT abd as drainage from YESSI and new drain are 15cc or less over last 24 hours to see if drains can be removed continue with ceftriaxone 2) CRI with acute component u/a was benign on admission 05/22 - will reduce dose of zosyn will switch to levaquin soon urine output has improved 05/24 - urine output is ok but creatinine is not decreasing yet (today's chem panel still pending) d/c zosyn and start oral levaquin 05/26 - creatinine has started to decrease but this a.m. labs are still pending 05/27 - improving renal function, slowly 05/31- creatinine went up yesterday if continues to rise may need to d/c beta lactams and restart quinolones 06/01 - creatinine was improved yesterday 3) homeless 4)crystal/MJ user but no IVDA by pt's report 5) gout 05/24 - pt c/o of pain to both 1st MTP joints recommend treatment for this 05/27 - toes are better Consultation Date/Type/Reason Admit Date/Time May 17, 2018 at 16:42 Initial Consult Date 05/19/18 Type of Consult ID Requesting Provider: DANY BERG MD Date/Time of Note DATE: 06/01/18 TIME: 06:45 24 HR Interval Summary Free Text/Dictation pt c/o R knee pain no abd pain no N, V, D Exam/Review of Systems Exam Vitals Vital Signs Date Temp Pulse Resp B/P (MAP) Pulse Ox O2 O2 Flow FiO2 Time Delivery Rate 06/01/18 98.4 80 18 114/70 97 02:13 (85) 05/31/18 Room Air 08:51 05/28/18 2.0 10:50 Intake and Output 05/31/18 05/31/18 06/01/18 1515:00 23:00 07:00 IntakeIntake Total 610 ml 240 ml OutputOutput Total 10 ml 0 ml 965 ml BalanceBalance 600 ml 0 ml -725 ml Constitutional: alert, oriented ENMT: mucosa pink and moist Respiratory: clear to auscultation Cardiovascular: regular rate and rhythm Gastrointestinal: soft Extremities: other (R knee has some swelling, no redness or increase in heat) Results Result Diagram: 05/31/1872705/31/18 07 Results 24hrs Laboratory Tests Test 05/31/18 07:28 White Blood Count 12.9 H Red Blood Count 2.93 L Hemoglobin 8.6 L Hematocrit 27.4 L Mean Corpuscular Volume 93.5 Mean Corpuscular Hemoglobin 29.4 Mean Corpuscular Hemoglobin Concent 31.4 L Red Cell Distribution Width 15.8 H Platelet Count 393 Mean Platelet Volume 10.2 Immature Granulocytes % 0.900 H Neutrophils % 67.1 Lymphocytes % 7.7 L Monocytes % 17.2 H Eosinophils % 6.2 Basophils % 0.9 Nucleated Red Blood Cells % 0.0 Immature Granulocytes # 0.110 H Neutrophils # 8.7 H Lymphocytes # 1.0 Monocytes # 2.2 H Eosinophils # 0.8 H Basophils # 0.1 Nucleated Red Blood Cells # 0.0 Sodium Level 138 Potassium Level 4.8 Chloride Level 99 Carbon Dioxide Level 25 Anion Gap 14 H Blood Urea Nitrogen 53 H Creatinine 3.39 H Est Glomerular Filtrat Rate mL/min 19 L Glucose Level 91 Calcium Level 9.2 Phosphorus Level 5.9 H Magnesium Level 1.8 Medications Medication Current Medications IV Flush (NS 3 ml) 3 ml PER PROTOCOL IV ; Start 05/17/18 at 17:30 Morphine Sulfate (morphine) 2 mg Q4H PRN IV .PAIN 7-10 Last administered on 05/31/18at 10:08; Admin Dose 2 MG; Start 05/17/18 at 17:30 Clotrimazole (Lotrimin Cr) 1 applic BID TOP Last administered on 05/31/18at 21:32; Admin Dose 1 APPLIC; Start 05/18/18 at 21:00 Miscellaneous Information 1 ea NOTE XX ; Start 05/18/18 at 18:00 Glucose (Glutose) 15 gm Q15M PRN PO DECREASED GLUCOSE; Start 05/18/18 at 18:00 Glucose (Glutose) 22.5 gm Q15M PRN PO DECREASED GLUCOSE; Start 05/18/18 at 18:00 Dextrose (D50w Syringe) 25 ml Q15M PRN IV DECREASED GLUCOSE; Start 05/18/18 at 18:00 Dextrose (D50w Syringe) 50 ml Q15M PRN IV DECREASED GLUCOSE Last administered on 05/18/18at 17:58; Admin Dose 50 ML; Start 05/18/18 at 18:00 Glucagon (Glucagen) 1 mg Q15M PRN IM DECREASED GLUCOSE; Start 05/18/18 at 18:00 Glucose (Glutose) 15 gm Q15M PRN BUCCAL DECREASED GLUCOSE; Start 05/18/18 at 18:00 Ammonium Lactate (Lac-Hydrin 12% Lotion) 1 applic DAILY TOP Last administered on 05/31/18at 08:46; Admin Dose 1 APPLIC; Start 05/19/18 at 09:00 Ondansetron HCl (Zofran Inj) 4 mg Q4 PRN IV NAUSEA/VOMITING; Start 05/20/18 at 19:00 Enoxaparin Sodium (Lovenox) 30 mg DAILY SC Last administered on 05/28/18 09:45; Admin Dose 30 MG; Start 05/21/18 at 09:00; Status Hold Bisacodyl (Dulcolax) 10 mg DAILY PRN PO CONSTIPATION Last administered on 05/23/18 13:57; Admin Dose 10 MG; Start 05/20/18 at 19:00 Bisacodyl (Dulcolax Supp) 10 mg Q48H PRN [place] CONSTIPATION; Start 05/20/18 at 19:00 Docusate Sodium (Colace) 100 mg BID PRN PO CONSTIPATION; Start 05/20/18 at 19:00 Acetaminophen/ Hydrocodone Bitart ([place] (10325)) 1 tab Q6H PRN PO MODERATE PAIN LEVEL 4-6 Last administered on 06/01/18 05:19; Admin Dose 1 TAB; Start 05/20/18 at 19:00 Lorazepam (Ativan) 1 mg Q8H PRN IV AGITATION/ANXIETY Last administered on 05/30/18 15:22; Admin Dose 1 MG; Start 05/22/18 at 15:00 Fluconazole (Diflucan) 200 mg DAILY PO Last administered on 05/31/18 08:45; Admin Dose 200 MG; Start 05/24/18 at 09:00 Famotidine (Pepcid) 20 mg DAILY PO Last administered on 05/31/18 08:45; Admin Dose 20 MG; Start 05/25/18 at 09:00 Senna/Docusate Sodium (Senokot-S) 2 tab HS PO Last administered on 05/31/18 20:33; Admin Dose 2 TAB; Start 05/24/18 at 21:00 Trazodone HCl (Desyrel) 50 mg HS PO Last administered on 05/31/18 20:32; Admin Dose 50 MG; Start 05/25/18 at 21:00 Quetiapine Fumarate (Seroquel) 25 mg BID PO Last administered on 05/31/18 20:32; Admin Dose 25 MG; Start 05/24/18 at 21:00 Allopurinol (Zyloprim) 100 mg DAILY PO Last administered on 05/31/18 08:45; Admin Dose 100 MG; Start 05/26/18 at 09:00 Metoclopramide HCl (Reglan) 5 mg Q8 PO Last administered on 3/23/19at 05:18; Admin Dose 5 MG; Start 05/26/18 at 00:00 Miscellaneous Information (Pending Santyl Order For Wound Care) This patient campo... PRN PRN XX WOUND CARE; Start 05/26/18 at 05:30 Carvedilol (Coreg) 3.125 mg BID PO Last administered on 05/31/18at 20:34; Admin Dose 3.125 MG; Start 05/27/18 at 21:00 Ceftriaxone Sodium 50 ml @ 100 mls/hr Q24H IVPB Last administered on 05/31/18at 10:08; Admin Dose 100 MLS/HR; Start 05/28/18 at 09:00 CAREN HARRINGTON MD Jun 01, 2018 06:49
[2018-06-01] MEDS: morphine 2 MG INJ IV PRN ×2 (06:51→16:41)
[2018-06-01 07:40] VITALS: BP 115/80; PULSE 82; RESP 17
--- NOTE | 2018-06-01 07:54 | PN ---
Date/Time of Note Date/Time of Note DATE: 06/01/18 TIME: 07:54 Assessment/Plan VTE Prophylaxis Risk score (from Ns)>0 risk: 2 SCD applied (from [facility] [place] No SCD contraindicated: other Pharmacological prophylaxis: NA/contraindicated Pharm contraindication: anticoag not tolerated Lines/Catheters IV [facility]from [facility] Saline Lock Urinary Cath still in place: No Assessment/Plan Hospital Course SUBJECTIVE: Abdominal pain well controlled. OBJECTIVE: Physical Exam General: Adequately build 57 year-old male lying in bed in no apparent distress. HEENT: Normocephalic, atraumatic. Eyes: Anicteric sclerae, conjunctivae clear. ENT: Nasal septum midline, oral mucosa moist. Neck supple, JVD noticed (decreased). Respiratory: Bilaterally diminished breath sounds. No use of accessory muscles of respiration. Bibasilar rales. Cardiovascular: S1, S2 heard. Regular rate and rhythm. Systolic murmur. Abdomen: Distended. Midline surgical incision with edgardo. YESSI drain in place that is draining serous fluid. Right upper quadrant accordion drain. Genitourinary: Deferred. Status post Extremities: No cyanosis, no clubbing. B/L LE trace pitting edema. Neurologic: Cranial nerves II through XII grossly intact. The patient is awake, alert, and oriented. Labs & Vitals per chart ASSESSMENT & PLAN 57-year-old male with comorbidities including gout, arthritis, congestive heart failure, substance abuse, nicotine use, and schizophrenia who came to the emergency room with chief complaint of abdominal pain with imaging studies showing pneumoperitoneum concerning for bowel perforation, who was admitted to inpatient setting for further treatment and evaluation. 1. Perforated duodenal ulcer. -Status post exploratory laparotomy, plication of perforated duodenal ulcer with Dickson patch application, and placement of a drain on 05/17/2018. -Continue pain control. -Continue antimicrobials as per ID for underlying peritonitis. 2. S/P sepsis with underlying leukocytosis, lactic acidosis,bandemia, and tachycardia, present on admission secondary to underlying peritonitis. -Status post emergency surgical exploration. -Continue antimicrobial therapy as per ID. 3. Acute kidney injury. -Unknown baseline creatinine. -Possible underlying CKD. -Use nephrotoxic drugs with caution. -Nephrology following. 4. Cardiomyopathy. -Ejection fraction of 30%. -On beta-fabien therapy. 5. Pulmonary hypertension. -PA systolic pressure 44 mmHg. -Most probably secondary to underlying left heart disease. 6. Gout. -Continue allopurinol. 7. Substance abuse. -Urine drug screen negative for any recreational medications -Cessation advised. 8. B/L toes onychomycosis. -S/P podiatry consult. 9. Anemia. -Normocytic. -Monitor H&H closely. -S/P 1 unit of PRBC transfusion on 05/18/2018. 10. 2.7 x 4.2 x 2.2 cm complex low attenuation collection containing a small amount of gas inferior to the left hepatic lobe, suspicious for subhepatic abscess. -Status post IR guided drainage on 05/29/2018. 11. B/L pleural effusions. -Being followed by pulmonary. 12. Fluids, electrolytes, and nutrition. -Soft diet. 13. DVT prophylaxis. -Subcutaneous Lovenox. Held because of bleeding. 14. Plan. -Continue antimicrobials as per ID. -Await clinical improvement. The patient was seen in collaboration with Dr. Alamo. Result Diagram: 05/31/1872705/31/18727 Exam/Review of Systems Exam Vitals Vital Signs Date Temp Pulse Resp B/P (MAP) Pulse Ox O2 O2 Flow FiO2 Time Delivery Rate 06/01/18 97.6 82 17 115/80 99 07:40 (92) 05/31/18 Room Air 08:51 05/28/18 2.0 10:50 Intake and Output 05/31/18 05/31/18 06/01/18 1414:59 22:59 06:59 IntakeIntake Total 610 ml 240 ml OutputOutput Total 10 ml 0 ml 965 ml BalanceBalance 600 ml 0 ml -725 ml Medications Medication Current Medications IV Flush (NS 3 ml) 3 ml PER PROTOCOL IV ; Start 05/17/18 at 17:30 Morphine Sulfate (morphine) 2 mg Q4H PRN IV .PAIN 7-10 Last administered on 06/01/18at 06:51; Admin Dose 2 MG; Start 05/17/18 at 17:30 Clotrimazole (Lotrimin Cr) 1 applic BID TOP Last administered on 05/31/18at 21:32; Admin Dose 1 APPLIC; Start 05/18/18 at 21:00 Miscellaneous Information 1 ea NOTE XX ; Start 05/18/18 at 18:00 Glucose (Glutose) 15 gm Q15M PRN PO DECREASED GLUCOSE; Start 05/18/18 at 18:00 Glucose (Glutose) 22.5 gm Q15M PRN PO DECREASED GLUCOSE; Start 05/18/18 at 18:00 Dextrose (D50w Syringe) 25 ml Q15M PRN IV DECREASED GLUCOSE; Start 05/18/18 at 18:00 Dextrose (D50w Syringe) 50 ml Q15M PRN IV DECREASED GLUCOSE Last administered on 05/18/18at 17:58; Admin Dose 50 ML; Start 05/18/18 at 18:00 Glucagon (Glucagen) 1 mg Q15M PRN IM DECREASED GLUCOSE; Start 05/18/18 at 18:00 Glucose (Glutose) 15 gm Q15M PRN BUCCAL DECREASED GLUCOSE; Start 05/18/18 at 18:00 Ammonium Lactate (Lac-Hydrin 12% Lotion) 1 applic DAILY TOP Last administered on 05/31/18at 08:46; Admin Dose 1 APPLIC; Start 05/19/18 at 09:00 Ondansetron HCl (Zofran Inj) 4 mg Q4 PRN IV NAUSEA/VOMITING; Start 05/20/18 at 19:00 Enoxaparin Sodium (Lovenox) 30 mg DAILY SC Last administered on 05/28/18at 09:45; Admin Dose 30 MG; Start 05/21/18 at 09:00; Status Hold Bisacodyl (Dulcolax) 10 mg DAILY PRN PO CONSTIPATION Last administered on 05/23/18at 13:57; Admin Dose 10 MG; Start 05/20/18 at 19:00 Bisacodyl (Dulcolax Supp) 10 mg Q48H PRN [place] CONSTIPATION; Start 05/20/18 at 19:00 Docusate Sodium (Colace) 100 mg BID PRN PO CONSTIPATION; Start 05/20/18 at 19:00 Acetaminophen/ Hydrocodone Bitart ([place] (10/325)) 1 tab Q6H PRN PO MODERATE PAIN LEVEL 4-6 Last administered on 06/01/18at 05:19; Admin Dose 1 TAB; Start 05/20/18 at 19:00 Lorazepam (Ativan) 1 mg Q8H PRN IV AGITATION/ANXIETY Last administered on at 15:22; Admin Dose 1 MG; Start 05/22/18 at 15:00 Fluconazole (Diflucan) 200 mg DAILY PO Last administered on 05/31/18 08:45; Admin Dose 200 MG; Start 05/24/18 at 09:00 Famotidine (Pepcid) 20 mg DAILY PO Last administered on 05/31/18 08:45; Admin Dose 20 MG; Start 05/25/18 at 09:00 Senna/Docusate Sodium (Senokot-S) 2 tab HS PO Last administered on 05/31/18 20:33; Admin Dose 2 TAB; Start 05/24/18 at 21:00 Trazodone HCl (Desyrel) 50 mg HS PO Last administered on 05/31/18 20:32; Admin Dose 50 MG; Start 05/25/18 at 21:00 Quetiapine Fumarate (Seroquel) 25 mg BID PO Last administered on 05/31/18 20:32; Admin Dose 25 MG; Start 05/24/18 at 21:00 Allopurinol (Zyloprim) 100 mg DAILY PO Last administered on 05/31/18 08:45; Admin Dose 100 MG; Start 05/26/18 at 09:00 Metoclopramide HCl (Reglan) 5 mg Q8 PO Last administered on 06/01/18 05:18; Admin Dose 5 MG; Start 05/26/18 at 00:00 [facility] This patient campo... PRN PRN XX WOUND CARE; Start 05/26/18 at 05:30 Carvedilol (Coreg) 3.125 mg BID PO Last administered on 05/31/18 20:34; Admin Dose 3.125 MG; Start 05/27/18 at 21:00 Ceftriaxone Sodium 50 ml @ 100 mls/hr Q24H IVPB Last administered on 05/31/18 10:08; Admin Dose 100 MLS/HR; Start 05/28/18 at 09:00 MI SYED NP Jun 01, 2018 07:54
[2018-06-01] MEDS: CEFTRIAXONE 1 GM/50 ML (PMX) 50 ML IVPB SCH (08:59)
[2018-06-01] MEDS: FAMOTIDINE 20 MG TAB PO SCH (09:00)
[2018-06-01] MEDS: QUETIAPINE 25 MG TAB PO SCH ×2 (09:00→20:29)
[2018-06-01] MEDS: FLUCONAZOLE 200 MG TAB PO SCH (09:00)
[2018-06-01] MEDS: ALLOPURINOL 100 MG TAB PO SCH (09:04)
[2018-06-01] MEDS: CLOTRIMAZOLE 1% 30 GM CR TOP SCH ×2 (09:05→20:31)
[2018-06-01] MEDS: AMMONIUM LACTATE 12% 225 GM LOT TOP SCH (09:08)
--- NOTE | 2018-06-01 09:46 | PN ---
DATE: 06/01/2018 SUBJECTIVE: The patient is stable, no events overnight. OBJECTIVE: VITAL SIGNS: Blood pressure is 115/80, respirations 17, pulse 82, temperature 97.6. HEENT: Head is normocephalic. NECK: Supple. HEART: Regular rate. LUNGS: Show diminished breath sounds at the base. ABDOMEN: Soft, nontender to palpation without rebound or guarding. EXTREMITIES: Negative for clubbing, cyanosis, no edema. DERMATOLOGIC: No rashes. MUSCULOSKELETAL: No joint effusion. NEUROLOGIC: No change in exam. MEDICATIONS: The patient's medications have been reviewed. LABORATORY DATA: From 06/01/2018 is pending. ASSESSMENT AND PLAN: 1. Nonoliguric acute kidney injury with unknown baseline creatinine. Etiology secondary to acute tu bular necrosis. The patient is currently in recovery phase of acute tubular necrosis. Continue curr ent treatment plans, follow up renal panel. 2. Chronic kidney disease with unknown baseline creatinine. The patient is currently in acute kidne y injury as stated above. Continue current treatment plan. Continue disease factor modification. 3. Hypernatremia, improved. 4. Anemia. Monitor hemoglobin and hematocrit levels. 5. Mineral bone disorder. Monitor calcium and phosphorus levels. 6. Perforated duodenal ulcer status post laparotomy with surgical repair complicated with intra-abdo shahid abscess. The patient is status post drain. Continue to monitor. Continue antibiotic therapy. 7. Sepsis. Continue current antibiotic regimen. 8. Encephalopathy, improving. Dictated By: YUSUF BUNN/DALTON Conf#: [id number] DID#: [id number]
[2018-06-01 14:52] VITALS: BP 105/64; PULSE 72; RESP 17
[2018-06-01 19:38] VITALS: BP 103/62; PULSE 81; RESP 18
--- NOTE | 2018-06-01 20:01 | PN ---
Date/Time of Note Date/Time of Note DATE: 06/01/18 TIME: 19:59 Assessment/Plan Lines/Catheters IV [facility] Type (from [facility] Saline Lock [place] in Place (from [facility]): No Assessment/Plan Chief Complaint/Hosp Course 1. Perforated duodenal ulcer with peritonitis: Status post plication and Dickson patch May 17, 2018. Worsening leukocytosis: Ct noted with possible abscess> s/p ir drain -IS -oob/ambulate -ice pack to abdominal wall -diet -Continue YESSI drain/pigtail drain> if continues to have minimal output, will dc tomorrow -ABX per ID -continue local care 2. Persistent leukocytosis: Normalized -As above -Per ID 3.CKD with CHERYL: -Limit nephrotoxic meds -Renally dose meds -Per renal 4. Normocytic normochromic anemia: -Monitor and transfuse as needed 5. Illicit drug use: -Highly encourage cessation 6. Homelessness: -Social service follow-up 7. Schizophrenia: -Psychiatric optimization 8. Bilateral lower extremity ulcers: -Per podiatry 9. CHF history: -Cardiac optimization -Illicit drug use cessation 10. Pleural effusion -pulm consult noted -fluid mgt -ambulate 11. Bleeding from surgical site: fibrillar & pressure dsg applied: Resolved -Continue close monitoring Thank you. Patient seen and examined in collaboration with Dr. Robbi Quesada. Subjective 24 Hr Interval Summary Feels better. Minimal drainage noted from both drains. Abdominal pain improved. No fevers, chills, sob, congested cough, cp, palpitations, campo, dizziness, nausea, vomiting, diarrhea, dysuria. No bleeding noted from midline. Exam/Review of Systems Vital Signs Vitals Vital Signs Date Temp Pulse Resp B/P (MAP) Pulse Ox O2 O2 Flow FiO2 Time Delivery Rate 06/01/18 97.9 81 18 103/62 98 19:38 (76) 05/31/18 Room Air 08:51 05/28/18 2.0 10:50 Intake and Output 05/31/18 05/31/18 06/01/18 1515:00 23:00 07:00 IntakeIntake Total 610 ml 240 ml OutputOutput Total 10 ml 0 ml 965 ml BalanceBalance 600 ml 0 ml -725 ml Exam Free Text/Dictation Constitutional: alert, oriented Psych: Normal mood Head: normocephalic, atraumatic Eyes: nl conjunctiva, EOMI, nl lids, nl sclera ENMT: nl external ears & nose, nl lips & teeth, mucosa pink and moist Neck: supple, non-tender; No jvd Respiratory: normal air movement; No congested cough, No labored breathing Cardiovascular: regular rate and rhythm, nl pulses; No edema Gastrointestinal: soft, distended (Moderate), min tender, staple line, ecchymosis, YESSI drain: serous; pigtail drain: serous Musculoskeletal: nl gait and stance Extremities: normal pulses Neurological: nl mental status; No nl strength (Generalized weakness) Skin: No rash or lesions Results Result Diagram: 06/01/1880006/01/1801 MARGO ADAMS NP Jun 01, 2018 20:01
[2018-06-01] MEDS: SENNA/DOCUSATE NA (8.6MG/50MG) TAB PO SCH (20:28)
[2018-06-01] MEDS: traZODone 50 MG TAB PO SCH (21:47)
[2018-06-02 01:48] VITALS: BP 103/61; PULSE 86; RESP 16
[2018-06-02] MEDS: morphine 2 MG INJ IV PRN ×3 (04:05→21:50)
[2018-06-02] MEDS: METOCLOPRAMIDE 5 MG TAB PO SCH ×3 (06:07→21:50)
[2018-06-02] MEDS: ACETAMINOPHEN 325 MG TAB PO PRN (08:02)
[2018-06-02] MEDS: CLOTRIMAZOLE 1% 30 GM CR TOP SCH ×2 (08:02→21:51)
[2018-06-02 08:03] VITALS: BP 133/90; PULSE 103; RESP 18
[2018-06-02] MEDS: AMMONIUM LACTATE 12% 225 GM LOT TOP SCH (08:03)
[2018-06-02] MEDS: FAMOTIDINE 20 MG TAB PO SCH (08:03)
[2018-06-02] MEDS: FLUCONAZOLE 200 MG TAB PO SCH (08:03)
[2018-06-02] MEDS: QUETIAPINE 25 MG TAB PO SCH ×2 (08:03→21:50)
[2018-06-02] MEDS: ALLOPURINOL 100 MG TAB PO SCH (08:03)
[2018-06-02] MEDS: CEFTRIAXONE 1 GM/50 ML (PMX) 50 ML IVPB SCH (09:51)
[2018-06-02] MEDS: HYDROCODONE/APAP (10/325) TAB PO PRN (09:51)
--- NOTE | 2018-06-02 11:03 | PN ---
DATE: 06/02/2018 SUBJECTIVE: The patient is stable. No events overnight. OBJECTIVE: VITAL SIGNS: Blood pressure is 133/90, pulse 103, respirations 18, temperature 98.9. HEENT: Head is normocephalic. NECK: Supple. HEART: Regular rate. LUNGS: Show diminished breath sounds at the base. ABDOMEN: Soft, nontender to palpation. No rebound or guarding. EXTREMITIES: Negative for clubbing, cyanosis. No edema. DERMATOLOGIC: No rashes. MUSCULOSKELETAL: No joint effusion. NEUROLOGIC: No change in exam. MEDICATIONS: Reviewed. LABORATORY DATA: Shows sodium 138, potassium 5.2, BUN 57, creatinine 3.43, phosphorus 6.1. ASSESSMENT AND PLAN: 1. Nonoliguric acute kidney injury on top of chronic kidney disease with unknown baseline creatinine . Etiology is secondary to acute tubular necrosis. The patient's renal function appears to be stabi lizing around a creatinine of 3.4 mg/dL. At this point, continue current treatment plans, supportive care, and renally dose all medications. 2. Chronic kidney disease with unknown baseline creatinine. The patient is currently in acute kidne y injury as stated above. Continue treatment plan. Continue disease factor modification. 3. Hypernatremia, improved. 4. Anemia. Monitor hemoglobin and hematocrit levels. 5. Mineral bone disorder. Monitor calcium and phosphorus levels. 6. Intraabdominal abscess. The patient is status post pigtail placement. Continue to monitor. Fol low up with general surgery. 7. Perforated ulcer status post surgical repair. 8. Sepsis. Continue current antibiotic regimen. 9. Encephalopathy, improving. 10. Mild hyperkalemia. Will continue to monitor. Continue low-potassium diet. Dictated By: YUSUF BUNN/DALTON Conf#: [id number] DID#: [id number] CC: GABRIELA HESTER MD;*EndCC*
--- NOTE | 2018-06-02 13:42 | PN ---
Date/Time of Note Date/Time of Note DATE: 06/02/18 TIME: 13:40 Assessment/Plan VTE Prophylaxis Risk score (from Ns)>0 risk: 2 SCD applied (from [facility] [place] No SCD contraindicated: other Pharmacological prophylaxis: LMWH Lines/Catheters IV Catheter Type (from [facility]): Saline Lock Urinary Cath still in place: No Assessment/Plan Hospital Course SUBJECTIVE: Abdominal pain well controlled. All the drains have been removed. OBJECTIVE: Physical Exam General: Adequately build 57 year-old male lying in bed in no apparent distress. HEENT: Normocephalic, atraumatic. Eyes: Anicteric sclerae, conjunctivae clear. ENT: Nasal septum midline, oral mucosa moist. Neck supple, JVD noticed (decreased). Respiratory: Bilaterally diminished breath sounds. No use of accessory muscles of respiration. Bibasilar rales. Cardiovascular: S1, S2 heard. Regular rate and rhythm. Systolic murmur. Abdomen: Distended. Midline surgical incision with edgardo. Genitourinary: Deferred. Extremities: No cyanosis, no clubbing. B/L LE trace pitting edema. Neurologic: Cranial nerves II through XII grossly intact. The patient is awake, alert, and oriented. Labs & Vitals per chart ASSESSMENT & PLAN 57-year-old male with comorbidities including gout, arthritis, congestive heart failure, substance abuse, nicotine use, and schizophrenia who came to the emergency room with chief complaint of abdominal pain with imaging studies showing pneumoperitoneum concerning for bowel perforation, who was admitted to inpatient setting for further treatment and evaluation. 1. Perforated duodenal ulcer. -Status post exploratory laparotomy, plication of perforated duodenal ulcer with Dickson patch application, and placement of a drain on 05/17/2018. -Continue pain control. -Continue antimicrobials as per ID for underlying peritonitis. 2. S/P sepsis with underlying leukocytosis, lactic acidosis,bandemia, and tachycardia, present on admission secondary to underlying peritonitis. -Status post emergency surgical exploration. -Continue antimicrobial therapy as per ID. 3. Acute kidney injury. -Unknown baseline creatinine. -Possible underlying CKD. -Use nephrotoxic drugs with caution. -Nephrology following. 4. Cardiomyopathy. -Ejection fraction of 30%. -On beta-fabien therapy. 5. Pulmonary hypertension. -PA systolic pressure 44 mmHg. -Most probably secondary to underlying left heart disease. 6. Gout. -Continue allopurinol. 7. Substance abuse. -Urine drug screen negative for any recreational medications -Cessation advised. 8. B/L toes onychomycosis. -S/P podiatry consult. 9. Anemia. -Normocytic. -Monitor H&H closely. -S/P 1 unit of PRBC transfusion on 05/18/2018. 10. 2.7 x 4.2 x 2.2 cm complex low attenuation collection containing a small amount of gas inferior to the left hepatic lobe, suspicious for subhepatic abscess. -Status post IR guided drainage on 05/29/2018. -Drain removed on 06/02/2018. 11. B/L pleural effusions. -Being followed by pulmonary. 12. Fluids, electrolytes, and nutrition. -Soft diet. 13. DVT prophylaxis. -Subcutaneous Lovenox (renal dose). 14. Plan. -Continue antimicrobials as per ID. -Await clinical improvement. The patient was seen in collaboration with Dr. Alamo. Result Diagram: 06/02/18 0820 06/02/18 0820 Results 24hrs Laboratory Tests Test 06/02/18 08:20 White Blood Count 9.7 Red Blood Count 3.04 L Hemoglobin 9.0 L Hematocrit 28.2 L Mean Corpuscular Volume 92.8 Mean Corpuscular Hemoglobin 29.6 Mean Corpuscular Hemoglobin Concent 31.9 L Red Cell Distribution Width 15.5 H Platelet Count 495 H Mean Platelet Volume 9.8 Immature Granulocytes % 1.700 H Neutrophils % 58.1 Lymphocytes % 10.3 L Monocytes % 20.6 H Eosinophils % 8.3 H Basophils % 1.0 Nucleated Red Blood Cells % 0.0 Immature Granulocytes # 0.160 H Neutrophils # 5.6 Lymphocytes # 1.0 Monocytes # 2.0 H Eosinophils # 0.8 H Basophils # 0.1 Nucleated Red Blood Cells # 0.0 Sodium Level 138 Potassium Level 5.2 H Chloride Level 99 Carbon Dioxide Level 26 Anion Gap 13 Blood Urea Nitrogen 57 H Creatinine 3.43 H Est Glomerular Filtrat Rate mL/min 19 L Glucose Level 104 Calcium Level 9.5 Phosphorus Level 6.1 H Magnesium Level 1.8 Exam/Review of Systems Exam Vitals Vital Signs Date Temp Pulse Resp B/P (MAP) Pulse Ox O2 O2 Flow FiO2 Time Delivery Rate 06/02/18 98.9 103 18 133/90 99 08:03 (104) 05/31/18 Room Air 08:51 Intake and Output 06/01/18 06/01/18 06/02/18 1515:00 23:00 07:00 IntakeIntake Total 950 ml 870 ml 240 ml OutputOutput Total 815 ml 215 ml 338 ml BalanceBalance 135 ml 655 ml -98 ml Results Results 24hrs Laboratory Tests Test 06/02/18 08:20 White Blood Count 9.7 Red Blood Count 3.04 L Hemoglobin 9.0 L Hematocrit 28.2 L Mean Corpuscular Volume 92.8 Mean Corpuscular Hemoglobin 29.6 Mean Corpuscular Hemoglobin Concent 31.9 L Red Cell Distribution Width 15.5 H Platelet Count 495 H Mean Platelet Volume 9.8 Immature Granulocytes % 1.700 H Neutrophils % 58.1 Lymphocytes % 10.3 L Monocytes % 20.6 H Eosinophils % 8.3 H Basophils % 1.0 Nucleated Red Blood Cells % 0.0 Immature Granulocytes # 0.160 H Neutrophils # 5.6 Lymphocytes # 1.0 Monocytes # 2.0 H Eosinophils # 0.8 H Basophils # 0.1 Nucleated Red Blood Cells # 0.0 Sodium Level 138 Potassium Level 5.2 H Chloride Level 99 Carbon Dioxide Level 26 Anion Gap 13 Blood Urea Nitrogen 57 H Creatinine 3.43 H Est Glomerular Filtrat Rate mL/min 19 L Glucose Level 104 Calcium Level 9.5 Phosphorus Level 6.1 H Magnesium Level 1.8 Medications Medication Current Medications IV Flush (NS 3 ml) 3 ml PER PROTOCOL IV ; Start 05/17/18 at 17:30 Morphine Sulfate (morphine) 2 mg Q4H PRN IV .PAIN 7-10 Last administered on 06/02/18at 12:11; Admin Dose 2 MG; Start 05/17/18 at 17:30 Clotrimazole (Lotrimin Cr) 1 applic BID TOP Last administered on 06/02/18at 08:02; Admin Dose 1 APPLIC; Start 05/18/18 at 21:00 Miscellaneous Information 1 ea NOTE XX ; Start 05/18/18 at 18:00 Glucose (Glutose) 15 gm Q15M PRN PO DECREASED GLUCOSE; Start 05/18/18 at 18:00 Glucose (Glutose) 22.5 gm Q15M PRN PO DECREASED GLUCOSE; Start 05/18/18 at 18:00 Dextrose (D50w Syringe) 25 ml Q15M PRN IV DECREASED GLUCOSE; Start 05/18/18 at 18:00 Dextrose (D50w Syringe) 50 ml Q15M PRN IV DECREASED GLUCOSE Last administered on 05/18/18at 17:58; Admin Dose 50 ML; Start 05/18/18 at 18:00 Glucagon (Glucagen) 1 mg Q15M PRN IM DECREASED GLUCOSE; Start 05/18/18 at 18:00 Glucose (Glutose) 15 gm Q15M PRN BUCCAL DECREASED GLUCOSE; Start 05/18/18 at 18:00 Ammonium Lactate (Lac-Hydrin 12% Lotion) 1 applic DAILY TOP Last administered on 06/02/18 08:03; Admin Dose 1 APPLIC; Start 05/19/18 at 09:00 Ondansetron HCl (Zofran Inj) 4 mg Q4 PRN IV NAUSEA/VOMITING; Start 05/20/18 at 19:00 Enoxaparin Sodium (Lovenox) 30 mg DAILY SC Last administered on 05/28/18 09:45; Admin Dose 30 MG; Start 05/21/18 at 09:00; Status Hold Bisacodyl (Dulcolax) 10 mg DAILY PRN PO CONSTIPATION Last administered on 05/23/18 13:57; Admin Dose 10 MG; Start 05/20/18 at 19:00 Bisacodyl (Dulcolax Supp) 10 mg Q48H PRN [place] CONSTIPATION; Start 05/20/18 at 19:00 Docusate Sodium (Colace) 100 mg BID PRN PO CONSTIPATION Last administered on 06/01/18 09:00; Admin Dose 100 MG; Start 05/20/18 at 19:00 Acetaminophen/ Hydrocodone Bitart ([place] (10/325)) 1 tab Q6H PRN PO MODERATE PAIN LEVEL 4-6 Last administered on 06/02/18 09:51; Admin Dose 1 TAB; Start 05/20/18 at 19:00 Lorazepam (Ativan) 1 mg Q8H PRN IV AGITATION/ANXIETY Last administered on 05/30/18 15:22; Admin Dose 1 MG; Start 05/22/18 at 15:00 Fluconazole (Diflucan) 200 mg DAILY PO Last administered on 06/02/18 08:03; Admin Dose 200 MG; Start 05/24/18 at 09:00 Famotidine (Pepcid) 20 mg DAILY PO Last administered on 06/02/18 08:03; Admin Dose 20 MG; Start 05/25/18 at 09:00 Senna/Docusate Sodium (Senokot-S) 2 tab HS PO Last administered on 06/01/18 20:28; Admin Dose 2 TAB; Start 05/24/18 at 21:00 Trazodone HCl (Desyrel) 50 mg HS PO Last administered on 06/01/18 21:47; Admin Dose 50 MG; Start 05/25/18 at 21:00 Quetiapine Fumarate (Seroquel) 25 mg BID PO Last administered on 06/02/18 08:03; Admin Dose 25 MG; Start 05/24/18 at 21:00 Allopurinol (Zyloprim) 100 mg DAILY PO Last administered on 06/02/18 08:03; Admin Dose 100 MG; Start 05/26/18 at 09:00 Metoclopramide HCl (Reglan) 5 mg Q8 PO Last administered on 06/02/18 06:07; Admin Dose 5 MG; Start 05/26/18 at 00:00 Miscellaneous Information (Pending Santyl Order For Wound Care) This patient campo... PRN PRN XX WOUND CARE; Start 05/26/18 at 05:30 Carvedilol (Coreg) 3.125 mg BID PO Last administered on 06/02/18 08:06; Admin Dose 3.125 MG; Start 05/27/18 at 21:00 Ceftriaxone Sodium 50 ml @ 100 mls/hr Q24H IVPB Last administered on 06/02/18 09:51; Admin Dose 100 MLS/HR; Start 05/28/18 at 09:00 Acetaminophen (Tylenol Tab) 650 mg Q6H PRN PO MILD PAIN(1-3)OR ELEVATED TEMP Last administered on 06/02/18 08:02; Admin Dose 650 MG; Start 06/02/18 at 07:00 Saccharomyces Boulardii (Florastor) 250 mg BID PO ; Start 06/02/18 at 21:00 MI SYED NP Jun 02, 2018 13:42
--- NOTE | 2018-06-02 14:13 | PN ---
Date/Time of Note Date/Time of Note DATE: 06/02/18 TIME: 14:11 Assessment/Plan Lines/Catheters IV Catheter Type (from [facility]): Saline Lock [place] in Place (from [facility]): No Assessment/Plan Chief Complaint/Hosp Course 1. Perforated duodenal ulcer with peritonitis: Status post plication and Dickson patch May 17, 2018. Worsening leukocytosis: Ct noted with possible abscess> s/p ir drain -IS -oob/ambulate -ice pack to abdominal wall -diet -DC drains -ABX per ID -continue local care -Discharge planning okay from surgical standpoint 2. Persistent leukocytosis: Normalized -As above -Per ID 3.CKD with CHERYL: -Limit nephrotoxic meds -Renally dose meds -Per renal 4. Normocytic normochromic anemia: -Monitor and transfuse as needed 5. Illicit drug use: -Highly encourage cessation 6. Homelessness: -Social service follow-up 7. Schizophrenia: -Psychiatric optimization 8. Bilateral lower extremity ulcers: -Per podiatry 9. CHF history: -Cardiac optimization -Illicit drug use cessation 10. Pleural effusion -pulm consult noted -fluid mgt -ambulate 11. Bleeding from surgical site: fibrillar & pressure dsg applied: Resolved -Continue close monitoring Thank you. Patient seen and examined in collaboration with Dr. Robbi Quesada. Subjective 24 Hr Interval Summary Feels well. Very minimal drainage from drains. No fevers, chills, sob, congested cough, cp, palpitations, campo, dizziness, nausea, vomiting, diarrhea, dysuria. Tolerating diet. + Bowel function. Exam/Review of Systems Vital Signs Vitals Vital Signs Date Temp Pulse Resp B/P (MAP) Pulse Ox O2 O2 Flow FiO2 Time Delivery Rate 06/02/18 98.9 103 18 133/90 99 08:03 (104) 05/31/18 Room Air 08:51 Intake and Output 06/01/18 06/01/18 06/02/18 1515:00 23:00 07:00 IntakeIntake Total 950 ml 870 ml 240 ml OutputOutput Total 815 ml 215 ml 338 ml BalanceBalance 135 ml 655 ml -98 ml Exam Free Text/Dictation Constitutional: alert, oriented Psych: Normal mood Head: normocephalic, atraumatic Eyes: nl conjunctiva, EOMI, nl lids, nl sclera ENMT: nl external ears & nose, nl lips & teeth, mucosa pink and moist Neck: supple, non-tender; No jvd Respiratory: normal air movement; No congested cough, No labored breathing Cardiovascular: regular rate and rhythm, nl pulses; No edema Gastrointestinal: soft, distended (Moderate), min tender, staple line, ecchymosis, YESSI drain: serous; pigtail drain: serous Musculoskeletal: nl gait and stance Extremities: normal pulses Neurological: nl mental status; No nl strength (Generalized weakness) Skin: No rash or lesions Results Result Diagram: 06/02/1881906/02/18819 MARGO ADAMS NP Jun 02, 2018 14:13
[2018-06-02 14:16] VITALS: BP 104/71; PULSE 81; RESP 17
[2018-06-02 20:39] VITALS: BP 129/83; PULSE 68; RESP 18
[2018-06-02] MEDS ORDERED: SACCHAROMYCES BOULARDII 250 MG CAP PO SCH (21:00)
[2018-06-02] MEDS: traZODone 50 MG TAB PO SCH (21:50)
[2018-06-02] MEDS: SENNA/DOCUSATE NA (8.6MG/50MG) TAB PO SCH (21:50)
[2018-06-03] MEDS: HYDROCODONE/APAP (10/325) TAB PO PRN ×2 (00:18→15:55)
[2018-06-03 02:44] VITALS: BP 112/66; PULSE 107; RESP 18
[2018-06-03] MEDS: METOCLOPRAMIDE 5 MG TAB PO SCH ×2 (05:47→21:46)
[2018-06-03] MEDS: ACETAMINOPHEN 325 MG TAB PO PRN (05:53)
--- NOTE | 2018-06-03 07:15 | CONS ---
Assessment/Plan Assessment/Plan Hospital Course (Demo Recall) 1) perforated duodenal ulcer with peritonitis s/p surgical repair s.aureus is growing from the fluid drained at time of surgery change antibiotics to zyvox/zosyn pt has no hx of MRSA but he is homeless so at higher risk for MRSA get nasal for MRSA 05/20 - cx from surgery has MSSA and GNR d/c zyvox and continue with just zosyn 05/22 - improving continue with zosyn when pt is eating can change to po levo/rifampin to complete his antibiotic course 05/24 - d/c zosyn and start oral levaquin thru 05/26 05/26 - today is last day for his levaquin WBC is almost back to WNL 05/27 - WBC is higher this a.m. but clinically pt is better to d/c levaquin and observe off antibiotics 05/28 - due to elevated WBC, CT abd was ordered and shows a new fluid collection review with radiology and this is accessible by IR and would recommend drainage of this fluid collection and send off for cx start ceftriaxone at this time 05/29 - WBC is better, continue with ceftriaxone pt to get CT guided abd fluid drained, have ordered fluid cell count, glucose, amylase and cx of the fluid (nurse was informed on this) 05/30 - pt got drainage tube placed yesterday a.m. and fluid analysis is c/w infection (low glucose and elevated PMN's) fluid cx is NGTD continue with ceftriaxone 05/31 - drainage from both drains is reducing fluid cx remains NGTD, continue with just ceftriaxone at present when drainage is less than 15cc per day can re-image and verify that catheters can be removed 06/01 - consider repeat CT abd as drainage from YESSI and new drain are 15cc or less over last 24 hours to see if drains can be removed continue with ceftriaxone 06/03 - drains were removed yesterday give dose of ceftriaxone this a.m. and then starting tomorrow to start oral levaquin at 500mg then then following day start 250mg QD thru 06/09 Rx given to nurse to d/c diflucan after today's dose 2) CRI with acute component u/a was benign on admission 05/22 - will reduce dose of zosyn will switch to levaquin soon urine output has improved 05/24 - urine output is ok but creatinine is not decreasing yet (today's chem panel still pending) d/c zosyn and start oral levaquin 05/26 - creatinine has started to decrease but this a.m. labs are still pending 05/27 - improving renal function, slowly 05/31- creatinine went up yesterday if continues to rise may need to d/c beta lactams and restart quinolones 06/01 - creatinine was improved yesterday 06/03 - creatinine stable in mid ' 3) homeless 4)crystal/MJ user but no IVDA by pt's report 5) gout 05/24 - pt c/o of pain to both 1st MTP joints recommend treatment for this 05/27 - toes are better 6) Diarrhea doubt he has c.dif to change antibiotics after today's dose already on probiotic pt did get senekot yesterday, to d/c Consultation Date/Type/Reason Admit Date/Time May 17, 2018 at 16:42 Initial Consult Date 05/19/18 Type of Consult ID Requesting Provider: DANY BERG MD Date/Time of Note DATE: 06/03/18 TIME: 06:59 24 HR Interval Summary Free Text/Dictation pt had drains removed yesterday no N, V pt is having brown loose stools, 2 overnight and 3 during the day yesterday, not smelling no abd cramping Exam/Review of Systems Exam Vitals Vital Signs Date Temp Pulse Resp B/P (MAP) Pulse Ox O2 O2 Flow FiO2 Time Delivery Rate 06/03/18 99.3 107 18 112/66 96 02:44 (81) 05/31/18 Room Air 08:51 Intake and Output 06/02/18 06/02/18 06/03/18 1515:00 23:00 07:00 IntakeIntake Total 710 ml 240 ml 500 ml OutputOutput Total 205 ml BalanceBalance 505 ml 240 ml 500 ml Eyes: nl sclera Respiratory: clear to auscultation Cardiovascular: regular rate and rhythm Gastrointestinal: soft Results Result Diagram: 06/02/18 0820 06/02/18 0820 Results 24hrs Laboratory Tests Test 06/02/18 08:20 White Blood Count 9.7 Red Blood Count 3.04 L Hemoglobin 9.0 L Hematocrit 28.2 L Mean Corpuscular Volume 92.8 Mean Corpuscular Hemoglobin 29.6 Mean Corpuscular Hemoglobin Concent 31.9 L Red Cell Distribution Width 15.5 H Platelet Count 495 H Mean Platelet Volume 9.8 Immature Granulocytes % 1.700 H Neutrophils % 58.1 Lymphocytes % 10.3 L Monocytes % 20.6 H Eosinophils % 8.3 H Basophils % 1.0 Nucleated Red Blood Cells % 0.0 Immature Granulocytes # 0.160 H Neutrophils # 5.6 Lymphocytes # 1.0 Monocytes # 2.0 H Eosinophils # 0.8 H Basophils # 0.1 Nucleated Red Blood Cells # 0.0 Sodium Level 138 Potassium Level 5.2 H Chloride Level 99 Carbon Dioxide Level 26 Anion Gap 13 Blood Urea Nitrogen 57 H Creatinine 3.43 H Est Glomerular Filtrat Rate mL/min 19 L Glucose Level 104 Calcium Level 9.5 Phosphorus Level 6.1 H Magnesium Level 1.8 Medications Medication Current Medications IV Flush (NS 3 ml) 3 ml PER PROTOCOL IV ; Start 05/17/18 at 17:30 Morphine Sulfate (morphine) 2 mg Q4H PRN IV .PAIN 7-10 Last administered on 06/02/18at 21:50; Admin Dose 2 MG; Start 05/17/18 at 17:30 Clotrimazole (Lotrimin Cr) 1 applic BID TOP Last administered on 06/02/18at 21:51; Admin Dose 1 APPLIC; Start 05/18/18 at 21:00 Miscellaneous Information 1 ea NOTE XX ; Start 05/18/18 at 18:00 Glucose (Glutose) 15 gm Q15M PRN PO DECREASED GLUCOSE; Start 05/18/18 at 18:00 Glucose (Glutose) 22.5 gm Q15M PRN PO DECREASED GLUCOSE; Start 05/18/18 at 18:00 Dextrose (D50w Syringe) 25 ml Q15M PRN IV DECREASED GLUCOSE; Start 05/18/18 at 18:00 Dextrose (D50w Syringe) 50 ml Q15M PRN IV DECREASED GLUCOSE Last administered on 05/18/18at 17:58; Admin Dose 50 ML; Start 05/18/18 at 18:00 Glucagon (Glucagen) 1 mg Q15M PRN IM DECREASED GLUCOSE; Start 05/18/18 at 18:00 Glucose (Glutose) 15 gm Q15M PRN BUCCAL DECREASED GLUCOSE; Start 05/18/18 at 18:00 Ammonium Lactate (Lac-Hydrin 12% Lotion) 1 applic DAILY TOP Last administered on 06/02/18 08:03; Admin Dose 1 APPLIC; Start 05/19/18 at 09:00 Ondansetron HCl (Zofran Inj) 4 mg Q4 PRN IV NAUSEA/VOMITING; Start 05/20/18 at 19:00 Enoxaparin Sodium (Lovenox) 30 mg DAILY SC Last administered on 05/28/18 09:45; Admin Dose 30 MG; Start 05/21/18 at 09:00 Bisacodyl (Dulcolax) 10 mg DAILY PRN PO CONSTIPATION Last administered on 05/23/18 13:57; Admin Dose 10 MG; Start 05/20/18 at 19:00 Bisacodyl (Dulcolax Supp) 10 mg Q48H PRN [place] CONSTIPATION; Start 05/20/18 at 19:00 Docusate Sodium (Colace) 100 mg BID PRN PO CONSTIPATION Last administered on 06/01/18 09:00; Admin Dose 100 MG; Start 05/20/18 at 19:00 Acetaminophen/ Hydrocodone Bitart ([place] (10/325)) 1 tab Q6H PRN PO MODERATE PAIN LEVEL 4-6 Last administered on 06/03/18 00:18; Admin Dose 1 TAB; Start 05/20/18 at 19:00 Lorazepam (Ativan) 1 mg Q8H PRN IV AGITATION/ANXIETY Last administered on 05/30/18 15:22; Admin Dose 1 MG; Start 05/22/18 at 15:00 Fluconazole (Diflucan) 200 mg DAILY PO Last administered on 06/02/18 08:03; Admin Dose 200 MG; Start 05/24/18 at 09:00 Famotidine (Pepcid) 20 mg DAILY PO Last administered on 06/02/18 08:03; Admin Dose 20 MG; Start 05/25/18 at 09:00 Senna/Docusate Sodium (Senokot-S) 2 tab HS PO Last administered on 06/02/18 21:50; Admin Dose 2 TAB; Start 05/24/18 at 21:00 Trazodone HCl (Desyrel) 50 mg HS PO Last administered on 06/02/18 21:50; Admin Dose 50 MG; Start 05/25/18 at 21:00 Quetiapine Fumarate (Seroquel) 25 mg BID PO Last administered on 06/02/18 21:50; Admin Dose 25 MG; Start 05/24/18 at 21:00 Allopurinol (Zyloprim) 100 mg DAILY PO Last administered on 06/02/18 08:03; Ad min Dose 100 MG; Start 05/26/18 at 09:00 Metoclopramide HCl (Reglan) 5 mg Q8 PO Last administered on 06/03/18 05:47; Admin Dose 5 MG; Start 05/26/18 at 00:00 Miscellaneous Information (Pending Santyl Order For Wound Care) This patient campo... PRN PRN XX WOUND CARE; Start 05/26/18 at 05:30 Carvedilol (Coreg) 3.125 mg BID PO Last administered on 06/02/18 21:50; Admin Dose 3.125 MG; Start 05/27/18 at 21:00 Ceftriaxone Sodium 50 ml @ 100 mls/hr Q24H IVPB Last administered on 06/02/18 09:51; Admin Dose 100 MLS/HR; Start 05/28/18 at 09:00; Stop 06/03/18 at 20:00 Acetaminophen (Tylenol Tab) 650 mg Q6H PRN PO MILD PAIN(1-3)OR ELEVATED TEMP Last administered on 06/03/18 05:53; Admin Dose 650 MG; Start 06/02/18 at 07:00 Saccharomyces Boulardii (Florastor) 250 mg BID PO Last administered on 06/03/18 00:18; Admin Dose 250 MG; Start 06/02/18 at 21:00 CAREN HARRINGTON MD Jun 03, 2018 07:10
[2018-06-03 08:00] VITALS: BP 102/62; PULSE 90; RESP 18
[2018-06-03] MEDS: ALLOPURINOL 100 MG TAB PO SCH (09:18)
[2018-06-03] MEDS: FLUCONAZOLE 200 MG TAB PO SCH (09:18)
[2018-06-03] MEDS: L ACIDOPHIL/B LACTIS/B LONGUM CAPSULE PO SCH ×2 (09:18→21:27)
[2018-06-03] MEDS: QUETIAPINE 25 MG TAB PO SCH ×2 (09:18→21:27)
[2018-06-03] MEDS: FAMOTIDINE 20 MG TAB PO SCH (09:18)
[2018-06-03] MEDS: AMMONIUM LACTATE 12% 225 GM LOT TOP SCH (09:19)
[2018-06-03] MEDS: CLOTRIMAZOLE 1% 30 GM CR TOP SCH ×2 (09:20→21:34)
--- NOTE | 2018-06-03 09:22 | PN ---
DATE: 06/03/2018 SUBJECTIVE: The patient is stable, no events overnight. OBJECTIVE: VITAL SIGNS: Blood pressure is 102/62, pulse 90, temperature 99.1. HEENT: Head is normocephalic. NECK: Supple. HEART: Regular rate. LUNGS: Show diminished breath sounds at the base. ABDOMEN: Soft, nontender to palpation without rebound or guarding. EXTREMITIES: Negative for clubbing, cyanosis, no edema. DERMATOLOGIC: No rashes. MUSCULOSKELETAL: No joint effusion. NEUROLOGIC: No change in exam. MEDICATIONS: Reviewed. LABORATORY DATA: Shows sodium 134, potassium 4.7, BUN 59, creatinine 3.39. White count 11.0, hemogl obin 8.0, platelet count is 486. ASSESSMENT AND PLAN: 1. Nonoliguric acute kidney injury on top of chronic kidney disease with unknown baseline creatinine . Etiology secondary to acute tubular necrosis. Patient's renal function appears to be stabilizing around a creatinine of 3.4 mg/dL. At this point, continue current treatment plans, supportive care, renally dose all meds. No need for renal replacement therapy at this time. 2. Chronic kidney disease with unknown baseline creatinine. The patient's current acute injury as s tated above. Continue current treatment plan. Continue disease factor modification. 3. Hyponatremia, continue to monitor. 4. Anemia. Monitor hemoglobin and to low cyanosis. 5. Mineral bone disorder. Monitor calcium and phosphorus levels. 6. Intra-abdominal abscess. The patient is status post PEG tube placement and removal. Continue to monitor. 7. Perforated ulcer status post surgical repair. 8. Sepsis. Patient is completing antibiotic course. 9. Encephalopathy, improving. 10. Mild hyperkalemia. Continue to monitor. Dictated By: YUSUF FLORES DO NR/NTS Conf#: [id number] DID#: [id number] CC: GABRIELA HESTER MD;*EndCC*
[2018-06-03] MEDS: CEFTRIAXONE 1 GM/50 ML (PMX) 50 ML IVPB SCH (09:30)
[2018-06-03] MEDS: ENOXAPARIN 30 MG/0.3 ML SYG SC SCH (09:32)
[2018-06-03 14:00] VITALS: BP 102/58; PULSE 87; RESP 18
--- NOTE | 2018-06-03 15:20 | PN ---
Date/Time of Note Date/Time of Note DATE: 06/03/18 TIME: 15:18 Assessment/Plan VTE Prophylaxis Risk score (from Ns)>0 risk: 2 SCD applied (from Ns): No SCD contraindicated: low risk/ambulating Pharmacological prophylaxis: LMWH Lines/Catheters IV Catheter Type (from Nrsg): Saline Lock Urinary Cath still in place: No Assessment/Plan Hospital Course A/P 1. Ac abd stable, sp expl lap. Dickson patch. stable, sp drain/ staple removal; cont skin care 2. Perforated viscus/ulcer, stable 3. Peritonitis, stable finished atbs 4. Substance abuse: Cocaine, meth, tobacco- counseling as appropriate 5. Ftt, stable start PT. agreed to social service assistance. SNF? 6. Schizophrenia, adjusted medical therapy 7. ARF/ ATN stable, treating comorbidities. avoids picc's 8. Peptic ulcer dz, avoid nsaids if feasible. Follow-up on path 9. Bilateral lower ext, ulcers, appreciate podiatry input; for outpt f/u 10. Lt buttock breakdown, cont wound care/ offload/ low air loss mattress 11. Nonadherence; unfortunately be challenging to prevent further comorbidities 12. Anemia 13. Gout 14. Rt abd abscess sp IR guided drain/ drainage. Drain removed. S: 3 Events noted 05/21 feels better, wants food: no distress; some abdominal discomfort but passing gas. No fever cough 05/23: mild abd pain.some flatus 05/24: anxiety, paranoid, wound w some seeping/ bleed. no fever. satya 250 05/25: feels better; no further bleeding from wound 06/03: Eating no fever. May need sniff soon. O:Vss PE No pallor Reg no m/r/g Clear Bs dimin, nt, nd, no RRG No edema Result Diagram: 06/03/18 0641 06/03/18 0641 Results 24hrs Laboratory Tests Test 06/03/18 06:41 White Blood Count 11.0 H Red Blood Count 2.74 L Hemoglobin 8.0 L Hematocrit 24.8 L Mean Corpuscular Volume 90.5 Mean Corpuscular Hemoglobin 29.2 Mean Corpuscular Hemoglobin Concent 32.3 Red Cell Distribution Width 15.7 H Platelet Count 486 H Mean Platelet Volume 10.0 Immature Granulocytes % 1.400 H Neutrophils % 61.0 Lymphocytes % 8.5 L Monocytes % 23.5 H Eosinophils % 4.8 Basophils % 0.8 Nucleated Red Blood Cells % 0.0 Immature Granulocytes # 0.150 H Neutrophils # 6.7 Lymphocytes # 0.9 Monocytes # 2.6 H Eosinophils # 0.5 Basophils # 0.1 Nucleated Red Blood Cells # 0.0 Sodium Level 134 L Potassium Level 4.7 Chloride Level 99 Carbon Dioxide Level 23 Anion Gap 12 Blood Urea Nitrogen 59 H Creatinine 3.39 H Est Glomerular Filtrat Rate mL/min 19 L Glucose Level 92 Calcium Level 9.1 Phosphorus Level 5.6 H Magnesium Level 1.8 Exam/Review of Systems Exam Vitals Vital Signs Date Temp Pulse Resp B/P (MAP) Pulse Ox O2 O2 Flow FiO2 Time Delivery Rate 06/03/18 97.9 87 18 102/58 96 14:00 (73) 05/31/18 Room Air 08:51 Intake and Output 06/02/18 06/02/18 06/03/18 1515:00 23:00 07:00 IntakeIntake Total 710 ml 240 ml 800 ml OutputOutput Total 205 ml BalanceBalance 505 ml 240 ml 800 ml Results Results 24hrs Laboratory Tests Test 06/03/18 06:41 White Blood Count 11.0 H Red Blood Count 2.74 L Hemoglobin 8.0 L Hematocrit 24.8 L Mean Corpuscular Volume 90.5 Mean Corpuscular Hemoglobin 29.2 Mean Corpuscular Hemoglobin Concent 32.3 Red Cell Distribution Width 15.7 H Platelet Count 486 H Mean Platelet Volume 10.0 Immature Granulocytes % 1.400 H Neutrophils % 61.0 Lymphocytes % 8.5 L Monocytes % 23.5 H Eosinophils % 4.8 Basophils % 0.8 Nucleated Red Blood Cells % 0.0 Immature Granulocytes # 0.150 H Neutrophils # 6.7 Lymphocytes # 0.9 Monocytes # 2.6 H Eosinophils # 0.5 Basophils # 0.1 Nucleated Red Blood Cells # 0.0 Sodium Level 134 L Potassium Level 4.7 Chloride Level 99 Carbon Dioxide Level 23 Anion Gap 12 Blood Urea Nitrogen 59 H Creatinine 3.39 H Est Glomerular Filtrat Rate mL/min 19 L Glucose Level 92 Calcium Level 9.1 Phosphorus Level 5.6 H Magnesium Level 1.8 Medications Medication Current Medications IV Flush (NS 3 ml) 3 ml PER PROTOCOL IV ; Start 05/17/18 at 17:30 Morphine Sulfate (morphine) 2 mg Q4H PRN IV .PAIN 7-10 Last administered on at 21:50; Admin Dose 2 MG; Start 05/17/18 at 17:30 Clotrimazole (Lotrimin Cr) 1 applic BID TOP Last administered on 06/03/18at 09:20; Admin Dose 1 APPLIC; Start 05/18/18 at 21:00 Miscellaneous Information 1 ea NOTE XX ; Start 05/18/18 at 18:00 Glucose (Glutose) 15 gm Q15M PRN PO DECREASED GLUCOSE; Start 05/18/18 at 18:00 Glucose (Glutose) 22.5 gm Q15M PRN PO DECREASED GLUCOSE; Start 05/18/18 at 18:00 Dextrose (D50w Syringe) 25 ml Q15M PRN IV DECREASED GLUCOSE; Start 05/18/18 at 18:00 Dextrose (D50w Syringe) 50 ml Q15M PRN IV DECREASED GLUCOSE Last administered on 05/18/18at 17:58; Admin Dose 50 ML; Start 05/18/18 at 18:00 Glucagon (Glucagen) 1 mg Q15M PRN IM DECREASED GLUCOSE; Start 05/18/18 at 18:00 Glucose (Glutose) 15 gm Q15M PRN BUCCAL DECREASED GLUCOSE; Start 05/18/18 at 18:00 Ammonium Lactate (Lac-Hydrin 12% Lotion) 1 applic DAILY TOP Last administered on 06/03/18at 09:19; Admin Dose 1 APPLIC; Start 05/19/18 at 09:00 Ondansetron HCl (Zofran Inj) 4 mg Q4 PRN IV NAUSEA/VOMITING; Start 05/20/18 at 19:00 Enoxaparin Sodium (Lovenox) 30 mg DAILY SC Last administered on 06/03/18at 0 9:32; Admin Dose 30 MG; Start 05/21/18 at 09:00 Bisacodyl (Dulcolax) 10 mg DAILY PRN PO CONSTIPATION Last administered on 05/23/18at 13:57; Admin Dose 10 MG; Start 05/20/18 at 19:00 Bisacodyl (Dulcolax Supp) 10 mg Q48H PRN ND CONSTIPATION; Start 05/20/18 at 19:00 Docusate Sodium (Colace) 100 mg BID PRN PO CONSTIPATION Last administered on 06/01/18 09:00; Admin Dose 100 MG; Start 05/20/18 at 19:00 Acetaminophen/ Hydrocodone Bitart (King (10325)) 1 tab Q6H PRN PO MODERATE PAIN LEVEL 4-6 Last administered on 06/03/18 00:18; Admin Dose 1 TAB; Start 05/20/18 at 19:00 Lorazepam (Ativan) 1 mg Q8H PRN IV AGITATION/ANXIETY Last administered on 05/30/18 15:22; Admin Dose 1 MG; Start 05/22/18 at 15:00 Fluconazole (Diflucan) 200 mg DAILY PO Last administered on 06/03/18 09:18; Admin Dose 200 MG; Start 05/24/18 at 09:00; Stop 06/03/18 at 16:00 Famotidine (Pepcid) 20 mg DAILY PO Last administered on 06/03/18 09:18; Admin Dose 20 MG; Start 05/25/18 at 09:00 Trazodone HCl (Desyrel) 50 mg HS PO Last administered on 06/02/18 21:50; Admin Dose 50 MG; Start 05/25/18 at 21:00 Quetiapine Fumarate (Seroquel) 25 mg BID PO Last administered on 06/03/18 09:18; Admin Dose 25 MG; Start 05/24/18 at 21:00 Allopurinol (Zyloprim) 100 mg DAILY PO Last administered on 06/03/18 09:18; Admin Dose 100 MG; Start 05/26/18 at 09:00 Metoclopramide HCl (Reglan) 5 mg Q8 PO Last administered on 06/03/18 05:47; Admin Dose 5 MG; Start 05/26/18 at 00:00 Miscellaneous Information (Pending Santyl Order For Wound Care) This patient campo... PRN PRN XX WOUND CARE; Start 05/26/18 at 05:30 Carvedilol (Coreg) 3.125 mg BID PO Last administered on 06/02/18 21:50; Admin Dose 3.125 MG; Start 05/27/18 at 21:00 Ceftriaxone Sodium 50 ml @ 100 mls/hr Q24H IVPB Last administered on 06/03/18 09:30; Admin Dose 100 MLS/HR; Start 05/28/18 at 09:00; Stop 06/03/18 at 20:00 Acetaminophen (Tylenol Tab) 650 mg Q6H PRN PO MILD PAIN(1-3)OR ELEVATED TEMP Last administered on 06/03/18at 05:53; Admin Dose 650 MG; Start 06/02/18 at 07:00 Levofloxacin (Levaquin) 500 mg ONCE ONCE PO ; Start 06/04/18 at 07:00; Stop at 07:01 Levofloxacin (Levaquin) 250 mg DAILY@06 PO ; Start 06/04/18 at 06:00 Lactobacillus Acidophilus (Florajen3 Capsule) 1 each BID PO Last administered on 06/03/18at 09:18; Admin Dose 1 EACH; Start 06/03/18 at 09:00 KIMBERLY SALMERON MD Jun 03, 2018 15:20
[2018-06-03 20:05] VITALS: BP 107/63; PULSE 84; RESP 16
[2018-06-03] MEDS: traZODone 50 MG TAB PO SCH (21:32)
[2018-06-03] MEDS: morphine 2 MG INJ IV PRN (21:33)
--- NOTE | 2018-06-03 22:06 | PN ---
Date/Time of Note Date/Time of Note DATE: 06/03/18 TIME: 22:06 Assessment/Plan Lines/Catheters IV Catheter Type (from [facility]): Saline Lock Morgan in Place (from [facility]): No Assessment/Plan Chief Complaint/Hosp Course 1. Perforated duodenal ulcer with peritonitis: Status post plication and Dickson patch May 17, 2018. Worsening leukocytosis -IS -oob/ambulate -ice pack to abdominal wall -diet -YESSI drain -ABX per ID -Local care -CT -borges cx 2. Persistent leukocytosis -As above -Per ID -CT -borges cx 3.CKD with CHERYL: -Limit nephrotoxic meds -Renally dose meds -Per renal 4. Normocytic normochromic anemia: -Monitor and transfuse as needed 5. Illicit drug use: -Highly encourage cessation 6. Homelessness: -Social service follow-up 7. Schizophrenia: -Psychiatric optimization 8. Bilateral lower extremity ulcers: -Per podiatry 9. CHF history: -Cardiac optimization -Illicit drug use cessation Thank you Exam/Review of Systems Vital Signs Vitals Vital Signs Date Temp Pulse Resp B/P (MAP) Pulse Ox O2 O2 Flow FiO2 Time Delivery Rate 06/03/18 98.4 84 16 107/63 98 20:05 (78) 05/31/18 Room Air 08:51 Intake and Output 06/02/18 06/02/18 06/03/18 1414:59 22:59 06:59 IntakeIntake Total 710 ml 240 ml 800 ml OutputOutput Total 205 ml BalanceBalance 505 ml 240 ml 800 ml Results Result Diagram: 06/03/18 0641 06/03/18 0641 RIMA MARIE MD Jun 03, 2018 22:06
[2018-06-04 02:40] VITALS: BP 103/56; PULSE 83; RESP 16
[2018-06-04] MEDS ORDERED: LEVOFLOXACIN 250 MG TAB PO SCH (06:00)
[2018-06-04 07:00] VITALS: BP 119/72; PULSE 89; RESP 16
[2018-06-04] MEDS ORDERED: LEVOFLOXACIN 500 MG TAB PO ONE (07:00)
[2018-06-04] MEDS: QUETIAPINE 25 MG TAB PO SCH ×2 (09:00→21:42)
[2018-06-04] MEDS: L ACIDOPHIL/B LACTIS/B LONGUM CAPSULE PO SCH ×2 (09:14→21:43)
[2018-06-04] MEDS: ALLOPURINOL 100 MG TAB PO SCH (09:19)
[2018-06-04] MEDS: METOCLOPRAMIDE 5 MG TAB PO SCH ×2 (09:19→21:42)
[2018-06-04] MEDS: FAMOTIDINE 20 MG TAB PO SCH (09:19)
[2018-06-04] MEDS: AMMONIUM LACTATE 12% 225 GM LOT TOP SCH (09:21)
[2018-06-04] MEDS: CLOTRIMAZOLE 1% 30 GM CR TOP SCH ×2 (09:21→21:41)
[2018-06-04] MEDS: ENOXAPARIN 30 MG/0.3 ML SYG SC SCH (09:26)
[2018-06-04] MEDS: HYDROCODONE/APAP (10/325) TAB PO PRN (09:50)
--- NOTE | 2018-06-04 10:01 | PN ---
DATE: 06/04/2018 SUBJECTIVE: The patient is stable. No events overnight. OBJECTIVE: VITAL SIGNS: Blood pressure is 119/72, pulse 89, respirations 16, temperature 97.7. HEENT: Head is normocephalic. NECK: Supple. HEART: Regular rate. LUNGS: Show diminished breath sounds at the base. ABDOMEN: Soft, nontender to palpation without rebound or guarding. EXTREMITIES: Negative for clubbing, cyanosis; no edema. DERMATOLOGIC: No rashes. MUSCULOSKELETAL: No joint effusions. NEUROLOGIC: No change in exam. MEDICATIONS: The patient's medications have been reviewed. LABORATORY DATA: Shows a sodium 130, potassium 5.0, BUN 63, creatinine 3.73. White count 10.7, hemo globin 8.9, platelet count is 544. ASSESSMENT AND PLAN: 1. Nonoliguric acute kidney injury on top of chronic kidney disease with unknown baseline creatinine . Etiology secondary to acute tubular necrosis. The patient's renal function appears to be stabiliz ing around creatinine 3.4, now to 3.5 mg/dl. The patient's creatinine has increased overnight. At t his point, would continue current treatment plans, supportive care, renally dose all meds, no immedia te need for renal replacement therapy. Continue to monitor closely. 2. Chronic kidney disease with unknown baseline creatinine. The patient is currently in acute kidne y injury as stated above. Continue current treatment plan. Continue disease factor modification. 3. Hyponatremia, improved. 4. Anemia. Continue to monitor hemoglobin and hematocrit levels. 5. Mineral bone disorder, monitor calcium and phosphorus levels. 6. Intraabdominal abscess. The patient is status post pigtail placement for drainage of abscess, cu rrently removed. Continue to monitor. Continue antibiotic therapy. 7. Perforated ulcer status post-surgical repair. 8. Sepsis. The patient is completing antibiotic course. 9. Encephalopathy, improving. 10. Mild hyperkalemia, resolved. Dictated By: YUSUF BUNN/DALTON Conf#: [id number] DID#: [id number] CC: GABRIELA HESTER MD;*EndCC*
[2018-06-04 14:00] VITALS: BP 97/60; PULSE 85; RESP 18
[2018-06-04 14:16] VITALS: BP 96/62; PULSE 85; RESP 16
--- NOTE | 2018-06-04 14:33 | PN ---
Date/Time of Note Date/Time of Note DATE: 06/04/18 TIME: 14:32 Assessment/Plan VTE Prophylaxis Risk score (from Nsg)>0 risk: 2 SCD applied (from Nsg): No SCD contraindicated: low risk/ambulating Pharmacological prophylaxis: LMWH Lines/Catheters IV Catheter Type (from Nrsg): Saline Lock Urinary Cath still in place: No Assessment/Plan Hospital Course A/P 1. Ac abd stable, sp expl lap. Dickson patch. stable, sp drain/ staple removal; cont skin care 2. Perforated viscus/ulcer, stable 3. Peritonitis, stable finished atbs 4. Substance abuse: Cocaine, meth, tobacco- counseling as appropriate 5. Ftt, stable start PT. agreed to social service assistance. Planned discharge to SNF once bed available 6. Schizophrenia, adjusted medical therapy. Wants to try Abilify? 7. ARF/ ATN stable, treating comorbidities. avoids picc's 8. Peptic ulcer dz, avoid nsaids if feasible. Follow-up on path 9. Bilateral lower ext, ulcers, appreciate podiatry input; for outpt f/u 10. Lt buttock breakdown, cont wound care/ offload/ low air loss mattress 11. Nonadherence; unfortunately be challenging to prevent further comorbidities 12. Anemia 13. Gout 14. Rt abd abscess sp IR guided drain/ drainage. Drain removed. S: 3 Events noted 05/21 feels better, wants food: no distress; some abdominal discomfort but passing gas. No fever cough 05/23: mild abd pain.some flatus 05/24: anxiety, paranoid, wound w some seeping/ bleed. no fever. satya 250 05/25: feels better; no further bleeding from wound 06/03: Eating no fever. May need snf soon. 06/04: No events eating walking with PT. No fever. Concerned about cervical side effects and wants to try abilify. will consult behavioral health O:Vss PE No pallor Reg no m/r/g Clear Bs dimin, nt, nd, no RRG No edema Result Diagram: 06/04/1812 06/04/18611 Results 24hrs Laboratory Tests Test 06/04/18 06:12 White Blood Count 10.7 Red Blood Count 3.06 L Hemoglobin 8.9 L Hematocrit 28.0 L Mean Corpuscular Volume 91.5 Mean Corpuscular Hemoglobin 29.1 Mean Corpuscular Hemoglobin Concent 31.8 L Red Cell Distribution Width 15.7 H Platelet Count 544 H Mean Platelet Volume 9.9 Immature Granulocytes % 1.700 H Neutrophils % 64.1 Lymphocytes % 9.1 L Monocytes % 18.0 H Eosinophils % 6.3 Basophils % 0.8 Nucleated Red Blood Cells % 0.0 Immature Granulocytes # 0.180 H Neutrophils # 6.9 Lymphocytes # 1.0 Monocytes # 1.9 H Eosinophils # 0.7 H Basophils # 0.1 Nucleated Red Blood Cells # 0.0 Sodium Level 138 Potassium Level 5.0 Chloride Level 99 Carbon Dioxide Level 23 Anion Gap 16 H Blood Urea Nitrogen 63 H Creatinine 3.73 H Est Glomerular Filtrat Rate mL/min 17 L Glucose Level 134 # Calcium Level 9.6 Phosphorus Level 6.9 H Magnesium Level 1.9 Total Bilirubin 0.0 L Direct Bilirubin 0.00 Indirect Bilirubin 0.0 Aspartate Amino Transf (AST/SGOT) 61 H Alanine Aminotransferase (ALT/SGPT) 21 Alkaline Phosphatase 606 H Total Protein 8.0 Albumin 3.6 Globulin 4.40 H Albumin/Globulin Ratio 0.81 Exam/Review of Systems Exam Vitals Vital Signs Date Temp Pulse Resp B/P (MAP) Pulse Ox O2 O2 Flow FiO2 Time Delivery Rate 06/04/18 98.2 85 16 96/62 (73) 99 Room Air 14:16 Intake and Output 06/03/18 06/03/18 06/04/18 1515:00 23:00 07:00 IntakeIntake Total 850 ml 440 ml OutputOutput Total 700 ml BalanceBalance 150 ml 440 ml Results Results 24hrs Laboratory Tests Test 06/04/18 06:12 White Blood Count 10.7 Red Blood Count 3.06 L Hemoglobin 8.9 L Hematocrit 28.0 L Mean Corpuscular Volume 91.5 Mean Corpuscular Hemoglobin 29.1 Mean Corpuscular Hemoglobin Concent 31.8 L Red Cell Distribution Width 15.7 H Platelet Count 544 H Mean Platelet Volume 9.9 Immature Granulocytes % 1.700 H Neutrophils % 64.1 Lymphocytes % 9.1 L Monocytes % 18.0 H Eosinophils % 6.3 Basophils % 0.8 Nucleated Red Blood Cells % 0.0 Immature Granulocytes # 0.180 H Neutrophils # 6.9 Lymphocytes # 1.0 Monocytes # 1.9 H Eosinophils # 0.7 H Basophils # 0.1 Nucleated Red Blood Cells # 0.0 Sodium Level 138 Potassium Level 5.0 Chloride Level 99 Carbon Dioxide Level 23 Anion Gap 16 H Blood Urea Nitrogen 63 H Creatinine 3.73 H Est Glomerular Filtrat Rate mL/min 17 L Glucose Level 134 # Calcium Level 9.6 Phosphorus Level 6.9 H Magnesium Level 1.9 Total Bilirubin 0.0 L Direct Bilirubin 0.00 Indirect Bilirubin 0.0 Aspartate Amino Transf (AST/SGOT) 61 H Alanine Aminotransferase (ALT/SGPT) 21 Alkaline Phosphatase 606 H Total Protein 8.0 Albumin 3.6 Globulin 4.40 H Albumin/Globulin Ratio 0.81 Medications Medication Current Medications IV Flush (NS 3 ml) 3 ml PER PROTOCOL IV ; Start 05/17/18 at 17:30 Morphine Sulfate (morphine) 2 mg Q4H PRN IV .PAIN 7-10 Last administered on 06/03/18at 21:33; Admin Dose 2 MG; Start 05/17/18 at 17:30 Clotrimazole (Lotrimin Cr) 1 applic BID TOP Last administered on 06/04/18at 09:21; Admin Dose 1 APPLIC; Start 05/18/18 at 21:00 Miscellaneous Information 1 ea NOTE XX ; Start 05/18/18 at 18:00 Glucose (Glutose) 15 gm Q15M PRN PO DECREASED GLUCOSE; Start 05/18/18 at 18:00 Glucose (Glutose) 22.5 gm Q15M PRN PO DECREASED GLUCOSE; Start 05/18/18 at 18:00 Dextrose (D50w Syringe) 25 ml Q15M PRN IV DECREASED GLUCOSE; Start 05/18/18 at 18:00 Dextrose (D50w Syringe) 50 ml Q15M PRN IV DECREASED GLUCOSE Last administered on 05/18/18at 17:58; Admin Dose 50 ML; Start 05/18/18 at 18:00 Glucagon (Glucagen) 1 mg Q15M PRN IM DECREASED GLUCOSE; Start 05/18/18 at 18:00 Glucose (Glutose) 15 gm Q15M PRN BUCCAL DECREASED GLUCOSE; Start 05/18/18 at 18:00 Ammonium Lactate (Lac-Hydrin 12% Lotion) 1 applic DAILY TOP Last administered on 06/04/18at 09:21; Admin Dose 1 APPLIC; Start 05/19/18 at 09:00 Ondansetron HCl (Zofran Inj) 4 mg Q4 PRN IV NAUSEA/VOMITING; Start 05/20/18 at 19:00 Enoxaparin Sodium (Lovenox) 30 mg DAILY SC Last administered on 06/04/18 09:26; Admin Dose 30 MG; Start 05/21/18 at 09:00 Bisacodyl (Dulcolax) 10 mg DAILY PRN PO CONSTIPATION Last administered on 05/23/18 13:57; Admin Dose 10 MG; Start 05/20/18 at 19:00 Bisacodyl (Dulcolax Supp) 10 mg Q48H PRN OR CONSTIPATION; Start 05/20/18 at 19:00 Docusate Sodium (Colace) 100 mg BID PRN PO CONSTIPATION Last administered on 06/01/18 09:00; Admin Dose 100 MG; Start 05/20/18 at 19:00 Acetaminophen/ Hydrocodone Bitart (Wilkinson (10/325)) 1 tab Q6H PRN PO MODERATE PAIN LEVEL 4-6 Last administered on 06/04/18 09:50; Admin Dose 1 TAB; Start 05/20/18 at 19:00 Lorazepam (Ativan) 1 mg Q8H PRN IV AGITATION/ANXIETY Last administered on 15:22; Admin Dose 1 MG; Start 05/22/18 at 15:00 Famotidine (Pepcid) 20 mg DAILY PO Last administered on 06/04/18 09:19; Admin Dose 20 MG; Start 05/25/18 at 09:00 Trazodone HCl (Desyrel) 50 mg HS PO Last administered on 06/03/18 21:32; Admin Dose 50 MG; Start 05/25/18 at 21:00 Quetiapine Fumarate (Seroquel) 25 mg BID PO Last administered on 06/03/18 21:27; Admin Dose 25 MG; Start 05/24/18 at 21:00 Allopurinol (Zyloprim) 100 mg DAILY PO Last administered on 06/04/18 09:19; Admin Dose 100 MG; Start 05/26/18 at 09:00 [facility]isc[facility] This patient campo... PRN PRN XX WOUND CARE; Start 05/26/18 at 05:30 Carvedilol (Coreg) 3.125 mg BID PO Last administered on 06/04/18 09:19; Admin Dose 3.125 MG; Start 05/27/18 at 21:00 Acetaminophen (Tylenol Tab) 650 mg Q6H PRN PO MILD PAIN(1-3)OR ELEVATED TEMP Last administered on 06/03/18 05:53; Admin Dose 650 MG; Start 06/02/18 at 07:00 Lactobacillus Acidophilus (Florajen3 Capsule) 1 each BID PO Last administered on 06/04/18at 09:14; Admin Dose 1 EACH; Start 06/03/18 at 09:00 Metoclopramide HCl (Reglan) 5 mg BID PO Last administered on 06/04/18at 09:19; Admin Dose 5 MG; Start 06/03/18 at 21:00 Levofloxacin (Levaquin) 250 mg DAILY@06 PO ; Start 06/05/18 at 06:00 KIMBERLY SALMERON MD Jun 04, 2018 14:33
--- NOTE | 2018-06-04 18:20 | PN ---
Date/Time of Note Date/Time of Note DATE: 06/04/18 TIME: 18:17 Assessment/Plan Lines/Catheters [facility] Saline Lock [facility] in [facility] No Assessment/Plan Chief Complaint/Hosp Course 1. Perforated duodenal ulcer with peritonitis: Status post plication and Dickson patch May 17, 2018. Worsening leukocytosis: Ct noted with possible abscess> s/p ir drain -IS -oob/ambulate -ice pack to abdominal wall -diet -ABX per ID -continue local care -Discharge okay from surgical standpoint. Will need follow-up with Dr. Bhatt in 1-2 weeks after discharge. 2. Persistent leukocytosis: Normalized -As above -Per ID 3.CKD with CHERYL: -Limit nephrotoxic meds -Renally dose meds -Per renal 4. Normocytic normochromic anemia: -Monitor and transfuse as needed 5. Illicit drug use: -Highly encourage cessation 6. Homelessness: -Social service follow-up 7. Schizophrenia: -Psychiatric optimization 8. Bilateral lower extremity ulcers: -Per podiatry 9. CHF history: -Cardiac optimization -Illicit drug use cessation 10. Pleural effusion -pulm consult noted -fluid mgt -ambulate 11. Bleeding from surgical site: fibrillar & pressure dsg applied: Resolved -Continue close monitoring Thank you. Patient seen and examined in collaboration with Dr. Robbi Quesada. Subjective 24 Hr Interval Summary Feels well. + Bowel function. No fevers, chills, sob, congested cough, cp, palpitations, campo, dizziness, nausea, vomiting, diarrhea, dysuria. Exam/Review of Systems Vital Signs Vitals Vital Signs Date Temp Pulse Resp B/P (MAP) Pulse Ox O2 O2 Flow FiO2 Time Delivery Rate 06/04/18 98.2 85 16 96/62 (73) 99 Room Air 14:16 Intake and Output 06/03/18 06/03/18 06/04/18 1515:00 23:00 07:00 IntakeIntake Total 850 ml 440 ml OutputOutput Total 700 ml BalanceBalance 150 ml 440 ml Exam Free Text/Dictation Constitutional: alert, oriented Psych: Normal mood Head: normocephalic, atraumatic Eyes: nl conjunctiva, EOMI, nl lids, nl sclera ENMT: nl external ears & nose, nl lips & teeth, mucosa pink and moist Neck: supple, non-tender; No jvd Respiratory: normal air movement; No congested cough, No labored breathing Cardiovascular: regular rate and rhythm, nl pulses; No edema Gastrointestinal: soft, distended (minimal), min tender, incision line dry without drainage/bleeding, Steri-Strips Musculoskeletal: nl gait and stance Extremities: normal pulses Neurological: nl mental status; No nl strength (Generalized weakness) Skin: No rash or lesions Results Result Diagram: 06/04/1861106/04/1812 MARGO ADAMS NP Jun 04, 2018 18:20
[2018-06-04 19:50] VITALS: BP 101/66; PULSE 85; RESP 17
[2018-06-04] MEDS: traZODone 50 MG TAB PO SCH (21:43)
[2018-06-04] MEDS: morphine 2 MG INJ IV PRN (21:44)
[2018-06-05 01:53] VITALS: BP 97/60; PULSE 89; RESP 18
[2018-06-05] MEDS ORDERED: LEVOFLOXACIN 250 MG TAB PO SCH (06:00)
--- NOTE | 2018-06-05 07:17 | CONS ---
Assessment/Plan Assessment/Plan Hospital Course (Demo Recall) 1) perforated duodenal ulcer with peritonitis s/p surgical repair s.aureus is growing from the fluid drained at time of surgery change antibiotics to zyvox/zosyn pt has no hx of MRSA but he is homeless so at higher risk for MRSA get nasal for MRSA 05/20 - cx from surgery has MSSA and GNR d/c zyvox and continue with just zosyn 05/22 - improving continue with zosyn when pt is eating can change to po levo/rifampin to complete his antibiotic course 05/24 - d/c zosyn and start oral levaquin thru 05/26 05/26 - today is last day for his levaquin WBC is almost back to WNL 05/27 - WBC is higher this a.m. but clinically pt is better to d/c levaquin and observe off antibiotics 05/28 - due to elevated WBC, CT abd was ordered and shows a new fluid collection review with radiology and this is accessible by IR and would recommend drainage of this fluid collection and send off for cx start ceftriaxone at this time 05/29 - WBC is better, continue with ceftriaxone pt to get CT guided abd fluid drained, have ordered fluid cell count, glucose, amylase and cx of the fluid (nurse was informed on this) 05/30 - pt got drainage tube placed yesterday a.m. and fluid analysis is c/w infection (low glucose and elevated PMN's) fluid cx is NGTD continue with ceftriaxone 05/31 - drainage from both drains is reducing fluid cx remains NGTD, continue with just ceftriaxone at present when drainage is less than 15cc per day can re-image and verify that catheters can be removed 06/01 - consider repeat CT abd as drainage from YESSI and new drain are 15cc or less over last 24 hours to see if drains can be removed continue with ceftriaxone 06/03 - drains were removed yesterday give dose of ceftriaxone this a.m. and then starting tomorrow to start oral levaquin at 500mg then then following day start 250mg QD thru 06/09 Rx given to nurse to d/c diflucan after today's dose 06/05 - stable on just oral levaquin, continue levaquin at 250mg QD thru 06/09 I will sign off on case, thank you 2) CRI with acute component u/a was benign on admission 05/22 - will reduce dose of zosyn will switch to levaquin soon urine output has improved 05/24 - urine output is ok but creatinine is not decreasing yet (today's chem panel still pending) d/c zosyn and start oral levaquin 05/26 - creatinine has started to decrease but this a.m. labs are still pending 05/27 - improving renal function, slowly 05/31- creatinine went up yesterday if continues to rise may need to d/c beta lactams and restart quinolones 06/01 - creatinine was improved yesterday 06/03 - creatinine stable in mid ' 3) homeless 4)crystal/MJ user but no IVDA by pt's report 5) gout 05/24 - pt c/o of pain to both 1st MTP joints recommend treatment for this 05/27 - toes are better 6) Diarrhea doubt he has c.dif to change antibiotics after today's dose already on probiotic pt did get senekot yesterday, to d/c 06/05 - diarrhea is improved, normal WBC, doubt pt has c.dif Consultation Date/Type/Reason Admit Date/Time May 17, 2018 at 16:42 Initial Consult Date 05/19/18 Type of Consult ID Requesting Provider: DANY BERG MD Date/Time of Note DATE: 06/05/18 TIME: 07:14 24 HR Interval Summary Free Text/Dictation pt states diarrhea is better, more formed and more in control occasional abd cramps appetite remains good no N, V, new joint pains Exam/Review of Systems Exam Vitals Vital Signs Date Temp Pulse Resp B/P (MAP) Pulse Ox O2 O2 Flow FiO2 Time Delivery Rate 06/05/18 98.8 89 18 97/60 (72) 98 01:53 06/04/18 Room Air 14:16 Intake and Output 06/04/18 06/04/18 06/05/18 1515:00 23:00 07:00 IntakeIntake Total 480 ml BalanceBalance 480 ml Constitutional: alert Eyes: nl sclera ENMT: mucosa pink and moist Respiratory: clear to auscultation Cardiovascular: regular rate and rhythm Gastrointestinal: soft, non-tender Results Result Diagram: 06/04/1861106/04/18611 Medications Medication Current Medications IV Flush (NS 3 ml) ml PER PROTOCOL IV ; Start 05/17/18 at 17:30 Morphine Sulfate (morphine) 2 mg Q4H PRN IV .PAIN 7-10 Last administered on 06/04/18at 21:44; Admin Dose 2 MG; Start 05/17/18 at 17:30 Clotrimazole (Lotrimin Cr) 1 applic BID TOP Last administered on 06/04/18at 21:41; Admin Dose 1 APPLIC; Start 05/18/18 at 21:00 Miscellaneous Information 1 ea NOTE XX ; Start 05/18/18 at 18:00 Glucose (Glutose) 15 gm Q15M PRN PO DECREASED GLUCOSE; Start 05/18/18 at 18:00 Glucose (Glutose) 22.5 gm Q15M PRN PO DECREASED GLUCOSE; Start 05/18/18 at 18:00 Dextrose (D50w Syringe) 25 ml Q15M PRN IV DECREASED GLUCOSE; Start 05/18/18 at 18:00 Dextrose (D50w Syringe) 50 ml Q15M PRN IV DECREASED GLUCOSE Last administered on 05/18/18at 17:58; Admin Dose 50 ML; Start 05/18/18 at 18:00 Glucagon (Glucagen) 1 mg Q15M PRN IM DECREASED GLUCOSE; Start 05/18/18 at 18:00 Glucose (Glutose) 15 gm Q15M PRN BUCCAL DECREASED GLUCOSE; Start 05/18/18 at 18:00 Ammonium Lactate (Lac-Hydrin 12% Lotion) 1 applic DAILY TOP Last administered on 06/04/18at 09:21; Admin Dose 1 APPLIC; Start 05/19/18 at 09:00 Ondansetron HCl (Zofran Inj) 4 mg Q4 PRN IV NAUSEA/VOMITING; Start 05/20/18 at 19:00 Enoxaparin Sodium (Lovenox) 30 mg DAILY SC Last administered on 06/04/18 09:26; Admin Dose 30 MG; Start 05/21/18 at 09:00 Bisacodyl (Dulcolax) 10 mg DAILY PRN PO CONSTIPATION Last administered on 05/23/18at 13:57; Admin Dose 10 MG; Start 05/20/18 at 19:00 Bisacodyl (Dulcolax Supp) 10 mg Q48H PRN [place] CONSTIPATION; Start 05/20/18 at 19:00 Docusate Sodium (Colace) 100 mg BID PRN PO CONSTIPATION Last administered on 06/01/18 09:00; Admin Dose 100 MG; Start 05/20/18 at 19:00 Acetaminophen/ Hydrocodone Bitart ([place] (10/325)) 1 tab Q6H PRN PO MODERATE PAIN LEVEL 4-6 Last administered on 06/04/18 09:50; Admin Dose 1 TAB; Start 05/20/18 at 19:00 Lorazepam (Ativan) 1 mg Q8H PRN IV AGITATION/ANXIETY Last administered on 05/30/18 15:22; Admin Dose 1 MG; Start 05/22/18 at 15:00 Famotidine (Pepcid) 20 mg DAILY PO Last administered on 06/04/18 09:19; Admin Dose 20 MG; Start 05/25/18 at 09:00 Trazodone HCl (Desyrel) 50 mg HS PO Last administered on 06/04/18 21:43; Admin Dose 50 MG; Start 05/25/18 at 21:00 Quetiapine Fumarate (Seroquel) 25 mg BID PO Last administered on 06/04/18 21:4 2; Admin Dose 25 MG; Start 05/24/18 at 21:00 Allopurinol (Zyloprim) 100 mg DAILY PO Last administered on 06/04/18 09:19; Admin Dose 100 MG; Start 05/26/18 at 09:00 Miscellaneous Information (Pending Santyl Order For Wound Care) This patient campo... PRN PRN XX WOUND CARE; Start 05/26/18 at 05:30 Carvedilol (Coreg) 3.125 mg BID PO Last administered on 06/04/18 21:43; Admin Dose 3.125 MG; Start 05/27/18 at 21:00 Acetaminophen (Tylenol Tab) 650 mg Q6H PRN PO MILD PAIN(1-3)OR ELEVATED TEMP Last administered on 06/03/18 05:53; Admin Dose 650 MG; Start 06/02/18 at 07:00 Lactobacillus Acidophilus (Florajen3 Capsule) 1 each BID PO Last administered on 06/04/18 21:43; Admin Dose 1 EACH; Start 06/03/18 at 09:00 Metoclopramide HCl (Reglan) 5 mg BID PO Last administered on 06/04/18at 21:42; Admin Dose 5 MG; Start 06/03/18 at 21:00 Levofloxacin (Levaquin) 250 mg DAILY@06 PO Last administered on 06/05/18at 06:31; Admin Dose 250 MG; Start 06/05/18 at 06:00 CAREN HARRINGTON MD Jun 05, 2018 07:17
[2018-06-05 08:00] VITALS: BP 113/72; PULSE 84; RESP 18
[2018-06-05] MEDS: FAMOTIDINE 20 MG TAB PO SCH (08:57)
[2018-06-05] MEDS: QUETIAPINE 25 MG TAB PO SCH (08:58)
[2018-06-05] MEDS: L ACIDOPHIL/B LACTIS/B LONGUM CAPSULE PO SCH (08:58)
[2018-06-05] MEDS: METOCLOPRAMIDE 5 MG TAB PO SCH (08:58)
[2018-06-05] MEDS: ALLOPURINOL 100 MG TAB PO SCH (08:58)
--- NOTE | 2018-06-05 09:05 | PN ---
DATE: 06/05/2018 SUBJECTIVE: The patient has been stable. No events overnight. No fevers, chills, nausea, vomiting. OBJECTIVE: VITAL SIGNS: Blood pressure is 113/72, respiration 18, pulse 84, temperature 98.4. HEENT: Head is normocephalic. NECK: Supple. HEART: Regular rate. LUNGS: Show diminished breath sounds at the base. ABDOMEN: Soft, nontender to palpation without rebound or guarding. EXTREMITIES: Negative for clubbing, cyanosis. Trace edema. DERMATOLOGIC: No rashes. MUSCULOSKELETAL: No joint effusion. NEUROLOGIC: No change in exam. MEDICATIONS: Reviewed. LABORATORY DATA: From 06/04/2018 was reviewed. Laboratory data from 06/05/2018 is pending. ASSESSMENT AND PLAN: 1. Nonoliguric acute kidney injury on top of chronic kidney disease with unknown baseline creatinine . Etiology of acute kidney injury is secondary to acute tubular necrosis. The patient's renal funct ion initially improved and appeared to have stabilized around a creatinine of 3.4 to 3.5 mg/dL. Montoya sabrina, the patient's renal function the previous 24 hours was declining. Plan is to follow up renal pa travis today. If renal function is worse, will give the patient a gentle fluid challenge. Will monitor closely. No immediate need for renal replacement therapy at this time. 2. Chronic kidney disease with unknown baseline creatinine. The patient is currently in acute kidne y injury as stated above. Continue current treatment plan, disease factor modification. 3. Hypernatremia, improved. Continue to monitor. 4. Anemia. Monitor hemoglobin and hematocrit levels. 5. Mineral bone disorder. Monitor calcium and phosphorus levels. 6. Intraabdominal abscess, status post pigtail placement with drainage. Continue to monitor. Irais nue antibiotic therapy. 7. Perforated ulcer status post surgical repair. 8. Sepsis. The patient is completing antibiotic course. 9. Encephalopathy, improving. 10. Mild hyperkalemia, resolved. Dictated By: YUSUF FLORES DO NR/NTS Conf#: [id number] DID#: [id number] CC: GABRIELA HESTER MD;*EndCC*
[2018-06-05] MEDS: ENOXAPARIN 30 MG/0.3 ML SYG SC SCH (09:07)
[2018-06-05] MEDS: CLOTRIMAZOLE 1% 30 GM CR TOP SCH (09:11)
[2018-06-05] MEDS: AMMONIUM LACTATE 12% 225 GM LOT TOP SCH (09:11)
[2018-06-05] MEDS: HYDROCODONE/APAP (10/325) TAB PO PRN (10:12)
--- NOTE | 2018-06-05 12:17 | PN ---
Date/Time of Note Date/Time of Note DATE: 06/05/18 TIME: 12:16 Assessment/Plan Lines/Catheters IV Catheter Type (from [facility]): Saline Lock [place] in Place (from [facility]): No Assessment/Plan Chief Complaint/Hosp Course 1. Perforated duodenal ulcer with peritonitis: Status post plication and Dickson patch May 17, 2018. Worsening leukocytosis: Ct noted with possible abscess> s/p ir drain -IS -oob/ambulate -ice pack to abdominal wall -diet -ABX per ID -continue local care -Discharge okay from surgical standpoint. Will need follow-up with Dr. Bhatt in 1-2 weeks after discharge. 2. Persistent leukocytosis: Normalized -As above -Per ID 3.CKD with CHERYL: -Limit nephrotoxic meds -Renally dose meds -Per renal 4. Normocytic normochromic anemia: -Monitor and transfuse as needed 5. Illicit drug use: -Highly encourage cessation 6. Homelessness: -Social service follow-up 7. Schizophrenia: -Psychiatric optimization 8. Bilateral lower extremity ulcers: -Per podiatry 9. CHF history: -Cardiac optimization -Illicit drug use cessation 10. Pleural effusion -pulm consult noted -fluid mgt -ambulate 11. Bleeding from surgical site: fibrillar & pressure dsg applied: Resolved -Continue close monitoring Thank you. Patient seen and examined in collaboration with Dr. Robbi Quesada. Subjective 24 Hr Interval Summary Feels well. Placement pending. No fevers, chills, sob, congested cough, cp, palpitations, campo, dizziness, nausea, vomiting, diarrhea, dysuria. Exam/Review of Systems Vital Signs Vitals Vital Signs Date Temp Pulse Resp B/P (MAP) Pulse Ox O2 O2 Flow FiO2 Time Delivery Rate 06/05/18 98.4 84 18 113/72 99 08:00 (86) 06/04/18 Room Air 14:16 Intake and Output 06/04/18 06/04/18 06/05/18 1515:00 23:00 07:00 IntakeIntake Total 480 ml BalanceBalance 480 ml Exam Free Text/Dictation Constitutional: alert, oriented Psych: Normal mood Head: normocephalic, atraumatic Eyes: nl conjunctiva, EOMI, nl lids, nl sclera ENMT: nl external ears & nose, nl lips & teeth, mucosa pink and moist Neck: supple, non-tender; No jvd Respiratory: normal air movement; No congested cough, No labored breathing Cardiovascular: regular rate and rhythm, nl pulses; No edema Gastrointestinal: soft, distended (minimal), min tender, incision line dry without drainage/bleeding, Steri-Strips Musculoskeletal: nl gait and stance Extremities: normal pulses Neurological: nl mental status; No nl strength (Generalized weakness) Skin: No rash or lesions Results Result Diagram: 06/04/18 0612 06/05/18 [id number] MARGO ADAMS NP Jun 05, 2018 12:17
--- NOTE | 2018-06-05 12:38 | DS ---
Date/Time of Note Date/Time of Note DATE: 06/05/18 TIME: 12:24 Discharge Summary Admission/Discharge Info Admit Date/Time May 17, 2018 at 16:42 Discharge Date/Time Patient Condition: Stable Consults [facility] Procedures KUB/chest x-ray showing free air 05/17 CT A/P IMPRESSION: 1. Pneumoperitoneum consistent with bowel perforation. Site of perforation is unclear. Scattered upper abdominal peritoneal flecks of high-density material which is also seen in the cecum suggesting a possible colonic perforation. 2. Moderate ascites. 3. Wall thickening of the gastric antrum and multiple small bowel loops. Question gastritis/enteritis. 4. Severe cardiomegaly. 5. Possible mild cirrhotic changes of the liver. Renal ultrasound IMPRESSION: Echogenic appearance of the kidneys, representing medical renal disease. No hydronephrosis. Small amount of scattered ascites. [place] ultrasound bilateral lower extremities IMPRESSION: Monophasic waveforms in the right DP. Otherwise unremarkable. 05/27 CT abdomen and pelvis without contrast. CT abdomen Visualized lung bases: Bilateral pleural effusions, right larger than left. Passive atelectasis and subsegmental atelectasis left and right lower lobes. Enlarged heart. No significant pericardial effusion. Liver: Limited evaluation without IV contrast. No gross lesion. Gallbladder and bile ducts: No calcified gallstones or pericholecystic fluid. No biliary ductal dilatation. Spleen: Normal appearance. Pancreas: Atrophic pancreas. No mass or ductal dilatation. Adrenal glands: Normal appearance. Kidneys: No hydronephrosis. Punctate nonobstructing left upper pole renal stone. Vasculature: No abdominal aortic aneurysm. Calcified plaque present. Negative IVC. Lymph nodes: No adenopathy. GI: No hiatal hernia. No evidence of obstruction or bowel wall thickening. Previous gastric wall thickening and no longer identified. Peritoneal cavity: Intraperitoneal drainage catheter. Catheter tip enters the right anterior abdominal wall terminates in the anterior left upper quadrant. 2.7 x 4.2 by 2.2 cm complex low attenuation collection with gas noted inferior to the left hepatic lobe. The internal catheter runs along the inferior aspect of this collection. This collection is new and is suspicious for a subhepatic abscess. Free fluid is present in the pericolic gutters and throughout the mesentery. No free air identified. Abdominal wall: Skin edgardo from previous laparotomy. Material with increased attenuation in the subcutaneous fat and deep to the skin edgardo, likely representing hemorrhage. Diffuse soft tissue reticulation throughout the subcutaneous fat of the abdomen, new. CT pelvis GI: The terminal and what may be the appendix are unremarkable. Sigmoid diverticulosis. Negative rectum. : Partially filled urinary bladder with urinary bladder wall thickening. Negative prostate gland. Normal appearing distal ureters. Peritoneal cavity: Small to moderate pelvic ascites. Lymph nodes: No adenopathy. Osseous structures: No lytic or blastic lesions. IMPRESSION: 1. 2.7 x 4.2 x 2.2 cm complex low attenuation collection containing a small amount of gas inferior to the left hepatic lobe, suspicious for subhepatic abscess. This collection was not present on the 05/17/2018 exam. 2. New bilateral pleural effusions, right larger than left with passive and subsegmental atelectasis at the lung bases. 3. Cardiomegaly. 4. Atrophic pancreas. 5. Free fluid in the abdomen and pelvis. No free air demonstrated. 6. Probable collections of blood in the subcutaneous fat of the midline of the anterior abdominal wall, deep to skin edgardo from recent laparotomy. CT A/P 05/[address]-guided drainage and drain placement of an intra-abdominal fluid collection. Hx of Present Illness 57-year-old gentleman admitted with acute abdomen peripheral bowel Hospital Course Hospitalist coverage/hospital course Admitted with acute abdomen perforated bowel. Seen by general surgery and und erwent urgent exploratory laparotomy. Likely perforated viscus ulcer. Presently tolerating diet stable and fit for discharge to follow-up with surgery. Drains have been removed. Additionally treated for peritonitis. Patient is finishing antibiotics. Patient required 2 or 3 drain placement by IR for draining abscess. Presently all drains are out and he stable and healing with conservative management. Stable and fit for discharge. Discharge to recuperative care. Needs behavioral health and follow-ups. Seen by podiatry for lower extremity heel disease. Does not require acute intervention. May follow-up with podiatry/ [facility] as an outpatient. Initially seen by nephrology for renal failure. Did not require dialysis. Creatinine about 3.4-3.5. His new baseline. No evidence of uremia fluid overload etc. I gave him instructions to check blood work every Sunday and to have it faxed to his primary and nephrology. A/P 1. Ac abd stable, sp expl lap. Dickson patch. stable, sp drain/ staple removal; cont skin care 2. Perforated viscus/ulcer, stable 3. Peritonitis, stable finished atbs 4. Substance abuse: Cocaine, meth, tobacco- counseling as appropriate 5. Ftt, stable start PT. agreed to social service assistance. dc to SNF 6. Schizophrenia, adjusted medical therapy. Wants to try Abilify? 7. ARF/ ATN stable, treating comorbidities. avoids picc's 8. Peptic ulcer dz, avoid nsaids if feasible. Follow-up on path 9. Bilateral lower ext, ulcers, appreciate podiatry input; for outpt f/u 10. Lt buttock breakdown, cont wound care/ offload/ low air loss mattress 11. Nonadherence; unfortunately be challenging to prevent further comorbidities 12. Anemia 13. Gout 14. Rt abd abscess sp IR guided drain/ drainage. Drain removed. Finish L evaquin 06/09 S: 05/20 Events noted 05/21 feels better, wants food: no distress; some abdominal discomfort but passing gas. No fever cough 05/23: mild abd pain.some flatus 05/24: anxiety, paranoid, wound w some seeping/ bleed. no fever. satya 250 05/25: feels better; no further bleeding from wound 06/03: Eating no fever. May need snf soon. 06/04: No events eating walking with PT. No fever. Concerned about seroquel side effects and wants to try abilify. consulted behavioral health Home Meds Reported Medications Colchicine (Mitigare) 0.6 Mg Capsule, 0.6 MG PO BID, CAP NOT STARTED YET (NEW PRESCRIPTION) 05/17/18 Acetaminophen* (Acetaminophen*) 500 MG Extra Strength Tablet, 1000 MG PO Q3H PRN for PAIN AND OR ELEVATED TEMP, TAB 05/17/18 Allopurinol* (Allopurinol*) 100 Mg Tablet, 100 MG PO DAILY, TAB 05/17/18 Furosemide* (Furosemide*) 40 Mg Tablet, 40 MG PO DAILY, TAB 05/17/18 Primary Care Provider Care Physician No Primary Time spent on discharge: > 30 minutes Pending Labs Laboratory Tests Test 06/05/18 10:47 Sodium Level 135 mmol/L (135-144) Potassium Level 5.3 mmol/L (3.5-5.1) Chloride Level 98 mmol/L (97-110) Carbon Dioxide Level 20 mmol/L (21-31) Anion Gap 17 (5-13) Blood Urea Nitrogen 68 mg/dl (7-20) Creatinine 4.02 mg/dl (0.61-1.24) Est Glomerular Filtrat Rate mL/min 16 mL/min (>60) Glucose Level 91 mg/dl (70-220) Calcium Level 9.2 mg/dl (8.4-10.2) Phosphorus Level 6.1 mg/dl (2.5-4.9) Magnesium Level 1.8 mg/dl (1.7-2.5) KIMBERLY SALMERON MD Jun 05, 2018 12:37
--- NOTE | 2018-06-05 12:39 | PDOCDIS ---
Discharge Instructions CONDITION [id number] Patient Condition: [id number] Stable HOME CARE INSTRUCTIONS: [id number] Diet Instructions: [id number] Regular ACTIVITY: [id number] Activity Restrictions: [id number] Slowly Increase Activity Avoid heavy lifting FOLLOW UP/APPOINTMENTS Follow-up Plan Dr Bhatt 1wk' Dr Robbins 2wk Dr Avery 2wks Dr Burton 2-3wks KIMBERLY SALMERON MD Jun 05, 2018 12:39
[2018-06-05] MEDS ORDERED: LACHYD12 TOP (12:44)
[2018-06-05] MEDS ORDERED: DOCU-144 PO (12:44)
[2018-06-05] MEDS ORDERED: L.AC460C PO (12:44)
[2018-06-05] MEDS ORDERED: FAMO20TA18 PO (12:44)
[2018-06-05] MEDS ORDERED: ALLO100T PO (12:44)
[2018-06-05] MEDS ORDERED: HYDR-3609 PO (12:44)
[2018-06-05] MEDS ORDERED: ACET325T33 PO (12:44)
[2018-06-05] MEDS ORDERED: QUET25TA33 PO (12:44)
[2018-06-05] MEDS ORDERED: LEVO250T9 PO (12:44)
[2018-06-05] MEDS ORDERED: COLC0.6C3 PO (12:44)
[2018-06-05] MEDS ORDERED: TRA50 PO (12:44)
[2018-06-05] MEDS ORDERED: CLO15CR1 TOP (12:44)
[2018-06-05] MEDS ORDERED: CARV3.1260 PO (12:44)
[2018-06-05 14:00] VITALS: BP 127/75; PULSE 86; RESP 18
== END 2018-06-05 15:10 | disposition home health service (06) | DRG 853 ==
LOC: E/R 12:09 → REC 16:42 → ICU 23:58 → MS1 05-19 15:37 → 5EC 05-20 22:46
PROVIDERS: ADMIT Internal Medicine; ATTEND Internal Medicine
PROC: 0W9G0ZZ Drainage of Peritoneal Cavity, Open Approach (ICD-10-PCS; 2018-05-17)
PROC: 0DU907Z Supplement Duodenum with Autologous Tissue Substitute, Open Approach (ICD-10-PCS; principal; 2018-05-17 19:00)
PROC: 30233N1 Transfusion of Nonautologous Red Blood Cells into Peripheral Vein, Percutaneous Approach (ICD-10-PCS; 2018-05-18)
PROC: 0HBRXZZ Excision of Toe Nail, External Approach (ICD-10-PCS; 2018-05-18)
PROC: 0W9G30Z Drainage of Peritoneal Cavity with Drainage Device, Percutaneous Approach (ICD-10-PCS; 2018-05-29)
DX: A41.9 Sepsis, unspecified organism (principal); K65.9 Peritonitis, unspecified; K26.5 Chronic or unspecified duodenal ulcer with perforation; G93.41 Metabolic encephalopathy; N17.0 Acute kidney failure with tubular necrosis; K65.1 Peritoneal abscess; I13.0 Hypertensive heart and chronic kidney disease with heart failure and stage 1 through stage 4 chronic kidney disease, or unspecified chronic kidney disease; E87.2 Acidosis; E87.0 Hyperosmolality and hypernatremia; I42.9 Cardiomyopathy, unspecified; J90 Pleural effusion, not elsewhere classified; L97.428 Non-pressure chronic ulcer of left heel and midfoot with other specified severity; B95.61 Methicillin susceptible Staphylococcus aureus infection as the cause of diseases classified elsewhere; B35.1 Tinea unguium; D64.9 Anemia, unspecified; E87.5 Hyperkalemia; E78.5 Hyperlipidemia, unspecified; F17.200 Nicotine dependence, unspecified, uncomplicated; F32.9 Major depressive disorder, single episode, unspecified; F20.9 Schizophrenia, unspecified; F14.10 Cocaine abuse, uncomplicated; F15.10 Other stimulant abuse, uncomplicated; I50.9 Heart failure, unspecified; I27.20 Pulmonary hypertension, unspecified; L84 Corns and callosities; M10.9 Gout, unspecified; N18.9 Chronic kidney disease, unspecified; R62.7 Adult failure to thrive; Z59.0 Homelessness; Z68.25 Body mass index [BMI] 25.0-25.9, adult
CPT/HCPCS: 36415; 36430; 36600; 71045; 74176; 76705; 76775; 77012; 80048; 80053; 80061; 80307; 81001; 81003; 82043; 82150; 82803; 82945; 82962; 83036; 83605; 83690; 83735; 83880; 84100; 84145; 84155; 84300; 84443; 84484; 84560; 85014; 85018; 85025; 85610; 85730; 86140; 86850; 86900; 86901; 86920; 87040; 87070; 87075; 87086; 87102; 87116; 89051; 93005; 93306; 93922; 96374; 96375; 97110; 97116; 97162; 97530; C1729; C9113; J0610; J0690; J0696; J1650; J1815; J1885; J2060; J2185; J2250; J2270; J2405; J2543; J2710; J2765; J2795; J3010; J7030; J7040; J7042; P9016; P9045; P9047; Q9967